=== PATIENT | male | born 1940 | race Caucasian/White ===

== ENCOUNTER 2016-12-10 06:33 | Inpatient (IN) | payer MEDICARE, BC ==
[2016-12-10] MEDS ORDERED: IBUPROFEN 600 MG TAB PO STA (07:17)
[2016-12-10] MEDS ORDERED: ACETAMINOPHEN TAB 500 MG TAB PO STA (07:17)
--- NOTE | 2016-12-10 07:20 | ED ---
General Adult HPI - General Chief complaint: Shortness of Breath Stated complaint: SOB Time Seen by Provider: 12/10/16 07:00 Source: patient, family, RN notes reviewed Mode of arrival: ambulatory Limitations: no limitations - History of Present Illness Initial comments: Patient is a pleasant 76-year-old male presenting to the emergency department with difficulty in breathing. Onset was through the night. Patient has cough with frequent clear sputum. Patient was unaware fever. No history of lung disease. No history of atrial fibrillation or CHF. No leg swelling. Symptoms have progressed. - Related Data Home Medications Medication Instructions Recorded Confirmed Lisinopril-Hctz 10-12.5 mg 1 tab PO DAILY 12/10/16 12/10/16 [Zestoretic 10-12.5] Simvastatin [Zocor] 20 mg PO HS 12/10/16 12/10/16 Allergies Allergy/AdvReac Type Severity Reaction Status Date / Time No Known Allergies Allergy Verified 12/10/16 07:50 Review of Systems ROS Statement: Those systems with pertinent positive or pertinent negative responses have been documented in the HPI. ROS Other: All systems not noted in ROS Statement are negative. Constitutional: Reports: weakness Eyes: Denies: eye pain ENT: Denies: ear pain Respiratory: Reports: cough, dyspnea Cardiovascular: Denies: chest pain Endocrine: Reports: fatigue Gastrointestinal: Denies: abdominal pain Genitourinary: Denies: dysuria Musculoskeletal: Denies: back pain Skin: Denies: lesions Neurological: Denies: headache Past Medical History Past Medical History: Hyperlipidemia, Hypertension History of Any Multi-Drug Resistant Organisms: None Reported Additional Past Surgical History / Comment(s): brain tumor removed Past Psychological History: No Psychological Hx Reported Smoking Status: Former smoker Past Alcohol Use History: Occasional Past Drug Use History: None Reported General Exam Limitations: no limitations General appearance: alert Head exam: Present: atraumatic Eye exam: Present: normal appearance, PERRL ENT exam: Present: normal oropharynx Neck exam: Present: normal inspection Respiratory exam: Present: rales Cardiovascular Exam: Present: tachycardia, irregular rhythm GI/Abdominal exam: Present: soft. Absent: tenderness Extremities exam: Present: normal inspection. Absent: pedal edema, calf tenderness Back exam: Present: normal inspection Neurological exam: Present: alert Psychiatric exam: Present: normal affect, normal mood Skin exam: Present: normal color Course Vital Signs 12/10/16 12/10/16 12/10/16 06:36 07:29 08:07 Temperature 104.1 F H 100.8 F H Pulse Rate 105 H 157 H 146 H Respiratory 20 18 Rate Blood Pressure 147/69 157/81 O2 Sat by Pulse 88 L 94 L Oximetry - Reevaluation(s) Reevaluation #1: 12/10/16 08:33 Patient does meet severe sepsis criteria diagnosed at 8:33 AM. EKG Findings - EKG Comments: EKG Findings:: A. fib with RVR, rate 142. QRS 92. QT 288. QTC 443. Normal axis. Septal Q waves. Nonspecific ST-T. Medical Decision Making - Medical Decision Making Patient was reevaluated and updated. Heart rate remains elevated as fever starts to improve. Cardizem will be started. Case was discussed in detail with Dr. De La O, who will admit for Dr. Nava. Cardiology will be consult. Patient has been started on IV antibiotics. Admission orders written. - Lab Data Result diagrams: 12/10/16 06:56 12/10/16 06:56 Lab Results 12/10/16 12/10/16 12/10/16 Range/Units 06:56 06:56 06:56 WBC 11.9 H (3.8-10.6) k/uL RBC 5.07 (4.30-5.90) m/uL Hgb 15.2 (13.0-17.5) gm/dL Hct 44.7 (39.0-53.0) % MCV 88.0 (80.0-100.0) fL MCH 30.0 (25.0-35.0) pg MCHC 34.1 (31.0-37.0) g/dL RDW 13.9 (11.5-15.5) % Plt Count 166 (150-450) k/uL Neutrophils % 89 % Lymphocytes % 7 % Monocytes % 3 % Eosinophils % 0 % Basophils % 0 % Neutrophils # 10.6 H (1.3-7.7) k/uL Lymphocytes # 0.8 L (1.0-4.8) k/uL Monocytes # 0.3 (0-1.0) k/uL Eosinophils # 0.0 (0-0.7) k/uL Basophils # 0.0 (0-0.2) k/uL PT (9.0-12.0) sec INR (<1.1) APTT (22.0-30.0) sec Sodium 138 (137-145) mmol/L Potassium 4.9 (3.5-5.1) mmol/L Chloride 100 (98-107) mmol/L Carbon Dioxide 24 (22-30) mmol/L Anion Gap 14 mmol/L BUN 34 H (9-20) mg/dL Creatinine 1.19 (0.66-1.25) mg/dL Est GFR (MDRD) Af Amer >60 (>60 ml/min/1.73 sqM) Est GFR (MDRD) Non-Af 59 (>60 ml/min/1.73 sqM) Glucose 169 H (74-99) mg/dL Plasma Lactic Acid Efrem (0.7-2.0) mmol/L Calcium 9.8 (8.4-10.2) mg/dL Magnesium 1.6 (1.6-2.3) mg/dL Total Bilirubin 1.5 H (0.2-1.3) mg/dL AST 25 (17-59) U/L ALT 37 (21-72) U/L Alkaline Phosphatase 106 (38-126) U/L Total Creatine Kinase 142 (55-170) U/L CK-MB (CK-2) 1.7 (0.0-2.4) ng/mL CK-MB (CK-2) Rel Index 1.2 Troponin I 0.015 (0.000-0.034) ng/mL NT-Pro-B Natriuret Pep pg/mL Total Protein 7.8 (6.3-8.2) g/dL Albumin 4.3 (3.5-5.0) g/dL TSH 0.802 (0.465-4.680) mIU/L Free T4 0.87 (0.78-2.19) ng/dL 12/10/16 12/10/16 12/10/16 Range/Units 06:56 06:56 06:56 WBC (3.8-10.6) k/uL RBC (4.30-5.90) m/uL Hgb (13.0-17.5) gm/dL Hct (39.0-53.0) % MCV (80.0-100.0) fL MCH (25.0-35.0) pg MCHC (31.0-37.0) g/dL RDW (11.5-15.5) % Plt Count (150-450) k/uL Neutrophils % % Lymphocytes % % Monocytes % % Eosinophils % % Basophils % % Neutrophils # (1.3-7.7) k/uL Lymphocytes # (1.0-4.8) k/uL Monocytes # (0-1.0) k/uL Eosinophils # (0-0.7) k/uL Basophils # (0-0.2) k/uL PT 11.7 (9.0-12.0) sec INR 1.2 (<1.1) APTT 22.4 (22.0-30.0) sec Sodium (137-145) mmol/L Potassium (3.5-5.1) mmol/L Chloride (98-107) mmol/L Carbon Dioxide (22-30) mmol/L Anion Gap mmol/L BUN (9-20) mg/dL Creatinine (0.66-1.25) mg/dL Est GFR (MDRD) Af Amer (>60 ml/min/1.73 sqM) Est GFR (MDRD) Non-Af (>60 ml/min/1.73 sqM) Glucose (74-99) mg/dL Plasma Lactic Acid Efrem 2.2 H* (0.7-2.0) mmol/L Calcium (8.4-10.2) mg/dL Magnesium (1.6-2.3) mg/dL Total Bilirubin (0.2-1.3) mg/dL AST (17-59) U/L ALT (21-72) U/L Alkaline Phosphatase (38-126) U/L Total Creatine Kinase (55-170) U/L CK-MB (CK-2) (0.0-2.4) ng/mL CK-MB (CK-2) Rel Index Troponin I (0.000-0.034) ng/mL NT-Pro-B Natriuret Pep 1070 pg/mL Total Protein (6.3-8.2) g/dL Albumin (3.5-5.0) g/dL TSH (0.465-4.680) mIU/L Free T4 (0.78-2.19) ng/dL - Radiology Data Radiology results: image reviewed (Patient does have right greater than left lower lobe infiltrate) Critical Care Time Critical Care Time: Yes Total Critical Care Time: 35 Disposition Clinical Impression: Severe sepsis, Pneumonia, Atrial fibrillation with rapid ventricular response Disposition: ADMITTED IP TO THIS [facility] Condition: Serious Referrals: Taylor Nava MD [Primary Care Provider] - 1-2 days
[2016-12-10 07:38] LABS: Basophils % (A) 0 %; CH 30.2; CHCM 34.5; Eosinophils % (A) 0 %; HCT 44.7 % (39.0-53.0); HDW 3.14; HGB 15.2 gm/dL (13.0-17.5); Luc # (Auto) 0.12; Luc % (Auto) 1; Lymphocytes # (A) 0.8 k/uL (1.0-4.8); Lymphocytes % (A) 7 %; MCHC 34.1 g/dL (31.0-37.0); Mean Platelet Volume 6.9; Monocytes # (A) 0.3 k/uL (0-1.0); Monocytes % (A) 3 %; Neutrophils # (A) 10.6 k/uL (1.3-7.7); Neutrophils % (A) 89 %; RBC 5.07 m/uL (4.30-5.90); RDW 13.9 % (11.5-15.5); WBC 11.9 k/uL (3.8-10.6)
[2016-12-10 07:45] LABS: INR 1.2 (<1.1); Partial Thromboplastin Time 22.4 sec (22.0-30.0); Prothrombin Time 11.7 sec (9.0-12.0)
[2016-12-10 07:48] LABS: ALT 37 U/L (21-72); AST 25 U/L (17-59); Alkaline Phosphatase 106 U/L (38-126); Anion Gap 14 mmol/L; Blood Urea Nitrogen 34 mg/dL (9-20); Calcium 9.8 mg/dL (8.4-10.2); Carbon Dioxide 24 mmol/L (22-30); Chloride 100 mmol/L (98-107); Glucose 169 mg/dL (74-99); Magnesium 1.6 mg/dL (1.6-2.3); Non-African American GFR(MDRD) 59 (>60 ml/min/1.73 sqM); Potassium 4.9 mmol/L (3.5-5.1); Sodium 138 mmol/L (137-145); Total Bilirubin 1.5 mg/dL (0.2-1.3); Total Protein 7.8 g/dL (6.3-8.2)
--- NOTE | 2016-12-10 07:53 | XR ---
EXAMINATION TYPE: XR chest 2V DATE OF EXAM: 12/10/2016 7:39 AM COMPARISON: 12/11/2010 HISTORY: 76-year-old male with shortness of breath and fever TECHNIQUE: AP and lateral views FINDINGS: Heart is upper limits of normal in size. Atherosclerotic arch calcifications. Ulnar vasculature withi n normal limits. There are prominent patchy right greater than left basilar opacities. No significant pleural effusion seen on the lateral view. IMPRESSION: Right greater than left bibasilar infiltrates. Correlate for infectious or aspiration pneumonitis.
[2016-12-10 08:26] LABS: Creatine Kinase MB 1.7 ng/mL (0.0-2.4); Troponin I 0.015 ng/mL (0.000-0.034)
[2016-12-10] MEDS ORDERED: DILTIAZEM 125 MG in SODIUM CHLORIDE 0.9% 100 ML IV ONE (08:30)
[2016-12-10] MEDS ORDERED: PNEUMONIA PROTOCOL UTILIZED 1 EACH MISC PO PRN (08:32)
[2016-12-10] MEDS ORDERED: IPRATROPIUM-ALBUTEROL 3 ML NEB INHALATION PRN (08:32)
[2016-12-10] MEDS ORDERED: AZITHROMYCIN 500 MG in SODIUM CHLORIDE 0.9% 250 ML IVPB STA (08:32)
[2016-12-10] MEDS ORDERED: SODIUM CHLORIDE 0.9% 1,000 ML IV STA (08:34)
[2016-12-10] MEDS ORDERED: SODIUM CHLORIDE 0.9% 250 ML IV STA ×2 (08:34→08:55)
[2016-12-10] MEDS ORDERED: IBUPROFEN 400 MG TAB PO PRN (08:52)
[2016-12-10] MEDS ORDERED: NALOXONE 0.4 MG/ML 1 ML VIAL IV PRN (08:52)
[2016-12-10] MEDS ORDERED: HEPARIN SODIUM,PORCINE 5,000 UNIT/ML 1 ML VIAL IV ONE (08:54)
[2016-12-10] MEDS ORDERED: DILTIAZEM 5 MG/ML 5 ML VIAL IVP STA (08:55)
--- NOTE | 2016-12-10 10:34 | P.HPIM ---
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 Also has a history of being a former smoker. Patient presents to the emergency room with worsening shortness of breath has been ongoing off and on for the last week. Patient reports last night he had to sit up in chair and felt that he could not get her breath in. He presented to the emergency room and was found to have a temperature of 104.1, white count of 11.9, lactic acid of 2.2 and chest x-ray revealing and evidence of right greater than left by basilar infiltrate. Patient was started on Rocephin and azithromycin for pneumonia. His oxygen saturation was 88% on room air. He's now on 2 L satting 94%. He was also found to have atrial fibrillation with rapid ventricular response heart rate of 142. Started on IV heparin IV Cardizem drip in the emergency room. Cardiology has been consulted. Thyroid studies are within normal range. Patient does admit to having some chills and sweats. He denies any nausea or vomiting. Denies any bowel movement changes or urinary symptoms. He is coughing whitish colored sputum. Patient does report having possibly one or 2 single episodes of atrial fibrillation in his past. And he reports being on Coumadin at one point several years ago. But was told to go off of it. This may have been for a right lower extremity DVT. 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 History of Any Multi-Drug Resistant Organisms: None Reported Additional Past Surgical History / Comment(s): 1998 benign brain tumor removed Past Anesthesia/Blood Transfusion Reactions: No Reported Reaction Past Psychological History: No Psychological Hx Reported Additional Psychological History / Comment(s): Pt resides with his spouse. He is independent. He has a glucose monitor. 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 Smoking Status: Former smoker Past Alcohol Use History: Occasional Additional Past Alcohol Use History / Comment(s): Pt started smoking in 1951 and quit in 1985. Past Drug Use History: None Reported - Past Family History Father Family Medical History: Myocardial Infarction (CO) Additional Family Medical History / Comment(s): Father of a CO at the age of 93yrs. Mother Family Medical History: Myocardial Infarction (CO) Additional Family Medical History / Comment(s): Mother of a CO at the age of 88yrs. Medications and Allergies Home Medications Medication Instructions Recorded Confirmed Type Lisinopril-Hctz 20-12.5 mg 1 tab PO DAILY 12/10/16 12/10/16 History [Zestoretic 20-12.5] Multivitamins, Thera [Multivitamin 1 tab PO DAILY 12/10/16 12/10/16 History (formulary)] Simvastatin [Zocor] 20 mg PO HS 12/10/16 12/10/16 History amLODIPine [Norvasc] 5 mg PO HS 12/10/16 12/10/16 History metFORMIN HCL [Glucophage] 500 mg PO DAILY 12/10/16 12/10/16 History Allergies Allergy/AdvReac Type Severity Reaction Status Date / Time No Known Allergies Allergy Verified 12/10/16 07:50 Physical Exam Vitals: Vital Signs Temp Pulse Resp BP Pulse Ox 12/10/16 09:14 99.9 F H 116 H 18 118/66 94 L Head normocephalic Neck supple Lungs scattered rhonchi bilaterally Heart irregular. A. fib on monitor. Heart rate 111 Abdomen is soft nontender nondistended positive bowel sounds no hepatosplenomegaly Extremities no edema Neuro alert and orientated to 3 Results CBC & Chem 7: 12/10/16 06:56 12/10/16 06:56 Thrombosis Risk Factor Assmnt - Choose All That Apply Any of the Below Risk Factors Present?: Yes Each Factor Represents 1 point: Obesity (BMI >25), Sepsis (< 1month), Serious lung disease incl. pneumonia (< 1month) Other Risk Factors: Yes Each Risk Factor Represents 3 Points: Age 75 years or older, History of DVT/PE Other congenital or acquired thrombophilia - If yes, enter type in comment: No Thrombosis Risk Factor Assessment Total Risk Factor Score: 9 Thrombosis Risk Factor Assessment Level: High Risk Assessment and Plan Plan: 1. Acute hypoxic respiratory failure with dyspnea Dyspnea likely multifactorial due to atrial fibrillation with rapid ventricular response as well as pneumonia. Patient had oxygen saturation of 88% on room air on admission 2. Atrophic fibrillation with rapid ventricular response: EKG showing A. fib with RVR heart rate of 142. Patient is currently on IV Cardizem drip and IV heparin. Cardiology has been consulted. Thyroid studies within normal range 3. Bibasilar pneumonia: Chest x-ray showing right greater than left bibasilar infiltrate. Continue with azithromycin and Rocephin. Check sputum culture. Change nebulizer treatments to scheduled [id number] 4. Sepsis present on admission: Secondary to pneumonia. Temp of 104.1, white count 11.9, and lactic acid level of 2.2. Patient is receiving IV fluids. And received IV fluid bolus in the emergency room. Blood cultures are pending. 5. Essential hypertension: Blood pressures are stable. Continue to monitor. Place parameters around zestoretic 6. Hyperlipidemia: Continue statin 7. Diabetes mellitus type 2: Hold metformin during hospitalization. Add sliding scale coverage. Check hemoglobin A1c. 8. 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 History of previous episodes of atrial fibrillation 10. Previous right lower extremity DVT and GI and DVT prophylaxis Pepcid and IV heparin Time with Patient: Greater than 30 (Greater than 50% of the total time spent in counseling and coordination of care.I performed an examination of the patient and discussed their management with the physician Stereotype Finisher. I have reviewed the Physician Stereotype Finisher's notes and agree with the documented findings and plan of care)
[2016-12-10 11:16] LABS: Hemoglobin A1C 5.7 % (4.2-6.1)
[2016-12-10] MEDS: HEPARIN SODIUM,PORCINE/D5W PMX 25,000 UNIT in DEXTROSE/WATER 1 500ML.BAG IV SCH (11:22)
--- NOTE | 2016-12-10 11:58 | ECHOF ---
Referral Reason:a fib MEASUREMENTS -------- HEIGHT: 175.3 cm WEIGHT: 104.8 kg BP: 118/66 RVIDd: 3.3 cm (< 3.3) IVSd: 1.2 cm (0.6 - 1.1) LVIDd: 4.8 cm (3.9 - 5.3) LVPWd: 1.1 cm (0.6 - 1.1) IVSs: 1.9 cm LVIDs: 3.7 cm LVPWs: 1.7 cm LA Diam: 4.2 cm (2.7 - 3.8) LAESV Index (A-L): 20.83 ml/m Ao Diam: 2.0 cm (2.0 - 3.7) AV Cusp: 1.1 cm (1.5 - 2.6) LA Diam: 3.6 cm (2.7 - 3.8) MV EXCURSION: 14.425 mm (> 18.000) MV EF SLOPE: 42 mm/s (70 - 150) EPSS: 0.8 cm AV maxP.61 mmHg AV meanP.95 mmHg RAP: 5.00 mmHg RVSP: 46.14 mmHg FINDINGS -------- Atrial fibrillation. This was a technically adequate study. There is borderline concentric left ventricular hypertrophy. Overall left ventricular systolic function is mild-moderately impaired with, an EF between 40 - 45 %. Basal inferoseptal LV wall motion is hypokinetic. Mid inferoseptal LV wall motion is hypokinetic. The right ventricle is mildly enlarged. Normal LA size by volume 22+/-6 ml/m2. The right atrium is normal in size. 1.5mg of Definity was utilized for enhancement of images There is moderate aortic stenosis present. Peak/mean gradient across the Aortic Valve is 51.61mmHg / 27.95mmHg. The mitral valve leaflets are mildly thickened. Mild mitral annular calcification present. Mild mitral regurgitation is present. Mild tricuspid regurgitation present. There is mild to moderate pulmonary hypertension. The right ventricular systolic pressure, as measured by Doppler, is 46.14mmHg. Trace/mild (physiologic) pulmonic regurgitation. The aortic root size is normal. Normal inferior vena cava with normal inspiratory collapse consistent with estimated right atrial pressure of 5 mmHg. There is no pericardial effusion. CONCLUSIONS -------- 1. Atrial fibrillation. 2. 1.5mg of Definity was utilized for enhancement of images 3. There is moderate aortic stenosis present. 4. Peak/mean gradient across the Aortic Valve is 51.61mmHg / 27.95mmHg. 5. The mitral valve leaflets are mildly thickened. 6. Mild mitral annular calcification present. 7. Mild mitral regurgitation is present. 8. Mild tricuspid regurgitation present. 9. There is mild to moderate pulmonary hypertension. 10. The right ventricular systolic pressure, as measured by Doppler, is 46.14mmHg. 11. Trace/mild (physiologic) pulmonic regurgitation. 12. This was a technically adequate study. 13. The aortic root size is normal. 14. Normal inferior vena cava with normal inspiratory collapse consistent with estimated right atrial pressure of 5 mmHg. 15. There is no pericardial effusion. 16. There is borderline concentric left ventricular hypertrophy. 17. Overall left ventricular systolic function is mild-moderately impaired with, an EF between 40 - 45 %. 18. Basal inferoseptal LV wall motion is hypokinetic. 19. Mid inferoseptal LV wall motion is hypokinetic. 20. The right ventricle is mildly enlarged. 21. Normal LA size by volume 22+/-6 ml/m2. 22. The right atrium is normal in size. WIRE BOUND BOX MACHINE OPERATOR: Anand Soria RDCS
[2016-12-10 12:43] LABS: Creatine Kinase MB 1.5 ng/mL (0.0-2.4)
[2016-12-10 12:50] LABS: Troponin I 0.146 ng/mL (0.000-0.034)
[2016-12-10] MEDS: IPRATROPIUM-ALBUTEROL 3 ML NEB INHALATION SCH ×4 (16:14→22:36)
[2016-12-10 16:48] LABS: Glucose,Whole Blood 117 mg/dL (75-99)
[2016-12-10] MEDS: INSULIN LISPRO (humaLOG) 300 UNIT/3 ML VIAL SQ SCH ×3 (16:51→21:55)
[2016-12-10 18:48] LABS: Creatine Kinase MB 2.1 ng/mL (0.0-2.4)
[2016-12-10 18:56] LABS: Troponin I 0.108 ng/mL (0.000-0.034)
[2016-12-10] MEDS: HEPARIN SODIUM,PORCINE 5,000 UNIT/ML 1 ML VIAL IV PRN (19:05)
[2016-12-10 19:28] LABS: Appearance,Urine Clear (Clear); Bilirubin,Urine Negative (Negative); Glucose,Urine (UA) Negative (Negative); Ketones,Urine Negative (Negative); Leukocyte Esterase,Urine Small (Negative); Mucus,Urine Rare /hpf; Nitrite,Urine Negative (Negative); PH, Urine 5.5 (5.0-8.0); Particle Count 6219; Protein,Urine Trace (Negative); RBC,Urine 1 /hpf (0-5); Specific Gravity,Urine 1.023 (1.001-1.035); Squamous Epithelial Cell,Urine 1 /hpf (0-4); UA Billing (MACRO vs. MICRO) MICRO; Urobilinogen,Urine <2.0 mg/dL (<2.0); WBC,Urine 9 /hpf (0-5)
[2016-12-10] MEDS: ATORVASTATIN 10 MG TAB PO SCH (20:31)
[2016-12-10 20:46] LABS: Glucose,Whole Blood 140 mg/dL (75-99)
[2016-12-10] MEDS ORDERED: amLODIPine 5 MG TAB PO SCH (21:00)
[2016-12-11] MEDS: IPRATROPIUM-ALBUTEROL 3 ML NEB INHALATION SCH ×5 (04:43→19:33)
[2016-12-11 06:15] LABS: Glucose,Whole Blood 125 mg/dL (75-99)
[2016-12-11] MEDS: INSULIN LISPRO (humaLOG) 300 UNIT/3 ML VIAL SQ SCH ×4 (06:18→20:56)
[2016-12-11 06:47] LABS: Basophils % (A) 0 %; CH 30.3; CHCM 34.1; Eosinophils % (A) 0 %; HCT 34.2 % (39.0-53.0); HDW 3.04; Luc # (Auto) 0.14; Luc % (Auto) 1; Lymphocytes # (A) 0.8 k/uL (1.0-4.8); Lymphocytes % (A) 8 %; MCH 29.7 pg (25.0-35.0); MCHC 33.2 g/dL (31.0-37.0); MCV 89.5 fL (80.0-100.0); Monocytes # (A) 0.3 k/uL (0-1.0); Monocytes % (A) 3 %; Neutrophils # (A) 8.8 k/uL (1.3-7.7); Neutrophils % (A) 87 %; RBC 3.82 m/uL (4.30-5.90); WBC 10.2 k/uL (3.8-10.6); WBC (Perox) 10.46
[2016-12-11 06:53] LABS: HGB 11.4 gm/dL (13.0-17.5)
--- NOTE | 2016-12-11 08:50 | XR ---
EXAMINATION TYPE: XR chest 2V DATE OF EXAM: 12/11/2016 8:44 AM COMPARISON: 12/10/2016 HISTORY: Shortness of breath TECHNIQUE: Frontal and lateral views of the chest are obtained. FINDINGS: Scattered senescent parenchymal changes noted. Hyperinflation compatible with COPD. Increasing right lower lobe infiltrate and small effusion. Heart size is stable. Mild pulmonary venous engorgement. Mediastinal structures are stable and grossly unremarkable. No evidence for hilar prominence. Degenerative changes dorsal spine. IMPRESSION: 1. Increasing right lower lobe infiltrate and small effusion.
--- NOTE | 2016-12-11 09:11 | P.PN ---
Subjective Principal diagnosis: Pneumonia and atrial fibrillation with rapid ventricular response Patient is a 76-year-old male who presented to [facility] was a chief complaint of worsening shortness of breath he was evaluated in emergency room and had evidence of atrial fibrillation with rapid ventricular response he also had evidence of by basilar pneumonia he was started on IV antibiotic Rocephin and Zithromax he was started on IV heparin and on IV Cardizem drip and was admitted to telemetry floor, cardiology consultation was requested. Objective - Vital Signs Vital signs: Vital Signs Temp 99.7 F H 12/11/16 07:51 Pulse 100 12/11/16 07:51 Resp 18 12/11/16 07:51 BP 117/56 12/11/16 07:51 Pulse Ox 94 L 12/11/16 07:51 Intake & Output 12/10/16 12/11/16 12/11/16 18:59 06:59 18:59 Intake Total 960 1721.117 Output Total 600 Balance 960 1121.117 Weight 105 kg Intake: IV 656 Diltiazem 125 mg In 25 Sodium Chloride 0.9% 100 ml @ 5 MG/HR 5 mls/hr IV .Q24H ONE Rx#:[id number] Heparin Sodium,Porcine/ 131 D5w Pmx 25,000 unit In Dextrose/Water 1 500ml. bag @ 9.5 UNITS/KG/HR 19. 9 mls/hr IV .Q24H FARHANA Rx# :[id number] Sodium Chloride 0.9% 1, 500 000 ml @ 100 mls/hr IV . Q10H STA Rx#:[id number] Intake, IV Titration 900 465.117 Amount Heparin Sodium,Porcine/ 465.117 D5w Pmx 25,000 unit In Dextrose/Water 1 500ml. bag @ 9.5 UNITS/KG/HR 19. 9 mls/hr IV .Q24H FARHANA Rx# :[id number] Sodium Chloride 0.9% 1, 900 000 ml @ 100 mls/hr IV . Q10H STA Rx#:[id number] Oral 60 600 Output: Urine 600 Other: Voiding Method Urinal Bedside Commode Urinal # Voids 1 1 - Exam HEENT head normocephalic and atraumatic Neck is supple no JVD no goiter no lymphadenopathy Chest exam reveals a scattered crackles bilaterally no wheezing Cardiac exam reveals irregular heart sounds no gallops no murmurs Abdomen is soft nontender no organomegaly Extremity exam reveals no edema no cyanosis or clubbing - Labs CBC & Chem 7: 12/11/16 06:33 12/10/16 06:56 Labs: Abnormal Lab Results - Last 24 Hours (Table) 12/10/16 12/10/16 12/10/16 Range/Units 11:47 16:46 18:05 RBC (4.30-5.90) m/uL Hgb (13.0-17.5) gm/dL Hct (39.0-53.0) % Plt Count (150-450) k/uL Neutrophils # (1.3-7.7) k/uL Lymphocytes # (1.0-4.8) k/uL APTT (22.0-30.0) sec POC Glucose (mg/dL) 117 H (75-99) mg/dL Troponin I 0.146 H* 0.108 H* (0.000-0.034) ng/mL Urine Protein (Negative) Ur Leukocyte Esterase (Negative) Urine WBC (0-5) /hpf Hyaline Casts (0-2) /lpf Urine Mucus (None) /hpf 12/10/16 12/10/16 12/10/16 Range/Units 18:05 19:15 20:45 RBC (4.30-5.90) m/uL Hgb (13.0-17.5) gm/dL Hct (39.0-53.0) % Plt Count (150-450) k/uL Neutrophils # (1.3-7.7) k/uL Lymphocytes # (1.0-4.8) k/uL APTT 31.9 H (22.0-30.0) sec POC Glucose (mg/dL) 140 H (75-99) mg/dL Troponin I (0.000-0.034) ng/mL Urine Protein Trace H (Negative) Ur Leukocyte Esterase Small H (Negative) Urine WBC 9 H (0-5) /hpf Hyaline Casts 8 H (0-2) /lpf Urine Mucus Rare H (None) /hpf 12/11/16 12/11/16 12/11/16 Range/Units 01:04 06:14 06:33 RBC 3.82 L (4.30-5.90) m/uL Hgb 11.4 L D (13.0-17.5) gm/dL Hct 34.2 L (39.0-53.0) % Plt Count 139 L (150-450) k/uL Neutrophils # 8.8 H (1.3-7.7) k/uL Lymphocytes # 0.8 L (1.0-4.8) k/uL APTT 51.8 H (22.0-30.0) sec POC Glucose (mg/dL) 125 H (75-99) mg/dL Troponin I (0.000-0.034) ng/mL Urine Protein (Negative) Ur Leukocyte Esterase (Negative) Urine WBC (0-5) /hpf Hyaline Casts (0-2) /lpf Urine Mucus (None) /hpf 12/11/16 Range/Units 06:33 RBC (4.30-5.90) m/uL Hgb (13.0-17.5) gm/dL Hct (39.0-53.0) % Plt Count (150-450) k/uL Neutrophils # (1.3-7.7) k/uL Lymphocytes # (1.0-4.8) k/uL APTT 46.4 H (22.0-30.0) sec POC Glucose (mg/dL) (75-99) mg/dL Troponin I (0.000-0.034) ng/mL Urine Protein (Negative) Ur Leukocyte Esterase (Negative) Urine WBC (0-5) /hpf Hyaline Casts (0-2) /lpf Urine Mucus (None) /hpf Microbiology - Last 24 Hours (Table) 12/10/16 19:15 Urine Culture - Preliminary Urine,Voided Assessment and Plan Plan: 1. Acute hypoxic respiratory failure with dyspnea Dyspnea, multifactorial due to atrial fibrillation with rapid ventricular response as well as pneumonia. Patient had oxygen saturation of 88% on room air on admission, currently maintained on oxygen 4 L via nasal cannula O2 sat duration 93% 2. Atrial fibrillation with rapid ventricular response, Patient is currently on IV Cardizem drip and IV heparin. Cardiology has been consulted. Thyroid studies within normal range 3. Bibasilar pneumonia: Chest x-ray showing right greater than left bibasilar infiltrate. Continue with azithromycin and Rocephin. Check sputum culture. Change nebulizer treatments to scheduled [id number] 4. Sepsis present on admission: Secondary to pneumonia. Temp of 104.1, white count 11.9, and lactic acid level of 2.2. Patient is receiving IV fluids. And received IV fluid bolus in the emergency room. Blood cultures are pending. 5. Essential hypertension: Blood pressures are stable. Continue to monitor. Place parameters around zestoretic 6. Hyperlipidemia, maintained on atorvastatin 10 mg daily continue 7. Diabetes mellitus type 2: Hold metformin during hospitalization. Add sliding scale coverage. Check hemoglobin A1c. 8. 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 History of previous episodes of atrial fibrillation 10. Previous right lower extremity DVT and GI and DVT prophylaxis Pepcid and IV heparin
[2016-12-11] MEDS: AZITHROMYCIN 500 MG TAB PO SCH (09:53)
--- NOTE | 2016-12-11 09:53 | P.CRDCN ---
History of Present Illness Consult date: 12/11/16 Requesting physician: Taylor Nava Consult reason: atrial fibrillation Chief complaint: Shortness of breath History of present illness: This is a 76-year-old gentleman with history of hypertension, hyperlipidemia, diabetes, prior history of smoking, prior history of benign brain tumor removed in the , history of prior DVT. Patient presents to the hospital with symptoms of severe shortness of breath. According to the patient he feels like he's been dealing with a cold recently, however yesterday prior to his admission to the hospital he states he could not breathe at all. He did feel a pressure and a tight sensation in his upper chest area and felt his heart racing fast. Temperature on arrival here 104.1, blood pressure 147/60 , 88% on room air. EKG on admission showed atrial fibrillation with a rapid ventricular response, heart rate in the 140s. Patient was initiated on IV Cardizem drip along with IV heparin. According to the patient, he had been told to have an irregular heartbeat at the time of this brain tumor in the . Chest x-ray on admission revealed right greater than left bibasilar infiltrates. Repeat chest x-ray performed this morning showed increased right lower lobe infiltrate and small effusion. White blood cell count on admission 11.9, hemoglobin 15.2, sodium 138, potassium 4.9, BUN 34, creatinine 1.1. A museum level I.6. TSH 0.802. BNP level 1070. Troponins 0.015, 0.146, 0.108. Echocardiogram with Doppler study was performed which revealed an ejection fraction of 40-45%, mid and basal inferior septal hypokinesia is noted. Moderate aortic stenosis. Blood pressure this morning 116/56 with a heart rate of 100. Temperature 99.7. 94% on 4 L of oxygen. Patient is currently on IV antibiotics, IV Cardizem, IV heparin, Norvasc 5 mg daily, lisinopril hydrochlorothiazide one tablet daily, Lipitor 10 mg daily. Patient was seen and examined this morning, states that his breathing is improving, continues to have productive cough with mild shortness of breath. Denies any chest discomfort this morning. Continues to be in atrial fibrillation this morning. 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 History of Any Multi-Drug Resistant Organisms: None Reported Additional Past Surgical History / Comment(s): 1998 benign brain tumor removed Past Anesthesia/Blood Transfusion Reactions: No Reported Reaction Past Psychological History: No Psychological Hx Reported Additional Psychological History / Comment(s): Pt resides with his spouse. He is independent. He has a glucose monitor. He retired from the [employer]. Smoking Status: Former smoker Past Alcohol Use History: Occasional Additional Past Alcohol Use History / Comment(s): Pt started smoking in 1950 and quit in 1985. Past Drug Use History: None Reported - Past Family History Father Family Medical History: Myocardial Infarction (CA) Additional Family Medical History / Comment(s): Father of a CA at the age of 93yrs. Mother Family Medical History: Myocardial Infarction (CA) Additional Family Medical History / Comment(s): Mother of a CA at the age of 88yrs. Medications and Allergies Home Medications Medication Instructions Recorded Confirmed Type Lisinopril-Hctz 20-12.5 mg 1 tab PO DAILY 12/10/16 12/10/16 History [Zestoretic 20-12.5] Multivitamins, Thera [Multivitamin 1 tab PO DAILY 12/10/16 12/10/16 History (formulary)] Simvastatin [Zocor] 20 mg PO HS 12/10/16 12/10/16 History amLODIPine [Norvasc] 5 mg PO HS 12/10/16 12/10/16 History metFORMIN HCL [Glucophage] 500 mg PO DAILY 12/10/16 12/10/16 History Allergies Allergy/AdvReac Type Severity Reaction Status Date / Time No Known Allergies Allergy Verified 12/10/16 07:50 Physical Exam Vitals: Vital Signs Temp Pulse Pulse Pulse Resp BP BP 12/11/16 07:51 99.7 F H 100 18 117/56 12/11/16 03:59 98.1 F 87 18 116/57 12/11/16 00:00 98.1 F 74 18 114/57 12/10/16 20:11 94 12/10/16 20:03 94 12/10/16 20:00 98.1 F 87 18 109/57 12/10/16 16:40 98.6 F 88 16 103/63 12/10/16 11:35 98.5 F 91 18 88/52 85/56 Pulse Ox 12/11/16 07:51 94 L 12/11/16 03:59 97 12/11/16 00:00 93 L 12/10/16 20:11 12/10/16 20:03 12/10/16 20:00 95 12/10/16 16:40 97 12/10/16 11:35 96 Intake and Output 12/10/16 12/11/16 12/11/16 22:59 06:59 14:59 Intake Total 1713.893 967.224 Output Total 600 Balance 1713.893 367.224 Intake: IV 656 Diltiazem 125 mg In 25 Sodium Chloride 0.9% 100 ml @ 5 MG/HR 5 mls/hr IV .Q24H [facility] Rx#:[id number] Heparin Sodium,Porcine/ 131 D5w Pmx 25,000 unit In Dextrose/Water 1 500ml. bag @ 9.5 UNITS/KG/HR 19. 9 mls/hr IV .Q24H [facility] Rx# :[id number] Sodium Chloride 0.9% 1, 500 000 ml @ 100 mls/hr IV . Q10H [facility] Rx#:[id number] Intake, IV Titration 1053.893 311.224 Amount Heparin Sodium,Porcine/ 153.893 311.224 D5w Pmx 25,000 unit In Dextrose/Water 1 500ml. bag @ 9.5 UNITS/KG/HR 19. 9 mls/hr IV .Q24H [facility] Rx# :[id number] Sodium Chloride 0.9% 1, 900 000 ml @ 100 mls/hr IV . Q10H [facility] Rx#:[id number] Oral 660 Output: Urine 600 Other: Voiding Method Bedside Commode Bedside Commode Urinal Urinal # Voids 1 1 Weight 105 kg PHYSICAL EXAMINATION: HEENT: Head is atraumatic, normocephalic. Pupils equal, round. Neck is supple. There is elevated jugular venous pressure. HEART EXAMINATION: Heart to S1 and S2 irregularly irregular systolic murmur is heard. CHEST EXAMINATION: Lungs reveal scattered coarse rhonchi and wheezing throughout ABDOMEN: Soft, obese, nontender. Bowel sounds are heard. No organomegaly noted. EXTREMITIES: 2+ peripheral pulses with trace evidence of peripheral edema and no calf tenderness noted. NEUROLOGIC patient is awake, alert and oriented -3. . Results 12/11/16 06:33 12/10/16 06:56 Cardiac Enzymes 12/10/16 12/10/16 Range/Units 11:47 18:05 CK-MB (CK-2) 1.5 2.1 (0.0-2.4) ng/mL Troponin I 0.146 H* 0.108 H* (0.000-0.034) ng/mL Coagulation 12/10/16 12/11/16 12/11/16 Range/Units 18:05 01:04 06:33 APTT 31.9 H 51.8 H 46.4 H (22.0-30.0) sec CBC 12/11/16 Range/Units 06:33 WBC 10.2 (3.8-10.6) k/uL RBC 3.82 L (4.30-5.90) m/uL Hgb 11.4 L D (13.0-17.5) gm/dL Hct 34.2 L (39.0-53.0) % Plt Count 139 L (150-450) k/uL Current Medications Generic Name Dose Route Start Last Admin Trade Name Freq PRN Reason Stop Dose Admin Acetaminophen 650 mg 12/10/16 08:52 Tylenol Tab PO Q6HR PRN Mild Pain or Fever > 100.5 Albuterol/Ipratropium 3 ml 12/10/16 12:00 12/11/16 04:43 Duoneb 0.5 Mg-3 Mg/3 Ml Soln INHALATION Not Given RT-Q4H [facility] Amlodipine Besylate 5 mg 12/10/16 21:00 12/10/16 20:59 Norvasc PO 5 mg HS [facility] Administration Atorvastatin Calcium 10 mg 12/10/16 21:00 12/10/16 20:31 Lipitor PO Not Given HS [facility] Azithromycin 500 mg 12/11/16 09:00 Zithromax PO DAILY [facility] Famotidine 20 mg 12/11/16 09:00 Pepcid PO DAILY [facility] Guaifenesin 600 mg 12/11/16 09:15 Mucinex PO Q12HR [facility] Lisinopril/HCTZ 1 each 12/11/16 09:00 Zestoretic 20-12.5 PO DAILY [facility] Heparin Sodium (Porcine) 0 unit 12/10/16 08:54 12/10/16 19:05 Heparin IV 4,000 unit PER PROTOCOL PRN Administration Low PTT Protocol Ceftriaxone Sodium 1,000 mg/ 50 mls @ 100 mls/hr 12/11/16 09:00 Sodium Chloride IVPB 12/14/16 09:01 Q24HR [facility] Heparin Sodium/Dextrose 25,000 500 mls @ 19.9 mls/hr 12/10/16 10:00 12/11/16 06:59 unit/ IV Solution IV 14.5 units/kg/hr .Q24H [facility] 30.38 mls/hr Protocol Titration 9.5 UNITS/KG/HR Ibuprofen 400 mg 12/10/16 08:52 Motrin PO Q6HR PRN Mild Pain or Fever > 100.5 Insulin Human Lispro 0 unit 12/10/16 12:30 12/11/16 06:18 Humalog SQ Not Given ACHS [facility] Protocol Miscellaneous Information 1 each 12/10/16 08:32 Pneumonia Protocol Utilized PO ONCE PRN Per Protocol Multivitamins 1 each 12/11/16 12:00 Theragran PO 1200 [facility] Naloxone HCl 0.2 mg 12/10/16 08:52 Narcan IV Q2M PRN Opioid Reversal Sodium Chloride 10 ml 12/10/16 09:00 12/10/16 20:59 Saline Flush IV 10 ml BID [facility] Administration Intake and Output 12/10/16 12/11/16 12/11/16 22:59 06:59 14:59 Intake Total 1713.893 967.224 Output Total 600 Balance 1713.893 367.224 Intake: IV 656 Diltiazem 125 mg In 25 Sodium Chloride 0.9% 100 ml @ 5 MG/HR 5 mls/hr IV .Q24H [facility] Rx#:[id number] Heparin Sodium,Porcine/ 131 D5w Pmx 25,000 unit In Dextrose/Water 1 500ml. bag @ 9.5 UNITS/KG/HR 19. 9 mls/hr IV .Q24H [facility] Rx# :[id number] Sodium Chloride 0.9% 1, 500 000 ml @ 100 mls/hr IV . Q10H [facility] Rx#:[id number] Intake, IV Titration 1053.893 311.224 Amount Heparin Sodium,Porcine/ 153.893 311.224 D5w Pmx 25,000 unit In Dextrose/Water 1 500ml. bag @ 9.5 UNITS/KG/HR 19. 9 mls/hr IV .Q24H [facility] Rx# :[id number] Sodium Chloride 0.9% 1, 900 000 ml @ 100 mls/hr IV . Q10H [facility] Rx#:[id number] Oral 660 Output: Urine 600 Other: Voiding Method Bedside Commode Bedside Commode Urinal Urinal # Voids 1 1 Weight 105 kg 12/11/16 06:33 EKG Interpretations (text) EKG shows atrial fibrillation with a rapid ventricular response, occasional PVC , nonspecific ST-T wave changes. Assessment and Plan Plan: Assessment and plan #1 symptoms of progressively worsening shortness of breath, combination of of bilateral pneumonia, and systolic congestive heart failure acute on chronic. Currently on IV antibiotics. #2 atrial fibrillation with rapid ventricular response, appears to be of new onset, patient currently on IV heparin and Cardizem drip, TSH normal #3 sepsis, temperature 104 on admission, likely secondary to pneumonia. Blood cultures pending #4 abnormal troponins, could be secondary to oxygen supply and demand mismatch, cannot completely rule out ACS. Echocardiogram with Doppler study reveals an ejection fraction of 40-45% with evidence of basal and mid inferior septal hypokinesia. Moderate aortic stenosis. # 5 diabetes #6 hypertension #7 hyperlipidemia #8 history of benign brain tumor, removed in the . #9 History of prior DVT Plan From cardiology's perspective, we'll continue IV heparin, discontinue IV Cardizem as the patient has cardiomyopathy. Repeat EKG this morning. Give the patient one time dose of IV Lasix. Initiate aspirin 81 mg. Discontinue Norvasc and initiate low-dose beta cait. Patients CHADSVASC score is 7, which places him at moderate high risk, therefore anticoagulation is indicated. We will check to see if patient has coverage for one of the newer anticoagulants. Once the patient is stable from an infection standpoint, he will require further testing to rule out underlying coronary artery disease. Further recommendations to follow. DNP note has been reviewed, I agree with a documented findings and plan of care. Patient was seen and examined.
[2016-12-11] MEDS: FAMOTIDINE 20 MG TAB PO SCH (09:54)
[2016-12-11] MEDS: LISINOPRIL-HCTZ 20-12.5 MG 1 EACH TAB PO SCH (09:54)
[2016-12-11] MEDS: guaiFENesin 600 MG TABLET.ER PO SCH ×2 (09:54→20:57)
[2016-12-11] MEDS: HEPARIN SODIUM,PORCINE/D5W PMX 25,000 UNIT in DEXTROSE/WATER 1 500ML.BAG IV SCH (11:05)
[2016-12-11] MEDS: FUROSEMIDE 10 MG/ML 4 ML VIAL IV SCH ×2 (11:05→20:57)
[2016-12-11] MEDS: METOPROLOL TARTRATE 25 MG TAB PO SCH ×2 (11:06→20:57)
[2016-12-11] MEDS: MULTIVITAMINS, THERA 1 EACH TAB PO SCH (11:06)
[2016-12-11 11:41] LABS: Glucose,Whole Blood 152 mg/dL (75-99)
[2016-12-11] MEDS: HEPARIN SODIUM,PORCINE 5,000 UNIT/ML 1 ML VIAL IV PRN (16:02)
[2016-12-11 17:20] LABS: Glucose,Whole Blood 129 mg/dL (75-99)
[2016-12-11] MEDS ORDERED: IPRATROPIUM-ALBUTEROL 3 ML NEB INHALATION PRN (20:23)
[2016-12-11 20:43] LABS: Glucose,Whole Blood 135 mg/dL (75-99)
[2016-12-11] MEDS: ATORVASTATIN 10 MG TAB PO SCH (20:57)
[2016-12-12] MEDS: ACETAMINOPHEN TAB 325 MG TAB PO PRN (00:08)
[2016-12-12 01:20] LABS: Glucose,Whole Blood 125 mg/dL (75-99)
[2016-12-12 05:36] LABS: Glucose,Whole Blood 110 mg/dL (75-99)
[2016-12-12] MEDS: INSULIN LISPRO (humaLOG) 300 UNIT/3 ML VIAL SQ SCH ×4 (06:45→21:23)
[2016-12-12 07:05] LABS: Basophils % (A) 0 %; CHCM 34.2; Eosinophils # (A) 0.1 k/uL (0-0.7); Eosinophils % (A) 1 %; HCT 34.7 % (39.0-53.0); HDW 3.24; HGB 11.7 gm/dL (13.0-17.5); Luc # (Auto) 0.19; Luc % (Auto) 2; Lymphocytes % (A) 12 %; MCH 29.8 pg (25.0-35.0); MCHC 33.7 g/dL (31.0-37.0); MCV 88.2 fL (80.0-100.0); Mean Platelet Volume 6.9; Monocytes # (A) 0.3 k/uL (0-1.0); Monocytes % (A) 4 %; Neutrophils # (A) 6.9 k/uL (1.3-7.7); Neutrophils % (A) 81 %; RBC 3.94 m/uL (4.30-5.90); WBC 8.5 k/uL (3.8-10.6); WBC (Perox) 8.87
[2016-12-12 07:16] LABS: ALT 42 U/L (21-72); AST 45 U/L (17-59); Alkaline Phosphatase 86 U/L (38-126); Anion Gap 11 mmol/L; Blood Urea Nitrogen 35 mg/dL (9-20); Calcium 8.8 mg/dL (8.4-10.2); Carbon Dioxide 26 mmol/L (22-30); Chloride 101 mmol/L (98-107); Glucose 106 mg/dL (74-99); Non-African American GFR(MDRD) 55 (>60 ml/min/1.73 sqM); Sodium 138 mmol/L (137-145); Total Bilirubin 1.2 mg/dL (0.2-1.3); Total Protein 6.4 g/dL (6.3-8.2)
[2016-12-12] MEDS: IPRATROPIUM-ALBUTEROL 3 ML NEB INHALATION SCH ×4 (07:25→19:57)
[2016-12-12] MEDS: AZITHROMYCIN 500 MG TAB PO SCH (08:42)
[2016-12-12] MEDS: METOPROLOL TARTRATE 25 MG TAB PO SCH ×2 (08:43→19:56)
[2016-12-12] MEDS: LISINOPRIL-HCTZ 20-12.5 MG 1 EACH TAB PO SCH (08:43)
[2016-12-12] MEDS: guaiFENesin 600 MG TABLET.ER PO SCH ×2 (08:43→19:56)
[2016-12-12] MEDS: FAMOTIDINE 20 MG TAB PO SCH (08:43)
[2016-12-12 12:12] LABS: Glucose,Whole Blood 119 mg/dL (75-99)
--- NOTE | 2016-12-12 12:33 | P.PN ---
Subjective Principal diagnosis: Pneumonia and atrial fibrillation with rapid ventricular response Patient is a 76-year-old male who presented to [facility] was a chief complaint of worsening shortness of breath he was evaluated in emergency room and had evidence of atrial fibrillation with rapid ventricular response he also had evidence of by basilar pneumonia he was started on IV antibiotic Rocephin and Zithromax he was started on IV heparin and on IV Cardizem drip and was admitted to telemetry floor, cardiology consultation was requested. Objective - Vital Signs Vital signs: Vital Signs Temp 97.2 F L 12/12/16 11:25 Pulse 80 12/12/16 11:26 Resp 24 12/12/16 11:25 BP 129/66 12/12/16 11:25 Pulse Ox 99 12/12/16 11:25 Intake & Output 12/11/16 12/12/16 12/12/16 18:59 06:59 18:59 Intake Total 1170.834 819.914 340 Output Total 1100 Balance 70.834 819.914 340 Weight 103.4 kg Intake: IV 980 360 160 Diltiazem 125 mg In 20 40 Sodium Chloride 0.9% 100 ml @ 5 MG/HR 5 mls/hr IV .Q24H [facility] Rx#:[id number] Heparin Sodium,Porcine/ 160 320 160 D5w Pmx 25,000 unit In Dextrose/Water 1 500ml. bag @ 9.5 UNITS/KG/HR 19. 9 mls/hr IV .Q24H [facility] Rx# :[id number] Sodium Chloride 0.9% 1, 800 000 ml @ 100 mls/hr IV . Q10H [facility] Rx#:[id number] Intake, IV Titration 190.834 279.914 Amount Heparin Sodium,Porcine/ 190.834 279.914 D5w Pmx 25,000 unit In Dextrose/Water 1 500ml. bag @ 9.5 UNITS/KG/HR 19. 9 mls/hr IV .Q24H [facility] Rx# :[id number] Oral 180 180 Output: Urine 1100 Other: Voiding Method Toilet Toilet Toilet Urinal Urinal Urinal # Voids 1 1 - Exam HEENT head normocephalic and atraumatic Neck is supple no JVD no goiter no lymphadenopathy Chest exam reveals a scattered crackles bilaterally no wheezing Cardiac exam reveals irregular heart sounds no gallops no murmurs Abdomen is soft nontender no organomegaly Extremity exam reveals no edema no cyanosis or clubbing - Labs CBC & Chem 7: 12/12/16 06:23 12/12/16 06:23 Labs: Abnormal Lab Results - Last 24 Hours (Table) 12/11/16 12/11/16 12/11/16 Range/Units 13:49 16:52 20:41 RBC (4.30-5.90) m/uL Hgb (13.0-17.5) gm/dL Hct (39.0-53.0) % Plt Count (150-450) k/uL APTT 39.5 H (22.0-30.0) sec BUN (9-20) mg/dL Creatinine (0.66-1.25) mg/dL Glucose (74-99) mg/dL POC Glucose (mg/dL) 129 H 135 H (75-99) mg/dL Albumin (3.5-5.0) g/dL 12/11/16 12/12/16 12/12/16 Range/Units 22:28 01:19 05:32 RBC (4.30-5.90) m/uL Hgb (13.0-17.5) gm/dL Hct (39.0-53.0) % Plt Count (150-450) k/uL APTT 78.6 H (22.0-30.0) sec BUN (9-20) mg/dL Creatinine (0.66-1.25) mg/dL Glucose (74-99) mg/dL POC Glucose (mg/dL) 125 H 110 H (75-99) mg/dL Albumin (3.5-5.0) g/dL 12/12/16 12/12/16 12/12/16 Range/Units 06:23 06:23 06:23 RBC 3.94 L (4.30-5.90) m/uL Hgb 11.7 L (13.0-17.5) gm/dL Hct 34.7 L (39.0-53.0) % Plt Count 147 L (150-450) k/uL APTT 53.8 H (22.0-30.0) sec BUN 35 H (9-20) mg/dL Creatinine 1.27 H (0.66-1.25) mg/dL Glucose 106 H (74-99) mg/dL POC Glucose (mg/dL) (75-99) mg/dL Albumin 3.4 L (3.5-5.0) g/dL 12/12/16 Range/Units 11:31 RBC (4.30-5.90) m/uL Hgb (13.0-17.5) gm/dL Hct (39.0-53.0) % Plt Count (150-450) k/uL APTT (22.0-30.0) sec BUN (9-20) mg/dL Creatinine (0.66-1.25) mg/dL Glucose (74-99) mg/dL POC Glucose (mg/dL) 119 H (75-99) mg/dL Albumin (3.5-5.0) g/dL Microbiology - Last 24 Hours (Table) 12/11/16 17:34 Gram Stain - Preliminary Sputum 12/10/16 19:15 Urine Culture - Final Urine,Voided 12/10/16 11:47 Blood Culture - Preliminary Blood No Growth after 24 hours Assessment and Plan Plan: 1. Acute hypoxic respiratory failure with dyspnea Dyspnea, multifactorial due to atrial fibrillation with rapid ventricular response as well as pneumonia. 2. Atrial fibrillation with rapid ventricular response, Patient is currently on IV Cardizem drip and IV heparin. Cardiology has been consulted. Thyroid studies within normal range 3. Bibasilar pneumonia: Chest x-ray showing right greater than left bibasilar infiltrate. Continue with azithromycin and Rocephin. sputum culture positive for gram-positive cocci awaiting further results continue current antibiotic at this time 4. Sepsis present on admission: Secondary to pneumonia. Temp of 104.1, white count 11.9, and lactic acid level of 2.2. Patient is receiving IV fluids. And received IV fluid bolus in the emergency room. Blood cultures are pending. 5. Essential hypertension: Blood pressures are stable. Continue to monitor. Place parameters around zestoretic 6. Hyperlipidemia, maintained on atorvastatin 10 mg daily continue 7. Diabetes mellitus type 2: Hold metformin during hospitalization. Add sliding scale coverage. Check hemoglobin A1c. 8. 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 History of previous episodes of atrial fibrillation 10. Previous right lower extremity DVT and GI and DVT prophylaxis Pepcid and IV heparin
[2016-12-12] MEDS: HEPARIN SODIUM,PORCINE/D5W PMX 25,000 UNIT in DEXTROSE/WATER 1 500ML.BAG IV SCH ×2 (13:00→19:58)
[2016-12-12] MEDS: MULTIVITAMINS, THERA 1 EACH TAB PO SCH (13:01)
--- NOTE | 2016-12-12 14:16 | CDI ---
In responding to this query, please exercise your independent professional judgment. The [facility] Coding Staff and Clinical Documentation Specialists appreciate your assistance in clarifying documentation, maintaining compliance with coding guidelines, accurately documenting patients condition and capturing severity of illness. The fact that a question is asked does not imply that any particular answer is desired or expected. Communication forms are a method of clarifying documentation and are not made part of the Legal Health Record. Thank you in advance for your clarification. Last Revision, June 2015 Ashanti Zurita [address] [place] [address] Documentation Clarification Form Date: 12/12/2016 2:06:00 PM From: Naomie Parra Admit Date: 12/10/2016 8:53:00 AM Patient Name: Kel David Visit Number: [id number] Dr. Nhi Dunn/ Nicole Smith DNP Atrial fibrillation is documented in the H&P and Cardiology Notes. History/Risk Factors: Cardiomyopathy, HTN, DM2 Clinical Indicators: 12/11 Cardiology Consult: "EKG on admission showed atrial fibrillation with a rapid ventricular response, heart rate in the 140s. Patient was initiated on IV Cardizem drip along with IV heparin. According to the patient, he had been told to have an irregular heartbeat at the time of this brain tumor in the ." EKG/telemetry: AFib RVR Treatment: Consults: Cardiology Cardizem and Heparin Drip Lopressor 25mg PO BID In your professional opinion, can you please clarify the type of atrial fibrillation, if known? Chronic/Permanent Paroxysmal Persistent Other, please specify Unable to determine Please document in your progress notes and discharge summary in order to capture severity of illness and risk of mortality. Include clinical findings that support your diagnosis. FYI: Press F11 to launch patient chart Place X here if this finding has no clinical significance, is not applicable or if you are not able to provide any additional documentation. MTDD
--- NOTE | 2016-12-12 15:07 | P.PN ---
Subjective Principal diagnosis: pneumonia This is a 76-year-old gentleman with history of hypertension, hyperlipidemia, diabetes, prior history of smoking, prior history of benign brain tumor removed in the , history of prior DVT. Patient presents to the hospital with symptoms of severe shortness of breath. According to the patient he feels like he's been dealing with a cold recently, however yesterday prior to his admission to the hospital he states he could not breathe at all. He did feel a pressure and a tight sensation in his upper chest area and felt his heart racing fast. Temperature on arrival here 104.1, blood pressure 147/60 , 88% on room air. EKG on admission showed atrial fibrillation with a rapid ventricular response, heart rate in the 140s. Patient was initiated on IV Cardizem drip along with IV heparin. patient continues to be on IV heparin, denies to be in atrial fibrillation, rate under much better control today. Cardizem drip has been discontinued.overall patient is feeling much better today.afebrile. Objective - Vital Signs Vital signs: Vital Signs Temp 97.2 F L 12/12/16 11:25 Pulse 80 12/12/16 11:45 Resp 24 12/12/16 11:25 BP 129/66 12/12/16 11:25 Pulse Ox 99 12/12/16 11:25 Intake & Output 12/11/16 12/12/16 12/12/16 18:59 06:59 18:59 Intake Total 1170.834 884.049 340 Output Total 1100 Balance 70.834 884.049 340 Weight 103.4 kg Intake: IV 980 360 160 Diltiazem 125 mg In 20 40 Sodium Chloride 0.9% 100 ml @ 5 MG/HR 5 mls/hr IV .Q24H [facility] Rx#:[id number] Heparin Sodium,Porcine/ 160 320 160 D5w Pmx 25,000 unit In Dextrose/Water 1 500ml. bag @ 9.5 UNITS/KG/HR 19. 9 mls/hr IV .Q24H [facility] Rx# :[id number] Sodium Chloride 0.9% 1, 800 000 ml @ 100 mls/hr IV . Q10H [facility] Rx#:[id number] Intake, IV Titration 190.834 344.049 Amount Heparin Sodium,Porcine/ 190.834 344.049 D5w Pmx 25,000 unit In Dextrose/Water 1 500ml. bag @ 9.5 UNITS/KG/HR 19. 9 mls/hr IV .Q24H [facility] Rx# :[id number] Oral 180 180 Output: Urine 1100 Other: Voiding Method Toilet Toilet Toilet Urinal Urinal Urinal # Voids 1 1 - Exam PHYSICAL EXAMINATION: HEENT: Head is atraumatic, normocephalic. Pupils equal, round. Neck is supple. There is elevated jugular venous pressure. HEART EXAMINATION: Heart to S1 and S2 irregularly irregular systolic murmur is heard. CHEST EXAMINATION: Lungs reveal improvement in air entry bilaterally, mild wheezing. ABDOMEN: Soft, obese, nontender. Bowel sounds are heard. No organomegaly noted. EXTREMITIES: 2+ peripheral pulses with trace evidence of peripheral edema and no calf tenderness noted. NEUROLOGIC patient is awake, alert and oriented -3. - Labs CBC & Chem 7: 12/12/16 06:23 12/12/16 06:23 Labs: Abnormal Lab Results - Last 24 Hours (Table) 12/11/16 12/11/16 12/11/16 Range/Units 16:52 20:41 22:28 RBC (4.30-5.90) m/uL Hgb (13.0-17.5) gm/dL Hct (39.0-53.0) % Plt Count (150-450) k/uL APTT 78.6 H (22.0-30.0) sec BUN (9-20) mg/dL Creatinine (0.66-1.25) mg/dL Glucose (74-99) mg/dL POC Glucose (mg/dL) 129 H 135 H (75-99) mg/dL Albumin (3.5-5.0) g/dL 12/12/16 12/12/16 12/12/16 Range/Units 01:19 05:32 06:23 RBC 3.94 L (4.30-5.90) m/uL Hgb 11.7 L (13.0-17.5) gm/dL Hct 34.7 L (39.0-53.0) % Plt Count 147 L (150-450) k/uL APTT (22.0-30.0) sec BUN (9-20) mg/dL Creatinine (0.66-1.25) mg/dL Glucose (74-99) mg/dL POC Glucose (mg/dL) 125 H 110 H (75-99) mg/dL Albumin (3.5-5.0) g/dL 12/12/16 12/12/16 12/12/16 Range/Units 06:23 06:23 11:31 RBC (4.30-5.90) m/uL Hgb (13.0-17.5) gm/dL Hct (39.0-53.0) % Plt Count (150-450) k/uL APTT 53.8 H (22.0-30.0) sec BUN 35 H (9-20) mg/dL Creatinine 1.27 H (0.66-1.25) mg/dL Glucose 106 H (74-99) mg/dL POC Glucose (mg/dL) 119 H (75-99) mg/dL Albumin 3.4 L (3.5-5.0) g/dL Microbiology - Last 24 Hours (Table) 12/10/16 11:47 Blood Culture - Preliminary Blood No Growth after 48 hours 12/11/16 17:34 Gram Stain - Preliminary Sputum 12/10/16 19:15 Urine Culture - Final Urine,Voided Assessment and Plan Plan: Assessment and plan #1 symptoms of progressively worsening shortness of breath, combination of of bilateral pneumonia, and systolic congestive heart failure acute on chronic. Currently on IV antibiotics. #2 atrial fibrillation with rapid ventricular response, appears to be of new onset, chronic persistent, on IV heparin #3 sepsis, temperature 104 on admission, likely secondary to pneumonia. Blood cultures pending #4 abnormal troponins, could be secondary to oxygen supply and demand mismatch, cannot completely rule out ACS. Echocardiogram with Doppler study reveals an ejection fraction of 40-45% with evidence of basal and mid inferior septal hypokinesia. Moderate aortic stenosis. # 5 diabetes #6 hypertension #7 hyperlipidemia #8 history of benign brain tumor, removed in the . #9 History of prior DVT Plan from cardiology's perspective, we'll continue the patient on his current medications. We will check to see if the patient has coverage for one of the newer anticoagulants, if so we will discontinue the IV heparin and initiate Eliquis. DNP note has been reviewed, I agree with a documented findings and plan of care. Patient was seen and examined.
[2016-12-12 17:14] LABS: Glucose,Whole Blood 131 mg/dL (75-99)
[2016-12-12] MEDS: ATORVASTATIN 10 MG TAB PO SCH (19:56)
[2016-12-12 21:16] LABS: Glucose,Whole Blood 159 mg/dL (75-99)
[2016-12-13 06:24] LABS: Glucose,Whole Blood 125 mg/dL (75-99)
[2016-12-13] MEDS: INSULIN LISPRO (humaLOG) 300 UNIT/3 ML VIAL SQ SCH ×4 (06:26→21:15)
[2016-12-13 06:38] LABS: ALT 79 U/L (21-72); AST 68 U/L (17-59); Alkaline Phosphatase 101 U/L (38-126); Anion Gap 9 mmol/L; Blood Urea Nitrogen 28 mg/dL (9-20); Calcium 8.8 mg/dL (8.4-10.2); Carbon Dioxide 23 mmol/L (22-30); Chloride 102 mmol/L (98-107); Glucose 109 mg/dL (74-99); Non-African American GFR(MDRD) >60 (>60 ml/min/1.73 sqM); Potassium 4.2 mmol/L (3.5-5.1); Sodium 134 mmol/L (137-145); Total Bilirubin 1.2 mg/dL (0.2-1.3); Total Protein 6.1 g/dL (6.3-8.2)
[2016-12-13 07:58] LABS: Basophils % (A) 0 %; CH 30.1; CHCM 34.3; Eosinophils % (A) 0 %; HCT 33.7 % (39.0-53.0); HDW 3.23; HGB 11.5 gm/dL (13.0-17.5); Luc # (Auto) 0.25; Luc % (Auto) 3; Lymphocytes % (A) 10 %; MCH 30.1 pg (25.0-35.0); MCHC 34.1 g/dL (31.0-37.0); MCV 88.4 fL (80.0-100.0); Mean Platelet Volume 6.8; Monocytes # (A) 0.3 k/uL (0-1.0); Monocytes % (A) 3 %; Neutrophils # (A) 8.5 k/uL (1.3-7.7); Neutrophils % (A) 84 %; RBC 3.81 m/uL (4.30-5.90); RDW 13.8 % (11.5-15.5); WBC 10.1 k/uL (3.8-10.6); WBC (Perox) 9.77
[2016-12-13] MEDS: FAMOTIDINE 20 MG TAB PO SCH (08:39)
[2016-12-13] MEDS: METOPROLOL TARTRATE 25 MG TAB PO SCH ×2 (08:40→20:19)
[2016-12-13] MEDS: guaiFENesin 600 MG TABLET.ER PO SCH ×2 (08:40→20:19)
[2016-12-13] MEDS: AZITHROMYCIN 500 MG TAB PO SCH (08:40)
[2016-12-13] MEDS: LISINOPRIL-HCTZ 20-12.5 MG 1 EACH TAB PO SCH (08:40)
[2016-12-13] MEDS: HEPARIN SODIUM,PORCINE 5,000 UNIT/ML 1 ML VIAL IV PRN (08:57)
[2016-12-13] MEDS: IPRATROPIUM-ALBUTEROL 3 ML NEB INHALATION SCH ×4 (09:12→19:24)
--- NOTE | 2016-12-13 10:01 | CDI ---
In responding to this query, please exercise your independent professional judgment. The [facility] Coding Staff and Clinical Documentation Specialists appreciate your assistance in clarifying documentation, maintaining compliance with coding guidelines, accurately documenting patients condition and capturing severity of illness. The fact that a question is asked does not imply that any particular answer is desired or expected. Communication forms are a method of clarifying documentation and are not made part of the Legal Health Record. Thank you in advance for your clarification. Last Revision, June 2015 Ashanti Zurita [address] [place] [address] Documentation Clarification Form Date: 12/13/2016 9:49:00 AM From: Naomie Parra RN, CCDS Admit Date: 12/10/2016 8:53:00 AM Patient Name: Kel David Visit Number: [id number] Dr. Taylor Nava/Marifer LOPEZ Pneumonia was documented in your notes. History/Risk Factors: NIDDM, AFIB, CVA, Ex-Smoker Clinical Indicators: 12/12 Attending Progress Note: "Bibasilar pneumonia: Chest x-ray showing right greater than left bibasilar infiltrate. Continue with azithromycin and Rocephin. Sputum culture positive for gram-positive cocci awaiting further results continue current antibiotic at this time. Sepsis present on admission: Secondary to pneumonia. Temp of 104.1, white count 11.9, and lactic acid level of 2.2. " WBC: 11.9 Left shift:10.6/8.8 12/11 CXR: "Increasing right lower lobe infiltrate and small effusion." 12/12 Attending Lung/Breathing assessment: "Chest exam reveals scattered crackles bilaterally no wheezing." Treatment: Antibiotics: Ceftriaxone 1gm IVPB Q 24 hrs, Zithromax 500mg PO Daily O2: 2-4L Nasal cannula Breathing TX: Duoneb QID In order to capture the severity of condition, please clarify if the condition signifies and you are treating for: Aspiration Pneumonia, identify if: Due to solids or liquids Bacterial Pneumonia, specify causal organism (if known) Gram Negative Pneumonia Due to Strep Due to Staph Due to E. coli Other bacteria (specify) Viral Pneumonia, specify casual organism (if known) Unable to determine Link any associated conditions to the pneumonia: Influenza with secondary gram negative pneumonia Sepsis due to pneumonia Acute respiratory failure due to pneumonia Other, please specify Please document in your progress notes and discharge summary in order to capture severity of illness and risk of mortality. Include clinical findings that support your diagnosis. FYI: Press F11 to launch patient chart. Place X here if this finding has no clinical significance, is not applicable or if you are not able to provide any additional documentation. MTDD
--- NOTE | 2016-12-13 10:50 | P.PN ---
Subjective Pneumonia and atrial fibrillation with rapid ventricular response Patient is a 76-year-old male who presented to [facility] was a chief complaint of worsening shortness of breath he was evaluated in emergency room and had evidence of atrial fibrillation with rapid ventricular response he also had evidence of by basilar pneumonia he was started on IV antibiotic Rocephin and Zithromax he was started on IV heparin and on IV Cardizem drip and was admitted to telemetry floor, cardiology consultation was requested. Patient's shortness of breath has improved. He still has some cough and difficulty bringing up the sputum. Denies any chest pain. Denies any nausea or vomiting. Denies any bowel movement changes or urinary symptoms. Awaiting to see if insurance covers the Eliquis Objective - Vital Signs Vital signs: Vital Signs Temp 98.4 F 12/13/16 09:01 Pulse 81 12/13/16 09:01 Resp 18 12/13/16 09:01 BP 128/67 12/13/16 09:01 Pulse Ox 96 12/13/16 09:01 Intake & Output 12/12/16 12/13/16 12/13/16 18:59 06:59 18:59 Intake Total 750 386.277 414.12 Output Total 1300 Balance -550 386.277 414.12 Weight 104 kg Intake: IV 160 160 Heparin Sodium,Porcine/ 160 160 D5w Pmx 25,000 unit In Dextrose/Water 1 500ml. bag @ 9.5 UNITS/KG/HR 19. 9 mls/hr IV .Q24H [facility] Rx# :[id number] Intake, IV Titration 226.277 414.12 Amount Heparin Sodium,Porcine/ 226.277 414.12 D5w Pmx 25,000 unit In Dextrose/Water 1 500ml. bag @ 9.5 UNITS/KG/HR 19. 9 mls/hr IV .Q24H [facility] Rx# :[id number] Oral 590 Output: Urine 1300 Other: Voiding Method Toilet Toilet Toilet Urinal Urinal Urinal # Voids 1 2 - Exam Head normocephalic Neck supple Lungs clear to auscultation bilaterally no wheezing or crackles Heart irregular. A. fib on monitor. Abdomen is soft nontender nondistended positive bowel sounds no hepatosplenomegaly Extremities no edema Neuro alert and orientated to 3 - Labs CBC & Chem 7: 12/13/16 05:36 12/13/16 05:36 Labs: Abnormal Lab Results - Last 24 Hours (Table) 12/12/16 12/12/16 12/12/16 Range/Units 11:31 16:49 21:06 RBC (4.30-5.90) m/uL Hgb (13.0-17.5) gm/dL Hct (39.0-53.0) % Neutrophils # (1.3-7.7) k/uL APTT (22.0-30.0) sec Sodium (137-145) mmol/L BUN (9-20) mg/dL Glucose (74-99) mg/dL POC Glucose (mg/dL) 119 H 131 H 159 H (75-99) mg/dL AST (17-59) U/L ALT (21-72) U/L Total Protein (6.3-8.2) g/dL Albumin (3.5-5.0) g/dL 12/13/16 12/13/16 12/13/16 Range/Units 05:36 05:36 05:36 RBC 3.81 L (4.30-5.90) m/uL Hgb 11.5 L (13.0-17.5) gm/dL Hct 33.7 L (39.0-53.0) % Neutrophils # 8.5 H (1.3-7.7) k/uL APTT 37.1 H (22.0-30.0) sec Sodium 134 L (137-145) mmol/L BUN 28 H (9-20) mg/dL Glucose 109 H (74-99) mg/dL POC Glucose (mg/dL) (75-99) mg/dL AST 68 H (17-59) U/L ALT 79 H (21-72) U/L Total Protein 6.1 L (6.3-8.2) g/dL Albumin 3.2 L (3.5-5.0) g/dL 12/13/16 Range/Units 06:23 RBC (4.30-5.90) m/uL Hgb (13.0-17.5) gm/dL Hct (39.0-53.0) % Neutrophils # (1.3-7.7) k/uL APTT (22.0-30.0) sec Sodium (137-145) mmol/L BUN (9-20) mg/dL Glucose (74-99) mg/dL POC Glucose (mg/dL) 125 H (75-99) mg/dL AST (17-59) U/L ALT (21-72) U/L Total Protein (6.3-8.2) g/dL Albumin (3.5-5.0) g/dL Microbiology - Last 24 Hours (Table) 12/11/16 17:34 Gram Stain - Final Sputum Sputum Culture - Final 12/10/16 11:47 Blood Culture - Preliminary Blood No Growth after 48 hours Assessment and Plan Plan: 1. Acute hypoxic respiratory failure with dyspnea Dyspnea likely multifactorial due to atrial fibrillation with rapid ventricular response as well as pneumonia. Patient had oxygen saturation of 88% on room air on admission 2. Atrial fibrillation with rapid ventricular : EKG showing A. fib with RVR heart rate of 142. Patient remains on IV heparin. 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 Thyroid studies within normal range. Continue metoprolol for rate control 3. Bibasilar pneumonia: Chest x-ray showing right greater than left bibasilar infiltrate. Continue with azithromycin and Rocephin. Sputum culture growing gram-positive cocci. Awaiting final results 4. Sepsis present on admission: Secondary to pneumonia. Temp of 104.1, white count 11.9, and lactic acid level of 2.2. Patient is receiving IV fluids. And received IV fluid bolus in the emergency room. 5. Essential hypertension: Blood pressures are stable. Continue to monitor. Place parameters around zestoretic 6. Hyperlipidemia: Continue statin 7. Diabetes mellitus type 2: Hold metformin during hospitalization. Add sliding scale coverage. Check hemoglobin A1c 5.7. 8. 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 History of previous episodes of atrial fibrillation 10. Previous right lower extremity DVT 11. Low-grade temp of the 100.6. We'll repeat blood culture. 12. Acute systolic CHF exacerbation: Followed by cardiology. Patient did receive IV Lasix. Symptoms have improved. Consult physical therapy Awaiting sputum culture results. Anticipate discharge possibly tomorrow
[2016-12-13 11:53] LABS: Glucose,Whole Blood 112 mg/dL (75-99)
[2016-12-13] MEDS: MULTIVITAMINS, THERA 1 EACH TAB PO SCH (12:27)
[2016-12-13] MEDS: APIXABAN 5 MG TAB PO SCH (15:57)
--- NOTE | 2016-12-13 15:59 | P.PN ---
Subjective Principal diagnosis: pneumonia This is a 76-year-old gentleman with history of hypertension, hyperlipidemia, diabetes, prior history of smoking, prior history of benign brain tumor removed in the , history of prior DVT. Patient presents to the hospital with symptoms of severe shortness of breath. According to the patient he feels like he's been dealing with a cold recently, however yesterday prior to his admission to the hospital he states he could not breathe at all. He did feel a pressure and a tight sensation in his upper chest area and felt his heart racing fast. Temperature on arrival here 104.1, blood pressure 147/60 , 88% on room air. EKG on admission showed atrial fibrillation with a rapid ventricular response, heart rate in the 140s. Patient continues to be in atrial fibrillation, heart rate in the 80s. Blood pressure 124/76. Started on Eliquis 5 mg one tablet by mouth twice a day, continues to be on metoprolol tartrate 25 mg one tablet by mouth twice a day Objective - Vital Signs Vital signs: Vital Signs Temp 99.0 F 12/13/16 15:53 Pulse 104 H 12/13/16 15:53 Resp 16 12/13/16 15:53 BP 126/65 12/13/16 15:53 Pulse Ox 94 L 12/13/16 15:53 Intake & Output 12/12/16 12/13/16 12/13/16 18:59 06:59 18:59 Intake Total 750 386.277 594.12 Output Total 1300 Balance -550 386.277 594.12 Weight 104 kg Intake: IV 160 160 Heparin Sodium,Porcine/ 160 160 D5w Pmx 25,000 unit In Dextrose/Water 1 500ml. bag @ 9.5 UNITS/KG/HR 19. 9 mls/hr IV .Q24H [facility] Rx# :[id number] Intake, IV Titration 226.277 414.12 Amount Heparin Sodium,Porcine/ 226.277 414.12 D5w Pmx 25,000 unit In Dextrose/Water 1 500ml. bag @ 9.5 UNITS/KG/HR 19. 9 mls/hr IV .Q24H [facility] Rx# :[id number] Oral 590 180 Output: Urine 1300 Other: Voiding Method Toilet Toilet Toilet Urinal Urinal Urinal # Voids 1 2 1 - Exam PHYSICAL EXAMINATION: HEENT: Head is atraumatic, normocephalic. Pupils equal, round. Neck is supple. There is elevated jugular venous pressure. HEART EXAMINATION: Heart to S1 and S2 irregularly irregular systolic murmur is heard. CHEST EXAMINATION: Lungs reveal improvement in air entry bilaterally, mild wheezing. ABDOMEN: Soft, obese, nontender. Bowel sounds are heard. No organomegaly noted. EXTREMITIES: 2+ peripheral pulses with trace evidence of peripheral edema and no calf tenderness noted. NEUROLOGIC patient is awake, alert and oriented -3. - Labs CBC & Chem 7: 12/13/16 05:36 12/13/16 05:36 Labs: Abnormal Lab Results - Last 24 Hours (Table) 12/12/16 12/12/16 12/13/16 Range/Units 16:49 21:06 05:36 RBC 3.81 L (4.30-5.90) m/uL Hgb 11.5 L (13.0-17.5) gm/dL Hct 33.7 L (39.0-53.0) % Neutrophils # 8.5 H (1.3-7.7) k/uL APTT (22.0-30.0) sec Sodium (137-145) mmol/L BUN (9-20) mg/dL Glucose (74-99) mg/dL POC Glucose (mg/dL) 131 H 159 H (75-99) mg/dL AST (17-59) U/L ALT (21-72) U/L Total Protein (6.3-8.2) g/dL Albumin (3.5-5.0) g/dL 12/13/16 12/13/16 12/13/16 Range/Units 05:36 05:36 06:23 RBC (4.30-5.90) m/uL Hgb (13.0-17.5) gm/dL Hct (39.0-53.0) % Neutrophils # (1.3-7.7) k/uL APTT 37.1 H (22.0-30.0) sec Sodium 134 L (137-145) mmol/L BUN 28 H (9-20) mg/dL Glucose 109 H (74-99) mg/dL POC Glucose (mg/dL) 125 H (75-99) mg/dL AST 68 H (17-59) U/L ALT 79 H (21-72) U/L Total Protein 6.1 L (6.3-8.2) g/dL Albumin 3.2 L (3.5-5.0) g/dL 12/13/16 12/13/16 Range/Units 11:42 15:25 RBC (4.30-5.90) m/uL Hgb (13.0-17.5) gm/dL Hct (39.0-53.0) % Neutrophils # (1.3-7.7) k/uL APTT 53.8 H (22.0-30.0) sec Sodium (137-145) mmol/L BUN (9-20) mg/dL Glucose (74-99) mg/dL POC Glucose (mg/dL) 112 H (75-99) mg/dL AST (17-59) U/L ALT (21-72) U/L Total Protein (6.3-8.2) g/dL Albumin (3.5-5.0) g/dL Microbiology - Last 24 Hours (Table) 12/10/16 11:47 Blood Culture - Preliminary Blood No Growth after 72 hours 12/11/16 17:34 Gram Stain - Final Sputum Sputum Culture - Final Assessment and Plan Plan: Assessment and plan #1 symptoms of progressively worsening shortness of breath, combination of of bilateral pneumonia, and systolic congestive heart failure acute on chronic. Currently on IV antibiotics. #2 atrial fibrillation with rapid ventricular response, appears to be of new onset, chronic persistent, on IV heparin #3 sepsis, temperature 104 on admission, likely secondary to pneumonia. Blood cultures pending #4 abnormal troponins, could be secondary to oxygen supply and demand mismatch, cannot completely rule out ACS. Echocardiogram with Doppler study reveals an ejection fraction of 40-45% with evidence of basal and mid inferior septal hypokinesia. Moderate aortic stenosis. # 5 diabetes #6 hypertension #7 hyperlipidemia #8 history of benign brain tumor, removed in the . #9 History of prior DVT Plan from cardiology's perspective, we'll continue the patient on his current medications. We will follow him along with you now on an as-needed basis only, please don't hesitate to call with any questions. A follow-up appointment will be made in the office post discharge. DNP note has been reviewed, I agree with a documented findings and plan of care. Patient was seen and examined.
[2016-12-13 16:55] LABS: Glucose,Whole Blood 125 mg/dL (75-99)
[2016-12-13] MEDS: ACETAMINOPHEN TAB 325 MG TAB PO PRN (20:19)
[2016-12-13] MEDS: ATORVASTATIN 10 MG TAB PO SCH (20:19)
[2016-12-13 21:00] LABS: Glucose,Whole Blood 137 mg/dL (75-99)
[2016-12-14 06:23] LABS: Glucose,Whole Blood 101 mg/dL (75-99)
[2016-12-14] MEDS: INSULIN LISPRO (humaLOG) 300 UNIT/3 ML VIAL SQ SCH ×4 (06:40→22:03)
[2016-12-14 06:47] LABS: Basophils % (A) 0 %; CH 29.9; Eosinophils # (A) 0.1 k/uL (0-0.7); Eosinophils % (A) 1 %; HCT 34.7 % (39.0-53.0); HDW 3.35; HGB 11.9 gm/dL (13.0-17.5); Luc # (Auto) 0.17; Luc % (Auto) 2; Lymphocytes # (A) 0.7 k/uL (1.0-4.8); Lymphocytes % (A) 7 %; MCH 29.4 pg (25.0-35.0); MCHC 34.2 g/dL (31.0-37.0); MCV 85.8 fL (80.0-100.0); Mean Platelet Volume 6.6; Monocytes # (A) 0.6 k/uL (0-1.0); Monocytes % (A) 5 %; Neutrophils % (A) 85 %; RBC 4.04 m/uL (4.30-5.90); RDW 13.6 % (11.5-15.5); WBC 10.6 k/uL (3.8-10.6); WBC (Perox) 11.46
[2016-12-14 07:04] LABS: ALT 175 U/L (21-72); AST 161 U/L (17-59); Alkaline Phosphatase 242 U/L (38-126); Anion Gap 11 mmol/L; Blood Urea Nitrogen 29 mg/dL (9-20); Calcium 9.1 mg/dL (8.4-10.2); Carbon Dioxide 22 mmol/L (22-30); Chloride 101 mmol/L (98-107); Glucose 109 mg/dL (74-99); Non-African American GFR(MDRD) >60 (>60 ml/min/1.73 sqM); Sodium 134 mmol/L (137-145); Total Bilirubin 2.7 mg/dL (0.2-1.3); Total Protein 6.3 g/dL (6.3-8.2)
[2016-12-14] MEDS: APIXABAN 5 MG TAB PO SCH ×2 (09:27→22:03)
[2016-12-14] MEDS: AZITHROMYCIN 500 MG TAB PO SCH (09:28)
[2016-12-14] MEDS: METOPROLOL TARTRATE 25 MG TAB PO SCH ×2 (09:28→22:03)
[2016-12-14] MEDS: LISINOPRIL-HCTZ 20-12.5 MG 1 EACH TAB PO SCH (09:28)
[2016-12-14] MEDS: FAMOTIDINE 20 MG TAB PO SCH (09:28)
[2016-12-14] MEDS: guaiFENesin 600 MG TABLET.ER PO SCH ×2 (09:29→22:02)
[2016-12-14] MEDS: IPRATROPIUM-ALBUTEROL 3 ML NEB INHALATION SCH ×4 (09:50→19:23)
[2016-12-14 11:54] LABS: Glucose,Whole Blood 120 mg/dL (75-99)
--- NOTE | 2016-12-14 15:16 | US ---
EXAMINATION TYPE: US liver DATE OF EXAM: 12/14/2016 2:20 PM COMPARISON: NONE CLINICAL HISTORY: elevated liver enzymes. EXAM MEASUREMENTS: Liver Length: 14.0 cm Gallbladder Wall: 0.6 cm CBD: 0.6 cm Right Kidney: 10.8 x 5.9 x 5.3 cm Pancreas: partially obscured by bowel gas, heterogeneous Liver: wnl Gallbladder: AARON sign difficult to ascertain where wall is due to AARON sign Evidence for sonographic Barajas's sign: no CBD: wnl Right Kidney: irregular shaped cyst lateral measuring 1.4 x 1.4 x 1.9cm there is may be a dilated edwards perior pole calyx IMPRESSION: 1. Clinical correlation recommended for cholelithiasis and acute cholecystitis.
--- NOTE | 2016-12-14 16:18 | P.PN ---
Subjective This is a 76-year-old gentleman with a history of hypertension, hyperlipidemia, diabetes, prior history of smoking, prior history of benign brain tumor removed in the , history of prior DVT. Patient presented to the hospital with symptoms of severe shortness of breath. According to the patient he felt as if he was dealing with a cold recently however prior just prior to admission he could not breathe at all. Patient did have a pressure and tight sensation in his upper chest area and felt as if his heart was racing. M Shaikh on arrival here was 104.1 with a blood pressure of 147/60 and oxygen saturation of 88% on room air. EKG on admission showed atrial fibrillation with rapid ventricular response. Patient continues to be in atrial fibrillation with mostly controlled heart rates, one episode of RVR with activity last night. He has been started onEliquis 5 mg by mouth twice a day and is on metoprolol tartrate 25 mg by mouth twice a day. This morning, his liver enzymes were noted to be elevated and the attending physician has ordered a liver ultrasound. Objective - Vital Signs Vital signs: Vital Signs Temp 98.8 F 12/14/16 15:52 Pulse 100 12/14/16 15:54 Resp 17 12/14/16 15:54 BP 137/64 12/14/16 15:52 Pulse Ox 95 12/14/16 15:52 Intake & Output 12/13/16 12/14/16 12/14/16 18:59 06:59 18:59 Intake Total 884.12 560 298 Output Total 600 600 Balance 284.12 -40 298 Weight 103.2 kg Intake: IV 240 20 Heparin Sodium,Porcine/ 240 D5w Pmx 25,000 unit In Dextrose/Water 1 500ml. bag @ 9.5 UNITS/KG/HR 19. 9 mls/hr IV .Q24H [facility] Rx# :[id number] IV flush 20 Intake, IV Titration 464.12 Amount Heparin Sodium,Porcine/ 414.12 D5w Pmx 25,000 unit In Dextrose/Water 1 500ml. bag @ 9.5 UNITS/KG/HR 19. 9 mls/hr IV .Q24H [facility] Rx# :[id number] cefTRIAXone 1,000 mg In 50 Sodium Chloride 0.9% 50 ml @ 100 mls/hr IVPB Q24HR [facility] Rx#:[id number] Oral 180 540 298 Output: Urine 600 600 Other: Voiding Method Toilet Toilet Toilet Urinal Urinal # Voids 1 1 - Exam PHYSICAL EXAMINATION: HEENT: Head is atraumatic, normocephalic. Pupils equal, round. Neck is supple. There is no elevated jugular venous pressure. HEART EXAMINATION: Heart sounds irregularly irregular, S1 and S2 with a systolic murmur. CHEST EXAMINATION: Lungs are clear to auscultation and precussion. No chest wall tenderness is noted on palpation or with deep breathing. ABDOMEN: Soft, nontender. Bowel sounds are heard. No organomegaly noted. EXTREMITIES: 2+ peripheral pulses with no evidence of peripheral edema and no calf tenderness noted. NEUROLOGIC patient is awake, alert and oriented x3. . - Labs CBC & Chem 7: 12/14/16 06:25 12/14/16 06:25 Labs: Abnormal Lab Results - Last 24 Hours (Table) 12/13/16 12/13/16 12/14/16 Range/Units 16:45 20:59 06:22 RBC (4.30-5.90) m/uL Hgb (13.0-17.5) gm/dL Hct (39.0-53.0) % Neutrophils # (1.3-7.7) k/uL Lymphocytes # (1.0-4.8) k/uL Sodium (137-145) mmol/L BUN (9-20) mg/dL Glucose (74-99) mg/dL POC Glucose (mg/dL) 125 H 137 H 101 H (75-99) mg/dL Total Bilirubin (0.2-1.3) mg/dL AST (17-59) U/L ALT (21-72) U/L Alkaline Phosphatase (38-126) U/L Albumin (3.5-5.0) g/dL 12/14/16 12/14/16 12/14/16 Range/Units 06:25 06:25 11:52 RBC 4.04 L (4.30-5.90) m/uL Hgb 11.9 L (13.0-17.5) gm/dL Hct 34.7 L (39.0-53.0) % Neutrophils # 9.0 H (1.3-7.7) k/uL Lymphocytes # 0.7 L (1.0-4.8) k/uL Sodium 134 L (137-145) mmol/L BUN 29 H (9-20) mg/dL Glucose 109 H (74-99) mg/dL POC Glucose (mg/dL) 120 H (75-99) mg/dL Total Bilirubin 2.7 H (0.2-1.3) mg/dL AST 161 H (17-59) U/L ALT 175 H (21-72) U/L Alkaline Phosphatase 242 H (38-126) U/L Albumin 3.2 L (3.5-5.0) g/dL Microbiology - Last 24 Hours (Table) 12/10/16 11:47 Blood Culture - Preliminary Blood No Growth after 96 hours 12/13/16 10:55 Blood Culture - Preliminary Blood No Growth after 24 hours Assessment and Plan Plan: #1 symptoms of progressively worsening shortness of breath, combination of bilateral pneumonia and systolic congestive heart failure. #2 atrial fibrillation with rapid ventricular response, new onset possibly persistent #3 sepsis #4 abnormal troponins could be secondary to oxygen supply and demand mismatch #5 diabetes #6 hypertension #7 hyperlipidemia From cardiology standpoint, we'll continue the patient on his current medications. Patient may be discharged home and follow-up in the office in one week. CONTINUING EDUCATION DEAN note has been reviewed, I agree with a documented findings and plan of care. Patient was seen and examined.
--- NOTE | 2016-12-14 16:51 | P.PN ---
Subjective Principal diagnosis: Pneumonia and atrial fibrillation with rapid ventricular response Patient is a 76-year-old male who presented to [facility] was a chief complaint of worsening shortness of breath he was evaluated in emergency room and had evidence of atrial fibrillation with rapid ventricular response he also had evidence of by basilar pneumonia he was started on IV antibiotic Rocephin and Zithromax he was started on IV heparin and on IV Cardizem drip and was admitted to telemetry floor, cardiology consultation was requested. Objective - Vital Signs Vital signs: Vital Signs Temp 98.8 F 12/14/16 15:52 Pulse 100 12/14/16 15:54 Resp 17 12/14/16 15:54 BP 137/64 12/14/16 15:52 Pulse Ox 95 12/14/16 15:52 Intake & Output 12/13/16 12/14/16 12/14/16 18:59 06:59 18:59 Intake Total 884.12 560 298 Output Total 600 600 Balance 284.12 -40 298 Weight 103.2 kg Intake: IV 240 20 Heparin Sodium,Porcine/ 240 D5w Pmx 25,000 unit In Dextrose/Water 1 500ml. bag @ 9.5 UNITS/KG/HR 19. 9 mls/hr IV .Q24H [facility] Rx# :[id number] IV flush 20 Intake, IV Titration 464.12 Amount Heparin Sodium,Porcine/ 414.12 D5w Pmx 25,000 unit In Dextrose/Water 1 500ml. bag @ 9.5 UNITS/KG/HR 19. 9 mls/hr IV .Q24H [facility] Rx# :[id number] cefTRIAXone 1,000 mg In 50 Sodium Chloride 0.9% 50 ml @ 100 mls/hr IVPB Q24HR [facility] Rx#:[id number] Oral 180 540 298 Output: Urine 600 600 Other: Voiding Method Toilet Toilet Toilet Urinal Urinal # Voids 1 1 2 - Exam HEENT head normocephalic and atraumatic Neck is supple no JVD no goiter no lymphadenopathy Chest exam reveals a scattered crackles bilaterally no wheezing Cardiac exam reveals irregular heart sounds no gallops no murmurs Abdomen is soft nontender no organomegaly Extremity exam reveals no edema no cyanosis or clubbing - Labs CBC & Chem 7: 12/14/16 06:25 12/14/16 06:25 Labs: Abnormal Lab Results - Last 24 Hours (Table) 12/13/16 12/13/16 12/14/16 Range/Units 16:45 20:59 06:22 RBC (4.30-5.90) m/uL Hgb (13.0-17.5) gm/dL Hct (39.0-53.0) % Neutrophils # (1.3-7.7) k/uL Lymphocytes # (1.0-4.8) k/uL Sodium (137-145) mmol/L BUN (9-20) mg/dL Glucose (74-99) mg/dL POC Glucose (mg/dL) 125 H 137 H 101 H (75-99) mg/dL Total Bilirubin (0.2-1.3) mg/dL AST (17-59) U/L ALT (21-72) U/L Alkaline Phosphatase (38-126) U/L Albumin (3.5-5.0) g/dL 12/14/16 12/14/16 12/14/16 Range/Units 06:25 06:25 11:52 RBC 4.04 L (4.30-5.90) m/uL Hgb 11.9 L (13.0-17.5) gm/dL Hct 34.7 L (39.0-53.0) % Neutrophils # 9.0 H (1.3-7.7) k/uL Lymphocytes # 0.7 L (1.0-4.8) k/uL Sodium 134 L (137-145) mmol/L BUN 29 H (9-20) mg/dL Glucose 109 H (74-99) mg/dL POC Glucose (mg/dL) 120 H (75-99) mg/dL Total Bilirubin 2.7 H (0.2-1.3) mg/dL AST 161 H (17-59) U/L ALT 175 H (21-72) U/L Alkaline Phosphatase 242 H (38-126) U/L Albumin 3.2 L (3.5-5.0) g/dL Microbiology - Last 24 Hours (Table) 12/10/16 11:47 Blood Culture - Preliminary Blood No Growth after 96 hours 12/13/16 10:55 Blood Culture - Preliminary Blood No Growth after 24 hours Assessment and Plan Plan: 1. Acute hypoxic respiratory failure with dyspnea Dyspnea, multifactorial due to atrial fibrillation with rapid ventricular response as well as pneumonia. 2. Atrial fibrillation with rapid ventricular response, Patient is currently on IV Cardizem drip and IV heparin. Cardiology has been consulted. Thyroid studies within normal range 3. Bibasilar pneumonia: Chest x-ray showing right greater than left bibasilar infiltrate. Continue with azithromycin and Rocephin. sputum culture positive for gram-positive cocci awaiting further results continue current antibiotic at this time 4. Sepsis present on admission: Secondary to pneumonia. Temp of 104.1, white count 11.9, and lactic acid level of 2.2. Patient is receiving IV fluids. And received IV fluid bolus in the emergency room. Blood cultures are pending. 5. Essential hypertension: Blood pressures are stable. Continue to monitor. Place parameters around zestoretic 6. Hyperlipidemia, maintained on atorvastatin 10 mg daily continue 7. Diabetes mellitus type 2: Hold metformin during hospitalization. Add sliding scale coverage. Check hemoglobin A1c. 8. 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 History of previous episodes of atrial fibrillation 10. Previous right lower extremity DVT and GI and DVT prophylaxis Pepcid and IV heparin 11. significant elevation in liver enzymes since yesterday D/C Tylenol, D/C lipitor check liver ultrasound, consult gastroenterology
[2016-12-14 17:28] LABS: Glucose,Whole Blood 146 mg/dL (75-99)
[2016-12-14] MEDS: MULTIVITAMINS, THERA 1 EACH TAB PO SCH (17:33)
[2016-12-14 21:39] LABS: Glucose,Whole Blood 122 mg/dL (75-99)
[2016-12-15 04:17] VITALS: RESP 18
[2016-12-15 06:41] LABS: Glucose,Whole Blood 121 mg/dL (75-99)
[2016-12-15 06:55] LABS: Basophils % (A) 0 %; CH 29.9; CHCM 33.5; Eosinophils # (A) 0.1 k/uL (0-0.7); Eosinophils % (A) 1 %; HCT 35.1 % (39.0-53.0); HDW 3.07; HGB 11.5 gm/dL (13.0-17.5); Luc # (Auto) 0.19; Luc % (Auto) 2; Lymphocytes # (A) 0.9 k/uL (1.0-4.8); Lymphocytes % (A) 10 %; MCH 29.4 pg (25.0-35.0); MCHC 32.8 g/dL (31.0-37.0); MCV 89.7 fL (80.0-100.0); Mean Platelet Volume 6.6; Monocytes # (A) 0.4 k/uL (0-1.0); Monocytes % (A) 4 %; Neutrophils % (A) 83 %; RBC 3.91 m/uL (4.30-5.90); RDW 13.8 % (11.5-15.5); WBC 9.7 k/uL (3.8-10.6); WBC (Perox) 10.14
[2016-12-15] MEDS: INSULIN LISPRO (humaLOG) 300 UNIT/3 ML VIAL SQ SCH ×2 (06:56→12:06)
[2016-12-15 07:16] LABS: ALT 123 U/L (21-72); AST 68 U/L (17-59); Alkaline Phosphatase 220 U/L (38-126); Anion Gap 9 mmol/L; Blood Urea Nitrogen 27 mg/dL (9-20); Calcium 9.1 mg/dL (8.4-10.2); Carbon Dioxide 24 mmol/L (22-30); Chloride 101 mmol/L (98-107); Glucose 108 mg/dL (74-99); Non-African American GFR(MDRD) >60 (>60 ml/min/1.73 sqM); Potassium 4.2 mmol/L (3.5-5.1); Sodium 134 mmol/L (137-145); Total Bilirubin 1.3 mg/dL (0.2-1.3); Total Protein 6.5 g/dL (6.3-8.2)
[2016-12-15 07:28] VITALS: TEMP 98.3
[2016-12-15 08:06] VITALS: PULSE 107
[2016-12-15] MEDS: METOPROLOL TARTRATE 25 MG TAB PO SCH (08:07)
[2016-12-15] MEDS: guaiFENesin 600 MG TABLET.ER PO SCH (08:07)
[2016-12-15] MEDS: AZITHROMYCIN 500 MG TAB PO SCH (08:08)
[2016-12-15] MEDS: MULTIVITAMINS, THERA 1 EACH TAB PO SCH (08:08)
[2016-12-15] MEDS: APIXABAN 5 MG TAB PO SCH (08:08)
[2016-12-15] MEDS: LISINOPRIL-HCTZ 20-12.5 MG 1 EACH TAB PO SCH (08:08)
[2016-12-15] MEDS: FAMOTIDINE 20 MG TAB PO SCH (08:08)
[2016-12-15] MEDS: IPRATROPIUM-ALBUTEROL 3 ML NEB INHALATION SCH ×2 (09:40→12:06)
--- NOTE | 2016-12-15 11:37 | P.DS ---
Providers Date of admission: 12/10/16 08:53 Expected date of discharge: 12/15/16 Attending physician: Curly Sosa Consults: 12/10/16 08:55 Consult Physician Urgent Consulting Provider: Nhi Dunn Consult Reason/Comments: a fib Do you want consulting provider notified?: Yes 12/14/16 16:49 Consult Physician Routine Consulting Provider: Bindu Lester Consult Reason/Comments: elevated liver enzymes Do you want consulting provider notified?: Yes Primary care physician: [facility] Course: Diagnosis on discharge #1 pneumonia #2 new onset atrial fibrillation with rapid ventricular response #3 elevated liver enzymes likely related to medications interaction #4 acute hypoxic respiratory failure related to pneumonia and atrial fibrillation with rapid ventricular response #5 sepsis on admission secondary to pneumonia #6 underlying history of hypertension #7 underlying history of diabetes mellitus #8 underlying history of hyperlipidemia #9 previous history of brain tumor benign removed in 1989 #10 previous history of DVT in the right lower extremity Hospital course Patient is a 76-year-old male who presented to [facility] was a chief complaint of worsening shortness of breath he was admitted to telemetry floor he had evidence of by basilar pneumonia with sepsis with elevated temperature elevated white blood count and elevated lactic acid he was started on IV fluid and IV antibiotics patient also had evidence of atrial fibrillation was rapid ventricular response he was started on IV heparin and on IV Cardizem drip. Patient improved gradually he was started on oral liquids he was started on oral metoprolol and Cardizem drip was discontinued He was switched to oral antibiotics Zithromax 500 mg daily Patient continued to improve he was discharged home on 12/15/2016 He was given a prescription for Zithromax 500 mg once daily for 5 days He was also given a prescription for metoprolol 25 mg twice daily He was given a prescription for Eliquis 5 mg twice daily He will receive 30 day for free of Eliquis and then will made arrangement as outpatient for further management. During this hospitalization patient had significant elevation in his liver enzymes Liver ultrasound was done and did not reveal any significant abnormality Zocor was discontinued Tylenol was discontinued, liver enzymes improved on the day of discharge Patient was discharged home he will be followed in that regard as outpatient very closely to assure normalization of his liver enzymes Most likely cause of elevation in liver enzymes are interaction with medications Patient Condition at Discharge: Serious Plan - Discharge Summary Discharge Medication List Lisinopril-Hctz 20-12.5 mg [Zestoretic 20-12.5] 1 tab PO DAILY 12/10/16 [History ] Multivitamins, Thera [Multivitamin (formulary)] 1 tab PO DAILY 12/10/16 [History ] amLODIPine [Norvasc] 5 mg PO HS 12/10/16 [History] metFORMIN HCL [Glucophage] 500 mg PO DAILY 12/10/16 [History] Apixaban [Eliquis] 5 mg PO BID tab 12/15/16 [Rx] Azithromycin [Zithromax] 500 mg PO DAILY tab 12/15/16 [Rx] Metoprolol Tartrate [Lopressor] 25 mg PO BID tab 12/15/16 [Rx] Follow up Appointment(s)/Referral(s): Taylor Nava MD [Primary Care Provider] - 1-2 days Nhi Dunn MD [STAFF PHYSICIAN] - 1 Week Activity/Diet/Wound Care/Special Instructions: *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
[2016-12-15 11:47] VITALS: BP 111/76
--- NOTE | 2016-12-15 19:14 | CONS ---
DATE OF CONSULTATION: 12/15/2016 REASON FOR CONSULTATION: Abnormal liver chemistries. HISTORY: The patient is a 76-year-old male who presented to the hospital with shortness of breath and was found to have bilateral basilar pneumonia and atrial fibrillation with rapid ventricular response. The patient was started on IV antibiotics, IV Cardizem, and IV heparin. The patient's liver enzymes when first checked were normal and this was on December 12, 2016. They were checked the following day and at this time his AST was up to 68, ALT up to 79. On the day after, on December 14, his AST was up to 161, ALT 175 and total bilirubin 2.7. Today the numbers started to come down with total bilirubin 1.3, AST 68, ALT 123, and alkaline phosphatase 220. The patient had an ultrasound of the liver yesterday, which showed her liver to be within normal limits. There was question regarding cholelithiasis and acute cholecystitis. The patient does not drink alcohol currently, may have been a regular drinker more than 20 years ago but has no history of liver disease. There is no history of abdominal pain, gallstone attacks, or family history of liver disease. The patient has multiple medical problems and had been on multiple medications on admission. His past medical history includes diabetes mellitus, hyperlipidemia, hypertension, DVT, and prior CVA/TIA. 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 He also had a benign tumor removed in 1998. Prior surgeries include brain tumor removal. FAMILY HISTORY: Positive for coronary atherosclerotic heart disease in his father and his mother. ALLERGIES: No known drug allergies. Medications prior to admission included: 1. Lisinopril. 2. Hydrochlorothiazide,. 3. Multivitamin. 4. Zocor. 5. Norvasc. 6. Glucophage. REVIEW OF SYSTEMS: He denied any symptoms associated with chronic liver disease. No history of hepatitis or exposure to persons with jaundice or any prior history or family history of liver disease. No headaches, double vision or any new neurologic complaints other than what is stated in the present illness above. Denies chest pain, nausea or vomiting. Shortness of breath, as mentioned, for which he is on treatment. No genitourinary complaints. No other endocrine problems or lymph gland abnormalities. No skin rashes. No psychiatric or immunologic problems. On physical examination he appeared stated age, very pleasant, in no acute distress. Temperature 98.3, pulse 107, irregular, respirations 18, blood pressure 120/72. HEAD AND NECK: Normocephalic, atraumatic. Conjunctivae pink. Sclerae not icteric. NECK: No masses in the neck or tracheal shifts. No adenopathy or thyromegaly. LUNGS: Scattered bilateral crackles with end-expiratory rhonchi. No wheezes. HEART: Irregular. No gallops, murmurs, or friction rubs. ABDOMEN: Soft. No masses or organomegaly or tenderness. Bowel sounds present. EXTREMITIES: No clubbing, cyanosis, or edema. NEUROLOGIC: Alert, oriented x3 cranial nerves grossly intact, with no gross sensory or motor abnormalities. Laboratory work-up as summarized above. Liver enzymes coming down but not normal yet. Ultrasound as reviewed above. ASSESSMENT: Abnormal liver enzymes which were normal on admission, likely related to medication reaction. With history of diabetes and obesity, we will keep in mind an underlying fatty liver disease despite the absence of ultrasonographic findings of fatty liver. Transient episode of hypoxemia or hypoperfusion could elevate transiently the transaminases; however, the moderate levels of elevation we observed on him are more likely secondary to drug-related liver disease. SUGGESTIONS: Agree with your current management. I understand the patient is going home today. If the patient continues to improve and his liver enzymes continue to normalize, no additional recommendations or work-up is suggested. If there is any change in his liver enzymes or he has any new symptoms to suggest cholelithiasis or extrabiliary tract issues, I will consider ERCP as an outpatient. Contingency also will be a liver biopsy depending on his course. We will be happy to see him after discharge if his liver abnormalities do not turn around or if he has any new symptoms or worsening in his liver tests.
== END 2016-12-15 12:39 | disposition home or self-care (01) | DRG 871 ==
LOC: EC 06:33 → 6SEL 08:53
PROVIDERS: ADMIT Internal Medicine; ATTEND Internal Medicine
DX: A41.9 Sepsis, unspecified organism (principal); J18.9 Pneumonia, unspecified organism; J96.01 Acute respiratory failure with hypoxia; I48.91 Unspecified atrial fibrillation; E11.9 Type 2 diabetes mellitus without complications; I35.0 Nonrheumatic aortic (valve) stenosis; K76.0 Fatty (change of) liver, not elsewhere classified; I10 Essential (primary) hypertension; E78.5 Hyperlipidemia, unspecified; R65.20 Severe sepsis without septic shock; T50.995A Adverse effect of other drugs, medicaments and biological substances, initial encounter; Z79.01 Long term (current) use of anticoagulants; Z79.899 Other long term (current) drug therapy; Z82.49 Family history of ischemic heart disease and other diseases of the circulatory system; Z86.011 Personal history of benign neoplasm of the brain; Z86.718 Personal history of other venous thrombosis and embolism; Z86.73 Personal history of transient ischemic attack (TIA), and cerebral infarction without residual deficits; Z87.891 Personal history of nicotine dependence; Z79.84 Long term (current) use of oral hypoglycemic drugs; R74.8 Abnormal levels of other serum enzymes
CPT/HCPCS: 36415; 71020; 76705; 80053; 81001; 82550; 82553; 83036; 83605; 83735; 83880; 84439; 84443; 84481; 84484; 85025; 85610; 85730; 87040; 87070; 87086; 87205; 87502; 93005; 93306; 94640; 94760; 96365; 96368; 99291

== ENCOUNTER 2017-01-22 06:18 | Day surgery (SDC) | payer MEDICARE, BC ==
[2017-01-16 11:10] VITALS: BMI 32.1
[~2017-01-22 06:18] MED LIST: ALPRAZolam 0.25 MG TAB PO PRN; ASPIRIN 325 MG TAB PO ONE; LACTATED RINGERS 1,000 ML IV SCH; SODIUM CHLORIDE 0.9% 1,000 ML in EMPTY BAG 1 BAG IV ONE
[2017-01-22 07:01] VITALS: TEMP 98.1
[2017-01-22 07:02] LABS: Glucose,Whole Blood 105 mg/dL (75-99)
[2017-01-22 07:08] LABS: Basophils # (A) 0.1 k/uL (0-0.2); Basophils % (A) 1 %; CH 29.3; CHCM 33.1; Eosinophils # (A) 0.1 k/uL (0-0.7); Eosinophils % (A) 2 %; HCT 42.1 % (39.0-53.0); Luc # (Auto) 0.25; Luc % (Auto) 4; Lymphocytes # (A) 1.9 k/uL (1.0-4.8); Lymphocytes % (A) 28 %; MCH 29.5 pg (25.0-35.0); MCHC 33.1 g/dL (31.0-37.0); MCV 89.1 fL (80.0-100.0); Mean Platelet Volume 7.4; Monocytes # (A) 0.3 k/uL (0-1.0); Monocytes % (A) 5 %; Neutrophils # (A) 4.1 k/uL (1.3-7.7); Neutrophils % (A) 62 %; RBC 4.73 m/uL (4.30-5.90); RDW 14.8 % (11.5-15.5); WBC 6.7 k/uL (3.8-10.6); WBC (Perox) 6.58
[2017-01-22 07:16] LABS: Anion Gap 7 mmol/L; Blood Urea Nitrogen 28 mg/dL (9-20); Calcium 9.5 mg/dL (8.4-10.2); Carbon Dioxide 26 mmol/L (22-30); Chloride 110 mmol/L (98-107); Glucose 105 mg/dL (74-99); Non-African American GFR(MDRD) >60 (>60 ml/min/1.73 sqM); Potassium 4.3 mmol/L (3.5-5.1); Sodium 143 mmol/L (137-145)
[2017-01-22] MEDS ORDERED: SODIUM CHLORIDE 0.9% 1,000 ML IV ONE ×2 (07:17)
[2017-01-22] MEDS: BENZOCAINE SPRAY 100 APPLIC/CAN TOPICAL ONE ×2 (07:18→07:29)
[2017-01-22] MEDS ORDERED: PROPOFOL 10 MG/ML 20 ML VIAL IV ONE (07:38)
[2017-01-22] MEDS ORDERED: LIDOCAINE 1% INJ 10MG/ML (20 ML MDV) ONE (07:38)
[2017-01-22] MEDS ORDERED: SODIUM CHLORIDE 0.9% 1,000 ML IV SCH (08:00)
--- NOTE | 2017-01-22 08:02 | P.PCN ---
Date of Procedure: 01/22/17 Preoperative Diagnosis: Atrial flutter /fibrillation and aortic stenosis Postoperative Diagnosis: Severe aortic stenosis. Impaired LV function, no clot in left atrial appendage Procedure(s) Performed: Implants: Indications for Procedure: Operative Findings: Description of Procedure: INDICATION: This patient is advised to have CRISTY examination to assess aortic stenosis and also to rule out any left atrial clot before cardioversion. CONSENT: Informed consent was obtained from patient. PROCEDURE: Patient was brought to the lab in a fasting state. He was prepped and draped in the usual fashion. The throat was sprayed with a Cetacaine. Department of anesthesia has provided her anesthesia during the procedure. A lubricated Omni probe was introduced in the oropharynx and was advanced into the esophagus. Multiple views were obtained. Patient tolerated the procedure well. Saline contrast bubble injection was also performed. Color and pulse wave Doppler was also obtained. FINDINGS: The aortic valve appeared to be tricuspid with the restricted opening excursion, consistent with severe aortic stenosis. The valve is heavily calcified. The opening excursion was measured as 0.8 cm. The peak gradient of about 70-80 was obtained across the aortic valve with mean of 40. Again, consistent with severe aortic stenosis. Mitral valve showed mild mitral regurgitation. Interatrial septum appeared to be intact without any spontaneous shunt. Left atrial appendage is free of any clot. There is biatrial enlargement. Left ventricle is dilated with generalized hypokinesia consistent with cardiomyopathy. IMPRESSION: #1. Severe aortic stenosis with mild aortic regurgitation. #2. Mild mitral regurgitation. #3. Biatrial enlargement. #4. Dilated left ventricle with generalized hypokinesia with ejection fraction of 35%. #5. Interatrial septum appeared to be intact without any shunt. #6. Left atrial appendage is free of any clot. PLAN: Proceed with cardioversion. Patient will require cardiac catheterization and aortic valve replacement.
--- NOTE | 2017-01-22 08:04 | P.PCN ---
Date of Procedure: 01/22/17 Preoperative Diagnosis: Atrial flutter/fibrillation Postoperative Diagnosis: Unsuccessful cardioversion Procedure(s) Performed: Synchronized cardioversion Implants: Indications for Procedure: Operative Findings: Description of Procedure: This 76-year-old gentleman was recently diagnosed to have atrial fibrillation and flutter and also severe aortic stenosis. Patient is advised to have CRISTY followed by cardioversion. CRSITY did not reveal any clot in the left atrial appendage. Patient however has severe aortic stenosis and cardiomyopathy. Patient was given IV sedation by department of anesthesia. She claims shocks of 100 followed by 200 and followed by 300 J was applied. Patient did not convert to sinus rhythm. Tolerated the procedure well. No immediate complications. Plan: Patient will be discharged home in stable. He'll be scheduled for a left heart cath in the near future
[2017-01-22 08:29] VITALS: PULSE 73
[2017-01-22 09:21] VITALS: RESP 18
[2017-01-22 10:09] VITALS: BP 141/71
== END 2017-01-22 09:45 | disposition home or self-care (01) ==
LOC: CATHCVL 06:18
PROVIDERS: ATTEND Internal Medicine Cardiovascular Disease
DX: I48.1 Persistent atrial fibrillation (principal); I08.0 Rheumatic disorders of both mitral and aortic valves; I48.92 Unspecified atrial flutter; I51.7 Cardiomegaly; I10 Essential (primary) hypertension; E78.00 Pure hypercholesterolemia, unspecified; E11.9 Type 2 diabetes mellitus without complications; Z79.84 Long term (current) use of oral hypoglycemic drugs; Z79.02 Long term (current) use of antithrombotics/antiplatelets; Z79.899 Other long term (current) drug therapy
CPT/HCPCS: 93312; 93320; 93005; 93325; 92960; 80048; 85025; J2001; J2704

== ENCOUNTER → 2017-02-05 | Day surgery (SDC) | payer MEDICARE, BC ==
[2017-02-01 15:38] VITALS: BMI 31.4
[~2017-02-05] MED LIST changes: +ALPRAZolam 0.5 MG TAB PO PRN; -ASPIRIN 325 MG TAB PO ONE; +ASPIRIN 325 MG TAB PO STA; +ATORVASTATIN 80 MG TAB PO STA; -LACTATED RINGERS 1,000 ML IV SCH; +NITROGLYCERIN SL TABS 0.4 MG TAB SUBLINGUAL PRN
[2017-02-05 07:12] VITALS: BP 143/85; PULSE 83; RESP 18; TEMP 98.4
[2017-02-05 07:33] LABS: Glucose,Whole Blood 109 mg/dL (75-99)
--- NOTE | 2017-02-05 07:51 | P.PCN ---
Date of Procedure: 02/05/17 Preoperative Diagnosis: Postoperative Diagnosis: Procedure(s) Performed: Implants: Indications for Procedure: Operative Findings: Description of Procedure: Pt is scheduled to have cardiac cath today.Pt however took eliquis this AM.Precudure is cancelled and to be rescheduled .
== END ==
LOC: CATHCVL 06:22
PROVIDERS: ATTEND Internal Medicine Cardiovascular Disease
DX: I35.0 Nonrheumatic aortic (valve) stenosis (principal); Z53.09 Procedure and treatment not carried out because of other contraindication

== ENCOUNTER 2017-02-06 09:47 | Day surgery (SDC) | payer MEDICARE, BC ==
[2017-02-06 10:08] LABS: Glucose,Whole Blood 101 mg/dL (75-99)
[2017-02-06] MEDS ORDERED: MIDAZOLAM 2 MG/2 ML VIAL ONE (10:47)
[2017-02-06] MEDS ORDERED: fentaNYL (PF) 50 MCG/ML 2 ML AMP ONE (10:47)
[2017-02-06] MEDS ORDERED: fentaNYL (PF) 50 MCG/ML 2 ML AMP IV ONE (10:54)
[2017-02-06] MEDS ORDERED: MIDAZOLAM 2 MG/2 ML VIAL IV ONE (10:55)
[2017-02-06] MEDS ORDERED: LIDOCAINE 2% INJ 20 MG/ML SQ ONE (11:03)
[2017-02-06 11:33] LABS: Site PA
[2017-02-06 11:34] LABS: Site RA
[2017-02-06 11:36] LABS: Site FA
[2017-02-06] MEDS ORDERED: IOHEXOL 350 MG/ML 125ML BOTTLE INJ ONE (11:43)
[2017-02-06] MEDS ORDERED: RX INFO: IV CONTRAST WAS GIVEN 1 EACH MISC MISCELLANE PRN (11:48)
[2017-02-06] MEDS ORDERED: SODIUM CHLORIDE 0.9% 1,000 ML IV SCH (12:00)
--- NOTE | 2017-02-06 12:03 | P.PCN ---
Date of Procedure: 02/06/17 Preoperative Diagnosis: Aortic stenosis Postoperative Diagnosis: Aortic stenosis, cardiomyopathy and mild coronary artery disease Procedure(s) Performed: Implants: Indications for Procedure: Operative Findings: Description of Procedure: HISTORY: This is a 76-year-old gentleman with history of cardiomyopathy and evidence of severe aortic stenosis was brought in for cardiac catheterization. He should also has chronic atrial fibrillation. Patient was explained the risks and benefits of the procedure. CONSENT:I have discussed the risks, benefits and alternative therapies for the above-mentioned procedure and for both sedation/analgesia as well as necessary blood product administration, if indicated, as they pertain to this patient. The patient has indicated understanding and acceptance of the risks and procedures discussed. PROCEDURE: RIGHT HEART CATHETERIZATION: Patient was brought to the lab in a fasting state. Patient was given some IV sedation. The right groin is infiltrated with lidocaine and the right femoral vein was entered using Seldinger technique. Right heart catheterization was performed using Tuttle-Lianne catheter. Patient tolerated the procedure well. LEFT HEART CATHETERIZATION: right femoral artery was entered using Seldinger technique. A 6-Azeri catheter was left in place and selective coronary arteriography performed. Patient tolerated the procedure well. Femoral angiogram was performed and Angio-Seal was applied for hemostasis. No immediate complications were noted and patient was transferred to [facility] in a stable condition. Aortic valve could not be crossed HEMODYNAMICS: Right heart catheterization: RA pressure was 9, right ventricle pressure is 41/9, pulmonary artery pressure 40/16 with mean of 23 and pulmonary wedge pressure was 16 with a V-wave of about 21 year cardiac output by thermodilution method is 3.13 and by Amna method 5.01. Oxygen saturation in the right atrium is 61, pulmonary artery 60 and femoral artery was 91.1. Left heart catheterization: The aortic pressure is 120 /80 to be mean of 97. The aortic valve could not be crossed. The gradient by echocardiogram was 70-88 with a mean of 40. The valve area by echocardiography was 0.8 cm SELECTIVE CORONARY ARTERIOGRAPHY: LEFT MAIN: Normal length and patent. THE LEFT ANTERIOR DESCENDING CORONARY ARTERY: The LAD is a good caliber vessel giving rise to good-sized diagonal branch. The LAD and branches are free of any significant occlusive disease. THE LEFT CIRCUMFLEX AND IS CORONARY ARTERY: The circumflex and is coronary artery is a good caliber vessel with mild plaque in the proximal portion but no significant critical stenosis THE RIGHT CORONARY ARTERY:. The right coronary artery is a dominant vessel with mild disease in the midportion with 30-40% stenosis. No critical lesions. LEFT VENTRICULOGRAPHY: Not performed FINAL IMPRESSION: #1. Severe aortic stenosis by echo criteria #2. Cardiomyopathy with an ejection fraction of 35-40%. #3. Mild coronary artery disease #4. Chronic atrial fibrillation PLAN: The aortic valve replacement with a with or without Maze procedure PROGNOSIS: Fair
[2017-02-06 12:40] VITALS: RESP 16
[2017-02-06 13:15] LABS: Glucose,Whole Blood 92 mg/dL (75-99)
--- NOTE | 2017-02-06 14:34 | P.GSCN ---
History of Present Illness Consult date: 02/06/17 Reason for Consult: Aortic stenosis. Need for surgical intervention. Requesting physician: Nhi Hooker History of present illness: This 76 year old gentleman was being followed by Dr. Hooker for atrial fibrillation. Apparently he was hospitalized in November 2016 with septic pneumonia. He developed atrial fibrillation with rapid ventricular response. He had an echocardiogram done at that time which demonstrated an ejection fraction of 40-45%, hypokinetic LV wall motion, moderate aortic stenosis with a peak gradient 51.61 mmHg and a mean gradient 27.95 mmHg, mild mitral regurgitation, and mild to moderate pulmonary hypertension with an RVSP of 46.14 mmHg. He was treated with antibiotics, heparin and Cardizem drips, and was eventually discharged home on Eliquis and metoprolol. He followed up with Dr. Hooker, subsequently under went transesophageal echocardiogram and cardioversion without conversion to normal sinus rhythm, he remains in controlled atrial fibrillation. The transesophageal echocardiogram demonstrated severe aortic stenosis, peak gradient of 70-80 mmHg, mean gradient 40 mmHg, mild mitral regurgitation, biatrial enlargement, and generalized hypokinesia consistent with cardiomyopathy. This morning the patient had a heart catheterization which demonstrated a 30% stenosis in the right coronary artery and no significant stenosis in the left main, circumflex, or proximal LAD. Dr. Jin was consulted for surgical intervention for the patient's aortic valve. Review of Systems 14 point review systems was completed and was negative except as noted. Past Medical History Past Medical History: Atrial Fibrillation, CVA/TIA, Diabetes Mellitus, Deep Vein Thrombosis (DVT), GERD/Reflux, Hyperlipidemia, Hypertension, Pneumonia Additional Past Medical History / Comment(s): SEE DR HOOKER'S H&P 2010 CVA (thrombosis R vertebral artery). DVT R lower extremity. PNEUMONIA 11/2016. BRAIN TUMOR 1998. History of Any Multi-Drug Resistant Organisms: None Reported Additional Past Surgical History / Comment(s): 1998 benign brain tumor removed. cardioversion Past Anesthesia/Blood Transfusion Reactions: No Reported Reaction Past Psychological History: No Psychological Hx Reported Additional Psychological History / Comment(s): . Smoking Status: Former smoker Past Alcohol Use History: Rare Additional Past Alcohol Use History / Comment(s): Pt started smoking in 1950 and quit in 1985. Past Drug Use History: None Reported - Past Family History Father Family Medical History: Myocardial Infarction (IA) Additional Family Medical History / Comment(s): Father of a IA at the age of 93yrs. Mother Family Medical History: Myocardial Infarction (IA) Additional Family Medical History / Comment(s): Mother of a IA at the age of 88yrs. Medications and Allergies Home Medications Medication Instructions Recorded Confirmed Type Multivitamins, Thera [Multivitamin 1 tab PO DAILY 12/10/16 02/06/17 History (formulary)] Aspirin EC [Ecotrin] 325 mg PO DAILY 01/16/17 02/06/17 History Simvastatin [Zocor] 20 mg PO HS 01/16/17 02/06/17 History Allergies Allergy/AdvReac Type Severity Reaction Status Date / Time No Known Allergies Allergy Verified 02/05/17 06:47 Surgical - Exam Vital Signs Temp Pulse Resp BP Pulse Ox 98.0 F 84 18 130/81 100 02/06/17 10:00 02/06/17 10:00 02/06/17 10:00 02/06/17 10:00 02/06/17 10:00 - General well developed, well nourished, no distress, no pain - Eyes PERRL, normal ocular movement - ENT no hearing loss - Neck trachea midline - Respiratory Lungs sounds diminished bilaterally. Respirations even, nonlabored. Currently on room air with oxygen saturation 96%. - Cardiovascular Atrial fibrillation on telemetry. Rhythm: irregularly irregular Heart Sounds: normal: S1, S2 - Abdomen Abdomen: soft, non tender, bowel sounds - Genitourinary Deferred - Rectum Deferred - Musculoskeletal Currently on bedrest post cardiac catheterization. - Psychiatric oriented to time, oriented to person, oriented to place, speech is normal, memory intact Results - Labs Abnormal Lab Results - Last 24 Hours (Table) 02/06/17 Range/Units 10:04 POC Glucose (mg/dL) 101 H (75-99) mg/dL - Imaging Additional studies: CRISTY, TTE, cardiac cath results reviewed Assessment and Plan (1) Chronic atrial fibrillation Status: Acute (2) Severe aortic stenosis Status: Acute (3) History of CVA (cerebrovascular accident) Status: Acute (4) History of brain tumor Status: Acute (5) Tobacco dependence in remission Status: Acute (6) History of pneumonia Status: Acute (7) History of deep venous thrombosis (DVT) of distal vein of right lower extremity Status: Acute (8) Diabetes mellitus type 2 in obese Status: Acute (9) Atrial fibrillation status post cardioversion Status: Acute (10) Hypertension Status: Acute (11) Hyperlipidemia Status: Acute (12) Family history of premature CAD Status: Acute Plan: The patient was seen and examined in the extended stay unit with Dr. Jin. Chart/diagnostics were reviewed. Extensive discussion was had with the patient regarding his disease process, all risks and benefits were expanded to the patient. Patient was given the option of following up in the office for future plans for surgery. Preoperative workup was ordered. Preoperative teaching initiated. Patient wishes to discuss possibilities with his family and Dr. Hooker. Would recommend continuing aspirin, statin, beta cait. Thank you Dr. Hooker for this consult. We look forward to working in the care of your patient.
[2017-02-06 15:10] LABS: Basophils % (A) 0 %; CH 29.5; Eosinophils # (A) 0.1 k/uL (0-0.7); Eosinophils % (A) 2 %; HCT 39.5 % (39.0-53.0); HDW 3.33; HGB 13.3 gm/dL (13.0-17.5); Luc # (Auto) 0.17; Luc % (Auto) 3; Lymphocytes # (A) 1.5 k/uL (1.0-4.8); Lymphocytes % (A) 25 %; MCH 29.3 pg (25.0-35.0); MCHC 33.6 g/dL (31.0-37.0); MCV 87.2 fL (80.0-100.0); Mean Platelet Volume 7.1; Monocytes # (A) 0.3 k/uL (0-1.0); Monocytes % (A) 4 %; Neutrophils # (A) 3.9 k/uL (1.3-7.7); Neutrophils % (A) 66 %; RBC 4.53 m/uL (4.30-5.90); RDW 14.4 % (11.5-15.5); WBC (Perox) 6.22
[2017-02-06 15:12] LABS: INR 1.2 (<1.1)
[2017-02-06 15:18] LABS: ALT 31 U/L (21-72); AST 22 U/L (17-59); Alkaline Phosphatase 83 U/L (38-126); Anion Gap 10 mmol/L; Blood Urea Nitrogen 27 mg/dL (9-20); Calcium 9.3 mg/dL (8.4-10.2); Carbon Dioxide 24 mmol/L (22-30); Chloride 108 mmol/L (98-107); Cholesterol 129 mg/dL (<200); Glucose 118 mg/dL (74-99); HDL Cholesterol 34 mg/dL (40-60); Magnesium 1.9 mg/dL (1.6-2.3); Non-African American GFR(MDRD) >60 (>60 ml/min/1.73 sqM); Sodium 142 mmol/L (137-145); Total Bilirubin 0.8 mg/dL (0.2-1.3); Total Protein 6.6 g/dL (6.3-8.2); Triglycerides 122 mg/dL (<150)
[2017-02-06 15:50] LABS: Hepatitis B Surface Ag Index 0.06
[2017-02-06 15:56] LABS: Hepatitis B Core IgM Index 0.05
[2017-02-06 16:07] LABS: Hepatitis C Virus IgG Ab Negative (Negative); Hepatitis C Virus IgG Index 0.06
[2017-02-06 16:46] VITALS: BP 110/57; PULSE 87
[2017-02-06 16:47] VITALS: TEMP 98.7
[2017-02-06 17:09] LABS: Glucose,Whole Blood 112 mg/dL (75-99)
[2017-02-06 18:53] VITALS: BMI 32.1
[2017-02-06 20:55] LABS: Hemoglobin A1C 5.2 % (4.2-6.1)
== END 2017-02-06 19:45 | disposition home or self-care (01) ==
LOC: CATHCVL 09:47 → 3OBS 11:47 → CATHCVL 19:45
PROVIDERS: ATTEND Internal Medicine Cardiovascular Disease
DX: I08.0 Rheumatic disorders of both mitral and aortic valves (principal); I48.2 Chronic atrial fibrillation; I42.9 Cardiomyopathy, unspecified; I25.10 Atherosclerotic heart disease of native coronary artery without angina pectoris; I10 Essential (primary) hypertension; E78.00 Pure hypercholesterolemia, unspecified; E78.5 Hyperlipidemia, unspecified; E66.9 Obesity, unspecified; Z68.32 Body mass index [BMI] 32.0-32.9, adult; I27.2 Other secondary pulmonary hypertension; E11.9 Type 2 diabetes mellitus without complications; Z86.73 Personal history of transient ischemic attack (TIA), and cerebral infarction without residual deficits; Z86.718 Personal history of other venous thrombosis and embolism; K21.9 Gastro-esophageal reflux disease without esophagitis; Z82.49 Family history of ischemic heart disease and other diseases of the circulatory system; Z79.01 Long term (current) use of anticoagulants; Z79.82 Long term (current) use of aspirin; Z79.84 Long term (current) use of oral hypoglycemic drugs; Z79.899 Other long term (current) drug therapy; F17.201 Nicotine dependence, unspecified, in remission
CPT/HCPCS: 93456; 83880; 80061; 80053; 80074; 85018; 84443; 83036; 82810; 83735; 85025; 85610; 85730; C1769 ×3; C1894 ×2; J2001; J2250; J3010; Q9967

== ENCOUNTER → 2017-02-25 | Outpatient (CLI) | payer MEDICARE, BC ==
[2017-02-25 11:02] LABS: Prothrombin Time 76.4 sec (9.0-12.0)
[2017-02-25 11:05] LABS: INR 7.4 (<1.1)
== END | disposition home or self-care (01) ==
LOC: LABWHC1 09:16
PROVIDERS: ATTEND Internal Medicine Cardiovascular Disease
DX: I48.0 Paroxysmal atrial fibrillation (principal)
CPT/HCPCS: 36415; 85610

== ENCOUNTER → 2017-03-28 | Outpatient (CLI) | payer MEDICARE, BC ==
[2017-03-28 09:08] LABS: EKG EKG PERFORMED
[2017-03-28 10:21] LABS: CH 28.7; CHCM 32.5; HCT 43.8 % (39.0-53.0); HDW 3.18; HGB 13.8 gm/dL (13.0-17.5); Hypochromasia Slight; MCHC 31.6 g/dL (31.0-37.0); MCV 88.8 fL (80.0-100.0); Mean Platelet Volume 7.6; RBC 4.93 m/uL (4.30-5.90); RDW 15.5 % (11.5-15.5); WBC 8.1 k/uL (3.8-10.6)
[2017-03-28 10:24] LABS: INR 1.9 (<1.2)
[2017-03-28 10:25] LABS: Partial Thromboplastin Time 26.3 sec (22.0-30.0); Prothrombin Time 18.1 sec (9.0-12.0)
[2017-03-28 10:30] LABS: Appearance,Urine Clear (Clear); Bilirubin,Urine Negative (Negative); Glucose,Urine (UA) Negative (Negative); Ketones,Urine Negative (Negative); Leukocyte Esterase,Urine Negative (Negative); Mucus,Urine Rare /hpf; Nitrite,Urine Negative (Negative); PH, Urine 5.5 (5.0-8.0); Particle Count 1996; Protein,Urine 1+ (Negative); UA Billing (MACRO vs. MICRO) MICRO; Urobilinogen,Urine <2.0 mg/dL (<2.0); WBC,Urine <1 /hpf (0-5)
[2017-03-28 11:42] LABS: ALT 45 U/L (21-72); AST 40 U/L (17-59); Alkaline Phosphatase 97 U/L (38-126); Anion Gap 12 mmol/L; Blood Urea Nitrogen 26 mg/dL (9-20); Calcium 9.5 mg/dL (8.4-10.2); Carbon Dioxide 23 mmol/L (22-30); Chloride 109 mmol/L (98-107); Cholesterol 136 mg/dL (<200); Glucose 151 mg/dL (74-99); HDL Cholesterol 43 mg/dL (40-60); Non-African American GFR(MDRD) 58 (>60 ml/min/1.73 sqM); Potassium 4.7 mmol/L (3.5-5.1); Sodium 144 mmol/L (137-145); Total Bilirubin 0.8 mg/dL (0.2-1.3); Total Protein 7.2 g/dL (6.3-8.2)
[2017-03-28 12:12] LABS: Hemoglobin A1C 5.8 % (4.2-6.1)
[2017-03-28 12:13] LABS: Hepatitis B Surface Ag Index 0.06
[2017-03-28 12:18] LABS: Hepatitis B Core IgM Index 0.05
[2017-03-28 12:30] LABS: Hepatitis C Virus IgG Ab Negative (Negative); Hepatitis C Virus IgG Index 0.07
--- NOTE | 2017-03-28 14:19 | XR ---
EXAMINATION TYPE: XR panorex DATE OF EXAM: 03/28/2017 COMPARISON: NONE HISTORY: Preheart surgery TECHNIQUE: Panorex view of the mandible was obtained. Exam is limited. FINDINGS: An acute fracture is not identified. There is loss of teeth. Underlying abscess is not iden tified. IMPRESSION: 1. Limited Panorex. No acute osseous abnormality identified.
--- NOTE | 2017-03-28 14:20 | XR ---
EXAMINATION TYPE: XR chest 2V DATE OF EXAM: 03/28/2017 COMPARISON: 12/11/2016 INDICATION: Presurgical clearance TECHNIQUE: Frontal and lateral views of the chest are obtained. FINDINGS: The heart size is normal. The pulmonary vasculature is normal. Bibasilar infiltrates are present. These are improved from the comparison of 12/11/2016. Scarring coul d be considered. Recurrent atelectasis or pneumonia could be considered. Chronic changes and atelecta sis are most likely within the differential. IMPRESSION: 1. Mild bibasilar infiltrates, most likely on the basis of atelectasis or scarring. Correlate with th e patient's clinical symptoms. 2. COPD.
--- NOTE | 2017-03-28 14:21 | US ---
EXAMINATION TYPE: US carotid duplex BILAT DATE OF EXAM: 03/28/2017 COMPARISON: 2010 CLINICAL HISTORY: OPEN HEART. EXAM MEASUREMENTS: RIGHT: Peak Systolic Velocity (PSV) cm/sec ----- Right CCA: 46.0 ----- Right ICA: 77.3 ----- Right ECA: 84.2 ICA/CCA ratio: 1.7 RIGHT: End Diastole cm/sec ----- Right CCA: 14.5 ----- Right ICA: 22.4 ----- Right ECA: 16.0 LEFT: Peak Systolic Velocity (PSV) cm/sec ----- Left CCA: 84.9 ----- Left ICA: 68.2 ----- Left ECA: 60.5 ICA/CCA ratio: 0.8 LEFT: End Diastole cm/sec ----- Left CCA: 11.6 ----- Left ICA: 9.9 ----- Left ECA: 6.7 VERTEBRALS (direction of flow): Right Vertebral: diminished not seen well Left Vertebral: Antegrade No significant stenosis seen [place]a bulb area hard plaque Calcified atheromatous plaque is present in the bilateral carotid bulbs. Doppler waveforms appear unr emarkable. IMPRESSION: 1. Atheromatous plaquing without significant flow-limiting stenosis. Criteria for Assigning % of Stenosis / Diameter reduction (Estimation based on the indirect measurements of the internal carotid artery velocities (ICA PSV). 1. Normal (no stenosis)=ICA PSV < 125 cm/s: ratio < 2.0: ICA EDV<40 cm/s. 2. Less than 50% stenosis=ICA PSV < 125 cm/s: ratio < 2.0: ICA EDV<40 cm/s. 3. 50 to 69% stenosis=ICA PSV of 125 to 230 cm/s: ration 2.0 ? 4.0: ICA EDV 40-100 cm/s. 4. Greater than 70% stenosis to near occlusion= ICA PSV > 230 cm/s: ratio > 4.0: ICA EDV > 100 cm/s. 5. Near occlusion= ICA PSV velocities may be low or undetectable: variable ratio and ICA EDV. 6. Total occlusion=unable to detect flow.
--- NOTE | 2017-04-03 13:13 | P.ARTDOP ---
Arterial Doppler LOWER EXTREMITY ARTERIAL DOPPLER: DATE OF SERVICE: 03/28/2017 Reason for study: [id number] surgery. Doppler waveforms: Multiphasic bilaterally throughout. Pulse volume recording: []. Pressure gradients: None. Ankle-brachial indices: Greater than 1 bilaterally. Toe pressures: [] on the right, [] on the left Impression: Normal study.
--- NOTE | 2017-04-03 13:15 | P.VSCSTY ---
Greater Saphenous Vein Mapping This is bilateral lower extremity greater saphenous vein mapping. Date of service 03/28/2017 Vein quality and ultrasound appearance normal except at the left ankle where there are several varicosities. Vein size groin right 11.8 x 11.2 groin left 7.6 x 10 High thigh right 5.6 x 7.0 high thigh left 5.0 x 7.0 Mid thigh right 5.3 x 7.3 mid thigh left 4.3 x 6.0 Above-knee right 5.0 x 7.1 above- knee left 3.6 x 4.9 Below knee right 5.3 x 6.7 below-knee left 3.8 x 6.0 Mid calf right 4.2 x 5.5 mid calf left 3.2 x 4.1 Ankle right 4.7 x 5.8 ankle left 3.7 x 5.9 Impression usable greater saphenous vein bilaterally.
== END | disposition home or self-care (01) ==
LOC: LABPAT 07:38
PROVIDERS: ATTEND Thoracic Surgery (Cardiothoracic Vascular Surgery)
DX: Z01.818 Encounter for other preprocedural examination (principal); J44.9 Chronic obstructive pulmonary disease, unspecified; R91.8 Other nonspecific abnormal finding of lung field; I65.23 Occlusion and stenosis of bilateral carotid arteries
CPT/HCPCS: 36415; 70355; 71020; 80053; 80061; 80074; 81001; 83036; 83735; 83880; 84443; 84484; 85027; 85610; 85730; 86850; 86900; 86901; 86920; 87070; 87086; 93005; 93880; 93923; 93970; 94150

== ENCOUNTER 2017-04-03 08:00 | Inpatient (IN) | payer MEDICARE, BC ==
[2017-03-29 16:13] VITALS: BMI 30.8
[2017-04-04] MEDS ORDERED: ceFAZolin 2,000 MG in SODIUM CHLORIDE 0.9% 30 ML IVPB ONE ×4 (05:00)
[2017-04-04] MEDS ORDERED: DEXTROSE 5% IN WATER 1,000 ML with POTASSIUM CHLORIDE 25 MEQ, SODIUM CHLORIDE 4MEQ/ML V... IV ONE ×6 (05:00)
[2017-04-04] MEDS ORDERED: HEPARIN SODIUM 1,000 UN/ML (10ML VL) IV ONE (05:00)
[2017-04-04] MEDS ORDERED: ASPIRIN 325 MG TAB PO ONE (05:00)
[2017-04-04] MEDS ORDERED: NITROGLYCERIN-D5W PMX 25 MG/250 ML BTL IV ONE (05:00)
[2017-04-04] MEDS ORDERED: CHLORHEXIDINE GLUCONATE 15 ML CUP MUCOUS MEM ONE (05:00)
[2017-04-04] MEDS ORDERED: MAGNESIUM SULFATE MG 500 MG/ML VIAL IV ONE (05:00)
[2017-04-04] MEDS ORDERED: ALBUMIN HUMAN 25% 50 ML IV ONE (05:00)
[2017-04-04] MEDS ORDERED: PHENYLEPHRINE 40 MG in SODIUM CHLORIDE 0.9% 250 ML IV ONE (05:00)
[2017-04-04] MEDS ORDERED: ATORVASTATIN 10 MG TAB PO ONE (05:00)
[2017-04-04] MEDS ORDERED: ALBUMIN HUMAN 5% 250 ML IVPB ONE (05:00)
[2017-04-04] MEDS ORDERED: NITROGLYCERIN-D5W PMX 50 MG in DEXTROSE/WATER 1 250ML.BAG IV ONE (05:00)
[2017-04-04] MEDS ORDERED: AMINOCAPROIC ACID 250 MG/ML 20 ML VIAL IV ONE (05:00)
[2017-04-04] MEDS ORDERED: HEPARIN SODIUM,PORCINE 5,000 UNIT in SODIUM CHLORIDE 0.9% 500 ML IV ONE (05:00)
[2017-04-04] MEDS ORDERED: PROPOFOL 1,000 MG/100 ML VIAL IV ONE (05:00)
[2017-04-04] MEDS ORDERED: DEXTROSE 5% IN WATER 1,000 ML with POTASSIUM CHLORIDE 110 MEQ, MAGNESIUM SULFATE 16 MEQ... IV ONE ×5 (05:00)
[2017-04-04] MEDS ORDERED: ceFAZolin 1,000 MG in SODIUM CHLORIDE 0.9% IRRIGATIO 1,000 ML IRRIGATION ONE (05:00)
[2017-04-04] MEDS ORDERED: PHENYLEPHRINE-0.9% NACL SYG 1 MG/10 ML SYRINGE IV ONE (05:00)
[2017-04-04] MEDS ORDERED: CALCIUM CHLORIDE 100 MG/ML 10 ML SYRINGE IV ONE (05:00)
[2017-04-04] MEDS ORDERED: SODIUM BICARB 8.4% 50 ML SYR (1 MEQ/ML) IV ONE (05:00)
[2017-04-04] MEDS ORDERED: NITROGLYCERIN SL TABS 0.4 MG TAB SUBLINGUAL ONE (05:00)
[2017-04-04] MEDS ORDERED: AMINOCAPROIC ACID 5,000 MG in DEXTROSE 5% IN WATER 50 ML IV ONE ×2 (05:00)
[2017-04-04] MEDS ORDERED: INSULIN REGULAR 100 UNIT in SODIUM CHLORIDE 0.9% 100 ML IV ONE (05:00)
[2017-04-04] MEDS ORDERED: SODIUM CHLORIDE 0.9% 1,000 ML IV ONE (05:00)
[2017-04-04] MEDS ORDERED: PROTAMINE SULFATE 10 MG/ML 25 ML VIAL IV ONE ×2 (05:00→08:18)
[2017-04-04] MEDS ORDERED: LACTATED RINGERS 1,000 ML IV ONE (05:00)
[2017-04-04] MEDS ORDERED: METOPROLOL TARTRATE 12.5 MG TAB PO ONE (05:00)
[2017-04-04] MEDS ORDERED: CLEVIDIPINE BUTYRATE 25 MG in EMPTY BAG 1 BAG IV ONE (05:00)
[2017-04-04] MEDS ORDERED: MANNITOL 25% 12.5 GM/50 ML VIAL IV ONE (05:00)
[2017-04-04] MEDS ORDERED: PROTAMINE SULFATE 250 MG in EMPTY BAG 1 BAG IV ONE (05:00)
[2017-04-04] MEDS ORDERED: LACTATED RINGERS 1,000 ML IV SCH (05:45)
[2017-04-04 06:28] LABS: Glucose,Whole Blood 127 mg/dL (75-99)
[2017-04-04] MEDS ORDERED: MIDAZOLAM 2 MG/2 ML VIAL ONE (08:18)
[2017-04-04] MEDS ORDERED: ELECTROLYTE-R (PH 7.4) 1,000 ML IV.SOLN IV ONE (08:18)
[2017-04-04] MEDS ORDERED: SODIUM CHLORIDE 0.9% IRRIG 1,000 ML BTL IRRIGATION ONE (08:18)
[2017-04-04] MEDS ORDERED: SUCCINYLCHOLINE CHLORIDE VIAL 200 MG/10 ML VIAL IV ONE (08:18)
[2017-04-04] MEDS ORDERED: ALBUMIN HUMAN 5% 250 ML BOTTLE IVPB ONE (08:18)
[2017-04-04] MEDS ORDERED: PHENYLEPHRINE-0.9% NACL SYG 1 MG/10 ML SYRINGE ONE (08:18)
[2017-04-04] MEDS ORDERED: MAGNESIUM SULFATE 4 MEQ/ML 2 ML VIAL ONE (08:18)
[2017-04-04] MEDS ORDERED: VECURONIUM 10 MG VIAL IV ONE (08:18)
[2017-04-04] MEDS ORDERED: LIDOCAINE 1% INJ 10MG/ML (20 ML MDV) ONE (08:18)
[2017-04-04] MEDS ORDERED: fentaNYL (PF) 50 MCG/ML 50 ML VIAL ONE (08:18)
[2017-04-04] MEDS ORDERED: HEPARIN SODIUM,PORCINE 10,000 UNIT/ML 1 ML VIAL ONE (08:18)
[2017-04-04] MEDS ORDERED: fentaNYL (PF) 50 MCG/ML 2 ML AMP ONE (08:18)
[2017-04-04 08:20] LABS: INR 1.4 (<1.2); Prothrombin Time 13.4 sec (9.0-12.0)
[2017-04-04 08:56] LABS: Glucose,Whole Blood 104 mg/dL (75-99)
[2017-04-04 10:04] LABS: Glucose,Whole Blood 106 mg/dL (75-99)
[2017-04-04 10:35] LABS: Glucose,Whole Blood 160 mg/dL (75-99)
[2017-04-04 10:55] LABS: Glucose,Whole Blood 168 mg/dL (75-99)
[2017-04-04 11:22] LABS: Glucose,Whole Blood 152 mg/dL (75-99)
[2017-04-04 12:06] LABS: Glucose,Whole Blood 140 mg/dL (75-99)
[2017-04-04] MEDS: NOREPINEPHRIN 4 MG-0.9% NS PMX 4 MG/250 ML ML IV ONE ×2 (12:47→18:34)
[2017-04-04] MEDS: EPINEPHrine 2 MG in DEXTROSE 5% IN WATER 250 ML IV SCH ×4 (12:49→12:54)
[2017-04-04] MEDS ORDERED: ONDANSETRON 4 MG/2 ML VIAL IVP PRN (12:58)
[2017-04-04] MEDS ORDERED: Magnesium Replacement Protocol 1 EACH MISC MISCELLANE PRN (12:58)
[2017-04-04] MEDS ORDERED: BENZOCAINE/MENTHOL LOZENG 1 EACH LOZENGE MUCOUS MEM PRN (12:58)
[2017-04-04] MEDS ORDERED: Potassium Replacement Protocol 1 EACH MISC MISCELLANE PRN (12:58)
[2017-04-04] MEDS ORDERED: METOCLOPRAMIDE 5 MG/ML 2 ML VIAL IVP PRN (12:58)
[2017-04-04] MEDS ORDERED: ALBUMIN HUMAN 5% 250 ML in EMPTY BAG 1 BAG IVPB PRN (12:58)
[2017-04-04] MEDS ORDERED: MORPHINE SULFATE 2 MG/ML SYRINGE IVP PRN (12:58)
[2017-04-04] MEDS ORDERED: Phosphorus Replacement Protoco 1 EACH MISC MISCELLANE PRN (12:58)
[2017-04-04] MEDS ORDERED: NITROGLYCERIN-D5W PMX 50 MG in DEXTROSE/WATER 1 250ML.BAG IV SCH (13:00)
[2017-04-04] MEDS ORDERED: CALCIUM GLUCONATE 2,000 MG in SODIUM CHLORIDE 0.9% 100 ML IVPB PRN (13:07)
[2017-04-04 13:15] LABS: Glucose,Whole Blood 128 mg/dL (75-99)
[2017-04-04 13:47] LABS: ABG Base Excess -2.5 mmol/L; ABG HCO3 23 mmol/L (21-25); ABG Oxygen Saturation 92.2 % (94-97); ABG PCO2 51 mmHg (35-45); ABG PH 7.28 (7.35-7.45); ABG PO2 73 mmHg (83-108); ABG TCO2 25 mmol/L (19-24)
[2017-04-04] MEDS: INSULIN REGULAR 100 UNIT in SODIUM CHLORIDE 0.9% 100 ML IV SCH (13:53)
--- NOTE | 2017-04-04 13:53 | XR ---
EXAMINATION TYPE: XR chest 1V portable DATE OF EXAM: 04/04/2017 CLINICAL HISTORY: Post open cardiac surgery. TECHNIQUE: Single AP portable foraminal view of the chest is obtained. COMPARISON: Chest x-ray from one week earlier FINDINGS: There is new endotracheal tube with tip at inferior knob level, approximately 1 to 2 cm ab ove the nadja, advise pulling back 2 to 3 cm. There is new orogastric tube with side-port just above gastroesophageal junction, recommend advancing 4 to 5 cm. There are bilateral chest tubes present. There is new right internal jugular [place]ianne catheter with tip likely level of main pulmonary artery. Overlying monitors are present. New sternal wires are seen . There is cardiomegaly with new mild to moderate central vascular congestion. There is background of c hronic parenchymal change with bibasilar atelectasis and/or fibrosis. New small bilateral pleural eff usions are felt present. There is associated bibasilar atelectasis and/or developing infiltrate. No s izable pneumothorax is seen. Osseous structures are demineralized. IMPRESSION: 1. New endotracheal tube is 1 to 2 cm above nadja, recommend pulling back 2 to 3 cm. 2. New orogastric tube has side port above the gastroesophageal junction recommend advancing 5 to 6 c m. 3. There is chronic parenchymal change and cardiomegaly with new mild to moderate central vascular co ngestion and small bilateral pleural effusions consistent with fluid overload state related to recent surgery.
[2017-04-04] MEDS: LACTATED RINGERS 1,000 ML IV SCH (13:54)
[2017-04-04] MEDS: MILRINONE-D5W PMX 20 MG in DEXTROSE/WATER 1 100ML.BAG IV SCH ×2 (13:54→21:58)
[2017-04-04] MEDS: CLEVIDIPINE BUTYRATE 25 MG in EMPTY BAG 1 BAG IV SCH (13:54)
[2017-04-04 13:55] LABS: Ionized Calcium 5.2 mg/dL (4.5-5.3)
[2017-04-04] MEDS: PROPOFOL 1,000 MG/100 ML VIAL IV SCH ×2 (13:55→20:23)
[2017-04-04 14:00] LABS: Anisocytosis Slight; Basophils % (A) 0 %; CH 28.8; CHCM 32.6; Eosinophils # (A) 0.1 k/uL (0-0.7); Eosinophils % (A) 1 %; HCT 31.4 % (39.0-53.0); HDW 3.23; Hypochromasia Slight; Luc # (Auto) 0.12; Luc % (Auto) 1; Lymphocytes # (A) 1.6 k/uL (1.0-4.8); Lymphocytes % (A) 15 %; MCH 28.8 pg (25.0-35.0); MCHC 32.3 g/dL (31.0-37.0); Monocytes # (A) 0.4 k/uL (0-1.0); Monocytes % (A) 3 %; Neutrophils # (A) 8.6 k/uL (1.3-7.7); Neutrophils % (A) 80 %; RBC 3.53 m/uL (4.30-5.90); RDW 16.1 % (11.5-15.5); WBC 10.8 k/uL (3.8-10.6); WBC (Perox) 11.12
[2017-04-04 14:02] LABS: HGB 10.2 gm/dL (13.0-17.5)
[2017-04-04 14:04] LABS: INR 1.5 (<1.2); Partial Thromboplastin Time 29.1 sec (22.0-30.0); Prothrombin Time 14.3 sec (9.0-12.0)
[2017-04-04 14:12] LABS: ALT 32 U/L (21-72); AST 35 U/L (17-59); Alkaline Phosphatase 61 U/L (38-126); Anion Gap 7 mmol/L; Blood Urea Nitrogen 23 mg/dL (9-20); Calcium 8.4 mg/dL (8.4-10.2); Carbon Dioxide 25 mmol/L (22-30); Chloride 109 mmol/L (98-107); Glucose 109 mg/dL (74-99); Non-African American GFR(MDRD) >60 (>60 ml/min/1.73 sqM); Potassium 4.3 mmol/L (3.5-5.1); Sodium 141 mmol/L (137-145); Total Bilirubin 0.9 mg/dL (0.2-1.3); Total Protein 4.8 g/dL (6.3-8.2)
[2017-04-04 14:34] LABS: Glucose,Whole Blood 114 mg/dL (75-99)
[2017-04-04 15:14] LABS: Glucose,Whole Blood 121 mg/dL (75-99)
[2017-04-04] MEDS: IPRATROPIUM-ALBUTEROL 3 ML NEB INHALATION SCH ×3 (15:34→23:08)
[2017-04-04 16:05] LABS: Glucose,Whole Blood 130 mg/dL (75-99)
[2017-04-04] MEDS: ceFAZolin 2 GM in SODIUM CHLORIDE 0.9% 100 ML IVPB SCH (16:17)
[2017-04-04 16:18] LABS: INR 1.4 (<1.2); Ionized Calcium 5.2 mg/dL (4.5-5.3); Partial Thromboplastin Time 26.3 sec (22.0-30.0); Prothrombin Time 13.5 sec (9.0-12.0)
[2017-04-04 16:27] LABS: Anion Gap 7 mmol/L; Blood Urea Nitrogen 25 mg/dL (9-20); Calcium 8.4 mg/dL (8.4-10.2); Carbon Dioxide 24 mmol/L (22-30); Chloride 110 mmol/L (98-107); Glucose 118 mg/dL (74-99); Magnesium 2.1 mg/dL (1.6-2.3); Non-African American GFR(MDRD) >60 (>60 ml/min/1.73 sqM); Potassium 4.2 mmol/L (3.5-5.1); Sodium 141 mmol/L (137-145)
[2017-04-04 16:45] LABS: Basophils % (A) 0 %; CH 27.9; CHCM 32.6; Eosinophils % (A) 0 %; HCT 30.2 % (39.0-53.0); HDW 3.36; Hypochromasia Slight; Luc # (Auto) 0.13; Luc % (Auto) 2; Lymphocytes # (A) 0.6 k/uL (1.0-4.8); Lymphocytes % (A) 7 %; MCH 28.5 pg (25.0-35.0); MCHC 33.1 g/dL (31.0-37.0); MCV 86.2 fL (80.0-100.0); Mean Platelet Volume 8.9; Monocytes # (A) 0.3 k/uL (0-1.0); Monocytes % (A) 4 %; Neutrophils # (A) 7.3 k/uL (1.3-7.7); Neutrophils % (A) 87 %; RBC 3.51 m/uL (4.30-5.90); RDW 15.2 % (11.5-15.5); WBC 8.4 k/uL (3.8-10.6); WBC (Perox) 8.86
[2017-04-04 17:14] LABS: Glucose,Whole Blood 134 mg/dL (75-99)
--- NOTE | 2017-04-04 17:28 | P.CNPUL ---
History of Present Illness Consult date: 04/04/17 Chief complaint: aortic valve relacement History of present illness: 76-year-old male patient, post aortic valve replacement, being seen in the intensive care unit. He was brought in this afternoon to the ICU on a mechanical ventilator, on assist control mode at the rate of 12, tidal volume of 500, FiO2 of 100% and a PEEP of 5. He is sedated and is calm and comfortable on Diprivan. He is on Primacor at 0.5 mcg/m and his cardiac output is 6.6 with an index of 2.9. The patient has a mediastinal chest tube and a left pleural chest tube and total amount of output since arrival from the operating room is approximately 300 in the mediastinal and 450 and a chest tubes. No air leaks. Chest x-ray shows cardiomegaly. Chest tubes are all in good location. NG tube needs to be advanced. ET tube is around 3 cm above the nadja. [place]-Lianne catheter good location. Patient is producing good amount of urine output. No hypothermia. Blood gases showed a pH of 7.28 with a pCO2 of 51 and pO2 of 73. Based on this I increased tidal volume of 650. The FiO2 was gradually weaned down and currently is down to 70%. The patient has a baseline FEV1 of 51% of predicted preoperatively. He is current history of COPD. He is on bronchodilators. Preoperatively, the patient was found to have a ejection fraction of 40-50% with moderate degree of aortic stenosis with a right ventricular systolic pressure of around 46. A CRISTY was subsequently done and showed severe with a peak gradient of 70-80 mm of a mercury with a mean gradient of 40, mild mitral regurgitation, biatrial enlargement, generalized hypokinesia with cardiomyopathy. Cardiac catheterization was also done and showed no significant coronary artery disease. 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 History of Any Multi-Drug Resistant Organisms: None Reported Past Surgical History: Heart Catheterization Additional Past Surgical History / Comment(s): 1998 benign brain tumor removed. cardioversion,CRISTY Past Anesthesia/Blood Transfusion Reactions: No Reported Reaction Additional Past Anesthesia/Blood Transfusion Reaction / Comment(s): No hx blood transfusion Past Psychological History: No Psychological Hx Reported Additional Psychological History / Comment(s): . Smoking Status: Former smoker Past Alcohol Use History: Rare Additional Past Alcohol Use History / Comment(s): Pt started smoking in 1950 and quit in 1985. Past Drug Use History: None Reported - Past Family History Father Family Medical History: Myocardial Infarction (TN) Additional Family Medical History / Comment(s): Father of a TN at the age of 93yrs. Mother Family Medical History: Myocardial Infarction (TN) Additional Family Medical History / Comment(s): Mother of a TN at the age of 88yrs. Medications and Allergies Home Medications Medication Instructions Recorded Confirmed Type Multivitamins, Thera [Multivitamin 1 tab PO DAILY 12/10/16 04/04/17 History (formulary)] Aspirin EC [Ecotrin] 325 mg PO DAILY 01/16/17 04/04/17 History Simvastatin [Zocor] 20 mg PO HS 01/16/17 04/04/17 History Warfarin [Coumadin] 2.5 mg PO SUTH 03/29/17 04/04/17 History Warfarin [Coumadin] 5 mg PO [id number] 03/29/17 04/04/17 History metFORMIN HCL [Glucophage] 500 mg PO DAILY 03/29/17 04/04/17 History Allergies Allergy/AdvReac Type Severity Reaction Status Date / Time No Known Allergies Allergy Verified 04/04/17 13:42 Physical Exam Vitals: Vital Signs Temp Pulse Pulse Resp BP BP Pulse Ox 04/04/17 16:08 73 04/04/17 16:00 69 16 98 04/04/17 15:00 69 16 96 04/04/17 14:50 69 16 96 04/04/17 14:40 69 97 04/04/17 14:30 79 97 04/04/17 14:20 94 98 04/04/17 14:10 82 14 98 04/04/17 14:00 82 99 04/04/17 13:50 81 99 04/04/17 13:40 80 100 04/04/17 13:30 82 100 04/04/17 13:20 77 100 04/04/17 13:10 77 14 100 04/04/17 13:00 105 H 14 04/04/17 12:58 98 04/04/17 06:07 97.2 F L 105 H 20 128/79 141/80 97 Intake and Output 04/04/17 04/04/17 04/04/17 06:59 14:59 22:59 Intake Total 100 100 Output Total 2180 145 Balance -2079 Intake: IV 100 100 Lactated Ringers 1,000 ml 100 100 @ 50 mls/hr IV .Q20H [facility] Rx#:[id number] Output: Chest Tube Drainage 420 120 Bilateral Pleural Chest 290 100 Tube Chest Tube Mediastinal 130 20 Urine 560 25 Estimated Blood Loss 1200 Other: Voiding Method Indwelling Catheter Indwelling Catheter # Bowel Movements 0 Weight 97.6 kg ABP, PAP, CO, CI - Last 8 Hours Arterial Blood Pressure 120/44 Arterial Blood Pressure 100/41 Arterial Blood Pressure 98/36 Arterial Blood Pressure 98/38 Arterial Blood Pressure 110/46 Arterial Blood Pressure 111/41 Arterial Blood Pressure 110/44 Arterial Blood Pressure 113/41 Arterial Blood Pressure 116/45 Arterial Blood Pressure 118/45 Arterial Blood Pressure 123/39 Arterial Blood Pressure 126/51 Arterial Blood Pressure 141/55 Arterial Blood Pressure 152/72 Pulmonary Artery Pressure 53/26 Pulmonary Artery Pressure 41/22 Pulmonary Artery Pressure 39/21 Pulmonary Artery Pressure 42/23 Pulmonary Artery Pressure 43/24 Pulmonary Artery Pressure 43/24 Pulmonary Artery Pressure 38/20 Pulmonary Artery Pressure 40/20 Pulmonary Artery Pressure 38/20 Pulmonary Artery Pressure 39/19 Pulmonary Artery Pressure 38/18 Pulmonary Artery Pressure 47/25 Pulmonary Artery Pressure 63/29 Pulmonary Artery Pressure 62/32 Cardiac Output 6.6 Cardiac Output 6.6 Cardiac Output 6.6 Cardiac Output 6.6 Cardiac Output 6.6 Cardiac Output 6.6 Cardiac Output 5.3 Cardiac Output 6.6 Cardiac Output 5.3 Cardiac Output 5.3 Cardiac Output 5.3 Cardiac Output 5.3 Cardiac Output 5.3 Cardiac Index 3.1 Cardiac Index 2.5 My normally had my normal hadHead exam was generally normal. There was no scleral icterus or corneal arcus. Mucous membranes were moist.Neck was supple and without jugular venous distension, thyromegaly, or carotid bruits. Carotids were easily palpable bilaterally. There was no adenopathy. Patient has a right IJ [place]-Lianne catheter in place with a Cordis. Orogastric and orotracheal tube are both in place. Neck is supple. Lung sounds are showing equal and symmetrical breath sounds. The patient has some abdominal breathing. Few scattered external wheeze. Chest tubes are all in place.Cardiac exam revealed the PMI to be normally situated and sized. The rhythm was regular and no extrasystoles were noted during several minutes of auscultation. The first and second heart sounds were normal and physiologic splitting of the second heart sound was noted. There were no murmurs, rubs, clicks, or gallops. Sternum stable clean and intact. The patient has atrial paced rhythm with underlying sinus bradycardia at the rate of 40.Abdominal exam revealed normal bowel sounds. The abdomen was soft, non-tender, and without masses, organomegaly, or appreciable enlargement of the abdominal aorta.Examination of the extremities revealed easily palpable radial, femoral and pedal pulses. There was no cyanosis , clubbing or edema. Results - Laboratory Findings CBC and BMP: 04/04/17 16:31 04/04/17 16:00 ABG ABG pH 7.28 (7.35-7.45) L 04/04/17 13:33 ABG pCO2 51 mmHg (35-45) H 04/04/17 13:33 ABG pO2 73 mmHg (83-108) L 04/04/17 13:33 ABG O2 Saturation 92.2 % (94-97) L 04/04/17 13:33 PT/INR, D-dimer PT 13.5 sec (9.0-12.0) H 04/04/17 16:00 INR 1.4 (<1.2) H 04/04/17 16:00 Abnormal lab findings: Abnormal Labs 03/28/17 04/04/17 04/04/17 08:59 06:24 08:00 WBC RBC Hgb Hct RDW Plt Count Neutrophils # PT 13.4 H INR 1.4 H ABG pH ABG pCO2 ABG pO2 ABG Total CO2 ABG O2 Saturation Chloride BUN Glucose POC Glucose (mg/dL) 127 H Total Protein Albumin Crossmatch See Detail 04/04/17 04/04/17 04/04/17 08:52 09:50 10:20 WBC RBC Hgb Hct RDW Plt Count Neutrophils # PT INR ABG pH ABG pCO2 ABG pO2 ABG Total CO2 ABG O2 Saturation Chloride BUN Glucose POC Glucose (mg/dL) 104 H 106 H 160 H Total Protein Albumin Crossmatch 04/04/17 04/04/17 04/04/17 10:52 11:20 12:04 WBC RBC Hgb Hct RDW Plt Count Neutrophils # PT INR ABG pH ABG pCO2 ABG pO2 ABG Total CO2 ABG O2 Saturation Chloride BUN Glucose POC Glucose (mg/dL) 168 H 152 H 140 H Total Protein Albumin Crossmatch 04/04/17 04/04/17 04/04/17 13:14 13:15 13:15 WBC RBC Hgb Hct RDW Plt Count Neutrophils # PT 14.3 H INR 1.5 H ABG pH ABG pCO2 ABG pO2 ABG Total CO2 ABG O2 Saturation Chloride 109 H BUN 23 H Glucose 109 H POC Glucose (mg/dL) 128 H Total Protein 4.8 L Albumin 2.9 L Crossmatch 04/04/17 04/04/17 04/04/17 13:15 13:33 14:33 WBC 10.8 H RBC 3.53 L Hgb 10.2 L D Hct 31.4 L RDW 16.1 H Plt Count 117 L Neutrophils # 8.6 H PT INR ABG pH 7.28 L ABG pCO2 51 H ABG pO2 73 L ABG Total CO2 25 H ABG O2 Saturation 92.2 L Chloride BUN Glucose POC Glucose (mg/dL) 114 H Total Protein Albumin Crossmatch 04/04/17 04/04/17 04/04/17 15:12 16:00 16:00 WBC RBC Hgb Hct RDW Plt Count Neutrophils # PT 13.5 H INR 1.4 H ABG pH ABG pCO2 ABG pO2 ABG Total CO2 ABG O2 Saturation Chloride 110 H BUN 25 H Glucose 118 H POC Glucose (mg/dL) 121 H Total Protein Albumin Crossmatch 04/04/17 04/04/17 16:01 16:31 WBC RBC 3.51 L Hgb 10.0 L Hct 30.2 L RDW Plt Count Neutrophils # PT INR ABG pH ABG pCO2 ABG pO2 ABG Total CO2 ABG O2 Saturation Chloride BUN Glucose POC Glucose (mg/dL) 130 H Total Protein Albumin Crossmatch - Diagnostic Findings Chest x-ray: image reviewed Assessment and Plan Plan: Assessment 1 severe aortic stenosis status post aortic valve replacement, postop day #0. 2 postoperative/post thoracotomy mechanical ventilation, and expected outcome of surgery. The patient is in the process of weaning at this point 3 history of chronic atrial fibrillation. The patient's underlying cardiac rhythm is sinus bradycardia at the rate of 40 and currently is atrially paced. 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 Plan Keep the patient sedated with Diprivan. The patient is being weaned off the FiO2 is currently down to 70%. Once oxygenation is on the reasonable range the patient will be taken gradually off the Diprivan and will check consider weaning parameters and assess his readiness to wean further. Meanwhile, [facility] [id number]. His baseline FEV1 is 51% of predicted he can be potentially a difficult wean. We'll continue to follow make further determinations based on his progress. Chest tubes are all in place. Output is not excessive at this point. Hemoglobin is stable. Hemodynamically the patient is only on Primacor with adequate cardiac output and index. His producing adequate amount of urine output. I'm anticipating extubation within the next few hours. Meanwhile keep the patient sedated for the patient's FiO2 is within the reasonable range, i.e. less than 50%. We'll proceed with further weaning accordingly. Chest x-ray was reviewed. Blood gases was reviewed. Keep the atrial pacing. We'll continue to follow.
[2017-04-04] MEDS: ACETAMINOPHEN IV (For NPO) 1,000 MG in EMPTY BAG 1 BAG IVPB SCH (17:34)
[2017-04-04 18:11] LABS: Glucose,Whole Blood 146 mg/dL (75-99)
[2017-04-04 18:32] LABS: Glucose,Whole Blood 143 mg/dL (75-99)
[2017-04-04 18:39] LABS: Basophils % (A) 0 %; CH 28.8; Eosinophils % (A) 0 %; HDW 3.29; HGB 9.7 gm/dL (13.0-17.5); Luc # (Auto) 0.12; Luc % (Auto) 1; Lymphocytes # (A) 0.4 k/uL (1.0-4.8); Lymphocytes % (A) 4 %; MCH 28.5 pg (25.0-35.0); MCHC 32.4 g/dL (31.0-37.0); MCV 87.8 fL (80.0-100.0); Mean Platelet Volume 9.8; Monocytes # (A) 0.3 k/uL (0-1.0); Monocytes % (A) 4 %; Neutrophils % (A) 91 %; RBC 3.42 m/uL (4.30-5.90); RDW 15.9 % (11.5-15.5); WBC 9.9 k/uL (3.8-10.6); WBC (Perox) 9.65
[2017-04-04 18:47] LABS: Ionized Calcium 5.1 mg/dL (4.5-5.3)
[2017-04-04 18:53] LABS: INR 1.4 (<1.2); Partial Thromboplastin Time 26.8 sec (22.0-30.0); Prothrombin Time 13.3 sec (9.0-12.0)
[2017-04-04 19:00] LABS: Anion Gap 9 mmol/L; Blood Urea Nitrogen 26 mg/dL (9-20); Calcium 8.4 mg/dL (8.4-10.2); Carbon Dioxide 22 mmol/L (22-30); Chloride 109 mmol/L (98-107); Glucose 127 mg/dL (74-99); Magnesium 2.1 mg/dL (1.6-2.3); Non-African American GFR(MDRD) >60 (>60 ml/min/1.73 sqM); Potassium 3.9 mmol/L (3.5-5.1); Sodium 140 mmol/L (137-145)
[2017-04-04] MEDS ORDERED: NOREPINEPHRIN 4 MG-0.9% NS PMX 4 MG/250 ML ML IV SCH (19:00)
[2017-04-04] MEDS ORDERED: POTASSIUM CHLORIDE 20 MEQ in WATER FOR INJECTION 1 100ML.BAG IVPB ONE (20:00)
[2017-04-04 20:26] LABS: Glucose,Whole Blood 146 mg/dL (75-99)
[2017-04-04] MEDS: MUPIROCIN 2% OINT 22 GM TUBE NASAL SCH (21:58)
[2017-04-04 22:12] LABS: Glucose,Whole Blood 151 mg/dL (75-99)
[2017-04-04 23:44] LABS: Glucose,Whole Blood 151 mg/dL (75-99)
[2017-04-05 01:03] LABS: Glucose,Whole Blood 149 mg/dL (75-99)
[2017-04-05] MEDS: ACETAMINOPHEN IV (For NPO) 1,000 MG in EMPTY BAG 1 BAG IVPB SCH ×4 (01:21→19:38)
[2017-04-05] MEDS: ceFAZolin 2 GM in SODIUM CHLORIDE 0.9% 100 ML IVPB SCH ×2 (01:21→07:59)
[2017-04-05] MEDS: HEPARIN SODIUM,PORCINE 5,000 UNIT/ML 1 ML VIAL SQ SCH ×4 (01:22→16:13)
[2017-04-05 03:05] LABS: Glucose,Whole Blood 137 mg/dL (75-99)
[2017-04-05] MEDS: IPRATROPIUM-ALBUTEROL 3 ML NEB INHALATION SCH ×2 (03:40→07:44)
[2017-04-05] MEDS: PROPOFOL 1,000 MG/100 ML VIAL IV SCH (04:02)
[2017-04-05] MEDS: MILRINONE-D5W PMX 20 MG in DEXTROSE/WATER 1 100ML.BAG IV SCH ×2 (04:02→12:57)
[2017-04-05 04:10] LABS: Glucose,Whole Blood 146 mg/dL (75-99)
[2017-04-05 04:25] LABS: Basophils % (A) 0 %; CHCM 33.2; Eosinophils % (A) 0 %; HCT 30.4 % (39.0-53.0); HDW 3.23; HGB 9.7 gm/dL (13.0-17.5); Luc # (Auto) 0.19; Luc % (Auto) 2; Lymphocytes # (A) 0.8 k/uL (1.0-4.8); Lymphocytes % (A) 8 %; MCH 28.1 pg (25.0-35.0); MCV 87.8 fL (80.0-100.0); Mean Platelet Volume 9.6; Monocytes # (A) 0.4 k/uL (0-1.0); Monocytes % (A) 4 %; Neutrophils # (A) 9.4 k/uL (1.3-7.7); Neutrophils % (A) 87 %; RBC 3.46 m/uL (4.30-5.90); RDW 15.9 % (11.5-15.5); WBC 10.9 k/uL (3.8-10.6); WBC (Perox) 11.08
[2017-04-05 04:28] LABS: ABG Base Excess -2.7 mmol/L; ABG HCO3 21 mmol/L (21-25); ABG PCO2 32 mmHg (35-45); ABG PH 7.44 (7.35-7.45); ABG PO2 87 mmHg (83-108); ABG TCO2 22 mmol/L (19-24)
[2017-04-05 04:28] LABS: Ionized Calcium 5.1 mg/dL (4.5-5.3)
[2017-04-05 04:43] LABS: INR 1.4 (<1.2); Partial Thromboplastin Time 26.1 sec (22.0-30.0); Prothrombin Time 13.7 sec (9.0-12.0)
[2017-04-05 04:48] LABS: ALT 35 U/L (21-72); AST 56 U/L (17-59); Alkaline Phosphatase 64 U/L (38-126); Anion Gap 10 mmol/L; Blood Urea Nitrogen 27 mg/dL (9-20); Calcium 8.6 mg/dL (8.4-10.2); Carbon Dioxide 21 mmol/L (22-30); Chloride 110 mmol/L (98-107); Glucose 138 mg/dL (74-99); Magnesium 2.1 mg/dL (1.6-2.3); Non-African American GFR(MDRD) 59 (>60 ml/min/1.73 sqM); Potassium 4.1 mmol/L (3.5-5.1); Sodium 141 mmol/L (137-145); Total Bilirubin 0.8 mg/dL (0.2-1.3); Total Protein 4.8 g/dL (6.3-8.2)
[2017-04-05 05:14] LABS: Glucose,Whole Blood 147 mg/dL (75-99)
[2017-04-05 06:16] LABS: Glucose,Whole Blood 151 mg/dL (75-99)
[2017-04-05 07:13] LABS: Glucose,Whole Blood 145 mg/dL (75-99)
[2017-04-05 07:42] LABS: ABG PCO2 32 mmHg (35-45); ABG PH 7.44 (7.35-7.45); ABG PO2 83 mmHg (83-108)
[2017-04-05 07:43] LABS: ABG Base Excess -2.3 mmol/L; ABG HCO3 21 mmol/L (21-25); ABG Oxygen Saturation 96.7 % (94-97); ABG TCO2 22 mmol/L (19-24)
[2017-04-05] MEDS: ATORVASTATIN 40 MG TAB PO SCH (07:59)
[2017-04-05] MEDS: ASPIRIN 325 MG TAB PO SCH (07:59)
[2017-04-05] MEDS: CLOPIDOGREL 75 MG TAB PO SCH (07:59)
[2017-04-05 08:00] LABS: Glucose,Whole Blood 157 mg/dL (75-99)
[2017-04-05] MEDS: MUPIROCIN 2% OINT 22 GM TUBE NASAL SCH ×2 (08:00→22:36)
[2017-04-05] MEDS: LACTATED RINGERS 1,000 ML IV SCH ×2 (08:01→16:12)
[2017-04-05] MEDS ORDERED: FUROSEMIDE 10 MG/ML 4 ML VIAL IV STA (08:04)
--- NOTE | 2017-04-05 08:23 | XR ---
EXAMINATION TYPE: XR chest 1V portable DATE OF EXAM: 04/05/2017 Comparison: 04/04/2017 Clinical History: 76 year-old male post Operative Cardiac Surgery Findings: Excessive tubing and catheters overlie the patient. Difficult to determine ET tube tip positioning. A radiopaque linear marker terminates at the thoracic inlet and a second marker terminates just above the aortic arch level. Mediastinal drain is present. NG tube tip courses below the diaphragm. The logan ehole is not well seen on the current exam. Bilateral chest tubes. Right IJ [place]ianne catheter with t ip in the distal main pulmonary outflow tract. Heart is upper limits of normal in size. Median sternotomy wires with prosthetic aortic valve. No vis ualized pneumothorax. Improvement in the pulmonary vasculature and overall aeration. Patchy bibasilar opacities remain. Impression: 1. Excessive tubing/catheters overlying the patient's upper chest. Accurate determination of ET tube position cannot be made. One tube ends at the thoracic inlet and a second tube ends just above the ar ch level. One of these is external to the patient. Clinical correlation recommended with appropriate follow-up. 2. Improving aeration with resolving pulmonary vascular congestion. Patchy bibasilar areas of atelect asis remain.
--- NOTE | 2017-04-05 08:46 | P.CRDCN ---
History of Present Illness Consult date: 04/05/17 History of present illness: This is a pleasant 76-year-old gentleman who sees Dr. Dunn as an outpatient who was diagnosed recently with severe symptomatic aortic stenosis. The patient was admitted to the hospital yesterday and underwent aortic valve replacement using bioprosthetic valve. This is post op day #1. Clinically, the patient seems to be doing good but he is still slightly lethargic. He continues to be in a sinus mechanism. Hemodynamically he is stable and the dose of Primacor was cutdown in to have earlier today and a plan to stop the Primacor completely in the next few hours. The patient continues to be on dual antiplatelet therapy as well as a statin and also he is on beta cait. He has been maintaining normal sinus mechanism overall. 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 History of Any Multi-Drug Resistant Organisms: None Reported Past Surgical History: Heart Catheterization Additional Past Surgical History / Comment(s): 1998 benign brain tumor removed. cardioversion,CRISTY Past Anesthesia/Blood Transfusion Reactions: No Reported Reaction Additional Past Anesthesia/Blood Transfusion Reaction / Comment(s): No hx blood transfusion Past Psychological History: No Psychological Hx Reported Additional Psychological History / Comment(s): . Smoking Status: Former smoker Past Alcohol Use History: Rare Additional Past Alcohol Use History / Comment(s): Pt started smoking in 1950 and quit in 1985. Past Drug Use History: None Reported - Past Family History Father Family Medical History: Myocardial Infarction (NC) Additional Family Medical History / Comment(s): Father of a NC at the age of 93yrs. Mother Family Medical History: Myocardial Infarction (NC) Additional Family Medical History / Comment(s): Mother of a NC at the age of 88yrs. Medications and Allergies Home Medications Medication Instructions Recorded Confirmed Type Multivitamins, Thera [Multivitamin 1 tab PO DAILY 12/10/16 04/04/17 History (formulary)] Aspirin EC [Ecotrin] 325 mg PO DAILY 01/16/17 04/04/17 History Simvastatin [Zocor] 20 mg PO HS 01/16/17 04/04/17 History Warfarin [Coumadin] 2.5 mg PO SUTH 03/29/17 04/04/17 History Warfarin [Coumadin] 5 mg PO [id number] 03/29/17 04/04/17 History metFORMIN HCL [Glucophage] 500 mg PO DAILY 03/29/17 04/04/17 History Allergies Allergy/AdvReac Type Severity Reaction Status Date / Time No Known Allergies Allergy Verified 04/04/17 13:42 Physical Exam Vitals: Vital Signs Pulse Pulse Resp BP Pulse Ox 04/05/17 08:02 85 04/05/17 07:45 85 04/05/17 07:00 79 22 97 04/05/17 06:00 79 18 99 04/05/17 05:00 79 16 100 04/05/17 04:00 77 18 99 04/05/17 03:16 78 04/05/17 03:04 76 04/05/17 03:00 76 17 98 04/05/17 02:00 77 17 93 L 04/05/17 01:00 77 18 97 04/05/17 00:00 75 17 99 04/04/17 23:53 16 04/04/17 23:22 74 04/04/17 23:17 74 17 100 04/04/17 23:08 74 04/04/17 23:00 74 16 99 04/04/17 22:00 75 19 98 04/04/17 21:00 73 17 96/41 100 04/04/17 20:18 73 04/04/17 20:10 73 04/04/17 20:00 69 16 96/41 99 04/04/17 19:00 69 18 94/41 99 04/04/17 18:00 69 16 90/43 96 04/04/17 17:00 69 95 04/04/17 16:08 73 04/04/17 16:00 69 16 98 04/04/17 15:00 69 16 96 04/04/17 14:50 69 16 96 04/04/17 14:40 69 97 04/04/17 14:30 79 97 04/04/17 14:20 94 98 04/04/17 14:10 82 14 98 04/04/17 14:00 82 99 04/04/17 13:50 81 99 04/04/17 13:40 80 100 04/04/17 13:30 82 100 04/04/17 13:20 77 100 04/04/17 13:10 77 14 100 04/04/17 13:00 105 H 14 04/04/17 12:58 98 Intake and Output 04/04/17 04/05/17 04/05/17 22:59 06:59 14:59 Intake Total 922.499 1766.249 227.683 Output Total 1052 480 130 Balance -252.853 579.249 97.683 Intake: IV 500 804 218 0.9 NS pressure bag 104 18 ACETAMINOPHEN IV (For NPO 200 ) 1,000 mg In Empty Bag 1 bag @ 400 mls/hr IVPB Q6HR [facility] Rx#:[id number] Lactated Ringers 1,000 ml 400 400 100 @ 20 mls/hr IV .Q24H [facility] Rx#:[id number] Potassium Chloride 20 meq 100 In Water For Injection 1 100ml.bag @ 50 mls/hr IVPB ONCE ONE Rx#: [id number] ceFAZolin 2 gm In Sodium 100 100 Chloride 0.9% 100 ml @ 100 mls/hr IVPB Q8HR [facility] Rx#:[id number] Intake, IV Titration 299.147 255.249 9.683 Amount Insulin Regular 100 unit 4.667 25.233 9.683 In Sodium Chloride 0.9% 100 ml @ Per Protocol IV .Q0M [facility] Rx#:[id number] Milrinone-D5w Pmx 20 mg 100.000 88.816 In Dextrose/Water 1 100ml .bag @ 0.25 MCG/KG/MIN 7. 32 mls/hr IV .[id number] [facility] Rx#:[id number] Norepinephrin 4 mg-0.9% 81.312 84.250 Ns Pmx 4 mg In 250 ml @ Titrate IV .Q0M [facility] Rx#: [id number] Propofol 1,000 mg In 100 113.168 56.950 ml @ Titrate IV .Q0M [facility] Rx#:[id number] Output: Chest Tube Drainage 712 160 60 Bilateral Pleural Chest 570 80 0 Tube Chest Tube Mediastinal 142 80 60 Urine 340 320 70 Other: Voiding Method Indwelling Catheter Indwelling Catheter # Bowel Movements 0 0 Weight 100.9 kg ABP, PAP, CO, CI - Last 8 Hours Arterial Blood Pressure 126/46 Arterial Blood Pressure 141/46 Arterial Blood Pressure 139/44 Arterial Blood Pressure 128/42 Arterial Blood Pressure 117/42 Arterial Blood Pressure 141/51 Pulmonary Artery Pressure 30/17 Pulmonary Artery Pressure 30/16 Pulmonary Artery Pressure 30/15 Pulmonary Artery Pressure 31/15 Pulmonary Artery Pressure 31/17 Pulmonary Artery Pressure 43/24 Pulmonary Artery Pressure 35/19 Cardiac Output 6 Cardiac Output 4.8 Cardiac Output 5.8 Cardiac Output 5.8 Cardiac Output 5 Cardiac Output 5 Cardiac Index 2.2 Cardiac Index 2.7 Cardiac Index 2.7 - Constitutional General appearance: no acute distress - Respiratory Respiratory: bilateral: diminished - Cardiovascular Rhythm: regular Heart sounds: normal: S1, S2 Results 04/05/17 04:00 04/05/17 04:00 Cardiac Enzymes 04/04/17 04/05/17 Range/Units 13:15 04:00 AST 35 56 (17-59) U/L Coagulation 04/04/17 04/04/17 04/04/17 Range/Units 13:15 16:00 18:31 PT 14.3 H 13.5 H 13.3 H (9.0-12.0) sec APTT 29.1 26.3 26.8 (22.0-30.0) sec 04/05/17 Range/Units 04:00 PT 13.7 H (9.0-12.0) sec APTT 26.1 (22.0-30.0) sec CBC 04/04/17 04/04/17 04/04/17 Range/Units 13:15 16:31 18:31 WBC 10.8 H 8.4 9.9 (3.8-10.6) k/uL RBC 3.53 L 3.51 L 3.42 L (4.30-5.90) m/uL Hgb 10.2 L D 10.0 L 9.7 L (13.0-17.5) gm/dL Hct 31.4 L 30.2 L 30.0 L (39.0-53.0) % Plt Count 117 L 94 L 98 L (150-450) k/uL 04/05/17 Range/Units 04:00 WBC 10.9 H (3.8-10.6) k/uL RBC 3.46 L (4.30-5.90) m/uL Hgb 9.7 L (13.0-17.5) gm/dL Hct 30.4 L (39.0-53.0) % Plt Count 107 L (150-450) k/uL Comprehensive Metabolic Panel 04/04/17 04/04/17 04/04/17 Range/Units 13:15 16:00 18:31 Sodium 141 141 140 (137-145) mmol/L Potassium 4.3 4.2 3.9 (3.5-5.1) mmol/L Chloride 109 H 110 H 109 H (98-107) mmol/L Carbon Dioxide 25 24 22 (22-30) mmol/L BUN 23 H 25 H 26 H (9-20) mg/dL Creatinine 0.94 1.01 1.12 (0.66-1.25) mg/dL Glucose 109 H 118 H 127 H (74-99) mg/dL Calcium 8.4 8.4 8.4 (8.4-10.2) mg/dL AST 35 (17-59) U/L ALT 32 (21-72) U/L Alkaline Phosphatase 61 (38-126) U/L Total Protein 4.8 L (6.3-8.2) g/dL Albumin 2.9 L (3.5-5.0) g/dL 04/05/17 Range/Units 04:00 Sodium 141 (137-145) mmol/L Potassium 4.1 (3.5-5.1) mmol/L Chloride 110 H (98-107) mmol/L Carbon Dioxide 21 L (22-30) mmol/L BUN 27 H (9-20) mg/dL Creatinine 1.20 (0.66-1.25) mg/dL Glucose 138 H (74-99) mg/dL Calcium 8.6 (8.4-10.2) mg/dL AST 56 (17-59) U/L ALT 35 (21-72) U/L Alkaline Phosphatase 64 (38-126) U/L Total Protein 4.8 L (6.3-8.2) g/dL Albumin 2.7 L (3.5-5.0) g/dL Current Medications Generic Name Dose Route Start Last Admin Trade Name Freq PRN Reason Stop Dose Admin Hydrocodone Bitart/Acetaminophen 2 each 04/05/17 12:52 [place] 5-325 PO Q4HR PRN Severe Pain Hydrocodone Bitart/Acetaminophen 1 each 04/05/17 12:53 [place] 5-325 PO Q4HR PRN Moderate Pain Albuterol/Ipratropium 3 ml 04/04/17 16:00 04/05/17 07:44 Duoneb 0.5 Mg-3 Mg/3 Ml Soln INHALATION 3 ml RT-Q4H FARHANA Administration Albuterol/Ipratropium 3 ml 04/05/17 12:54 Duoneb 0.5 Mg-3 Mg/3 Ml Soln INHALATION RT-Q2H PRN Shortness Of Breath Or Wheezing Aspirin 325 mg 04/05/17 09:00 04/05/17 07:59 Aspirin PO 325 mg DAILY FARHANA Administration Atorvastatin Calcium 40 mg 04/05/17 09:00 04/05/17 07:59 Lipitor PO 40 mg DAILY FARHANA Administration Benzocaine/Menthol 1 each 04/04/17 12:58 Cepacol Lozenge MUCOUS MEM Q2H PRN Sore Throat Bisacodyl 10 mg 04/05/17 12:53 Dulcolax RECTAL DAILY PRN Constipation Clopidogrel Bisulfate 75 mg 04/05/17 09:00 04/05/17 07:59 Plavix PO 75 mg DAILY FARHANA Administration Heparin Sodium (Porcine) 5,000 unit 04/05/17 00:00 04/05/17 07:59 Heparin SQ 5,000 unit Q8HR F[facility]HANA Administration Acetaminophen 1,000 mg/ IV 100 mls @ 400 mls/hr 04/04/17 18:00 04/05/17 06:32 Solution IVPB 04/05/17 18:01 400 mls/hr Q6HR FARHANA Administration Albumin Human 250 ml/ IV 250 mls @ 250 mls/hr 04/04/17 12:58 Solution IVPB 04/06/17 12:59 Q1HR PRN For Volume Calcium Gluconate 2,000 mg/ 120 mls @ 100 mls/hr 04/04/17 13:07 Sodium Chloride IVPB 04/05/17 13:08 ONCE PRN Ionized Calcium less than 4.4 Cefazolin Sodium 2 gm/ Sodium 100 mls @ 100 mls/hr 04/04/17 16:00 04/05/17 07 :59 Chloride IVPB 04/05/17 08:59 100 mls/hr Q8HR [facility] Administration Clevidipine 25 mg/ IV Solution 50 mls @ 2 mls/hr 04/04/17 13:00 04/04/17 13: 54 IV Not Given .Q24H [facility]NA Protocol 1 MG/HR Insulin Human Regular 100 unit 101 mls @ 0 mls/hr 04/04/17 13:00 04/05/17 08: 00 / Sodium Chloride IV 4.5 mls/hr .Q0M F[facility]NA 4.5 mls/hr Protocol Titration Per Protocol Lactated Ringer's 1,000 mls @ 20 mls/hr 04/04/17 13:00 04/05/17 08:01 Lactated Ringers IV 50 mls/hr .Q24H [facility]NA Administration Propofol 1,000 mg in 100 mls @ 0 mls/hr 04/04/17 13:00 04/05/17 06:20 Diprivan IV 0 mcg/kg/min .Q0M F[facility]NA 0 mls/hr Protocol Titration Titrate Milrinone Lactate/Dextrose 20 100 mls @ 7.32 mls/hr 04/04/17 13:35 04/05/17 04:02 mg/ IV Solution IV 0.5 mcg/kg/min .[id number] FARHANA 14.64 mls/hr 0.25 MCG/KG/MIN Administration Norepinephrine Bitartrate 4 mg in 250 mls @ 0 mls/hr 04/04/17 19:00 04/05/17 06:20 Levophed-0.9% Nacl 4 Mg/250ml Pmx IV 0 mcg/min .Q0M F[facility]NA 0 mls/hr Protocol Titration Titrate Magnesium Hydroxide 2,400 mg 04/05/17 12:53 Milk Of Magnesia PO BID PRN Constipation Metoclopramide HCl 10 mg 04/04/17 12:58 Reglan IVP Q4H PRN Nausea And Vomiting Metoprolol Tartrate 12.5 mg 04/05/17 09:00 04/05/17 08:00 Lopressor PO 12.5 mg BID [facility]NA Administration Miscellaneous Information 1 each 04/04/17 12:58 Magnesium Per Protocol MISCELLANE DAILY PRN Per Protocol Protocol Miscellaneous Information 1 each 04/04/17 12:58 Phosphorus Per Protocol MISCELLANE DAILY PRN Per Protocol Protocol Miscellaneous Information 1 each 04/04/17 12:58 Potassium Per Protocol MISCELLANE DAILY PRN Per Protocol Protocol Morphine Sulfate 2 mg 04/04/17 12:58 04/05/17 04:56 Morphine Sulfate (Inj) IVP 2 mg Q2H PRN Administration Severe Pain Mupirocin 1 applic 04/04/17 21:00 04/05/17 08:00 Bactroban Oint NASAL 04/07/17 21:01 1 applic BID [facility]NA Administration Ondansetron HCl 4 mg 04/04/17 12:58 Zofran IVP Q6HR PRN Nausea And Vomiting Oxycodone HCl 10 mg 04/04/17 12:58 Oxyir PO 04/05/17 12:59 Q4H PRN Severe Pain Oxycodone HCl 5 mg 04/04/17 12:58 Oxyir PO 04/05/17 12:59 Q4H PRN Moderate Pain Pantoprazole Sodium 40 mg 04/05/17 09:00 04/05/17 08:00 Protonix IVP 40 mg DAILY [facility] Administration Senna/Docusate Sodium 2 each 04/05/17 21:00 Senokot-S PO HS [facility] Sodium Chloride 10 ml 04/04/17 21:00 04/05/17 08:00 Saline Flush IV 10 ml BID [facility]NA Administration Intake and Output 04/04/17 04/05/17 04/05/17 22:59 06:59 14:59 Intake Total 190.055 5556.249 227.683 Output Total 1052 480 130 Balance -252.853 579.249 97.683 Intake: IV 500 804 218 0.9 NS pressure bag 104 18 ACETAMINOPHEN IV (For NPO 200 ) 1,000 mg In Empty Bag 1 bag @ 400 mls/hr IVPB Q6HR [facility] Rx#:[id number] Lactated Ringers 1,000 ml 400 400 100 @ 20 mls/hr IV .Q24H [facility] Rx#:[id number] Potassium Chloride 20 meq 100 In Water For Injection 1 100ml.bag @ 50 mls/hr IVPB ONCE ONE Rx#: [id number] ceFAZolin 2 gm In Sodium 100 100 Chloride 0.9% 100 ml @ 100 mls/hr IVPB Q8HR [facility] Rx#:[id number] Intake, IV Titration 299.147 255.249 9.683 Amount Insulin Regular 100 unit 4.667 25.233 9.683 In Sodium Chloride 0.9% 100 ml @ Per Protocol IV .Q0M [facility] Rx#:[id number] Milrinone-D5w Pmx 20 mg 100.000 88.816 In Dextrose/Water 1 100ml .bag @ 0.25 MCG/KG/MIN 7. 32 mls/hr IV .[id number] [facility] Rx#:[id number] Norepinephrin 4 mg-0.9% 81.312 84.250 Ns Pmx 4 mg In 250 ml @ Titrate IV .Q0M [facility] Rx#: [id number] Propofol 1,000 mg In 100 113.168 56.950 ml @ Titrate IV .Q0M [facility] Rx#:[id number] Output: Chest Tube Drainage 712 160 60 Bilateral Pleural Chest 570 80 0 Tube Chest Tube Mediastinal 142 80 60 Urine 340 320 70 Other: Voiding Method Indwelling Catheter Indwelling Catheter # Bowel Movements 0 0 Weight 100.9 kg 04/05/17 04:00 04/05/17 04:00 Assessment and Plan Plan: This is a pleasant 76-year-old gentleman who is status post aVR using bypass at the aortic valve for severe aortic stenosis. I'll continue the patient on the current medical treatment which included dual antiplatelet therapy and statin. Plan to stop the Primacor down the line. We' ll continue following up with him.
[2017-04-05] MEDS ORDERED: METOPROLOL TARTRATE 12.5 MG TAB PO SCH (09:00)
[2017-04-05] MEDS ORDERED: PANTOPRAZOLE 40 MG/10 ML VIAL IVP SCH (09:00)
[2017-04-05 09:19] LABS: Glucose,Whole Blood 122 mg/dL (75-99)
[2017-04-05 10:12] LABS: Glucose,Whole Blood 121 mg/dL (75-99)
[2017-04-05] MEDS: CLEVIDIPINE BUTYRATE 25 MG in EMPTY BAG 1 BAG IV SCH (11:21)
--- NOTE | 2017-04-05 12:00 | OP ---
DATE OF OPERATION: 04/04/2017 ATTENDING SURGEON: Dr. Craig PREOPERATIVE DIAGNOSES: 1. Critical aortic stenosis. 2. Atrial fibrillation. POSTOPERATIVE DIAGNOSES: 1. Critical aortic stenosis. 2. Atrial fibrillation. PROCEDURES: 1. Aortic valve replacement with #23 mm Magna Ease Bioprosthetic aortic valve. 2. Modified maze procedure with pulmonary vein isolation using the AtriCure radiofrequency ablation system and clip ligation of the left atrial appendage with a #40 mm AtriClip 3. Intraoperative CRISTY. ANESTHESIA: General. BLOOD LOSS: 500 ml. DESCRIPTION OF PROCEDURE: The patient was brought to the operative room and placed in supine position. Administration of general endotracheal anesthetic was placed as well as the [place]-Lianne catheter anteriorly, IV access and Wilson catheter. Patient was carefully prepped and draped in sterile fashion using Betadine paint and sterile towels. Midline incision on chest made and sternum divided. Pericardium was opened. Heart size was slightly enlarged. The aorta did have multiple calcific plaques present throughout the ascending aorta. The patient was heparinized today for ACT greater than 480. The aorta and vena cava were cannulated and given retrograde cardioplegia. Catheter was positioned in the ascending aorta and coronary sinus. The patient was placed on bypass. Cross- clamp placed. The heart arrested. With 1 liter of ( ) 500 mL retrograde cardioplegia. Retrograde cardioplegia was delivered through the 500 mL at each 20 minute interval. First, the both right and left superior and inferior pulmonary veins were isolated and using the clamp, AtriCure clamp technique, three sets of ablation lines were created on both the sets of pulmonary veins encompassing a small portion of cuff of atrial tissue. Once these are completed , the base of the left atrial appendage was measured and measured to a 40 mm AtriClip. The appendage was somewhat thickened and at this point, the clip was brought into the field, opened, secured at the base and officially obliterating the left atrial appendage. At this point transverse aortotomy incision was made 2 cm distal to takeoff of the right coronary artery and handheld retractor was placed. There was noted to be a couple of large calcific plaques inside on the ascending aorta. These were gently removed and irrigated out copiously with saline. The aortic valve was trileaflet, heavily calcified. The leaflets were excised. The annulus debrided and again was irrigated out with about 2 liters of cold saline, and sized to a 23 mm Magna Ease Bioprosthetic aortic valve. The valve was prepared in usual fashion. 2-0 Tycron pledgeted sutures were placed ventricularly based circumferentially. These were then passed through the sewing cuff of the valve which was then seated and seated well. All sutures were then secured using the Core Knot Ligature System. The aortotomy incision was then closed in a double layered pledgeted 4-0 Prolene vertical mattress followed by over and over stitch on both sides. The patient was placed head down. Complete deairing maneuvers were performed three times. One liter of warm blood and retrograde cardioplegia was run. Cross-clamp was then removed. Once beating normal sinus rhythm the patient was brought off bypass and came off bypass uneventfully with Primacor and Levophed. Protamine delivered. Patient decannulated. Atrial and pacing wires were placed and the patient was paced DDD at 70. Mediastinal left and right pleural chest tubes were placed as there was approximately a liter of pleural effusion on both either side and the sternum was closed with four #6 sternal wires and 3 zip tie sternal closure devices. Skin, subcutaneous tissue and fascia closed in three layers. No complications. Patient tolerated the procedure well. He was taken to the cardiovascular intensive care unit in stable condition. YOGESH
[2017-04-05 12:23] LABS: Glucose,Whole Blood 124 mg/dL (75-99)
[2017-04-05] MEDS ORDERED: METOPROLOL TARTRATE 12.5 MG TAB PO STA (12:35)
[2017-04-05] MEDS ORDERED: HYDROcodone/APAP 5-325MG 1 EACH TAB PO PRN (12:52)
[2017-04-05] MEDS ORDERED: MAGNESIUM HYDROXIDE 2,400 MG/10 ML CUP PO PRN (12:53)
[2017-04-05] MEDS ORDERED: BISACODYL 10 MG SUPP RECTAL PRN (12:53)
[2017-04-05] MEDS ORDERED: IPRATROPIUM-ALBUTEROL 3 ML NEB INHALATION PRN (12:54)
[2017-04-05 14:22] LABS: Glucose,Whole Blood 135 mg/dL (75-99)
--- NOTE | 2017-04-05 14:44 | P.PN ---
Subjective 76-year-old male patient, post aortic valve replacement, being seen in the intensive care unit. He was brought in this afternoon to the ICU on a mechanical ventilator, on assist control mode at the rate of 12, tidal volume of 500, FiO2 of 100% and a PEEP of 5. He is sedated and is calm and comfortable on Diprivan. He is on Primacor at 0.5 mcg/m and his cardiac output is 6.6 with an index of 2.9. The patient has a mediastinal chest tube and a left pleural chest tube and total amount of output since arrival from the operating room is approximately 300 in the mediastinal and 450 and a chest tubes. No air leaks. Chest x-ray shows cardiomegaly. Chest tubes are all in good location. NG tube needs to be advanced. ET tube is around 3 cm above the nadja. [place] catheter good location. Patient is producing good amount of urine output. No hypothermia. Blood gases showed a pH of 7.28 with a pCO2 of 51 and pO2 of 73. Based on this I increased tidal volume of 650. The FiO2 was gradually weaned down and currently is down to 70%. The patient has a baseline FEV1 of 51% of predicted preoperatively. He is current history of COPD. He is on bronchodilators. Preoperatively, the patient was found to have a ejection fraction of 40-50% with moderate degree of aortic stenosis with a right ventricular systolic pressure of around 46. A CRISTY was subsequently done and showed severe with a peak gradient of 70-80 mm of a mercury with a mean gradient of 40, mild mitral regurgitation, biatrial enlargement, generalized hypokinesia with cardiomyopathy. Cardiac catheterization was also done and showed no significant coronary artery disease. On 04/05/2017 the patient is postop aortic valve replacement and the patient is postop day #1. He is doing well. I saw him earlier this morning. I was unable to extubate him overnight as the patient was quite drowsy and sleepy. He was taken off sedation and he gradually became more alert and awake. Earlier this morning, the patient was given a spelled his breathing trial with a pressure support of 5 and a PEEP of 5 which she was able to tolerate for more than 45 minutes. Based on that, I was able to extubate the patient to a nasal cannula at 2 L/m. He is not having any major respiratory difficulties at this point in his resting comfortably in bed. The patient has a mediastinal chest tube. And the patient also has a right and the left pleural chest tube. The pleural chest tubes have averaged around 60 mL output and a mediastinal chest tube has put out 140 mL. The patient is in a normal sinus rhythm. The patient is receiving 0.2 g of Primacor. Urine output is adequate for now. Sternum stable clean and intact. No other significant events overnight. No significant cardiac arrhythmias postop however after putting this patient on a chair and afternoon the patient went into A. fib fibrillation with a rate of 120. Cardiology will be informed of this arrhythmia. Objective - Vital Signs Vital signs: Vital Signs Temp 98.8 F 04/05/17 12:00 Pulse 73 04/05/17 14:00 Resp 18 04/05/17 14:00 BP 146/72 04/05/17 14:00 Pulse Ox 96 04/05/17 14:00 Intake & Output 04/04/17 04/05/17 04/05/17 18:59 06:59 18:59 Intake Total 670.586 4707.883 696.983 Output Total 2895 817 925 Balance -2499.487 745.883 -228.017 Weight 100.9 kg Intake: IV 350 1054 572 0.9 NS pressure bag 104 72 ACETAMINOPHEN IV (For NPO 200 ) 1,000 mg In Empty Bag 1 bag @ 400 mls/hr IVPB Q6HR [facility] Rx#:[id number] Lactated Ringers 1,000 ml 350 550 400 @ 20 mls/hr IV .Q24H [facility] Rx#:[id number] Potassium Chloride 20 meq 100 In Water For Injection 1 100ml.bag @ 50 mls/hr IVPB ONCE ONE Rx#: [id number] ceFAZolin 2 gm In Sodium 100 100 Chloride 0.9% 100 ml @ 100 mls/hr IVPB Q8HR [facility] Rx#:[id number] Intake, IV Titration 45.513 508.883 124.983 Amount Insulin Regular 100 unit 4.667 25.233 24.983 In Sodium Chloride 0.9% 100 ml @ Per Protocol IV .Q0M [facility] Rx#:[id number] Milrinone-D5w Pmx 20 mg 188.816 100 In Dextrose/Water 1 100ml .bag @ 0.2 MCG/KG/MIN 5. 85 mls/hr IV .Q17H6M [facility] Rx#:[id number] Norepinephrin 4 mg-0.9% 165.562 Ns Pmx 4 mg In 250 ml @ Titrate IV .Q0M [facility] Rx#: [id number] Propofol 1,000 mg In 100 40.846 129.272 ml @ Titrate IV .Q0M [facility] Rx#:[id number] Output: Chest Tube Drainage 960 332 200 Bilateral Pleural Chest 730 210 60 Tube Chest Tube Mediastinal 230 122 140 Urine 735 485 725 Estimated Blood Loss 1200 Other: Voiding Method Indwelling Catheter Indwelling Catheter Indwelling Catheter # Bowel Movements 0 0 0 ABP, PAP, CO, CI - Last Documented Arterial Blood Pressure 176/62 Pulmonary Artery Pressure 32/10 Cardiac Output 5.1 Cardiac Index 3.0 - Exam Head exam was generally normal. There was no scleral icterus or corneal arcus. Mucous membranes were moist.Neck was supple and without jugular venous distension, thyromegaly, or carotid bruits. Carotids were easily palpable bilaterally. There was no adenopathy. Lung sounds are diminished bilaterally and the patient has a right pleural, left pleural and mediastinal chest tube. Sternum stable clean and intact. Breath sounds are equal and symmetrical. No wheezes. Few rales over the bases.Cardiac exam revealed the PMI to be normally situated and sized. The rhythm was rrregular and no extrasystoles were noted during several minutes of auscultation. The first and second heart sounds were normal and physiologic splitting of the second heart sound was noted. There were no murmurs, rubs, clicks, or gallops.Abdominal exam revealed normal bowel sounds. The abdomen was soft, non-tender, and without masses, organomegaly, or appreciable enlargement of the abdominal aorta.Examination of the extremities revealed easily palpable radial, femoral and pedal pulses. There was no cyanosis , clubbing or edema. - Labs CBC & Chem 7: 04/05/17 04:00 04/05/17 04:00 Labs: Abnormal Lab Results - Last 24 Hours (Table) 03/28/17 04/04/17 04/04/17 Range/Units 08:59 15:12 16:00 WBC (3.8-10.6) k/uL RBC (4.30-5.90) m/uL Hgb (13.0-17.5) gm/dL Hct (39.0-53.0) % RDW (11.5-15.5) % Plt Count (150-450) k/uL Neutrophils # (1.3-7.7) k/uL Lymphocytes # (1.0-4.8) k/uL PT 13.5 H (9.0-12.0) sec INR 1.4 H (<1.2) ABG pCO2 (35-45) mmHg Chloride (98-107) mmol/L Carbon Dioxide (22-30) mmol/L BUN (9-20) mg/dL Glucose (74-99) mg/dL POC Glucose (mg/dL) 121 H (75-99) mg/dL Total Protein (6.3-8.2) g/dL Albumin (3.5-5.0) g/dL Crossmatch See Detail 04/04/17 04/04/17 04/04/17 Range/Units 16:00 16:01 16:31 WBC (3.8-10.6) k/uL RBC 3.51 L (4.30-5.90) m/uL Hgb 10.0 L (13.0-17.5) gm/dL Hct 30.2 L (39.0-53.0) % RDW (11.5-15.5) % Plt Count 94 L (150-450) k/uL Neutrophils # (1.3-7.7) k/uL Lymphocytes # 0.6 L (1.0-4.8) k/uL PT (9.0-12.0) sec INR (<1.2) ABG pCO2 (35-45) mmHg Chloride 110 H (98-107) mmol/L Carbon Dioxide (22-30) mmol/L BUN 25 H (9-20) mg/dL Glucose 118 H (74-99) mg/dL POC Glucose (mg/dL) 130 H (75-99) mg/dL Total Protein (6.3-8.2) g/dL Albumin (3.5-5.0) g/dL Crossmatch 04/04/17 04/04/17 04/04/17 Range/Units 17:03 18:09 18:30 WBC (3.8-10.6) k/uL RBC (4.30-5.90) m/uL Hgb (13.0-17.5) gm/dL Hct (39.0-53.0) % RDW (11.5-15.5) % Plt Count (150-450) k/uL Neutrophils # (1.3-7.7) k/uL Lymphocytes # (1.0-4.8) k/uL PT (9.0-12.0) sec INR (<1.2) ABG pCO2 (35-45) mmHg Chloride (98-107) mmol/L Carbon Dioxide (22-30) mmol/L BUN (9-20) mg/dL Glucose (74-99) mg/dL POC Glucose (mg/dL) 134 H 146 H 143 H (75-99) mg/dL Total Protein (6.3-8.2) g/dL Albumin (3.5-5.0) g/dL Crossmatch 04/04/17 04/04/17 04/04/17 Range/Units 18:31 18:31 18:31 WBC (3.8-10.6) k/uL RBC 3.42 L (4.30-5.90) m/uL Hgb 9.7 L (13.0-17.5) gm/dL Hct 30.0 L (39.0-53.0) % RDW 15.9 H (11.5-15.5) % Plt Count 98 L (150-450) k/uL Neutrophils # 9.0 H (1.3-7.7) k/uL Lymphocytes # 0.4 L (1.0-4.8) k/uL PT 13.3 H (9.0-12.0) sec INR 1.4 H (<1.2) ABG pCO2 (35-45) mmHg Chloride 109 H (98-107) mmol/L Carbon Dioxide (22-30) mmol/L BUN 26 H (9-20) mg/dL Glucose 127 H (74-99) mg/dL POC Glucose (mg/dL) (75-99) mg/dL Total Protein (6.3-8.2) g/dL Albumin (3.5-5.0) g/dL Crossmatch 04/04/17 04/04/17 04/04/17 Range/Units 20:24 22:11 23:43 WBC (3.8-10.6) k/uL RBC (4.30-5.90) m/uL Hgb (13.0-17.5) gm/dL Hct (39.0-53.0) % RDW (11.5-15.5) % Plt Count (150-450) k/uL Neutrophils # (1.3-7.7) k/uL Lymphocytes # (1.0-4.8) k/uL PT (9.0-12.0) sec INR (<1.2) ABG pCO2 (35-45) mmHg Chloride (98-107) mmol/L Carbon Dioxide (22-30) mmol/L BUN (9-20) mg/dL Glucose (74-99) mg/dL POC Glucose (mg/dL) 146 H 151 H 151 H (75-99) mg/dL Total Protein (6.3-8.2) g/dL Albumin (3.5-5.0) g/dL Crossmatch 04/05/17 04/05/17 04/05/17 Range/Units 01:01 03:04 03:53 WBC (3.8-10.6) k/uL RBC (4.30-5.90) m/uL Hgb (13.0-17.5) gm/dL Hct (39.0-53.0) % RDW (11.5-15.5) % Plt Count (150-450) k/uL Neutrophils # (1.3-7.7) k/uL Lymphocytes # (1.0-4.8) k/uL PT (9.0-12.0) sec INR (<1.2) ABG pCO2 32 L (35-45) mmHg Chloride (98-107) mmol/L Carbon Dioxide (22-30) mmol/L BUN (9-20) mg/dL Glucose (74-99) mg/dL POC Glucose (mg/dL) 149 H 137 H (75-99) mg/dL Total Protein (6.3-8.2) g/dL Albumin (3.5-5.0) g/dL Crossmatch 04/05/17 04/05/17 04/05/17 Range/Units 04:00 04:00 04:00 WBC 10.9 H (3.8-10.6) k/uL RBC 3.46 L (4.30-5.90) m/uL Hgb 9.7 L (13.0-17.5) gm/dL Hct 30.4 L (39.0-53.0) % RDW 15.9 H (11.5-15.5) % Plt Count 107 L (150-450) k/uL Neutrophils # 9.4 H (1.3-7.7) k/uL Lymphocytes # 0.8 L (1.0-4.8) k/uL PT 13.7 H (9.0-12.0) sec INR 1.4 H (<1.2) ABG pCO2 (35-45) mmHg Chloride 110 H (98-107) mmol/L Carbon Dioxide 21 L (22-30) mmol/L BUN 27 H (9-20) mg/dL Glucose 138 H (74-99) mg/dL POC Glucose (mg/dL) (75-99) mg/dL Total Protein 4.8 L (6.3-8.2) g/dL Albumin 2.7 L (3.5-5.0) g/dL Crossmatch 04/05/17 04/05/17 04/05/17 Range/Units 04:08 05:13 06:15 WBC (3.8-10.6) k/uL RBC (4.30-5.90) m/uL Hgb (13.0-17.5) gm/dL Hct (39.0-53.0) % RDW (11.5-15.5) % Plt Count (150-450) k/uL Neutrophils # (1.3-7.7) k/uL Lymphocytes # (1.0-4.8) k/uL PT (9.0-12.0) sec INR (<1.2) ABG pCO2 (35-45) mmHg Chloride (98-107) mmol/L Carbon Dioxide (22-30) mmol/L BUN (9-20) mg/dL Glucose (74-99) mg/dL POC Glucose (mg/dL) 146 H 147 H 151 H (75-99) mg/dL Total Protein (6.3-8.2) g/dL Albumin (3.5-5.0) g/dL Crossmatch 04/05/17 04/05/17 04/05/17 Range/Units 07:12 07:30 07:59 WBC (3.8-10.6) k/uL RBC (4.30-5.90) m/uL Hgb (13.0-17.5) gm/dL Hct (39.0-53.0) % RDW (11.5-15.5) % Plt Count (150-450) k/uL Neutrophils # (1.3-7.7) k/uL Lymphocytes # (1.0-4.8) k/uL PT (9.0-12.0) sec INR (<1.2) ABG pCO2 32 L (35-45) mmHg Chloride (98-107) mmol/L Carbon Dioxide (22-30) mmol/L BUN (9-20) mg/dL Glucose (74-99) mg/dL POC Glucose (mg/dL) 145 H 157 H (75-99) mg/dL Total Protein (6.3-8.2) g/dL Albumin (3.5-5.0) g/dL Crossmatch 04/05/17 04/05/17 04/05/17 Range/Units 09:17 10:11 12:19 WBC (3.8-10.6) k/uL RBC (4.30-5.90) m/uL Hgb (13.0-17.5) gm/dL Hct (39.0-53.0) % RDW (11.5-15.5) % Plt Count (150-450) k/uL Neutrophils # (1.3-7.7) k/uL Lymphocytes # (1.0-4.8) k/uL PT (9.0-12.0) sec INR (<1.2) ABG pCO2 (35-45) mmHg Chloride (98-107) mmol/L Carbon Dioxide (22-30) mmol/L BUN (9-20) mg/dL Glucose (74-99) mg/dL POC Glucose (mg/dL) 122 H 121 H 124 H (75-99) mg/dL Total Protein (6.3-8.2) g/dL Albumin (3.5-5.0) g/dL Crossmatch 04/05/17 Range/Units 14:19 WBC (3.8-10.6) k/uL RBC (4.30-5.90) m/uL Hgb (13.0-17.5) gm/dL Hct (39.0-53.0) % RDW (11.5-15.5) % Plt Count (150-450) k/uL Neutrophils # (1.3-7.7) k/uL Lymphocytes # (1.0-4.8) k/uL PT (9.0-12.0) sec INR (<1.2) ABG pCO2 (35-45) mmHg Chloride (98-107) mmol/L Carbon Dioxide (22-30) mmol/L BUN (9-20) mg/dL Glucose (74-99) mg/dL POC Glucose (mg/dL) 135 H (75-99) mg/dL Total Protein (6.3-8.2) g/dL Albumin (3.5-5.0) g/dL Crossmatch Assessment and Plan Plan: Assessment 1 severe aortic stenosis status post aortic valve replacement, postop day #1. The patient is hemodynamically stable. The patient is on low-dose Primacor at 0.2 g. The patient is producing adequate amount of urine output. The patient is in atrial fibrillation for now. The patient was extubated without any major difficulties. Chest x-ray was reviewed and shows post surgical changes with some increased interstitial edema. There is also patchy bibasilar areas of atelectasis in the lung bases. 2 postoperative atrial fibrillation with rapid ventricular response 3 history of chronic atrial fibrillation. 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 Plan Discussed the cardiac arrhythmia with cardiology. May benefit from amiodarone. Discussed the issue of anticoagulation also with cardiology. Continue weaning off milrinone. Continue Plavix. Continue using incentive spirometer. Monitor chest tube output. We'll continue to follow.
--- NOTE | 2017-04-05 15:03 | P.CONS ---
History of Present Illness - Reason for Consult Consult date: 04/05/17 Medical management Requesting physician: Sergo Craig - Chief Complaint Status post aortic valve replacement - History of Present Illness This is a 76-year-old male with a known history of atrial fibrillation, diabetes mellitus, CVA, hyperlipidemia hypertension, COPD and benign brain tumor. Patient underwent aortic valve replacement for his severe aortic stenosis. Patient currently remains in the ICU he was extubated this morning. Pulmonary and cardiology are following. Patient reports that his pain is controlled. He is off of pressors. And they're weaning him off of the Primacor. Patient denies any chest pain or shortness breath. Denies any nausea or vomiting. Denies any bowel movement changes. Urine output adequate. We've been consulted for medical management. 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 History of Any Multi-Drug Resistant Organisms: None Reported Past Surgical History: Heart Catheterization Additional Past Surgical History / Comment(s): 1998 benign brain tumor removed. cardioversion,CRISTY Past Anesthesia/Blood Transfusion Reactions: No Reported Reaction Additional Past Anesthesia/Blood Transfusion Reaction / Comm: No hx blood transfusion Past Psychological History: No Psychological Hx Reported Additional Psychological History / Comment(s): . Smoking Status: Former smoker Past Alcohol Use History: Rare Additional Past Alcohol Use History / Comment(s): Pt started smoking in 1950 and quit in 1985. Past Drug Use History: None Reported - Past Family History Father Family Medical History: Myocardial Infarction (MT) Additional Family Medical History / Comment(s): Father of a MT at the age of 93yrs. Mother Family Medical History: Myocardial Infarction (MT) Additional Family Medical History / Comment(s): Mother of a MT at the age of 88yrs. Medications and Allergies Home Medications Medication Instructions Recorded Confirmed Type Multivitamins, Thera [Multivitamin 1 tab PO DAILY 12/10/16 04/04/17 History (formulary)] Aspirin EC [Ecotrin] 325 mg PO DAILY 01/16/17 04/04/17 History Simvastatin [Zocor] 20 mg PO HS 01/16/17 04/04/17 History Warfarin [Coumadin] 2.5 mg PO SUTH 03/29/17 04/04/17 History Warfarin [Coumadin] 5 mg PO [id number] 03/29/17 04/04/17 History metFORMIN HCL [Glucophage] 500 mg PO DAILY 03/29/17 04/04/17 History Allergies Allergy/AdvReac Type Severity Reaction Status Date / Time No Known Allergies Allergy Verified 04/04/17 13:42 Physical Exam Vitals: Vital Signs Temp Pulse Pulse Resp BP Pulse Ox 04/05/17 14:00 73 18 146/72 96 04/05/17 13:00 78 17 146/72 99 04/05/17 12:00 98.8 F 77 16 97 04/05/17 11:14 105 H 18 04/05/17 11:00 77 18 95 04/05/17 10:00 76 20 99 04/05/17 09:00 85 98 04/05/17 08:02 85 04/05/17 08:00 81 16 100 04/05/17 07:45 85 04/05/17 07:00 79 22 97 04/05/17 06:00 79 18 99 04/05/17 05:00 79 16 100 04/05/17 04:00 77 18 99 04/05/17 03:16 78 04/05/17 03:04 76 04/05/17 03:00 76 17 98 04/05/17 02:00 77 17 93 L 04/05/17 01:00 77 18 97 04/05/17 00:00 75 17 99 04/04/17 23:53 16 04/04/17 23:22 74 04/04/17 23:17 74 17 100 04/04/17 23:08 74 04/04/17 23:00 74 16 99 04/04/17 22:00 75 19 98 04/04/17 21:00 73 17 96/41 100 04/04/17 20:18 73 04/04/17 20:10 73 04/04/17 20:00 69 16 96/41 99 04/04/17 19:00 69 18 94/41 99 04/04/17 18:00 69 16 90/43 96 04/04/17 17:00 69 95 04/04/17 16:08 73 04/04/17 16:00 69 16 98 04/04/17 15:00 69 16 96 Intake and Output 04/04/17 04/05/17 04/05/17 22:59 06:59 14:59 Intake Total 807.423 4951.249 696.983 Output Total 1052 480 925 Balance -252.853 579.249 -228.017 Intake: IV 500 804 572 0.9 NS pressure bag 104 72 ACETAMINOPHEN IV (For NPO 200 ) 1,000 mg In Empty Bag 1 bag @ 400 mls/hr IVPB Q6HR [facility] Rx#:[id number] Lactated Ringers 1,000 ml 400 400 400 @ 20 mls/hr IV .Q24H [facility] Rx#:[id number] Potassium Chloride 20 meq 100 In Water For Injection 1 100ml.bag @ 50 mls/hr IVPB ONCE ONE Rx#: [id number] ceFAZolin 2 gm In Sodium 100 100 Chloride 0.9% 100 ml @ 100 mls/hr IVPB Q8HR [facility] Rx#:[id number] Intake, IV Titration 299.147 255.249 124.983 Amount Insulin Regular 100 unit 4.667 25.233 24.983 In Sodium Chloride 0.9% 100 ml @ Per Protocol IV .Q0M [facility] Rx#:[id number] Milrinone-D5w Pmx 20 mg 100.000 88.816 100 In Dextrose/Water 1 100ml .bag @ 0.2 MCG/KG/MIN 5. 85 mls/hr IV .Q17H6M [facility] Rx#:[id number] Norepinephrin 4 mg-0.9% 81.312 84.250 Ns Pmx 4 mg In 250 ml @ Titrate IV .Q0M [facility] Rx#: [id number] Propofol 1,000 mg In 100 113.168 56.950 ml @ Titrate IV .Q0M [facility] Rx#:[id number] Output: Chest Tube Drainage 712 160 200 Bilateral Pleural Chest 570 80 60 Tube Chest Tube Mediastinal 142 80 140 Urine 340 320 725 Other: Voiding Method Indwelling Catheter Indwelling Catheter Indwelling Catheter # Bowel Movements 0 0 0 Weight 100.9 kg ABP, PAP, CO, CI - Last 8 Hours Arterial Blood Pressure 176/62 Arterial Blood Pressure 137/50 Arterial Blood Pressure 128/52 Arterial Blood Pressure 123/47 Arterial Blood Pressure 135/48 Arterial Blood Pressure 153/49 Arterial Blood Pressure 126/46 Pulmonary Artery Pressure 32/10 Pulmonary Artery Pressure 44/20 Pulmonary Artery Pressure 35/14 Pulmonary Artery Pressure 36/16 Pulmonary Artery Pressure 34/16 Pulmonary Artery Pressure 32/17 Pulmonary Artery Pressure 35/16 Pulmonary Artery Pressure 30/17 Cardiac Output 5.1 Cardiac Output 5.1 Cardiac Output 6.5 Cardiac Output 6.5 Cardiac Output 6.2 Cardiac Output 6.2 Cardiac Output 6 Cardiac Output 6 Cardiac Index 3.0 Cardiac Index 3 Cardiac Index 2.9 Head normocephalic Neck supple Lungs clear to auscultation bilaterally no wheezing or crackles has [address] Heart regular rate and rhythm S1-S2, no rub or gallop is murmur Abdomen is soft nontender nondistended positive bowel sounds no hepatosplenomegaly Extremities no edema Neuro alert and orientated to 3 Results CBC & Chem 7: 04/05/17 04:00 04/05/17 14:22 Labs: Abnormal Lab Results - Last 24 Hours (Table) 03/28/17 04/04/17 04/04/17 Range/Units 08:59 15:12 16:00 WBC (3.8-10.6) k/uL RBC (4.30-5.90) m/uL Hgb (13.0-17.5) gm/dL Hct (39.0-53.0) % RDW (11.5-15.5) % Plt Count (150-450) k/uL Neutrophils # (1.3-7.7) k/uL Lymphocytes # (1.0-4.8) k/uL PT 13.5 H (9.0-12.0) sec INR 1.4 H (<1.2) ABG pCO2 (35-45) mmHg Chloride (98-107) mmol/L Carbon Dioxide (22-30) mmol/L BUN (9-20) mg/dL Glucose (74-99) mg/dL POC Glucose (mg/dL) 121 H (75-99) mg/dL Total Protein (6.3-8.2) g/dL Albumin (3.5-5.0) g/dL Crossmatch See Detail 04/04/17 04/04/17 04/04/17 Range/Units 16:00 16:01 16:31 WBC (3.8-10.6) k/uL RBC 3.51 L (4.30-5.90) m/uL Hgb 10.0 L (13.0-17.5) gm/dL Hct 30.2 L (39.0-53.0) % RDW (11.5-15.5) % Plt Count 94 L (150-450) k/uL Neutrophils # (1.3-7.7) k/uL Lymphocytes # 0.6 L (1.0-4.8) k/uL PT (9.0-12.0) sec INR (<1.2) ABG pCO2 (35-45) mmHg Chloride 110 H (98-107) mmol/L Carbon Dioxide (22-30) mmol/L BUN 25 H (9-20) mg/dL Glucose 118 H (74-99) mg/dL POC Glucose (mg/dL) 130 H (75-99) mg/dL Total Protein (6.3-8.2) g/dL Albumin (3.5-5.0) g/dL Crossmatch 04/04/17 04/04/17 04/04/17 Range/Units 17:03 18:09 18:30 WBC (3.8-10.6) k/uL RBC (4.30-5.90) m/uL Hgb (13.0-17.5) gm/dL Hct (39.0-53.0) % RDW (11.5-15.5) % Plt Count (150-450) k/uL Neutrophils # (1.3-7.7) k/uL Lymphocytes # (1.0-4.8) k/uL PT (9.0-12.0) sec INR (<1.2) ABG pCO2 (35-45) mmHg Chloride (98-107) mmol/L Carbon Dioxide (22-30) mmol/L BUN (9-20) mg/dL Glucose (74-99) mg/dL POC Glucose (mg/dL) 134 H 146 H 143 H (75-99) mg/dL Total Protein (6.3-8.2) g/dL Albumin (3.5-5.0) g/dL Crossmatch 04/04/17 04/04/17 04/04/17 Range/Units 18:31 18:31 18:31 WBC (3.8-10.6) k/uL RBC 3.42 L (4.30-5.90) m/uL Hgb 9.7 L (13.0-17.5) gm/dL Hct 30.0 L (39.0-53.0) % RDW 15.9 H (11.5-15.5) % Plt Count 98 L (150-450) k/uL Neutrophils # 9.0 H (1.3-7.7) k/uL Lymphocytes # 0.4 L (1.0-4.8) k/uL PT 13.3 H (9.0-12.0) sec INR 1.4 H (<1.2) ABG pCO2 (35-45) mmHg Chloride 109 H (98-107) mmol/L Carbon Dioxide (22-30) mmol/L BUN 26 H (9-20) mg/dL Glucose 127 H (74-99) mg/dL POC Glucose (mg/dL) (75-99) mg/dL Total Protein (6.3-8.2) g/dL Albumin (3.5-5.0) g/dL Crossmatch 04/04/17 04/04/17 04/04/17 Range/Units 20:24 22:11 23:43 WBC (3.8-10.6) k/uL RBC (4.30-5.90) m/uL Hgb (13.0-17.5) gm/dL Hct (39.0-53.0) % RDW (11.5-15.5) % Plt Count (150-450) k/uL Neutrophils # (1.3-7.7) k/uL Lymphocytes # (1.0-4.8) k/uL PT (9.0-12.0) sec INR (<1.2) ABG pCO2 (35-45) mmHg Chloride (98-107) mmol/L Carbon Dioxide (22-30) mmol/L BUN (9-20) mg/dL Glucose (74-99) mg/dL POC Glucose (mg/dL) 146 H 151 H 151 H (75-99) mg/dL Total Protein (6.3-8.2) g/dL Albumin (3.5-5.0) g/dL Crossmatch 04/05/17 04/05/17 04/05/17 Range/Units 01:01 03:04 03:53 WBC (3.8-10.6) k/uL RBC (4.30-5.90) m/uL Hgb (13.0-17.5) gm/dL Hct (39.0-53.0) % RDW (11.5-15.5) % Plt Count (150-450) k/uL Neutrophils # (1.3-7.7) k/uL Lymphocytes # (1.0-4.8) k/uL PT (9.0-12.0) sec INR (<1.2) ABG pCO2 32 L (35-45) mmHg Chloride (98-107) mmol/L Carbon Dioxide (22-30) mmol/L BUN (9-20) mg/dL Glucose (74-99) mg/dL POC Glucose (mg/dL) 149 H 137 H (75-99) mg/dL Total Protein (6.3-8.2) g/dL Albumin (3.5-5.0) g/dL Crossmatch 04/05/17 04/05/17 04/05/17 Range/Units 04:00 04:00 04:00 WBC 10.9 H (3.8-10.6) k/uL RBC 3.46 L (4.30-5.90) m/uL Hgb 9.7 L (13.0-17.5) gm/dL Hct 30.4 L (39.0-53.0) % RDW 15.9 H (11.5-15.5) % Plt Count 107 L (150-450) k/uL Neutrophils # 9.4 H (1.3-7.7) k/uL Lymphocytes # 0.8 L (1.0-4.8) k/uL PT 13.7 H (9.0-12.0) sec INR 1.4 H (<1.2) ABG pCO2 (35-45) mmHg Chloride 110 H (98-107) mmol/L Carbon Dioxide 21 L (22-30) mmol/L BUN 27 H (9-20) mg/dL Glucose 138 H (74-99) mg/dL POC Glucose (mg/dL) (75-99) mg/dL Total Protein 4.8 L (6.3-8.2) g/dL Albumin 2.7 L (3.5-5.0) g/dL Crossmatch 04/05/17 04/05/17 04/05/17 Range/Units 04:08 05:13 06:15 WBC (3.8-10.6) k/uL RBC (4.30-5.90) m/uL Hgb (13.0-17.5) gm/dL Hct (39.0-53.0) % RDW (11.5-15.5) % Plt Count (150-450) k/uL Neutrophils # (1.3-7.7) k/uL Lymphocytes # (1.0-4.8) k/uL PT (9.0-12.0) sec INR (<1.2) ABG pCO2 (35-45) mmHg Chloride (98-107) mmol/L Carbon Dioxide (22-30) mmol/L BUN (9-20) mg/dL Glucose (74-99) mg/dL POC Glucose (mg/dL) 146 H 147 H 151 H (75-99) mg/dL Total Protein (6.3-8.2) g/dL Albumin (3.5-5.0) g/dL Crossmatch 04/05/17 04/05/17 04/05/17 Range/Units 07:12 07:30 07:59 WBC (3.8-10.6) k/uL RBC (4.30-5.90) m/uL Hgb (13.0-17.5) gm/dL Hct (39.0-53.0) % RDW (11.5-15.5) % Plt Count (150-450) k/uL Neutrophils # (1.3-7.7) k/uL Lymphocytes # (1.0-4.8) k/uL PT (9.0-12.0) sec INR (<1.2) ABG pCO2 32 L (35-45) mmHg Chloride (98-107) mmol/L Carbon Dioxide (22-30) mmol/L BUN (9-20) mg/dL Glucose (74-99) mg/dL POC Glucose (mg/dL) 145 H 157 H (75-99) mg/dL Total Protein (6.3-8.2) g/dL Albumin (3.5-5.0) g/dL Crossmatch 04/05/17 04/05/17 04/05/17 Range/Units 09:17 10:11 12:19 WBC (3.8-10.6) k/uL RBC (4.30-5.90) m/uL Hgb (13.0-17.5) gm/dL Hct (39.0-53.0) % RDW (11.5-15.5) % Plt Count (150-450) k/uL Neutrophils # (1.3-7.7) k/uL Lymphocytes # (1.0-4.8) k/uL PT (9.0-12.0) sec INR (<1.2) ABG pCO2 (35-45) mmHg Chloride (98-107) mmol/L Carbon Dioxide (22-30) mmol/L BUN (9-20) mg/dL Glucose (74-99) mg/dL POC Glucose (mg/dL) 122 H 121 H 124 H (75-99) mg/dL Total Protein (6.3-8.2) g/dL Albumin (3.5-5.0) g/dL Crossmatch 04/05/17 Range/Units 14:19 WBC (3.8-10.6) k/uL RBC (4.30-5.90) m/uL Hgb (13.0-17.5) gm/dL Hct (39.0-53.0) % RDW (11.5-15.5) % Plt Count (150-450) k/uL Neutrophils # (1.3-7.7) k/uL Lymphocytes # (1.0-4.8) k/uL PT (9.0-12.0) sec INR (<1.2) ABG pCO2 (35-45) mmHg Chloride (98-107) mmol/L Carbon Dioxide (22-30) mmol/L BUN (9-20) mg/dL Glucose (74-99) mg/dL POC Glucose (mg/dL) 135 H (75-99) mg/dL Total Protein (6.3-8.2) g/dL Albumin (3.5-5.0) g/dL Crossmatch Assessment and Plan Plan: 1. Severe aortic stenosis status post aortic valve replacement postoperative day #1. They're working on weaning patient off of the Primacor 2. Postoperative mechanical ventilation which is expected outcome of surgery. Patient was successfully weaned this morning 3. History of chronic atrial fibrillation. With episode of atrial fibrillation with rapid ventricular response postoperatively. Cardiology following 4. Diabetes mellitus type 2 currently on insulin drip blood sugars are controlled 5. Essential hypertension 6. Hyperlipidemia 7. 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 History of brain tumor that was resected in 1998 Thank you for this consultation. We'll continue to follow along with you. Time with Patient: Greater than 30 (Greater than 50% of the total time spent in counseling and coordination of care.I performed an examination of the patient and discussed their management with the physician [employer]. I have reviewed the Physician [employer]'s notes and agree with the documented findings and plan of care)
--- NOTE | 2017-04-05 15:29 | P.PN ---
Subjective Principal diagnosis: Critical aortic stenosis. Chronic atrial fibrillation. History of CVA in 2010. Type 2 diabetes mellitus. History of DVT. GERD. Hyperlipidemia. Hypertension. Pneumonia in November 2016. History of brain tumor in 1998. History of cardioversion. Previous tobacco dependence. Family history of myocardial infarction. POD #1 elective aortic valve replacement with #23 millimeter magna ease bioprosthetic aortic valve. Modified Maze procedure with pulmonary vein isolation using the AtriCure radiofrequency ablation system and clip ligation of the left atrial appendage with a #40 mm AtriClip. Intraoperative transesophageal echocardiogram. Patient's currently sitting up in chair. He was extubated this morning around 10:30. Denies pain, shortness of breath. Doing very well. Objective - Vital Signs Vital signs: Vital Signs Temp 98.8 F 04/05/17 12:00 Pulse 73 04/05/17 14:00 Resp 18 04/05/17 14:00 BP 146/72 04/05/17 14:00 Pulse Ox 96 04/05/17 14:00 Intake & Output 04/04/17 04/05/17 04/05/17 18:59 06:59 18:59 Intake Total 120.159 2133.883 696.983 Output Total 2895 817 925 Balance -2499.487 745.883 -228.017 Weight 100.9 kg Intake: IV 350 1054 572 0.9 NS pressure bag 104 72 ACETAMINOPHEN IV (For NPO 200 ) 1,000 mg In Empty Bag 1 bag @ 400 mls/hr IVPB Q6HR [facility] Rx#:[id number] Lactated Ringers 1,000 ml 350 550 400 @ 20 mls/hr IV .Q24H [facility]NA Rx#:[id number] Potassium Chloride 20 meq 100 In Water For Injection 1 100ml.bag @ 50 mls/hr IVPB ONCE ONE Rx#: [id number] ceFAZolin 2 gm In Sodium 100 100 Chloride 0.9% 100 ml @ 100 mls/hr IVPB Q8HR F[facility]HANA Rx#:[id number] Intake, IV Titration 45.513 508.883 124.983 Amount Insulin Regular 100 unit 4.667 25.233 24.983 In Sodium Chloride 0.9% 100 ml @ Per Protocol IV .Q0M [facility] Rx#:[id number] Milrinone-D5w Pmx 20 mg 188.816 100 In Dextrose/Water 1 100ml .bag @ 0.2 MCG/KG/MIN 5. 85 mls/hr IV .Q17H6M [facility] Rx#:[id number] Norepinephrin 4 mg-0.9% 165.562 Ns Pmx 4 mg In 250 ml @ Titrate IV .Q0M [facility] Rx#: [id number] Propofol 1,000 mg In 100 40.846 129.272 ml @ Titrate IV .Q0M [facility]HANA Rx#:[id number] Output: Chest Tube Drainage 960 332 200 Bilateral Pleural Chest 730 210 60 Tube Chest Tube Mediastinal 230 122 140 Urine 735 485 725 Estimated Blood Loss 1200 Other: Voiding Method Indwelling Catheter Indwelling Catheter Indwelling Catheter # Bowel Movements 0 0 0 ABP, PAP, CO, CI - Last Documented Arterial Blood Pressure 176/62 Pulmonary Artery Pressure 32/10 Cardiac Output 5.1 Cardiac Index 3.0 - Constitutional General appearance: Present: cooperative, no acute distress - Respiratory Details: Lung sounds diminished bilaterally. Respirations even, nonlabored. Currently on 4 L nasal cannula oxygen saturation 96%. Bilateral pleural chest tube to - 20 cm wall suction, 70 mL serosanguineous drainage overnight, 800 mL since surgery. Mediastinal chest tube to -20 cm wall suction, 60 mL serosanguineous drainage overnight, 300 mL since surgery. No air leaks present. - Cardiovascular Details: S1, S2 present. Irregular rate and rhythm, atrial fibrillation, was sinus rhythm this morning. Sternum stable. Heart hugger in place with patient demonstrating appropriate use. A/V epicardial pacemaker wires present. Right radial arterial line, right internal jugular Cordis present. Palpable pulses bilaterally. Trace bilateral lower extremity edema present. Teds/SCDs present. - Gastrointestinal Gastrointestinal Comment(s): Abdomen soft, nontender, nondistended. Active bowel sounds 4 quadrants. Tolerating diet. - Genitourinary Genitourinary Comment(s): Wilson present draining clear, yellow urine. Lasix given this morning with excellent diuresis. - Integumentary Integumentary Comment(s): Anterior chest incision well approximated and covered with dry intact dressing. - Neurologic Neurologic: Present: CNII-XII intact - Musculoskeletal Musculoskeletal: Present: gait normal, strength equal bilaterally - Psychiatric Psychiatric: Present: A&O x's 3, appropriate affect, intact judgment & insight - Allied health notes Allied health notes reviewed: nursing - Labs CBC & Chem 7: 04/05/17 04:00 04/05/17 14:22 Labs: Abnormal Lab Results - Last 24 Hours (Table) 03/28/17 04/04/17 04/04/17 Range/Units 08:59 15:12 16:00 WBC (3.8-10.6) k/uL RBC (4.30-5.90) m/uL Hgb (13.0-17.5) gm/dL Hct (39.0-53.0) % RDW (11.5-15.5) % Plt Count (150-450) k/uL Neutrophils # (1.3-7.7) k/uL Lymphocytes # (1.0-4.8) k/uL PT 13.5 H (9.0-12.0) sec INR 1.4 H (<1.2) ABG pCO2 (35-45) mmHg Chloride (98-107) mmol/L Carbon Dioxide (22-30) mmol/L BUN (9-20) mg/dL Glucose (74-99) mg/dL POC Glucose (mg/dL) 121 H (75-99) mg/dL Total Protein (6.3-8.2) g/dL Albumin (3.5-5.0) g/dL Crossmatch See Detail 04/04/17 04/04/17 04/04/17 Range/Units 16:00 16:01 16:31 WBC (3.8-10.6) k/uL RBC 3.51 L (4.30-5.90) m/uL Hgb 10.0 L (13.0-17.5) gm/dL Hct 30.2 L (39.0-53.0) % RDW (11.5-15.5) % Plt Count 94 L (150-450) k/uL Neutrophils # (1.3-7.7) k/uL Lymphocytes # 0.6 L (1.0-4.8) k/uL PT (9.0-12.0) sec INR (<1.2) ABG pCO2 (35-45) mmHg Chloride 110 H (98-107) mmol/L Carbon Dioxide (22-30) mmol/L BUN 25 H (9-20) mg/dL Glucose 118 H (74-99) mg/dL POC Glucose (mg/dL) 130 H (75-99) mg/dL Total Protein (6.3-8.2) g/dL Albumin (3.5-5.0) g/dL Crossmatch 04/04/17 04/04/17 04/04/17 Range/Units 17:03 18:09 18:30 WBC (3.8-10.6) k/uL RBC (4.30-5.90) m/uL Hgb (13.0-17.5) gm/dL Hct (39.0-53.0) % RDW (11.5-15.5) % Plt Count (150-450) k/uL Neutrophils # (1.3-7.7) k/uL Lymphocytes # (1.0-4.8) k/uL PT (9.0-12.0) sec INR (<1.2) ABG pCO2 (35-45) mmHg Chloride (98-107) mmol/L Carbon Dioxide (22-30) mmol/L BUN (9-20) mg/dL Glucose (74-99) mg/dL POC Glucose (mg/dL) 134 H 146 H 143 H (75-99) mg/dL Total Protein (6.3-8.2) g/dL Albumin (3.5-5.0) g/dL Crossmatch 04/04/17 04/04/17 04/04/17 Range/Units 18:31 18:31 18:31 WBC (3.8-10.6) k/uL RBC 3.42 L (4.30-5.90) m/uL Hgb 9.7 L (13.0-17.5) gm/dL Hct 30.0 L (39.0-53.0) % RDW 15.9 H (11.5-15.5) % Plt Count 98 L (150-450) k/uL Neutrophils # 9.0 H (1.3-7.7) k/uL Lymphocytes # 0.4 L (1.0-4.8) k/uL PT 13.3 H (9.0-12.0) sec INR 1.4 H (<1.2) ABG pCO2 (35-45) mmHg Chloride 109 H (98-107) mmol/L Carbon Dioxide (22-30) mmol/L BUN 26 H (9-20) mg/dL Glucose 127 H (74-99) mg/dL POC Glucose (mg/dL) (75-99) mg/dL Total Protein (6.3-8.2) g/dL Albumin (3.5-5.0) g/dL Crossmatch 04/04/17 04/04/17 04/04/17 Range/Units 20:24 22:11 23:43 WBC (3.8-10.6) k/uL RBC (4.30-5.90) m/uL Hgb (13.0-17.5) gm/dL Hct (39.0-53.0) % RDW (11.5-15.5) % Plt Count (150-450) k/uL Neutrophils # (1.3-7.7) k/uL Lymphocytes # (1.0-4.8) k/uL PT (9.0-12.0) sec INR (<1.2) ABG pCO2 (35-45) mmHg Chloride (98-107) mmol/L Carbon Dioxide (22-30) mmol/L BUN (9-20) mg/dL Glucose (74-99) mg/dL POC Glucose (mg/dL) 146 H 151 H 151 H (75-99) mg/dL Total Protein (6.3-8.2) g/dL Albumin (3.5-5.0) g/dL Crossmatch 04/05/17 04/05/17 04/05/17 Range/Units 01:01 03:04 03:53 WBC (3.8-10.6) k/uL RBC (4.30-5.90) m/uL Hgb (13.0-17.5) gm/dL Hct (39.0-53.0) % RDW (11.5-15.5) % Plt Count (150-450) k/uL Neutrophils # (1.3-7.7) k/uL Lymphocytes # (1.0-4.8) k/uL PT (9.0-12.0) sec INR (<1.2) ABG pCO2 32 L (35-45) mmHg Chloride (98-107) mmol/L Carbon Dioxide (22-30) mmol/L BUN (9-20) mg/dL Glucose (74-99) mg/dL POC Glucose (mg/dL) 149 H 137 H (75-99) mg/dL Total Protein (6.3-8.2) g/dL Albumin (3.5-5.0) g/dL Crossmatch 04/05/17 04/05/17 04/05/17 Range/Units 04:00 04:00 04:00 WBC 10.9 H (3.8-10.6) k/uL RBC 3.46 L (4.30-5.90) m/uL Hgb 9.7 L (13.0-17.5) gm/dL Hct 30.4 L (39.0-53.0) % RDW 15.9 H (11.5-15.5) % Plt Count 107 L (150-450) k/uL Neutrophils # 9.4 H (1.3-7.7) k/uL Lymphocytes # 0.8 L (1.0-4.8) k/uL PT 13.7 H (9.0-12.0) sec INR 1.4 H (<1.2) ABG pCO2 (35-45) mmHg Chloride 110 H (98-107) mmol/L Carbon Dioxide 21 L (22-30) mmol/L BUN 27 H (9-20) mg/dL Glucose 138 H (74-99) mg/dL POC Glucose (mg/dL) (75-99) mg/dL Total Protein 4.8 L (6.3-8.2) g/dL Albumin 2.7 L (3.5-5.0) g/dL Crossmatch 04/05/17 04/05/17 04/05/17 Range/Units 04:08 05:13 06:15 WBC (3.8-10.6) k/uL RBC (4.30-5.90) m/uL Hgb (13.0-17.5) gm/dL Hct (39.0-53.0) % RDW (11.5-15.5) % Plt Count (150-450) k/uL Neutrophils # (1.3-7.7) k/uL Lymphocytes # (1.0-4.8) k/uL PT (9.0-12.0) sec INR (<1.2) ABG pCO2 (35-45) mmHg Chloride (98-107) mmol/L Carbon Dioxide (22-30) mmol/L BUN (9-20) mg/dL Glucose (74-99) mg/dL POC Glucose (mg/dL) 146 H 147 H 151 H (75-99) mg/dL Total Protein (6.3-8.2) g/dL Albumin (3.5-5.0) g/dL Crossmatch 04/05/17 04/05/17 04/05/17 Range/Units 07:12 07:30 07:59 WBC (3.8-10.6) k/uL RBC (4.30-5.90) m/uL Hgb (13.0-17.5) gm/dL Hct (39.0-53.0) % RDW (11.5-15.5) % Plt Count (150-450) k/uL Neutrophils # (1.3-7.7) k/uL Lymphocytes # (1.0-4.8) k/uL PT (9.0-12.0) sec INR (<1.2) ABG pCO2 32 L (35-45) mmHg Chloride (98-107) mmol/L Carbon Dioxide (22-30) mmol/L BUN (9-20) mg/dL Glucose (74-99) mg/dL POC Glucose (mg/dL) 145 H 157 H (75-99) mg/dL Total Protein (6.3-8.2) g/dL Albumin (3.5-5.0) g/dL Crossmatch 04/05/17 04/05/17 04/05/17 Range/Units :17 10:11 12:19 WBC (3.8-10.6) k/uL RBC (4.30-5.90) m/uL Hgb (13.0-17.5) gm/dL Hct (39.0-53.0) % RDW (11.5-15.5) % Plt Count (150-450) k/uL Neutrophils # (1.3-7.7) k/uL Lymphocytes # (1.0-4.8) k/uL PT (9.0-12.0) sec INR (<1.2) ABG pCO2 (35-45) mmHg Chloride (98-107) mmol/L Carbon Dioxide (22-30) mmol/L BUN (9-20) mg/dL Glucose (74-99) mg/dL POC Glucose (mg/dL) 122 H 121 H 124 H (75-99) mg/dL Total Protein (6.3-8.2) g/dL Albumin (3.5-5.0) g/dL Crossmatch 04/05/17 Range/Units 14:19 WBC (3.8-10.6) k/uL RBC (4.30-5.90) m/uL Hgb (13.0-17.5) gm/dL Hct (39.0-53.0) % RDW (11.5-15.5) % Plt Count (150-450) k/uL Neutrophils # (1.3-7.7) k/uL Lymphocytes # (1.0-4.8) k/uL PT (9.0-12.0) sec INR (<1.2) ABG pCO2 (35-45) mmHg Chloride (98-107) mmol/L Carbon Dioxide (22-30) mmol/L BUN (9-20) mg/dL Glucose (74-99) mg/dL POC Glucose (mg/dL) 135 H (75-99) mg/dL Total Protein (6.3-8.2) g/dL Albumin (3.5-5.0) g/dL Crossmatch - Imaging and Cardiology Chest x-ray: report reviewed, image reviewed Assessment and Plan (1) Atrial fibrillation status post cardioversion Status: Acute (2) Chronic atrial fibrillation Status: Acute (3) Diabetes mellitus type 2 in obese Status: Acute (4) Family history of premature CAD Status: Acute (5) History of CVA (cerebrovascular accident) Status: Acute (6) History of brain tumor Status: Acute (7) History of deep venous thrombosis (DVT) of distal vein of right lower extremity Status: Acute (8) History of pneumonia Status: Acute (9) Hyperlipidemia Status: Acute (10) Hypertension Status: Acute (11) Severe aortic stenosis Status: Acute (12) Tobacco dependence in remission Status: Acute Plan: 1. Continue aspirin, statin, Plavix, heparin. Will increase Lopressor. Will maximize beta cait therapy as tolerated. 2. Will wean Primacor. 3. Wean O2. Encourage incentive spirometer use. 4. Increase activity, out of bed to chair. Physical therapy to follow. 5. GI/DVT prophylaxis. 6. Insulin management per primary care service. 7. More recommendations as patient progresses. Time with Patient: Greater than 30
[2017-04-05 15:54] LABS: ABG Base Excess -3.6 mmol/L; ABG HCO3 20 mmol/L (21-25); ABG Oxygen Saturation 99.9 % (94-97); ABG PCO2 33 mmHg (35-45); ABG PO2 326 mmHg (83-108); ABG TCO2 21 mmol/L (19-24)
[2017-04-05 15:55] LABS: ABG Base Excess -3.9 mmol/L; ABG HCO3 21 mmol/L (21-25); ABG Oxygen Saturation 97.5 % (94-97); ABG PCO2 38 mmHg (35-45); ABG PH 7.35 (7.35-7.45); ABG PO2 101 mmHg (83-108); ABG TCO2 22 mmol/L (19-24)
[2017-04-05 15:56] LABS: ABG Base Excess -2.5 mmol/L; ABG HCO3 22 mmol/L (21-25); ABG Oxygen Saturation 99.9 % (94-97); ABG PCO2 40 mmHg (35-45); ABG PH 7.36 (7.35-7.45); ABG PO2 332 mmHg (83-108); ABG TCO2 23 mmol/L (19-24)
[2017-04-05 15:57] LABS: ABG Base Excess -2.5 mmol/L; ABG HCO3 23 mmol/L (21-25); ABG Oxygen Saturation 99.9 % (94-97); ABG PCO2 44 mmHg (35-45); ABG PH 7.33 (7.35-7.45); ABG PO2 268 mmHg (83-108); ABG TCO2 24 mmol/L (19-24)
[2017-04-05 15:57] LABS: ABG HCO3 23 mmol/L (21-25); ABG PCO2 44 mmHg (35-45); ABG PH 7.34 (7.35-7.45); ABG PO2 314 mmHg (83-108); ABG TCO2 24 mmol/L (19-24)
[2017-04-05 15:58] LABS: ABG PCO2 42 mmHg (35-45); ABG PH 7.32 (7.35-7.45); ABG PO2 268 mmHg (83-108)
[2017-04-05 15:58] LABS: ABG Base Excess -2.2 mmol/L; ABG Oxygen Saturation 99.9 % (94-97)
[2017-04-05 15:59] LABS: ABG Base Excess -3.9 mmol/L; ABG HCO3 21 mmol/L (21-25); ABG Oxygen Saturation 99.8 % (94-97); ABG TCO2 23 mmol/L (19-24)
[2017-04-05 16:11] LABS: Glucose,Whole Blood 121 mg/dL (75-99)
[2017-04-05] MEDS: POTASSIUM CHLORIDE 10 MEQ, LIDOCAINE 2% INJ 10 MG in SODIUM CHLORIDE 0.9% 100 ML IV SCH ×2 (16:11→17:11)
[2017-04-05] MEDS: METOPROLOL TARTRATE 25 MG TAB PO SCH ×2 (16:14→22:37)
[2017-04-05] MEDS: HYDROcodone/APAP 5-325MG 1 EACH TAB PO PRN (16:47)
[2017-04-05 18:14] LABS: Glucose,Whole Blood 162 mg/dL (75-99)
[2017-04-05 20:14] LABS: Glucose,Whole Blood 119 mg/dL (75-99)
[2017-04-05] MEDS ORDERED: METOPROLOL TARTRATE 25 MG TAB PO SCH (21:00)
[2017-04-05 22:15] LABS: Glucose,Whole Blood 106 mg/dL (75-99)
[2017-04-05] MEDS: SENNOSIDES-DOCUSATE SODIUM 1 EACH TAB PO SCH (22:36)
[2017-04-06] MEDS: HEPARIN SODIUM,PORCINE 5,000 UNIT/ML 1 ML VIAL SQ SCH ×3 (01:33→15:55)
[2017-04-06 01:41] LABS: Glucose,Whole Blood 121 mg/dL (75-99)
[2017-04-06] MEDS: HYDROcodone/APAP 5-325MG 1 EACH TAB PO PRN ×4 (02:05→20:45)
[2017-04-06 04:28] LABS: Glucose,Whole Blood 142 mg/dL (75-99)
[2017-04-06 04:36] LABS: Basophils % (A) 0 %; CH 28.3; CHCM 32.8; Eosinophils % (A) 0 %; HCT 31.2 % (39.0-53.0); HGB 10.2 gm/dL (13.0-17.5); Luc # (Auto) 0.25; Luc % (Auto) 2; Lymphocytes # (A) 0.8 k/uL (1.0-4.8); Lymphocytes % (A) 7 %; MCH 28.4 pg (25.0-35.0); MCHC 32.8 g/dL (31.0-37.0); MCV 86.6 fL (80.0-100.0); Mean Platelet Volume 8.2; Monocytes # (A) 0.4 k/uL (0-1.0); Monocytes % (A) 4 %; Neutrophils # (A) 9.9 k/uL (1.3-7.7); Neutrophils % (A) 87 %; RDW 15.4 % (11.5-15.5); WBC 11.4 k/uL (3.8-10.6); WBC (Perox) 11.65
[2017-04-06 04:42] LABS: Ionized Calcium 4.9 mg/dL (4.5-5.3)
[2017-04-06 04:49] LABS: ALT 27 U/L (21-72); AST 54 U/L (17-59); Alkaline Phosphatase 73 U/L (38-126); Anion Gap 9 mmol/L; Blood Urea Nitrogen 24 mg/dL (9-20); Calcium 8.4 mg/dL (8.4-10.2); Carbon Dioxide 21 mmol/L (22-30); Chloride 106 mmol/L (98-107); Glucose 118 mg/dL (74-99); Magnesium 1.9 mg/dL (1.6-2.3); Non-African American GFR(MDRD) >60 (>60 ml/min/1.73 sqM); Potassium 4.3 mmol/L (3.5-5.1); Sodium 136 mmol/L (137-145); Total Protein 4.9 g/dL (6.3-8.2)
[2017-04-06] MEDS ORDERED: Magnesium Replacement Protocol 1 EACH MISC MISCELLANE PRN (06:11)
[2017-04-06 06:31] LABS: Glucose,Whole Blood 137 mg/dL (75-99)
--- NOTE | 2017-04-06 07:24 | XR ---
EXAMINATION TYPE: XR chest 1V portable DATE OF EXAM: 04/06/2017 Comparison: 04/05/2017 Clinical History: 76-year-old male Post Operative Cardiac Surgery Findings: Right IJ [place]ne catheter with tip in the right main pulmonary artery. Median sternotomy wires with prosthetic aortic valve. Heart remains enlarged. Diffuse interstitial prominence persists. Small kaelyn ateral pleural effusions with bibasilar opacities. Bilateral chest tubes and mediastinal drain are pr esent. No appreciable pneumothorax. Patient extubated in the interval with removal of NG tube as well . Impression: 1. Interval extubation and removal of NG tube. 2. Cardiomegaly with findings suggesting continued pulmonary vascular congestion. 3. Small pleural effusions with adjacent atelectasis and/or consolidation persist.
[2017-04-06 08:11] LABS: Glucose,Whole Blood 123 mg/dL (75-99)
[2017-04-06] MEDS: PANTOPRAZOLE 40 MG TABLET PO SCH (08:19)
[2017-04-06] MEDS: METOPROLOL TARTRATE 25 MG TAB PO SCH ×2 (08:19→20:00)
[2017-04-06] MEDS: MILRINONE-D5W PMX 20 MG in DEXTROSE/WATER 1 100ML.BAG IV SCH (08:20)
[2017-04-06] MEDS: ATORVASTATIN 40 MG TAB PO SCH (08:20)
[2017-04-06] MEDS: ASPIRIN 325 MG TAB PO SCH (08:20)
[2017-04-06] MEDS: CLOPIDOGREL 75 MG TAB PO SCH (08:20)
[2017-04-06] MEDS: MUPIROCIN 2% OINT 22 GM TUBE NASAL SCH ×2 (08:21→20:00)
[2017-04-06] MEDS: MAGNESIUM SULFATE-D5W PMX 1 GM in DEXTROSE/WATER 1 100ML.BAG IVPB SCH ×2 (08:21→10:01)
[2017-04-06 10:06] LABS: Glucose,Whole Blood 155 mg/dL (75-99)
[2017-04-06] MEDS: FUROSEMIDE 10 MG/ML 4 ML VIAL IV STA ×2 (10:52→10:54)
[2017-04-06 11:53] LABS: Glucose,Whole Blood 171 mg/dL (75-99)
[2017-04-06 12:15] LABS: INR 1.4 (<1.2); Partial Thromboplastin Time 28.3 sec (22.0-30.0); Prothrombin Time 13.3 sec (9.0-12.0)
[2017-04-06] MEDS: MULTIVITAMINS, THERA 1 EACH TAB PO SCH (12:44)
[2017-04-06] MEDS: LACTATED RINGERS 1,000 ML IV SCH (12:50)
--- NOTE | 2017-04-06 13:35 | P.PN ---
Subjective 76-year-old male patient, post aortic valve replacement, being seen in the intensive care unit. He was brought in this afternoon to the ICU on a mechanical ventilator, on assist control mode at the rate of 12, tidal volume of 500, FiO2 of 100% and a PEEP of 5. He is sedated and is calm and comfortable on Diprivan. He is on Primacor at 0.5 mcg/m and his cardiac output is 6.6 with an index of 2.9. The patient has a mediastinal chest tube and a left pleural chest tube and total amount of output since arrival from the operating room is approximately 300 in the mediastinal and 450 and a chest tubes. No air leaks. Chest x-ray shows cardiomegaly. Chest tubes are all in good location. NG tube needs to be advanced. ET tube is around 3 cm above the nadja. [place]-Lianne catheter good location. Patient is producing good amount of urine output. No hypothermia. Blood gases showed a pH of 7.28 with a pCO2 of 51 and pO2 of 73. Based on this I increased tidal volume of 650. The FiO2 was gradually weaned down and currently is down to 70%. The patient has a baseline FEV1 of 51% of predicted preoperatively. He is current history of COPD. He is on bronchodilators. Preoperatively, the patient was found to have a ejection fraction of 40-50% with moderate degree of aortic stenosis with a right ventricular systolic pressure of around 46. A CRISTY was subsequently done and showed severe with a peak gradient of 70-80 mm of a mercury with a mean gradient of 40, mild mitral regurgitation, biatrial enlargement, generalized hypokinesia with cardiomyopathy. Cardiac catheterization was also done and showed no significant coronary artery disease. On 04/05/2017 the patient is postop aortic valve replacement and the patient is postop day #1. He is doing well. I saw him earlier this morning. I was unable to extubate him overnight as the patient was quite drowsy and sleepy. He was taken off sedation and he gradually became more alert and awake. Earlier this morning, the patient was given a spelled his breathing trial with a pressure support of 5 and a PEEP of 5 which she was able to tolerate for more than 45 minutes. Based on that, I was able to extubate the patient to a nasal cannula at 2 L/m. He is not having any major respiratory difficulties at this point in his resting comfortably in bed. The patient has a mediastinal chest tube. And the patient also has a right and the left pleural chest tube. The pleural chest tubes have averaged around 60 mL output and a mediastinal chest tube has put out 140 mL. The patient is in a normal sinus rhythm. The patient is receiving 0.2 g of Primacor. Urine output is adequate for now. Sternum stable clean and intact. No other significant events overnight. No significant cardiac arrhythmias postop however after putting this patient on a chair and afternoon the patient went into A. fib fibrillation with a rate of 120. Cardiology will be informed of this arrhythmia. On 04/06/2017 the patient is postop day #2 following his aortic valve replacement. He is doing well. He is sitting up on a chair. He is a bit agitated however his awake and alert and conscious and there is no confusion. He was extubated. He is postop day #2. He was taken off the milrinone today and his cardiac index dropped down to 1.8. Nevertheless he maintaining good urine output. The chest x-ray showed cardiomegaly with some pulmonary vascular congestion. The patient also had small atelectatic changes and effusion the lung bases bilaterally. The neck fluid balance is -671 mL since this morning. The chest tubes are still in place. Output from the mediastinal chest tube is around 110 mL and the bilateral chest tubes are still 60 mL since morning shift. He is on and off in atrial fibrillation. His current INR is at 1.4. There is on no anticoagulants for now. Objective - Vital Signs Vital signs: Vital Signs Temp 100.2 F H 04/06/17 08:00 Pulse 91 04/06/17 13:00 Resp 17 04/06/17 13:00 BP 147/100 04/06/17 13:00 Pulse Ox 100 04/06/17 13:00 Intake & Output 04/05/17 04/06/17 04/06/17 18:59 06:59 18:59 Intake Total 1094.635 716.408 628.002 Output Total 1285 1065 1300 Balance -190.365 -348.592 -671.998 Weight 100.9 kg 104.2 kg 104.2 kg Intake: IV 808 708 377 0.9 NS pressure bag 108 108 57 Cardiac Output 60 Lactated Ringers 1,000 ml 600 600 260 @ 20 mls/hr IV .Q24H [facility] Rx#:[id number] ceFAZolin 2 gm In Sodium 100 Chloride 0.9% 100 ml @ 100 mls/hr IVPB Q8HR [facility] Rx#:[id number] Intake, IV Titration 286.635 8.408 251.002 Amount Insulin Regular 100 unit 41.983 8.408 1.8 In Sodium Chloride 0.9% 100 ml @ Per Protocol IV .Q0M [facility] Rx#:[id number] Magnesium Sulfate-D5w Pmx 200 1 gm In Dextrose/Water 1 100ml.bag @ 100 mls/hr IVPB Q1H [facility] Rx#: [id number] Milrinone-D5w Pmx 20 mg 144.652 49.202 In Dextrose/Water 1 100ml .bag @ 0.1 MCG/KG/MIN 2. 92 mls/hr IV .Q24H [facility] Rx #:[id number] Potassium Chloride 10 meq 100 Lidocaine 2% Inj 10 mg In Sodium Chloride 0.9% 100 ml @ 100 mls/hr IV Q1HR [facility] Rx#:[id number] Output: Chest Tube Drainage 370 455 370 Bilateral Pleural Chest 130 235 260 Tube Chest Tube Mediastinal 240 220 110 Urine 915 610 930 Other: Voiding Method Indwelling Catheter Indwelling Catheter Indwelling Catheter # Bowel Movements 0 0 0 ABP, PAP, CO, CI - Last Documented Arterial Blood Pressure 158/72 Pulmonary Artery Pressure 38/20 Cardiac Output 3.9 Cardiac Index 2.4 - Exam Head exam was generally normal. There was no scleral icterus or corneal arcus. Mucous membranes were moist.Neck was supple and without jugular venous distension, thyromegaly, or carotid bruits. Carotids were easily palpable bilaterally. There was no adenopathy. Right IJ sheath is in place. Lung sounds are diminished bilaterally otherwise clear. Chest tubes are all in place. Sternum stable clean and intact. Heart sounds are regular, normal S1- S2 and there is no significant murmurs appreciated.Abdominal exam revealed normal bowel sounds. The abdomen was soft, non-tender, and without masses, organomegaly, or appreciable enlargement of the abdominal aorta. Extremities show trace edema and there is no cyanosis or clubbing at this point. Neurologically is awake and alert. - Labs CBC & Chem 7: 04/06/17 04:29 04/06/17 04:29 Labs: Abnormal Lab Results - Last 24 Hours (Table) 04/04/17 04/04/17 04/04/17 Range/Units 08:53 09:49 10:20 WBC (3.8-10.6) k/uL RBC (4.30-5.90) m/uL Hgb (13.0-17.5) gm/dL Hct (39.0-53.0) % Plt Count (150-450) k/uL Neutrophils # (1.3-7.7) k/uL Lymphocytes # (1.0-4.8) k/uL PT (9.0-12.0) sec INR (<1.2) ABG pH (7.35-7.45) ABG pCO2 33 L (35-45) mmHg ABG pO2 326 H 332 H (83-108) mmHg ABG HCO3 20 L (21-25) mmol/L ABG O2 Saturation 99.9 H 97.5 H 99.9 H (94-97) % ABG Hematocrit 28 L (34.0-46.0) % ABG Potassium 4.6 H 4.6 H 5.0 H (3.4-4.5) mmol/L Sodium (137-145) mmol/L Carbon Dioxide (22-30) mmol/L BUN (9-20) mg/dL Glucose (74-99) mg/dL POC Glucose (mg/dL) (75-99) mg/dL Total Protein (6.3-8.2) g/dL Albumin (3.5-5.0) g/dL Arterial Blood Potassium 4.6 H 4.6 H 5.0 H (3.4-4.5) mmol/L 04/04/17 04/04/17 04/04/17 Range/Units 10:52 11:20 12:06 WBC (3.8-10.6) k/uL RBC (4.30-5.90) m/uL Hgb (13.0-17.5) gm/dL Hct (39.0-53.0) % Plt Count (150-450) k/uL Neutrophils # (1.3-7.7) k/uL Lymphocytes # (1.0-4.8) k/uL PT (9.0-12.0) sec INR (<1.2) ABG pH 7.33 L 7.34 L 7.32 L (7.35-7.45) ABG pCO2 (35-45) mmHg ABG pO2 268 H 314 H 268 H (83-108) mmHg ABG HCO3 (21-25) mmol/L ABG O2 Saturation 99.9 H 99.9 H 99.8 H (94-97) % ABG Hematocrit 30 L 28 L 28 L (34.0-46.0) % ABG Potassium 5.4 H 5.5 H 4.6 H (3.4-4.5) mmol/L Sodium (137-145) mmol/L Carbon Dioxide (22-30) mmol/L BUN (9-20) mg/dL Glucose (74-99) mg/dL POC Glucose (mg/dL) (75-99) mg/dL Total Protein (6.3-8.2) g/dL Albumin (3.5-5.0) g/dL Arterial Blood Potassium 5.4 H 5.5 H 4.6 H (3.4-4.5) mmol/L 04/05/17 04/05/17 04/05/17 Range/Units 14:19 16:10 18:10 WBC (3.8-10.6) k/uL RBC (4.30-5.90) m/uL Hgb (13.0-17.5) gm/dL Hct (39.0-53.0) % Plt Count (150-450) k/uL Neutrophils # (1.3-7.7) k/uL Lymphocytes # (1.0-4.8) k/uL PT (9.0-12.0) sec INR (<1.2) ABG pH (7.35-7.45) ABG pCO2 (35-45) mmHg ABG pO2 (83-108) mmHg ABG HCO3 (21-25) mmol/L ABG O2 Saturation (94-97) % ABG Hematocrit (34.0-46.0) % ABG Potassium (3.4-4.5) mmol/L Sodium (137-145) mmol/L Carbon Dioxide (22-30) mmol/L BUN (9-20) mg/dL Glucose (74-99) mg/dL POC Glucose (mg/dL) 135 H 121 H 162 H (75-99) mg/dL Total Protein (6.3-8.2) g/dL Albumin (3.5-5.0) g/dL Arterial Blood Potassium (3.4-4.5) mmol/L 04/05/17 04/05/17 04/06/17 Range/Units 20:13 22:12 01:38 WBC (3.8-10.6) k/uL RBC (4.30-5.90) m/uL Hgb (13.0-17.5) gm/dL Hct (39.0-53.0) % Plt Count (150-450) k/uL Neutrophils # (1.3-7.7) k/uL Lymphocytes # (1.0-4.8) k/uL PT (9.0-12.0) sec INR (<1.2) ABG pH (7.35-7.45) ABG pCO2 (35-45) mmHg ABG pO2 (83-108) mmHg ABG HCO3 (21-25) mmol/L ABG O2 Saturation (94-97) % ABG Hematocrit (34.0-46.0) % ABG Potassium (3.4-4.5) mmol/L Sodium (137-145) mmol/L Carbon Dioxide (22-30) mmol/L BUN (9-20) mg/dL Glucose (74-99) mg/dL POC Glucose (mg/dL) 119 H 106 H 121 H (75-99) mg/dL Total Protein (6.3-8.2) g/dL Albumin (3.5-5.0) g/dL Arterial Blood Potassium (3.4-4.5) mmol/L 04/06/17 04/06/17 04/06/17 Range/Units 04:25 04:29 04:29 WBC 11.4 H (3.8-10.6) k/uL RBC 3.60 L (4.30-5.90) m/uL Hgb 10.2 L (13.0-17.5) gm/dL Hct 31.2 L (39.0-53.0) % Plt Count 105 L (150-450) k/uL Neutrophils # 9.9 H (1.3-7.7) k/uL Lymphocytes # 0.8 L (1.0-4.8) k/uL PT (9.0-12.0) sec INR (<1.2) ABG pH (7.35-7.45) ABG pCO2 (35-45) mmHg ABG pO2 (83-108) mmHg ABG HCO3 (21-25) mmol/L ABG O2 Saturation (94-97) % ABG Hematocrit (34.0-46.0) % ABG Potassium (3.4-4.5) mmol/L Sodium 136 L (137-145) mmol/L Carbon Dioxide 21 L (22-30) mmol/L BUN 24 H (9-20) mg/dL Glucose 118 H (74-99) mg/dL POC Glucose (mg/dL) 142 H (75-99) mg/dL Total Protein 4.9 L (6.3-8.2) g/dL Albumin 2.7 L (3.5-5.0) g/dL Arterial Blood Potassium (3.4-4.5) mmol/L 04/06/17 04/06/17 04/06/17 Range/Units 06:29 08:10 10:04 WBC (3.8-10.6) k/uL RBC (4.30-5.90) m/uL Hgb (13.0-17.5) gm/dL Hct (39.0-53.0) % Plt Count (150-450) k/uL Neutrophils # (1.3-7.7) k/uL Lymphocytes # (1.0-4.8) k/uL PT (9.0-12.0) sec INR (<1.2) ABG pH (7.35-7.45) ABG pCO2 (35-45) mmHg ABG pO2 (83-108) mmHg ABG HCO3 (21-25) mmol/L ABG O2 Saturation (94-97) % ABG Hematocrit (34.0-46.0) % ABG Potassium (3.4-4.5) mmol/L Sodium (137-145) mmol/L Carbon Dioxide (22-30) mmol/L BUN (9-20) mg/dL Glucose (74-99) mg/dL POC Glucose (mg/dL) 137 H 123 H 155 H (75-99) mg/dL Total Protein (6.3-8.2) g/dL Albumin (3.5-5.0) g/dL Arterial Blood Potassium (3.4-4.5) mmol/L 04/06/17 04/06/17 Range/Units 11:50 11:54 WBC (3.8-10.6) k/uL RBC (4.30-5.90) m/uL Hgb (13.0-17.5) gm/dL Hct (39.0-53.0) % Plt Count (150-450) k/uL Neutrophils # (1.3-7.7) k/uL Lymphocytes # (1.0-4.8) k/uL PT 13.3 H (9.0-12.0) sec INR 1.4 H (<1.2) ABG pH (7.35-7.45) ABG pCO2 (35-45) mmHg ABG pO2 (83-108) mmHg ABG HCO3 (21-25) mmol/L ABG O2 Saturation (94-97) % ABG Hematocrit (34.0-46.0) % ABG Potassium (3.4-4.5) mmol/L Sodium (137-145) mmol/L Carbon Dioxide (22-30) mmol/L BUN (9-20) mg/dL Glucose (74-99) mg/dL POC Glucose (mg/dL) 171 H (75-99) mg/dL Total Protein (6.3-8.2) g/dL Albumin (3.5-5.0) g/dL Arterial Blood Potassium (3.4-4.5) mmol/L Assessment and Plan Plan: Assessment 1 severe aortic stenosis status post aortic valve replacement, and modified maze procedure, postop day #2. The patient is hemodynamically stable. Chest x- rays showing some cardiomegaly and pulmonary vessel congestion. The patient was extubated successfully. The patient was taken off Primacor. 2 postoperative atrial fibrillation with rapid ventricular response, currently controlled rate 3 history of chronic atrial fibrillation. 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 Plan Continue using incentive spirometer. Monitor chest tube output. We'll continue to follow. The patient will be given a dose of Lasix today 40 mg IV push. Continue the neb blood treatment [id number]. The patient is using incentive spirometer. Monitor the cardiac index. The patient is currently off Primacor. We'll continue to follow. Pulmonary status is stable for now.
[2017-04-06 14:23] LABS: Glucose,Whole Blood 143 mg/dL (75-99)
[2017-04-06 15:42] LABS: Glucose,Whole Blood 126 mg/dL (75-99)
--- NOTE | 2017-04-06 16:45 | P.PN ---
Subjective Principal diagnosis: Critical aortic stenosis, chronic atrial fibrillation, history of CVA in 2010, type 2 diabetes mellitus, history of DVT, GERD, hyperlipidemia, hypertension , pneumonia in November 2016, history of brain tumor in 1998, history of cardioversion, previous tobacco dependence,family history of myocardial infarction. POD #2 elective aortic valve replacement with #23 mm magna ease bioprosthetic aortic valve. Modified Maze procedure with pulmonary vein isolation using the AtriCure radiofrequency ablation system and clip ligation of the left atrial appendage with a #40 mm AtriClip. Intraoperative transesophageal echocardiogram. His currently sitting up to the bedside chair tolerating his breakfast. No acute distress. Rates his pain 5 out of 10 on the pain scale and reports the pain is at his chest tube insertion sites. Objective - Vital Signs Vital signs: Vital Signs Temp 99.4 F 04/06/17 16:00 Pulse 92 04/06/17 16:00 Resp 14 04/06/17 16:00 BP 147/100 04/06/17 13:00 Pulse Ox 99 04/06/17 16:00 Intake & Output 04/05/17 04/06/17 04/06/17 18:59 06:59 18:59 Intake Total 1094.635 716.408 736.002 Output Total 1285 1065 1855 Balance -190.365 -348.592 -1118.998 Weight 100.9 kg 104.2 kg 104.2 kg Intake: IV 808 708 485 0.9 NS pressure bag 108 108 75 Cardiac Output 60 Lactated Ringers 1,000 ml 600 600 350 @ 20 mls/hr IV .Q24H [facility] Rx#:[id number] ceFAZolin 2 gm In Sodium 100 Chloride 0.9% 100 ml @ 100 mls/hr IVPB Q8HR [facility] Rx#:[id number] Intake, IV Titration 286.635 8.408 251.002 Amount Insulin Regular 100 unit 41.983 8.408 1.8 In Sodium Chloride 0.9% 100 ml @ Per Protocol IV .Q0M [facility] Rx#:[id number] Magnesium Sulfate-D5w Pmx 200 1 gm In Dextrose/Water 1 100ml.bag @ 100 mls/hr IVPB Q1H [facility] Rx#: [id number] Milrinone-D5w Pmx 20 mg 144.652 49.202 In Dextrose/Water 1 100ml .bag @ 0.1 MCG/KG/MIN 2. 92 mls/hr IV .Q24H [facility] Rx #:[id number] Potassium Chloride 10 meq 100 Lidocaine 2% Inj 10 mg In Sodium Chloride 0.9% 100 ml @ 100 mls/hr IV Q1HR [facility] Rx#:[id number] Output: Chest Tube Drainage 370 455 450 Bilateral Pleural Chest 130 235 280 Tube Chest Tube Mediastinal 240 220 170 Urine 523 389 3286 Other: Voiding Method Indwelling Catheter Indwelling Catheter Indwelling Catheter # Bowel Movements 0 0 0 ABP, PAP, CO, CI - Last Documented Arterial Blood Pressure 144/60 Pulmonary Artery Pressure 38/20 Cardiac Output 3.9 Cardiac Index 2.4 - Constitutional General appearance: Present: cooperative, no acute distress, obese - EENT Eyes: Present: PERRLA, normal appearance ENT: Present: hearing grossly normal - Neck Details: Right IJ Cordis and [place]-Lianne in place, current cardiac output is 5.1, cardiac index is 2.4, PA pressures are 51/28, CVP is 16. No JVD present. - Respiratory Details: Essentially clear throughout, diminished to his bilateral bases. Respirations are symmetrical and nonlabored. His current oxygen saturations are 98% on 2 L nasal cannula. His bilateral pleural chest tubes remained intact to low continuous wall suction, no air leak present. Draining thin serosanguineous drainage. 190 mL output in the last 8 hours, 850 mL output in the last 24 hours. His mediastinal chest tube is without air leak, remains to low continuous wall suction. Draining thin serosanguineous drainage. 140 mL output in the last 8 hours, 460 mL output in the last 24 hours. - Cardiovascular Details: Irregular rhythm and tachycardic rate. S1 and S2 present, negative for S3, gallop or murmur. Bedside telemetry showing atrial fibrillation heart rate 103. Sternum is stable. Heart hugger is placed with patient demonstrating appropriate use. Atrial and ventricular pacemaker wires present and remained to a VVI backup of 50. +1 edema to his bilateral lower extremities. Knee-high DARRYL hose and sequential compression devices in place to his bilateral lower extremities. - Gastrointestinal Gastrointestinal Comment(s): Abdomen is soft, nontender, and nondistended. He is positive bowel sounds to all 4 abdominal quadrants. He is tolerating his oral diet. - Genitourinary Genitourinary Comment(s): Adequate, clear yellow urine. Wilson catheter for accurate I&O. - Integumentary Integumentary Comment(s): Midline sternal incision clean dry and well approximated. 4 x [address], and is clean and dry. Dermabond dressing in place. - Musculoskeletal Musculoskeletal: Present: gait normal, generalized weakness, strength equal bilaterally - Psychiatric Psychiatric: Present: A&O x's 3, appropriate affect, intact judgment & insight - Allied health notes Allied health notes reviewed: nursing - Labs CBC & Chem 7: 04/06/17 04:29 04/06/17 15:40 Labs: Abnormal Lab Results - Last 24 Hours (Table) 04/05/17 04/05/17 04/05/17 Range/Units 18:10 20:13 22:12 WBC (3.8-10.6) k/uL RBC (4.30-5.90) m/uL Hgb (13.0-17.5) gm/dL Hct (39.0-53.0) % Plt Count (150-450) k/uL Neutrophils # (1.3-7.7) k/uL Lymphocytes # (1.0-4.8) k/uL PT (9.0-12.0) sec INR (<1.2) Sodium (137-145) mmol/L Carbon Dioxide (22-30) mmol/L BUN (9-20) mg/dL Glucose (74-99) mg/dL POC Glucose (mg/dL) 162 H 119 H 106 H (75-99) mg/dL Total Protein (6.3-8.2) g/dL Albumin (3.5-5.0) g/dL 04/06/17 04/06/17 04/06/17 Range/Units 01:38 04:25 04:29 WBC (3.8-10.6) k/uL RBC (4.30-5.90) m/uL Hgb (13.0-17.5) gm/dL Hct (39.0-53.0) % Plt Count (150-450) k/uL Neutrophils # (1.3-7.7) k/uL Lymphocytes # (1.0-4.8) k/uL PT (9.0-12.0) sec INR (<1.2) Sodium 136 L (137-145) mmol/L Carbon Dioxide 21 L (22-30) mmol/L BUN 24 H (9-20) mg/dL Glucose 118 H (74-99) mg/dL POC Glucose (mg/dL) 121 H 142 H (75-99) mg/dL Total Protein 4.9 L (6.3-8.2) g/dL Albumin 2.7 L (3.5-5.0) g/dL 04/06/17 04/06/17 04/06/17 Range/Units 04:29 06:29 08:10 WBC 11.4 H (3.8-10.6) k/uL RBC 3.60 L (4.30-5.90) m/uL Hgb 10.2 L (13.0-17.5) gm/dL Hct 31.2 L (39.0-53.0) % Plt Count 105 L (150-450) k/uL Neutrophils # 9.9 H (1.3-7.7) k/uL Lymphocytes # 0.8 L (1.0-4.8) k/uL PT (9.0-12.0) sec INR (<1.2) Sodium (137-145) mmol/L Carbon Dioxide (22-30) mmol/L BUN (9-20) mg/dL Glucose (74-99) mg/dL POC Glucose (mg/dL) 137 H 123 H (75-99) mg/dL Total Protein (6.3-8.2) g/dL Albumin (3.5-5.0) g/dL 04/06/17 04/06/17 04/06/17 Range/Units 10:04 11:50 11:54 WBC (3.8-10.6) k/uL RBC (4.30-5.90) m/uL Hgb (13.0-17.5) gm/dL Hct (39.0-53.0) % Plt Count (150-450) k/uL Neutrophils # (1.3-7.7) k/uL Lymphocytes # (1.0-4.8) k/uL PT 13.3 H (9.0-12.0) sec INR 1.4 H (<1.2) Sodium (137-145) mmol/L Carbon Dioxide (22-30) mmol/L BUN (9-20) mg/dL Glucose (74-99) mg/dL POC Glucose (mg/dL) 155 H 171 H (75-99) mg/dL Total Protein (6.3-8.2) g/dL Albumin (3.5-5.0) g/dL 04/06/17 04/06/17 Range/Units 14:03 15:39 WBC (3.8-10.6) k/uL RBC (4.30-5.90) m/uL Hgb (13.0-17.5) gm/dL Hct (39.0-53.0) % Plt Count (150-450) k/uL Neutrophils # (1.3-7.7) k/uL Lymphocytes # (1.0-4.8) k/uL PT (9.0-12.0) sec INR (<1.2) Sodium (137-145) mmol/L Carbon Dioxide (22-30) mmol/L BUN (9-20) mg/dL Glucose (74-99) mg/dL POC Glucose (mg/dL) 143 H 126 H (75-99) mg/dL Total Protein (6.3-8.2) g/dL Albumin (3.5-5.0) g/dL - Imaging and Cardiology Chest x-ray: report reviewed, image reviewed Assessment and Plan (1) Atrial fibrillation status post cardioversion Status: Acute (2) Chronic atrial fibrillation Status: Acute (3) Diabetes mellitus type 2 in obese Status: Acute (4) Family history of premature CAD Status: Acute (5) History of CVA (cerebrovascular accident) Status: Acute (6) History of brain tumor Status: Acute (7) History of deep venous thrombosis (DVT) of distal vein of right lower extremity Status: Acute (8) History of pneumonia Status: Resolved (9) Hyperlipidemia Status: Acute (10) Hypertension Status: Acute (11) Severe aortic stenosis Status: Acute (12) Tobacco dependence in remission Status: Acute Plan: 1. Continue aspirin, statin, Plavix, heparin. We will increase his metoprolol tartrate 50 mg by mouth twice a day. 2. We will discontinue his Primacor. 3. Wean O2. Encourage incentive spirometer use. 4. Increase activity, out of bed to chair. Physical therapy to follow. 5. GI/DVT prophylaxis. 6. Insulin management per primary care service. 7. We will remove his atrial epicardial pacemaker wire and we will ground his ventricular epicardial pacemaker wire. 8. We will remove his mediastinal chest tube and split his pleural chest tubes. 9. We will give him Lasix 40 mg IV 1 today. 10. Monitor his daily labs and chest x-ray. 11. Discontinue his [place]ianne catheter and place his Cordis to continuous CVP monitoring. 12. His Coumadin will be restarted tomorrow 04/07/2017. 13. More recommendations as patient progresses. Time with Patient: Greater than 30
[2017-04-06 18:56] LABS: Glucose,Whole Blood 159 mg/dL (75-99)
[2017-04-06 19:59] LABS: Glucose,Whole Blood 158 mg/dL (75-99)
[2017-04-06] MEDS: SENNOSIDES-DOCUSATE SODIUM 1 EACH TAB PO SCH (20:03)
--- NOTE | 2017-04-06 20:05 | P.PN ---
Subjective Principal diagnosis: s/p AVR This is a pleasant 76-year-old gentleman who sees Dr. Dunn as an outpatient who was diagnosed recently with severe symptomatic aortic stenosis. The patient was admitted to the hospital yesterday and underwent aortic valve replacement using bioprosthetic valve. This is post op day #2. Clinically, the patient seems to be doing good but he is still slightly lethargic. He continues to be in a sinus mechanism. Hemodynamically he is hypertensive, and the Metoprolol was increased earlier. Objective - Vital Signs Vital signs: Vital Signs Temp 99.4 F 04/06/17 16:00 Pulse 90 04/06/17 19:00 Resp 16 04/06/17 19:00 BP 147/100 04/06/17 13:00 Pulse Ox 100 04/06/17 19:00 Intake & Output 04/06/17 04/06/17 04/07/17 06:59 18:59 06:59 Intake Total 716.408 808.002 52.2 Output Total 1065 2035 115 Balance -348.592 -1226.998 -62.8 Weight 104.2 kg 104.2 kg Intake: IV 708 557 36 0.9 NS pressure bag 108 87 6 Cardiac Output 60 Lactated Ringers 1,000 ml 600 410 30 @ 20 mls/hr IV .Q24H [facility] Rx#:[id number] Intake, IV Titration 8.408 251.002 16.2 Amount Insulin Regular 100 unit 8.408 1.8 16.2 In Sodium Chloride 0.9% 100 ml @ Per Protocol IV .Q0M [facility] Rx#:[id number] Magnesium Sulfate-D5w Pmx 200 1 gm In Dextrose/Water 1 100ml.bag @ 100 mls/hr IVPB Q1H [facility] Rx#: [id number] Milrinone-D5w Pmx 20 mg 49.202 In Dextrose/Water 1 100ml .bag @ 0.1 MCG/KG/MIN 2. 92 mls/hr IV .Q24H [facility] Rx #:[id number] Output: Chest Tube Drainage 455 540 75 Bilateral Pleural Chest 235 280 Tube Chest Tube Mediastinal 220 170 Left Pleural 50 50 Right Pleural 40 25 Urine 610 1495 40 Other: Voiding Method Indwelling Catheter Indwelling Catheter # Bowel Movements 0 0 ABP, PAP, CO, CI - Last Documented Arterial Blood Pressure 144/55 Pulmonary Artery Pressure 38/20 Cardiac Output 3.9 Cardiac Index 2.4 - Constitutional General appearance: Present: no acute distress - Respiratory Respiratory: bilateral: CTA - Cardiovascular Rhythm: regular - Labs CBC & Chem 7: 04/06/17 04:29 04/06/17 15:40 Labs: Abnormal Lab Results - Last 24 Hours (Table) 04/05/17 04/05/17 04/06/17 Range/Units 20:13 22:12 01:38 WBC (3.8-10.6) k/uL RBC (4.30-5.90) m/uL Hgb (13.0-17.5) gm/dL Hct (39.0-53.0) % Plt Count (150-450) k/uL Neutrophils # (1.3-7.7) k/uL Lymphocytes # (1.0-4.8) k/uL PT (9.0-12.0) sec INR (<1.2) Sodium (137-145) mmol/L Carbon Dioxide (22-30) mmol/L BUN (9-20) mg/dL Glucose (74-99) mg/dL POC Glucose (mg/dL) 119 H 106 H 121 H (75-99) mg/dL Total Protein (6.3-8.2) g/dL Albumin (3.5-5.0) g/dL 04/06/17 04/06/17 04/06/17 Range/Units 04:25 04:29 04:29 WBC 11.4 H (3.8-10.6) k/uL RBC 3.60 L (4.30-5.90) m/uL Hgb 10.2 L (13.0-17.5) gm/dL Hct 31.2 L (39.0-53.0) % Plt Count 105 L (150-450) k/uL Neutrophils # 9.9 H (1.3-7.7) k/uL Lymphocytes # 0.8 L (1.0-4.8) k/uL PT (9.0-12.0) sec INR (<1.2) Sodium 136 L (137-145) mmol/L Carbon Dioxide 21 L (22-30) mmol/L BUN 24 H (9-20) mg/dL Glucose 118 H (74-99) mg/dL POC Glucose (mg/dL) 142 H (75-99) mg/dL Total Protein 4.9 L (6.3-8.2) g/dL Albumin 2.7 L (3.5-5.0) g/dL 04/06/17 04/06/17 04/06/17 Range/Units 06:29 08:10 10:04 WBC (3.8-10.6) k/uL RBC (4.30-5.90) m/uL Hgb (13.0-17.5) gm/dL Hct (39.0-53.0) % Plt Count (150-450) k/uL Neutrophils # (1.3-7.7) k/uL Lymphocytes # (1.0-4.8) k/uL PT (9.0-12.0) sec INR (<1.2) Sodium (137-145) mmol/L Carbon Dioxide (22-30) mmol/L BUN (9-20) mg/dL Glucose (74-99) mg/dL POC Glucose (mg/dL) 137 H 123 H 155 H (75-99) mg/dL Total Protein (6.3-8.2) g/dL Albumin (3.5-5.0) g/dL 04/06/17 04/06/17 04/06/17 Range/Units 11:50 11:54 14:03 WBC (3.8-10.6) k/uL RBC (4.30-5.90) m/uL Hgb (13.0-17.5) gm/dL Hct (39.0-53.0) % Plt Count (150-450) k/uL Neutrophils # (1.3-7.7) k/uL Lymphocytes # (1.0-4.8) k/uL PT 13.3 H (9.0-12.0) sec INR 1.4 H (<1.2) Sodium (137-145) mmol/L Carbon Dioxide (22-30) mmol/L BUN (9-20) mg/dL Glucose (74-99) mg/dL POC Glucose (mg/dL) 171 H 143 H (75-99) mg/dL Total Protein (6.3-8.2) g/dL Albumin (3.5-5.0) g/dL 0804/06/17 04/06/17 Range/Units 15:39 18:54 19:56 WBC (3.8-10.6) k/uL RBC (4.30-5.90) m/uL Hgb (13.0-17.5) gm/dL Hct (39.0-53.0) % Plt Count (150-450) k/uL Neutrophils # (1.3-7.7) k/uL Lymphocytes # (1.0-4.8) k/uL PT (9.0-12.0) sec INR (<1.2) Sodium (137-145) mmol/L Carbon Dioxide (22-30) mmol/L BUN (9-20) mg/dL Glucose (74-99) mg/dL POC Glucose (mg/dL) 126 H 159 H 158 H (75-99) mg/dL Total Protein (6.3-8.2) g/dL Albumin (3.5-5.0) g/dL Assessment and Plan Plan: This is a pleasant 76-year-old gentleman who is status post aVR using bypass at the aortic valve for severe aortic stenosis. I'll continue the patient on the current medical treatment which included dual antiplatelet therapy and statin. Plan to stop the Primacor down the line. We' ll continue following up with him.
[2017-04-06 22:07] LABS: Glucose,Whole Blood 134 mg/dL (75-99)
[2017-04-06] MEDS: INSULIN REGULAR 100 UNIT in SODIUM CHLORIDE 0.9% 100 ML IV SCH (22:08)
[2017-04-07 00:17] LABS: Glucose,Whole Blood 109 mg/dL (75-99)
[2017-04-07] MEDS: HEPARIN SODIUM,PORCINE 5,000 UNIT/ML 1 ML VIAL SQ SCH ×4 (02:04→23:47)
[2017-04-07 02:06] LABS: Glucose,Whole Blood 108 mg/dL (75-99)
[2017-04-07 04:29] LABS: Glucose,Whole Blood 120 mg/dL (75-99)
[2017-04-07 04:52] LABS: CHCM 33.3; HCT 30.9 % (39.0-53.0); HDW 3.11; HGB 10.2 gm/dL (13.0-17.5); MCH 28.8 pg (25.0-35.0); MCHC 32.9 g/dL (31.0-37.0); MCV 87.7 fL (80.0-100.0); Mean Platelet Volume 8.4; RBC 3.53 m/uL (4.30-5.90); RDW 15.6 % (11.5-15.5); WBC 11.3 k/uL (3.8-10.6)
[2017-04-07 05:20] LABS: ALT 27 U/L (21-72); AST 37 U/L (17-59); Alkaline Phosphatase 79 U/L (38-126); Anion Gap 9 mmol/L; Blood Urea Nitrogen 30 mg/dL (9-20); Calcium 8.7 mg/dL (8.4-10.2); Carbon Dioxide 22 mmol/L (22-30); Chloride 102 mmol/L (98-107); Glucose 115 mg/dL (74-99); Magnesium 2.1 mg/dL (1.6-2.3); Non-African American GFR(MDRD) >60 (>60 ml/min/1.73 sqM); Phosphorous 2.8 mg/dL (2.5-4.5); Sodium 133 mmol/L (137-145)
[2017-04-07 06:06] LABS: Glucose,Whole Blood 118 mg/dL (75-99)
[2017-04-07 07:42] LABS: Glucose,Whole Blood 114 mg/dL (75-99)
[2017-04-07] MEDS: PANTOPRAZOLE 40 MG TABLET PO SCH (07:59)
[2017-04-07] MEDS: ASPIRIN 325 MG TAB PO SCH (07:59)
[2017-04-07] MEDS: ATORVASTATIN 40 MG TAB PO SCH (07:59)
[2017-04-07] MEDS: METOPROLOL TARTRATE 25 MG TAB PO SCH ×2 (08:00→20:42)
[2017-04-07] MEDS: CLOPIDOGREL 75 MG TAB PO SCH (08:00)
[2017-04-07] MEDS: MUPIROCIN 2% OINT 22 GM TUBE NASAL SCH ×2 (08:01→20:42)
--- NOTE | 2017-04-07 08:33 | XR ---
EXAMINATION TYPE: XR chest 1V portable DATE OF EXAM: 04/07/2017 Comparison: 04/06/2017 Clinical History: 76-year-old male Postop AVR Findings: Interval removal right IJ [place]-Lianne catheter. The jugular sheath remains in place. Median sternotomy wires with prosthetic aortic valve. Bilateral chest tubes remain in place without appreciable pneumot horax. Heart remains mildly enlarged. Prominence of the pulmonary vasculature remains but is slightly improved from prior. Small pleural effusions with patchy bibasilar opacities persist. Impression: 1. Residual pulmonary vascular congestion, slightly improved from prior. 2. Small effusions with patchy bibasilar atelectasis and/or consolidation.
--- NOTE | 2017-04-07 09:47 | P.PN ---
Subjective 76-year-old male patient, post aortic valve replacement, being seen in the intensive care unit. He was brought in this afternoon to the ICU on a mechanical ventilator, on assist control mode at the rate of 12, tidal volume of 500, FiO2 of 100% and a PEEP of 5. He is sedated and is calm and comfortable on Diprivan. He is on Primacor at 0.5 mcg/m and his cardiac output is 6.6 with an index of 2.9. The patient has a mediastinal chest tube and a left pleural chest tube and total amount of output since arrival from the operating room is approximately 300 in the mediastinal and 450 and a chest tubes. No air leaks. Chest x-ray shows cardiomegaly. Chest tubes are all in good location. NG tube needs to be advanced. ET tube is around 3 cm above the nadja. [place]-Lianne catheter good location. Patient is producing good amount of urine output. No hypothermia. Blood gases showed a pH of 7.28 with a pCO2 of 51 and pO2 of 73. Based on this I increased tidal volume of 650. The FiO2 was gradually weaned down and currently is down to 70%. The patient has a baseline FEV1 of 51% of predicted preoperatively. He is current history of COPD. He is on bronchodilators. Preoperatively, the patient was found to have a ejection fraction of 40-50% with moderate degree of aortic stenosis with a right ventricular systolic pressure of around 46. A CRISTY was subsequently done and showed severe with a peak gradient of 70-80 mm of a mercury with a mean gradient of 40, mild mitral regurgitation, biatrial enlargement, generalized hypokinesia with cardiomyopathy. Cardiac catheterization was also done and showed no significant coronary artery disease. On 04/05/2017 the patient is postop aortic valve replacement and the patient is postop day #1. He is doing well. I saw him earlier this morning. I was unable to extubate him overnight as the patient was quite drowsy and sleepy. He was taken off sedation and he gradually became more alert and awake. Earlier this morning, the patient was given a spelled his breathing trial with a pressure support of 5 and a PEEP of 5 which she was able to tolerate for more than 45 minutes. Based on that, I was able to extubate the patient to a nasal cannula at 2 L/m. He is not having any major respiratory difficulties at this point in his resting comfortably in bed. The patient has a mediastinal chest tube. And the patient also has a right and the left pleural chest tube. The pleural chest tubes have averaged around 60 mL output and a mediastinal chest tube has put out 140 mL. The patient is in a normal sinus rhythm. The patient is receiving 0.2 g of Primacor. Urine output is adequate for now. Sternum stable clean and intact. No other significant events overnight. No significant cardiac arrhythmias postop however after putting this patient on a chair and afternoon the patient went into A. fib fibrillation with a rate of 120. Cardiology will be informed of this arrhythmia. On 04/06/2017 the patient is postop day #2 following his aortic valve replacement. He is doing well. He is sitting up on a chair. He is a bit agitated however his awake and alert and conscious and there is no confusion. He was extubated. He is postop day #2. He was taken off the milrinone today and his cardiac index dropped down to 1.8. Nevertheless he maintaining good urine output. The chest x-ray showed cardiomegaly with some pulmonary vascular congestion. The patient also had small atelectatic changes and effusion the lung bases bilaterally. The neck fluid balance is -671 mL since this morning. The chest tubes are still in place. Output from the mediastinal chest tube is around 110 mL and the bilateral chest tubes are still 60 mL since morning shift. He is on and off in atrial fibrillation. His current INR is at 1.4. There is on no anticoagulants for now. On 04/07/2017 the patient is postop day #3 following his aortic valve replacement. Doing well. He has a right and the left pleural chest tube. 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 The patient's chest x-rays showing small bilateral pleural effusions. His, comfortable. He is hemodynamically stable. He is in atrial fibrillation. His rate is controlled. He is on no anticoagulants yet. He should be started on Coumadin today. No fever. No chills. He is pulling approximately 750 on the incentive spirometer. Pain is under good control. No electrodes imbalance. Objective - Vital Signs Vital signs: Vital Signs Temp 99 F 04/07/17 08:00 Pulse 82 04/07/17 09:00 Resp 16 04/07/17 09:00 BP 110/62 04/07/17 09:00 Pulse Ox 94 L 04/07/17 09:00 Intake & Output 04/06/17 04/07/17 04/07/17 18:59 06:59 18:59 Intake Total 808.002 417.350 105 Output Total 2035 810 310 Balance -1226.998 -392.650 -205 Weight 104.2 kg Intake: IV 557 399 105 0.9 NS pressure bag 87 39 15 Cardiac Output 60 Lactated Ringers 1,000 ml 410 360 90 @ 20 mls/hr IV .Q24H [facility] Rx#:[id number] Intake, IV Titration 251.002 18.350 Amount Insulin Regular 100 unit 1.8 18.350 In Sodium Chloride 0.9% 100 ml @ Per Protocol IV .Q0M [facility] Rx#:[id number] Magnesium Sulfate-D5w Pmx 200 1 gm In Dextrose/Water 1 100ml.bag @ 100 mls/hr IVPB Q1H [facility] Rx#: [id number] Milrinone-D5w Pmx 20 mg 49.202 In Dextrose/Water 1 100ml .bag @ 0.1 MCG/KG/MIN 2. 92 mls/hr IV .Q24H [facility] Rx #:[id number] Output: Chest Tube Drainage 540 310 120 Bilateral Pleural Chest 280 Tube Chest Tube Mediastinal 170 Left Pleural 50 180 30 Right Pleural 40 130 90 Urine 1495 500 190 Other: Voiding Method Indwelling Catheter Indwelling Catheter Indwelling Catheter # Bowel Movements 0 1 ABP, PAP, CO, CI - Last Documented Arterial Blood Pressure 136/52 Pulmonary Artery Pressure 38/20 Cardiac Output 3.9 Cardiac Index 2.4 - Exam Head exam was generally normal. There was no scleral icterus or corneal arcus. Mucous membranes were moist.Neck was supple and without jugular venous distension, thyromegaly, or carotid bruits. Carotids were easily palpable bilaterally. There was no adenopathy. Right IJ sheath is in place. Lung sounds are diminished bilaterally otherwise clear. Chest tubes are all in place. Sternum stable clean and intact. Heart sounds are regular, normal S1- S2 and there is no significant murmurs appreciated.Abdominal exam revealed normal bowel sounds. The abdomen was soft, non-tender, and without masses, organomegaly, or appreciable enlargement of the abdominal aorta. Extremities show trace edema and there is no cyanosis or clubbing at this point. Neurologically is awake and alert. - Labs CBC & Chem 7: 04/07/17 04:30 04/07/17 04:30 Labs: Abnormal Lab Results - Last 24 Hours (Table) 04/06/17 04/06/17 04/06/17 Range/Units 10:04 11:50 11:54 WBC (3.8-10.6) k/uL RBC (4.30-5.90) m/uL Hgb (13.0-17.5) gm/dL Hct (39.0-53.0) % RDW (11.5-15.5) % Plt Count (150-450) k/uL PT 13.3 H (9.0-12.0) sec INR 1.4 H (<1.2) Sodium (137-145) mmol/L BUN (9-20) mg/dL Glucose (74-99) mg/dL POC Glucose (mg/dL) 155 H 171 H (75-99) mg/dL Total Protein (6.3-8.2) g/dL Albumin (3.5-5.0) g/dL 04/06/17 04/06/17 04/06/17 Range/Units 14:03 15:39 18:54 WBC (3.8-10.6) k/uL RBC (4.30-5.90) m/uL Hgb (13.0-17.5) gm/dL Hct (39.0-53.0) % RDW (11.5-15.5) % Plt Count (150-450) k/uL PT (9.0-12.0) sec INR (<1.2) Sodium (137-145) mmol/L BUN (9-20) mg/dL Glucose (74-99) mg/dL POC Glucose (mg/dL) 143 H 126 H 159 H (75-99) mg/dL Total Protein (6.3-8.2) g/dL Albumin (3.5-5.0) g/dL 04/06/17 04/06/17 04/07/17 Range/Units 19:56 22:06 00:14 WBC (3.8-10.6) k/uL RBC (4.30-5.90) m/uL Hgb (13.0-17.5) gm/dL Hct (39.0-53.0) % RDW (11.5-15.5) % Plt Count (150-450) k/uL PT (9.0-12.0) sec INR (<1.2) Sodium (137-145) mmol/L BUN (9-20) mg/dL Glucose (74-99) mg/dL POC Glucose (mg/dL) 158 H 134 H 109 H (75-99) mg/dL Total Protein (6.3-8.2) g/dL Albumin (3.5-5.0) g/dL 04/07/17 04/07/17 04/07/17 Range/Units 02:04 04:27 04:30 WBC (3.8-10.6) k/uL RBC (4.30-5.90) m/uL Hgb (13.0-17.5) gm/dL Hct (39.0-53.0) % RDW (11.5-15.5) % Plt Count (150-450) k/uL PT (9.0-12.0) sec INR (<1.2) Sodium 133 L (137-145) mmol/L BUN 30 H (9-20) mg/dL Glucose 115 H (74-99) mg/dL POC Glucose (mg/dL) 108 H 120 H (75-99) mg/dL Total Protein 5.0 L (6.3-8.2) g/dL Albumin 2.6 L (3.5-5.0) g/dL 04/07/17 04/07/17 04/07/17 Range/Units 04:30 06:05 07:37 WBC 11.3 H (3.8-10.6) k/uL RBC 3.53 L (4.30-5.90) m/uL Hgb 10.2 L (13.0-17.5) gm/dL Hct 30.9 L (39.0-53.0) % RDW 15.6 H (11.5-15.5) % Plt Count 110 L (150-450) k/uL PT (9.0-12.0) sec INR (<1.2) Sodium (137-145) mmol/L BUN (9-20) mg/dL Glucose (74-99) mg/dL POC Glucose (mg/dL) 118 H 114 H (75-99) mg/dL Total Protein (6.3-8.2) g/dL Albumin (3.5-5.0) g/dL Assessment and Plan Plan: Assessment 1 severe aortic stenosis status post aortic valve replacement, and modified maze procedure, postop day #3. The patient is hemodynamically stable. Chest x- rays showing some cardiomegaly and pulmonary vessel congestion. The patient was extubated successfully. The patient was taken off Primacor. Today's chest x-ray showing small bilateral pleural effusions. Chest tube is in place. We' ll keep him and as long as they output is still active. 2 postoperative atrial fibrillation with rapid ventricular response, currently controlled rate 3 history of chronic atrial fibrillation. 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 Plan Continue using incentive spirometer. Monitor chest tube output. We'll continue to follow. Condition is stable for now. May consider starting him monitor coagulation with warfarin. This will be discussed with the CT surgeon. Suggest removing the Artline. Suggest removing the cordis.
[2017-04-07] MEDS: MULTIVITAMINS, THERA 1 EACH TAB PO SCH (12:17)
[2017-04-07 12:40] LABS: Glucose,Whole Blood 117 mg/dL (75-99)
--- NOTE | 2017-04-07 12:41 | P.PN ---
Subjective Principal diagnosis: Critical aortic stenosis, chronic atrial fibrillation, history of CVA in 2010, type 2 diabetes mellitus, history of DVT, GERD, hyperlipidemia, hypertension , history of pneumonia in November 2016, history of brain tumor in 1998, history of cardioversion, previous tobacco dependence,family history of myocardial infarction. POD #3 elective aortic valve replacement with #23 mm magna ease bioprosthetic aortic valve. Modified Maze procedure with pulmonary vein isolation using the AtriCure radiofrequency ablation system and clip ligation of the left atrial appendage with a #40 mm AtriClip. Intraoperative transesophageal echocardiogram. His currently sitting up to the bedside chair tolerating his breakfast. No acute distress. Reports that he feels tired today as he did not sleep well last p.m. Objective - Vital Signs Vital signs: Vital Signs Temp 99 F 04/07/17 08:00 Pulse 90 04/07/17 10:00 Resp 20 04/07/17 10:00 BP 91/53 04/07/17 10:00 Pulse Ox 94 L 04/07/17 10:00 Intake & Output 04/06/17 04/07/17 04/07/17 18:59 06:59 18:59 Intake Total 808.002 417.350 141 Output Total 2035 810 355 Balance -1226.998 -392.650 -214 Weight 104.2 kg Intake: IV 557 399 141 0.9 NS pressure bag 87 39 21 Cardiac Output 60 Lactated Ringers 1,000 ml 410 360 120 @ 20 mls/hr IV .Q24H [facility] Rx#:[id number] Intake, IV Titration 251.002 18.350 Amount Insulin Regular 100 unit 1.8 18.350 In Sodium Chloride 0.9% 100 ml @ Per Protocol IV .Q0M [facility] Rx#:[id number] Magnesium Sulfate-D5w Pmx 200 1 gm In Dextrose/Water 1 100ml.bag @ 100 mls/hr IVPB Q1H [facility] Rx#: [id number] Milrinone-D5w Pmx 20 mg 49.202 In Dextrose/Water 1 100ml .bag @ 0.1 MCG/KG/MIN 2. 92 mls/hr IV .Q24H [facility] Rx #:[id number] Output: Chest Tube Drainage 540 310 130 Bilateral Pleural Chest 280 Tube Chest Tube Mediastinal 170 Left Pleural 50 180 30 Right Pleural 40 130 100 Urine 1495 500 225 Other: Voiding Method Indwelling Catheter Indwelling Catheter Indwelling Catheter # Bowel Movements 0 1 ABP, PAP, CO, CI - Last Documented Arterial Blood Pressure 127/49 Pulmonary Artery Pressure 38/20 Cardiac Output 3.9 Cardiac Index 2.4 - Constitutional General appearance: Present: cooperative, no acute distress, obese - EENT Eyes: Present: PERRLA, normal appearance ENT: Present: hearing grossly normal - Neck Details: Right IJ Cordis in place to continuous CVP monitoring. Current CVP is 12. No JVD present. - Respiratory Details: Essentially clear throughout, diminished bilateral bases. Respirations are symmetrical and unlabored. His current oxygen saturations are 95 percent on room air. He is achieving 750 mL on his incentive spirometry. Right pleural chest tube without air leak, remains to low continuous wall suction -20 cm H2O. Evacuating thin serosanguineous drainage. 90 mL output in the last 8 hours, 250 mL output in the last 24 hours. Left pleural chest tube without air leak, remains to low continuous wall suction -20 cm H2O. Evacuating thin serosanguineous drainage. 20 mL output in the last 8 hours, 250 mL output in the last 24 hours. - Cardiovascular Details: Irregular rhythm and controlled rate, S1 and S2 present. Negative for S3, gallop or murmur. Sternum is stable. Heart hugger is in place and is demonstrating appropriate use. Bedside telemetry showing atrial fibrillation heart rate 81. Atrial and ventricular epicardial pacemaker wires present and are grounded. +1 edema to his bilateral lower extremity [place]. Knee-high DARRYL hose and sequential compression devices in place to his bilateral lower extremities. - Gastrointestinal Gastrointestinal Comment(s): Abdomen is soft, nontender, and nondistended. Positive flatus. Positive bowel sounds to all 4 abdominal quadrants. He is tolerating oral intake. - Genitourinary Genitourinary Comment(s): Adequate, Wilson catheter for accurate I&O. Clear yellow urine. Urine output 40 to 60 mL per hour. - Integumentary Integumentary Comment(s): Midline sternal incision clean dry and well approximated. Dermabond dressing clean and dry. 4 x 4 folded gauze dressing clean dry and intact over his sternal incision. - Musculoskeletal Musculoskeletal: Present: gait normal, generalized weakness, strength equal bilaterally - Psychiatric Psychiatric: Present: A&O x's 3, appropriate affect, intact judgment & insight - Allied health notes Allied health notes reviewed: nursing - Labs CBC & Chem 7: 04/07/17 04:30 04/07/17 04:30 Labs: Abnormal Lab Results - Last 24 Hours (Table) 04/06/17 04/06/17 04/06/17 Range/Units 11:50 11:54 14:03 WBC (3.8-10.6) k/uL RBC (4.30-5.90) m/uL Hgb (13.0-17.5) gm/dL Hct (39.0-53.0) % RDW (11.5-15.5) % Plt Count (150-450) k/uL PT 13.3 H (9.0-12.0) sec INR 1.4 H (<1.2) Sodium (137-145) mmol/L BUN (9-20) mg/dL Glucose (74-99) mg/dL POC Glucose (mg/dL) 171 H 143 H (75-99) mg/dL Total Protein (6.3-8.2) g/dL Albumin (3.5-5.0) g/dL 04/06/17 04/06/17 04/06/17 Range/Units 15:39 18:54 19:56 WBC (3.8-10.6) k/uL RBC (4.30-5.90) m/uL Hgb (13.0-17.5) gm/dL Hct (39.0-53.0) % RDW (11.5-15.5) % Plt Count (150-450) k/uL PT (9.0-12.0) sec INR (<1.2) Sodium (137-145) mmol/L BUN (9-20) mg/dL Glucose (74-99) mg/dL POC Glucose (mg/dL) 126 H 159 H 158 H (75-99) mg/dL Total Protein (6.3-8.2) g/dL Albumin (3.5-5.0) g/dL 04/06/17 04/07/17 04/07/17 Range/Units 22:06 00:14 02:04 WBC (3.8-10.6) k/uL RBC (4.30-5.90) m/uL Hgb (13.0-17.5) gm/dL Hct (39.0-53.0) % RDW (11.5-15.5) % Plt Count (150-450) k/uL PT (9.0-12.0) sec INR (<1.2) Sodium (137-145) mmol/L BUN (9-20) mg/dL Glucose (74-99) mg/dL POC Glucose (mg/dL) 134 H 109 H 108 H (75-99) mg/dL Total Protein (6.3-8.2) g/dL Albumin (3.5-5.0) g/dL 04/07/17 04/07/17 04/07/17 Range/Units 04:27 04:30 04:30 WBC 11.3 H (3.8-10.6) k/uL RBC 3.53 L (4.30-5.90) m/uL Hgb 10.2 L (13.0-17.5) gm/dL Hct 30.9 L (39.0-53.0) % RDW 15.6 H (11.5-15.5) % Plt Count 110 L (150-450) k/uL PT (9.0-12.0) sec INR (<1.2) Sodium 133 L (137-145) mmol/L BUN 30 H (9-20) mg/dL Glucose 115 H (74-99) mg/dL POC Glucose (mg/dL) 120 H (75-99) mg/dL Total Protein 5.0 L (6.3-8.2) g/dL Albumin 2.6 L (3.5-5.0) g/dL 04/07/17 04/07/17 Range/Units 06:05 07:37 WBC (3.8-10.6) k/uL RBC (4.30-5.90) m/uL Hgb (13.0-17.5) gm/dL Hct (39.0-53.0) % RDW (11.5-15.5) % Plt Count (150-450) k/uL PT (9.0-12.0) sec INR (<1.2) Sodium (137-145) mmol/L BUN (9-20) mg/dL Glucose (74-99) mg/dL POC Glucose (mg/dL) 118 H 114 H (75-99) mg/dL Total Protein (6.3-8.2) g/dL Albumin (3.5-5.0) g/dL - Imaging and Cardiology Chest x-ray: report reviewed, image reviewed Assessment and Plan (1) Atrial fibrillation status post cardioversion Status: Acute (2) Chronic atrial fibrillation Status: Acute (3) Diabetes mellitus type 2 in obese Status: Acute (4) Family history of premature CAD Status: Acute (5) History of CVA (cerebrovascular accident) Status: Acute (6) History of brain tumor Status: Acute (7) History of deep venous thrombosis (DVT) of distal vein of right lower extremity Status: Acute (8) Hyperlipidemia Status: Acute (9) Hypertension Status: Acute (10) Severe aortic stenosis Status: Acute (11) Tobacco dependence in remission Status: Acute (12) History of pneumonia Status: Acute Plan: 1. Continue aspirin, statin, Plavix, heparin. We will increase his metoprolol tartrate 75 mg by mouth twice a day. 2. We will discontinue right/left pleural chest tubes. 3. Wean O2. Encourage incentive spirometer use. 4. Increase activity, out of bed to chair. Physical therapy to follow. 5. GI/DVT prophylaxis. 6. Insulin management per primary care service. 7. We will remove his ventricular epicardial pacemaker wires. 8. We will give him Lasix 20 mg IV 1 today. 9. Monitor his daily labs and chest x-ray. 10. Discontinue his Cordis and Wilson catheter. 11. Coumadin 5 mg by mouth will be started today 04/07/2017 for his chronic atrial fibrillation. We will add daily PT and INRs. 12. He will be transferred to [address] [place] [address] for further monitoring and rehabilitation. 13. More recommendations as patient progresses. Time with Patient: Greater than 30
[2017-04-07] MEDS ORDERED: FUROSEMIDE 10 MG/ML 2 ML VIAL IV ONE ×2 (12:57→13:16)
--- NOTE | 2017-04-07 13:49 | P.PN ---
Subjective Principal diagnosis: s/p AVR This is a pleasant 76-year-old gentleman who sees Dr. Dunn as an outpatient who was diagnosed recently with severe symptomatic aortic stenosis. The patient was admitted to the hospital yesterday and underwent aortic valve replacement using bioprosthetic valve. This is post op day #3. Clinically, the patient seems to be doing good but he is still slightly lethargic. The chest x-ray continues to show vascular congestion and he was given Lasix today. The dose of metoprolol was increased for better heart rate and blood pressure control and also he was restarted on Coumadin. Objective - Vital Signs Vital signs: Vital Signs Temp 98.9 F 04/07/17 12:00 Pulse 87 04/07/17 13:00 Resp 17 04/07/17 13:00 BP 121/73 04/07/17 13:00 Pulse Ox 95 04/07/17 13:00 Intake & Output 04/06/17 04/07/17 04/07/17 18:59 06:59 18:59 Intake Total 808.002 417.350 236 Output Total 2035 810 515 Balance -1226.998 -392.650 -279 Weight 104.2 kg Intake: IV 557 399 216 0.9 NS pressure bag 87 39 36 Cardiac Output 60 Lactated Ringers 1,000 ml 410 360 180 @ 20 mls/hr IV .Q24H [facility] Rx#:[id number] Intake, IV Titration 251.002 18.350 20 Amount Insulin Regular 100 unit 1.8 18.350 In Sodium Chloride 0.9% 100 ml @ Per Protocol IV .Q0M [facility] Rx#:[id number] Lactated Ringers 1,000 ml 20 @ 20 mls/hr IV .Q24H [facility] Rx#:[id number] Magnesium Sulfate-D5w Pmx 200 1 gm In Dextrose/Water 1 100ml.bag @ 100 mls/hr IVPB Q1H [facility] Rx#: [id number] Milrinone-D5w Pmx 20 mg 49.202 In Dextrose/Water 1 100ml .bag @ 0.1 MCG/KG/MIN 2. 92 mls/hr IV .Q24H [facility] Rx #:[id number] Output: Chest Tube Drainage 540 310 210 Bilateral Pleural Chest 280 Tube Chest Tube Mediastinal 170 Left Pleural 50 180 60 Right Pleural 40 130 150 Urine 1495 500 305 Other: Voiding Method Indwelling Catheter Indwelling Catheter Indwelling Catheter # Bowel Movements 0 1 ABP, PAP, CO, CI - Last Documented Arterial Blood Pressure 133/54 Pulmonary Artery Pressure 38/20 Cardiac Output 3.9 Cardiac Index 2.4 - Constitutional General appearance: Present: no acute distress - Respiratory Respiratory: bilateral: diminished - Cardiovascular Heart sounds: normal: S1, S2 - Labs CBC & Chem 7: 04/07/17 04:30 04/07/17 04:30 Labs: Abnormal Lab Results - Last 24 Hours (Table) 04/06/17 04/06/17 04/06/17 Range/Units 14:03 15:39 18:54 WBC (3.8-10.6) k/uL RBC (4.30-5.90) m/uL Hgb (13.0-17.5) gm/dL Hct (39.0-53.0) % RDW (11.5-15.5) % Plt Count (150-450) k/uL Sodium (137-145) mmol/L BUN (9-20) mg/dL Glucose (74-99) mg/dL POC Glucose (mg/dL) 143 H 126 H 159 H (75-99) mg/dL Total Protein (6.3-8.2) g/dL Albumin (3.5-5.0) g/dL 04/06/17 04/06/17 04/07/17 Range/Units 19:56 22:06 00:14 WBC (3.8-10.6) k/uL RBC (4.30-5.90) m/uL Hgb (13.0-17.5) gm/dL Hct (39.0-53.0) % RDW (11.5-15.5) % Plt Count (150-450) k/uL Sodium (137-145) mmol/L BUN (9-20) mg/dL Glucose (74-99) mg/dL POC Glucose (mg/dL) 158 H 134 H 109 H (75-99) mg/dL Total Protein (6.3-8.2) g/dL Albumin (3.5-5.0) g/dL 04/07/17 04/07/17 04/07/17 Range/Units 02:04 04:27 04:30 WBC (3.8-10.6) k/uL RBC (4.30-5.90) m/uL Hgb (13.0-17.5) gm/dL Hct (39.0-53.0) % RDW (11.5-15.5) % Plt Count (150-450) k/uL Sodium 133 L (137-145) mmol/L BUN 30 H (9-20) mg/dL Glucose 115 H (74-99) mg/dL POC Glucose (mg/dL) 108 H 120 H (75-99) mg/dL Total Protein 5.0 L (6.3-8.2) g/dL Albumin 2.6 L (3.5-5.0) g/dL 04/07/17 04/07/17 04/07/17 Range/Units 04:30 06:05 07:37 WBC 11.3 H (3.8-10.6) k/uL RBC 3.53 L (4.30-5.90) m/uL Hgb 10.2 L (13.0-17.5) gm/dL Hct 30.9 L (39.0-53.0) % RDW 15.6 H (11.5-15.5) % Plt Count 110 L (150-450) k/uL Sodium (137-145) mmol/L BUN (9-20) mg/dL Glucose (74-99) mg/dL POC Glucose (mg/dL) 118 H 114 H (75-99) mg/dL Total Protein (6.3-8.2) g/dL Albumin (3.5-5.0) g/dL 04/07/17 Range/Units 12:37 WBC (3.8-10.6) k/uL RBC (4.30-5.90) m/uL Hgb (13.0-17.5) gm/dL Hct (39.0-53.0) % RDW (11.5-15.5) % Plt Count (150-450) k/uL Sodium (137-145) mmol/L BUN (9-20) mg/dL Glucose (74-99) mg/dL POC Glucose (mg/dL) 117 H (75-99) mg/dL Total Protein (6.3-8.2) g/dL Albumin (3.5-5.0) g/dL Assessment and Plan Plan: This is a pleasant 76-year-old gentleman who is status post aVR using bypass at the aortic valve for severe aortic stenosis. I'll continue the patient on the current medical treatment which included dual antiplatelet therapy and statin. The Coumadin was restarted.
[2017-04-07] MEDS ORDERED: WARFARIN 5 MG TAB PO ONE (18:00)
[2017-04-07 18:36] LABS: Glucose,Whole Blood 141 mg/dL (75-99)
[2017-04-07] MEDS: INSULIN LISPRO (humaLOG) 300 UNIT/3 ML VIAL SQ SCH ×2 (19:07→20:40)
[2017-04-07 20:41] LABS: Glucose,Whole Blood 125 mg/dL (75-99)
[2017-04-07] MEDS: SENNOSIDES-DOCUSATE SODIUM 1 EACH TAB PO SCH (20:41)
[2017-04-08 05:58] LABS: Glucose,Whole Blood 98 mg/dL (75-99)
[2017-04-08 06:19] LABS: CH 28.9; CHCM 32.2; HCT 31.8 % (39.0-53.0); HDW 3.14; Hypochromasia Slight; MCH 28.3 pg (25.0-35.0); MCHC 31.3 g/dL (31.0-37.0); MCV 90.4 fL (80.0-100.0); RBC 3.52 m/uL (4.30-5.90); RDW 15.7 % (11.5-15.5); WBC 8.2 k/uL (3.8-10.6)
[2017-04-08 06:24] LABS: INR 1.4 (<1.2); Prothrombin Time 13.3 sec (9.0-12.0)
[2017-04-08] MEDS: INSULIN LISPRO (humaLOG) 300 UNIT/3 ML VIAL SQ SCH ×4 (06:26→21:32)
[2017-04-08 06:30] LABS: ALT 36 U/L (21-72); AST 48 U/L (17-59); Alkaline Phosphatase 78 U/L (38-126); Anion Gap 9 mmol/L; Blood Urea Nitrogen 35 mg/dL (9-20); Calcium 8.2 mg/dL (8.4-10.2); Carbon Dioxide 22 mmol/L (22-30); Chloride 102 mmol/L (98-107); Glucose 94 mg/dL (74-99); Magnesium 2.1 mg/dL (1.6-2.3); Non-African American GFR(MDRD) >60 (>60 ml/min/1.73 sqM); Potassium 3.8 mmol/L (3.5-5.1); Sodium 133 mmol/L (137-145); Total Bilirubin 0.9 mg/dL (0.2-1.3); Total Protein 4.7 g/dL (6.3-8.2)
[2017-04-08] MEDS: PANTOPRAZOLE 40 MG TABLET PO SCH (06:46)
--- NOTE | 2017-04-08 09:17 | XR ---
EXAMINATION TYPE: XR chest 2V DATE OF EXAM: 04/08/2017 COMPARISON: April 07, 2017 HISTORY: post op AVR TECHNIQUE: Frontal and lateral views of the chest are obtained. FINDINGS: Bilateral chest tubes have been removed. No sizable pneumothorax is identified. Cardiac valvular prostheses are in place. Continued cardiomegaly with small bilateral pleural effusions and probable compressive atelectasis. Mediastinal structures are stable and grossly unremarkable. No evidence for hilar prominence. Degenerative changes dorsal spine. IMPRESSION: 1. Removal of bilateral chest tubes as noted. Persistent cardiomegaly with mild pulmonary venous nakul estion and small effusions.
[2017-04-08] MEDS: HEPARIN SODIUM,PORCINE 5,000 UNIT/ML 1 ML VIAL SQ SCH ×3 (09:57→23:56)
[2017-04-08] MEDS: ASPIRIN 325 MG TAB PO SCH (09:58)
[2017-04-08] MEDS: ATORVASTATIN 40 MG TAB PO SCH (09:58)
[2017-04-08] MEDS: CLOPIDOGREL 75 MG TAB PO SCH (09:58)
[2017-04-08] MEDS: METOPROLOL TARTRATE 25 MG TAB PO SCH ×2 (09:59→21:43)
[2017-04-08] MEDS: MULTIVITAMINS, THERA 1 EACH TAB PO SCH (10:00)
--- NOTE | 2017-04-08 10:47 | P.PN ---
Subjective This is a 76-year-old male with a known history of atrial fibrillation, diabetes mellitus, CVA, hyperlipidemia hypertension, COPD and benign brain tumor. Patient underwent aortic valve replacement for his severe aortic stenosis. Patient currently remains in the ICU he was extubated this morning. Pulmonary and cardiology are following. Patient reports that his pain is controlled. He is off of pressors. And they're weaning him off of the Primacor. Patient denies any chest pain or shortness breath. Denies any nausea or vomiting. Denies any bowel movement changes. Urine output adequate. We've been consulted for medical management. 04/08/2017 patient is working with the cardiac rehab team. He denies any chest pain or shortness of breath. Denies any nausea or vomiting. Chest tube removed yesterday. Wilson catheter removed this morning. He was able to have a bowel movements. He denies any burning with urination. Objective - Vital Signs Vital signs: Vital Signs Temp 98.1 F 04/08/17 04:00 Pulse 80 04/08/17 04:00 Resp 18 04/08/17 04:00 BP 129/78 04/08/17 04:00 Pulse Ox 97 04/08/17 04:00 Intake & Output 04/07/17 04/08/17 04/08/17 18:59 06:59 18:59 Intake Total 686 240 Output Total 1600 295 Balance -914 -295 240 Weight 99.7 kg Intake: IV 216 0.9 NS pressure bag 36 Lactated Ringers 1,000 ml 180 @ 20 mls/hr IV .Q24H [facility] Rx#:[id number] Intake, IV Titration 20 Amount Lactated Ringers 1,000 ml 20 @ 20 mls/hr IV .Q24H [facility] Rx#:[id number] Oral 450 240 Output: Chest Tube Drainage 270 Left Pleural 90 Right Pleural 180 Urine 1330 295 Other: Voiding Method Indwelling Catheter Indwelling Catheter # Voids 950 # Bowel Movements 1 ABP, PAP, CO, CI - Last Documented Arterial Blood Pressure 133/54 Pulmonary Artery Pressure 38/20 Cardiac Output 3.9 Cardiac Index 2.4 - Exam Head normocephalic Neck supple Lungs clear to auscultation bilaterally no wheezing or crackles has [address] Heart regular rate and rhythm S1-S2, no rub or gallop is murmur Abdomen is soft nontender nondistended positive bowel sounds no hepatosplenomegaly Extremities no edema Neuro alert and orientated to 3 - Labs CBC & Chem 7: 04/08/17 05:44 04/08/17 05:44 Labs: Abnormal Lab Results - Last 24 Hours (Table) 04/07/17 04/07/17 04/07/17 Range/Units 12:37 18:35 20:39 RBC (4.30-5.90) m/uL Hgb (13.0-17.5) gm/dL Hct (39.0-53.0) % RDW (11.5-15.5) % Plt Count (150-450) k/uL PT (9.0-12.0) sec INR (<1.2) Sodium (137-145) mmol/L BUN (9-20) mg/dL POC Glucose (mg/dL) 117 H 141 H 125 H (75-99) mg/dL Calcium (8.4-10.2) mg/dL Total Protein (6.3-8.2) g/dL Albumin (3.5-5.0) g/dL 04/08/17 04/08/17 04/08/17 Range/Units 05:44 05:44 05:44 RBC 3.52 L (4.30-5.90) m/uL Hgb 10.0 L (13.0-17.5) gm/dL Hct 31.8 L (39.0-53.0) % RDW 15.7 H (11.5-15.5) % Plt Count 121 L (150-450) k/uL PT 13.3 H (9.0-12.0) sec INR 1.4 H (<1.2) Sodium 133 L (137-145) mmol/L BUN 35 H (9-20) mg/dL POC Glucose (mg/dL) (75-99) mg/dL Calcium 8.2 L (8.4-10.2) mg/dL Total Protein 4.7 L (6.3-8.2) g/dL Albumin 2.3 L (3.5-5.0) g/dL Assessment and Plan Plan: 1. Severe aortic stenosis status post aortic valve replacement. 2. Postoperative mechanical ventilation which is expected outcome of surgery. He shouldn't had successful extubation 3. History of chronic atrial fibrillation. With episode of atrial fibrillation with rapid ventricular response postoperatively. Cardiology following. Cardiology has increased the patient's metoprolol and started him on Coumadin 4. Diabetes mellitus type 2: blood sugars are stable. Continue sliding scale coverage. Resume patient's metformin 5. Essential hypertension 6. Hyperlipidemia 7. 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 History of brain tumor that was resected in 1998 I performed an examination of the patient and discussed their management with the physician Book Repairer. I have reviewed the Physician Book Repairer's notes and agree with the documented findings and plan of care
[2017-04-08 12:24] LABS: Glucose,Whole Blood 110 mg/dL (75-99)
--- NOTE | 2017-04-08 13:03 | P.PN ---
Subjective Principal diagnosis: Aortic valve replacement This is a 76-year-old gentleman who is status post aortic valve replacement. He was seen and examined this morning sitting up in the chair at bedside. Denies any shortness of breath, breathing is been stable. No dizziness or lightheadedness. Blood pressure 128/60 with a heart rate in the 60s. Chest x-ray reveals mild pulmonary venous congestion and small effusions. Hemoglobin 10.0, potassium 3.8, BUN 35, creatinine 0.9. Magnesium level II.1. Objective - Vital Signs Vital signs: Vital Signs Temp 98.5 F 04/08/17 08:45 Pulse 89 04/08/17 11:36 Resp 18 04/08/17 08:45 BP 128/67 04/08/17 11:36 Pulse Ox 95 04/08/17 11:36 Intake & Output 04/07/17 04/08/17 04/08/17 18:59 06:59 18:59 Intake Total 686 240 Output Total 1600 295 Balance -914 -295 240 Weight 99.7 kg Intake: IV 216 0.9 NS pressure bag 36 Lactated Ringers 1,000 ml 180 @ 20 mls/hr IV .Q24H [facility] Rx#:[id number] Intake, IV Titration 20 Amount Lactated Ringers 1,000 ml 20 @ 20 mls/hr IV .Q24H [facility] Rx#:[id number] Oral 450 240 Output: Chest Tube Drainage 270 Left Pleural 90 Right Pleural 180 Urine 1330 295 Other: Voiding Method Indwelling Catheter Indwelling Catheter Toilet Urinal # Voids 950 # Bowel Movements 1 ABP, PAP, CO, CI - Last Documented Arterial Blood Pressure 133/54 Pulmonary Artery Pressure 38/20 Cardiac Output 3.9 Cardiac Index 2.4 - Exam PHYSICAL EXAMINATION: HEENT: Head is atraumatic, normocephalic. Pupils equal, round. Neck is supple. There is no elevated jugular venous pressure. HEART EXAMINATION: Heart S1, S2 irregularly irregular . No murmur or gallop heard. CHEST EXAMINATION: Clear with diminished air entry to bilateral bases. ABDOMEN: Soft, nontender. Bowel sounds are heard. No organomegaly noted. EXTREMITIES: 2+ peripheral pulses with no evidence of peripheral edema and no calf tenderness noted. NEUROLOGIC patient is awake, alert and oriented -3. . - Labs CBC & Chem 7: 04/08/17 05:44 04/08/17 05:44 Labs: Abnormal Lab Results - Last 24 Hours (Table) 04/07/17 04/07/17 04/08/17 Range/Units 18:35 20:39 05:44 RBC 3.52 L (4.30-5.90) m/uL Hgb 10.0 L (13.0-17.5) gm/dL Hct 31.8 L (39.0-53.0) % RDW 15.7 H (11.5-15.5) % Plt Count 121 L (150-450) k/uL PT (9.0-12.0) sec INR (<1.2) Sodium (137-145) mmol/L BUN (9-20) mg/dL POC Glucose (mg/dL) 141 H 125 H (75-99) mg/dL Calcium (8.4-10.2) mg/dL Total Protein (6.3-8.2) g/dL Albumin (3.5-5.0) g/dL 04/08/17 04/08/17 04/08/17 Range/Units 05:44 05:44 11:56 RBC (4.30-5.90) m/uL Hgb (13.0-17.5) gm/dL Hct (39.0-53.0) % RDW (11.5-15.5) % Plt Count (150-450) k/uL PT 13.3 H (9.0-12.0) sec INR 1.4 H (<1.2) Sodium 133 L (137-145) mmol/L BUN 35 H (9-20) mg/dL POC Glucose (mg/dL) 110 H (75-99) mg/dL Calcium 8.2 L (8.4-10.2) mg/dL Total Protein 4.7 L (6.3-8.2) g/dL Albumin 2.3 L (3.5-5.0) g/dL Assessment and Plan (1) S/P AVR Status: Acute (2) Aortic stenosis Status: Acute (3) Chronic atrial fibrillation Status: Acute (4) Diabetes mellitus type 2 in obese Status: Acute (5) Family history of premature CAD Status: Acute (6) Hyperlipidemia Status: Acute (7) Hypertension Status: Acute Plan: From cardiology's perspective, we will recommend to continue the patient on his current medications. He has been encouraged regarding the use of his incentive spirometry. DNP note has been reviewed, I agree with a documented findings and plan of care. Patient was seen and examined.
--- NOTE | 2017-04-08 14:21 | P.PN ---
Subjective Principal diagnosis: Critical aortic stenosis, chronic atrial fibrillation, history of CVA in 2010, type 2 diabetes mellitus, history of DVT, GERD, hyperlipidemia, hypertension , history of pneumonia in November 2016, history of brain tumor in 1998, history of cardioversion, previous tobacco dependence,family history of myocardial infarction. POD #4 elective aortic valve replacement with #23 mm magna ease bioprosthetic aortic valve. Modified Maze procedure with pulmonary vein isolation using the AtriCure radiofrequency ablation system and clip ligation of the left atrial appendage with a #40 mm AtriClip. Intraoperative transesophageal echocardiogram. His currently sitting up to the bedside chair. No acute distress. He denies complaints of pain or shortness of breath at this time. Objective - Vital Signs Vital signs: Vital Signs Temp 98.5 F 04/08/17 08:45 Pulse 89 04/08/17 11:36 Resp 16 04/08/17 11:10 BP 128/67 04/08/17 11:36 Pulse Ox 95 04/08/17 11:36 Intake & Output 04/07/17 04/08/17 04/08/17 18:59 06:59 18:59 Intake Total 686 360 Output Total 1600 295 Balance -914 -295 360 Weight 99.7 kg Intake: IV 216 0.9 NS pressure bag 36 Lactated Ringers 1,000 ml 180 @ 20 mls/hr IV .Q24H [facility] Rx#:[id number] Intake, IV Titration 20 Amount Lactated Ringers 1,000 ml 20 @ 20 mls/hr IV .Q24H [facility] Rx#:[id number] Oral 450 360 Output: Chest Tube Drainage 270 Left Pleural 90 Right Pleural 180 Urine 1330 295 Other: Voiding Method Indwelling Catheter Indwelling Catheter Toilet Urinal # Voids 950 1 # Bowel Movements 1 ABP, PAP, CO, CI - Last Documented Arterial Blood Pressure 133/54 Pulmonary Artery Pressure 38/20 Cardiac Output 3.9 Cardiac Index 2.4 - Constitutional General appearance: Present: cooperative, no acute distress, obese - EENT Eyes: Present: PERRLA, normal appearance ENT: Present: hearing grossly normal - Neck Details: No JVD present. - Respiratory Details: Essentially clear throughout, diminished bilateral bases. Respirations are symmetrical and unlabored. His current oxygen saturations are 97 percent on 1.5 L of oxygen. He is achieving 1250 mL on his incentive spirometry. - Cardiovascular Details: Irregular rhythm and controlled rate, S1 and S2 present. Negative for S3, gallop or murmur. Sternum is stable. Heart hugger is in place and is demonstrating appropriate use. Bedside telemetry showing atrial fibrillation heart rate 95. +1 edema. Knee-high DARRYL hose and sequential compression devices in place to his bilateral lower extremities. - Gastrointestinal Gastrointestinal Comment(s): abdomen is soft, nontender and nondistended. Positive bowel sounds all 4 abdominal quadrants. He is tolerating oral intake. - Genitourinary Genitourinary Comment(s): Adequate urine output, clear yellow urine. - Integumentary Integumentary Comment(s): Midline sternal incision clean dry and well approximated. Dermabond dressing clean and dry. 4 x 4 folded gauze dressing clean dry and intact over his sternal incision. - Musculoskeletal Musculoskeletal: Present: gait normal, strength equal bilaterally - Psychiatric Psychiatric: Present: A&O x's 3, appropriate affect, intact judgment & insight - Allied health notes Allied health notes reviewed: nursing - Labs CBC & Chem 7: 04/08/17 05:44 04/08/17 05:44 Labs: Abnormal Lab Results - Last 24 Hours (Table) 04/07/17 04/07/17 04/08/17 Range/Units 18:35 20:39 05:44 RBC 3.52 L (4.30-5.90) m/uL Hgb 10.0 L (13.0-17.5) gm/dL Hct 31.8 L (39.0-53.0) % RDW 15.7 H (11.5-15.5) % Plt Count 121 L (150-450) k/uL PT (9.0-12.0) sec INR (<1.2) Sodium (137-145) mmol/L BUN (9-20) mg/dL POC Glucose (mg/dL) 141 H 125 H (75-99) mg/dL Calcium (8.4-10.2) mg/dL Total Protein (6.3-8.2) g/dL Albumin (3.5-5.0) g/dL 04/08/17 04/08/17 04/08/17 Range/Units 05:44 05:44 11:56 RBC (4.30-5.90) m/uL Hgb (13.0-17.5) gm/dL Hct (39.0-53.0) % RDW (11.5-15.5) % Plt Count (150-450) k/uL PT 13.3 H (9.0-12.0) sec INR 1.4 H (<1.2) Sodium 133 L (137-145) mmol/L BUN 35 H (9-20) mg/dL POC Glucose (mg/dL) 110 H (75-99) mg/dL Calcium 8.2 L (8.4-10.2) mg/dL Total Protein 4.7 L (6.3-8.2) g/dL Albumin 2.3 L (3.5-5.0) g/dL - Imaging and Cardiology Chest x-ray: report reviewed, image reviewed Assessment and Plan (1) Atrial fibrillation status post cardioversion Status: Acute (2) Chronic atrial fibrillation Status: Acute (3) Diabetes mellitus type 2 in obese Status: Acute (4) Family history of premature CAD Status: Acute (5) History of CVA (cerebrovascular accident) Status: Acute (6) History of brain tumor Status: Acute (7) History of deep venous thrombosis (DVT) of distal vein of right lower extremity Status: Acute (8) Hyperlipidemia Status: Acute (9) Hypertension Status: Acute (10) Severe aortic stenosis Status: Acute (11) Tobacco dependence in remission Status: Acute (12) History of pneumonia Status: Acute Plan: 1. Continue aspirin, statin, Plavix, heparin and metoprolol. 2. Coumadin 5 mg by mouth daily, his INR today was 1.4. Daily PT and INR. 3. Wean O2. Encourage incentive spirometer use. 4. Increase activity, out of bed to chair. Physical therapy to follow. 5. GI/DVT prophylaxis. 6. Insulin management per primary care service. 7. Monitor his daily labs and chest x-ray. 8. More recommendations as patient progresses. Discharge planning in place, anticipate discharge within the next 24 hours. Time with Patient: Greater than 30
--- NOTE | 2017-04-08 14:25 | P.PN ---
Subjective Principal diagnosis: Status post aortic valve replacement, modified maze procedure postoperative day #4 76-year-old male patient, post aortic valve replacement, being seen in the intensive care unit. He was brought in this afternoon to the ICU on a mechanical ventilator, on assist control mode at the rate of 12, tidal volume of 500, FiO2 of 100% and a PEEP of 5. He is sedated and is calm and comfortable on Diprivan. He is on Primacor at 0.5 mcg/m and his cardiac output is 6.6 with an index of 2.9. The patient has a mediastinal chest tube and a left pleural chest tube and total amount of output since arrival from the operating room is approximately 300 in the mediastinal and 450 and a chest tubes. No air leaks. Chest x-ray shows cardiomegaly. Chest tubes are all in good location. NG tube needs to be advanced. ET tube is around 3 cm above the nadja. [place]-Lianne catheter good location. Patient is producing good amount of urine output. No hypothermia. Blood gases showed a pH of 7.28 with a pCO2 of 51 and pO2 of 73. Based on this I increased tidal volume of 650. The FiO2 was gradually weaned down and currently is down to 70%. The patient has a baseline FEV1 of 51% of predicted preoperatively. He is current history of COPD. He is on bronchodilators. Preoperatively, the patient was found to have a ejection fraction of 40-50% with moderate degree of aortic stenosis with a right ventricular systolic pressure of around 46. A CRISTY was subsequently done and showed severe with a peak gradient of 70-80 mm of a mercury with a mean gradient of 40, mild mitral regurgitation, biatrial enlargement, generalized hypokinesia with cardiomyopathy. Cardiac catheterization was also done and showed no significant coronary artery disease. On 04/05/2017 the patient is postop aortic valve replacement and the patient is postop day #1. He is doing well. I saw him earlier this morning. I was unable to extubate him overnight as the patient was quite drowsy and sleepy. He was taken off sedation and he gradually became more alert and awake. Earlier this morning, the patient was given a spelled his breathing trial with a pressure support of 5 and a PEEP of 5 which she was able to tolerate for more than 45 minutes. Based on that, I was able to extubate the patient to a nasal cannula at 2 L/m. He is not having any major respiratory difficulties at this point in his resting comfortably in bed. The patient has a mediastinal chest tube. And the patient also has a right and the left pleural chest tube. The pleural chest tubes have averaged around 60 mL output and a mediastinal chest tube has put out 140 mL. The patient is in a normal sinus rhythm. The patient is receiving 0.2 g of Primacor. Urine output is adequate for now. Sternum stable clean and intact. No other significant events overnight. No significant cardiac arrhythmias postop however after putting this patient on a chair and afternoon the patient went into A. fib fibrillation with a rate of 120. Cardiology will be informed of this arrhythmia. On 04/06/2017 the patient is postop day #2 following his aortic valve replacement. He is doing well. He is sitting up on a chair. He is a bit agitated however his awake and alert and conscious and there is no confusion. He was extubated. He is postop day #2. He was taken off the milrinone today and his cardiac index dropped down to 1.8. Nevertheless he maintaining good urine output. The chest x-ray showed cardiomegaly with some pulmonary vascular congestion. The patient also had small atelectatic changes and effusion the lung bases bilaterally. The neck fluid balance is -671 mL since this morning. The chest tubes are still in place. Output from the mediastinal chest tube is around 110 mL and the bilateral chest tubes are still 60 mL since morning shift. He is on and off in atrial fibrillation. His current INR is at 1.4. There is on no anticoagulants for now. On 04/07/2017 the patient is postop day #3 following his aortic valve replacement. Doing well. He has a right and the left pleural chest tube. 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 The patient's chest x-rays showing small bilateral pleural effusions. His, comfortable. He is hemodynamically stable. He is in atrial fibrillation. His rate is controlled. He is on no anticoagulants yet. He should be started on Coumadin today. No fever. No chills. He is pulling approximately 750 on the incentive spirometer. Pain is under good control. No electrodes imbalance. On 04/08/2017, patient is postoperative day #4 following aortic valve replacement. Patient is doing well, relatively asymptomatic, still doing a bit poorly with incentive spirometry, pulling approximately 750 ML. Again the patient is relatively asymptomatic otherwise. Chest x-ray showed removal of bilateral chest tubes and mild pulmonary venous congestion with small effusions. Objective - Vital Signs Vital signs: Vital Signs Temp 98.5 F 04/08/17 08:45 Pulse 89 04/08/17 11:36 Resp 16 04/08/17 11:10 BP 128/67 04/08/17 11:36 Pulse Ox 95 04/08/17 11:36 Intake & Output 04/07/17 04/08/17 04/08/17 18:59 06:59 18:59 Intake Total 686 360 Output Total 1600 295 Balance -914 -295 360 Weight 99.7 kg Intake: IV 216 0.9 NS pressure bag 36 Lactated Ringers 1,000 ml 180 @ 20 mls/hr IV .Q24H FARHANA Rx#:[id number] Intake, IV Titration 20 Amount Lactated Ringers 1,000 ml 20 @ 20 mls/hr IV .Q24H FARHANA Rx#:[id number] Oral 450 360 Output: Chest Tube Drainage 270 Left Pleural 90 Right Pleural 180 Urine 1330 295 Other: Voiding Method Indwelling Catheter Indwelling Catheter Toilet Urinal # Voids 950 1 # Bowel Movements 1 ABP, PAP, CO, CI - Last Documented Arterial Blood Pressure 133/54 Pulmonary Artery Pressure 38/20 Cardiac Output 3.9 Cardiac Index 2.4 - Exam Head exam was generally normal. There was no scleral icterus or corneal arcus. Mucous membranes were moist.Neck was supple and without jugular venous distension, thyromegaly, or carotid bruits. Carotids were easily palpable bilaterally. There was no adenopathy. Right IJ sheath is in place. Lung sounds are diminished bilaterally otherwise clear. Chest tubes are all in place. Sternum stable clean and intact. Heart sounds are regular, normal S1- S2 and there is no significant murmurs appreciated.Abdominal exam revealed normal bowel sounds. The abdomen was soft, non-tender, and without masses, organomegaly, or appreciable enlargement of the abdominal aorta. Extremities show trace edema and there is no cyanosis or clubbing at this point. Neurologically is awake and alert - Labs CBC & Chem 7: 04/08/17 05:44 04/08/17 05:44 Labs: Abnormal Lab Results - Last 24 Hours (Table) 04/07/17 04/07/17 04/08/17 Range/Units 18:35 20:39 05:44 RBC 3.52 L (4.30-5.90) m/uL Hgb 10.0 L (13.0-17.5) gm/dL Hct 31.8 L (39.0-53.0) % RDW 15.7 H (11.5-15.5) % Plt Count 121 L (150-450) k/uL PT (9.0-12.0) sec INR (<1.2) Sodium (137-145) mmol/L BUN (9-20) mg/dL POC Glucose (mg/dL) 141 H 125 H (75-99) mg/dL Calcium (8.4-10.2) mg/dL Total Protein (6.3-8.2) g/dL Albumin (3.5-5.0) g/dL 04/08/17 04/08/17 04/08/17 Range/Units 05:44 05:44 11:56 RBC (4.30-5.90) m/uL Hgb (13.0-17.5) gm/dL Hct (39.0-53.0) % RDW (11.5-15.5) % Plt Count (150-450) k/uL PT 13.3 H (9.0-12.0) sec INR 1.4 H (<1.2) Sodium 133 L (137-145) mmol/L BUN 35 H (9-20) mg/dL POC Glucose (mg/dL) 110 H (75-99) mg/dL Calcium 8.2 L (8.4-10.2) mg/dL Total Protein 4.7 L (6.3-8.2) g/dL Albumin 2.3 L (3.5-5.0) g/dL Assessment and Plan Plan: 1 severe aortic stenosis status post aortic valve replacement, and modified maze procedure, postop day before The patient is hemodynamically stable. Chest x-rays showing some cardiomegaly and pulmonary vessel congestion. The patient was extubated successfully. Today's chest x-ray showing small bilateral pleural effusions. 2 postoperative atrial fibrillation with rapid ventricular response, currently controlled rate 3 history of chronic atrial fibrillation. 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 Recommendation: Continue incentive spirometry, ambulation, bronchodilators, we' ll continue to follow. Time with Patient: Less than 30
[2017-04-08 15:20] LABS: Hemoglobin A1C 5.8 % (4.2-6.1)
[2017-04-08 17:09] LABS: Glucose,Whole Blood 116 mg/dL (75-99)
[2017-04-08] MEDS ORDERED: WARFARIN 5 MG TAB PO ONE (18:00)
[2017-04-08 21:11] LABS: Glucose,Whole Blood 129 mg/dL (75-99)
[2017-04-08] MEDS: SENNOSIDES-DOCUSATE SODIUM 1 EACH TAB PO SCH (21:42)
[2017-04-09 05:45] LABS: Glucose,Whole Blood 109 mg/dL (75-99)
[2017-04-09 06:01] VITALS: RESP 16
[2017-04-09] MEDS: INSULIN LISPRO (humaLOG) 300 UNIT/3 ML VIAL SQ SCH ×2 (06:04→12:54)
[2017-04-09 06:55] LABS: Basophils % (A) 0 %; CH 28.7; CHCM 32.7; Eosinophils # (A) 0.1 k/uL (0-0.7); Eosinophils % (A) 1 %; HCT 31.3 % (39.0-53.0); HDW 3.37; Hypochromasia Slight; Luc # (Auto) 0.25; Luc % (Auto) 3; Lymphocytes # (A) 0.9 k/uL (1.0-4.8); Lymphocytes % (A) 12 %; MCH 28.2 pg (25.0-35.0); MCHC 31.9 g/dL (31.0-37.0); MCV 88.2 fL (80.0-100.0); Mean Platelet Volume 7.7; Monocytes # (A) 0.4 k/uL (0-1.0); Monocytes % (A) 5 %; Neutrophils # (A) 5.9 k/uL (1.3-7.7); Neutrophils % (A) 79 %; RBC 3.55 m/uL (4.30-5.90); RDW 15.7 % (11.5-15.5); WBC 7.5 k/uL (3.8-10.6); WBC (Perox) 7.73
[2017-04-09 07:15] LABS: Anion Gap 8 mmol/L; Blood Urea Nitrogen 32 mg/dL (9-20); Calcium 8.4 mg/dL (8.4-10.2); Carbon Dioxide 25 mmol/L (22-30); Chloride 101 mmol/L (98-107); Glucose 101 mg/dL (74-99); INR 1.3 (<1.2); Magnesium 2.1 mg/dL (1.6-2.3); Non-African American GFR(MDRD) >60 (>60 ml/min/1.73 sqM); Potassium 3.9 mmol/L (3.5-5.1); Sodium 134 mmol/L (137-145)
[2017-04-09] MEDS ORDERED: metFORMIN 500 MG TAB PO SCH (07:30)
--- NOTE | 2017-04-09 09:04 | P.PN ---
Subjective Kel David is a 76-year-old male with a known history of atrial fibrillation, diabetes mellitus, CVA, hyperlipidemia hypertension, COPD and benign brain tumor. Patient underwent aortic valve replacement for his severe aortic stenosis. Patient currently remains in the ICU he was extubated this morning. Pulmonary and cardiology are following. Patient reports that his pain is controlled. He is off of pressors. And they're weaning him off of the Primacor. Patient denies any chest pain or shortness breath. Denies any nausea or vomiting. Denies any bowel movement changes. Urine output adequate. We've been consulted for medical management. 04/08/2017 patient is working with the cardiac rehab team. He denies any chest pain or shortness of breath. Denies any nausea or vomiting. Chest tube removed yesterday. Wilson catheter removed this morning. He was able to have a bowel movements. He denies any burning with urination. On 04/09/2017 patient is doing well he is alert and oriented in no apparent distress he denies any chest pain or shortness of breath he is tolerating diet well and having bowel movements he is ambulating without difficulty. Objective - Vital Signs Vital signs: Vital Signs Temp 97.8 F 04/09/17 04:00 Pulse 78 04/09/17 04:00 Resp 16 04/09/17 04:00 BP 146/61 04/09/17 04:00 Pulse Ox 94 L 04/09/17 08:54 Intake & Output 04/08/17 04/09/17 04/09/17 18:59 06:59 18:59 Intake Total 600 200 480 Output Total 0 Balance 600 200 480 Weight 100 kg Intake: Oral 600 200 480 Output: Urine 0 Other: Voiding Method Toilet Toilet Urinal Urinal # Voids 1 1 ABP, PAP, CO, CI - Last Documented Arterial Blood Pressure 133/54 Pulmonary Artery Pressure 38/20 Cardiac Output 3.9 Cardiac Index 2.4 - Exam HEENT head normocephalic and atraumatic Neck is supple no JVD no goiter no lymphadenopathy Chest exam reveals a few scattered crackles bilaterally no wheezing Cardiac exam reveals regular heart sounds S1 and S2 no gallops no murmurs Abdomen is soft nontender no organomegaly with normal bowel sounds Extremity exam reveals no edema no cyanosis or clubbing - Labs CBC & Chem 7: 04/09/17 05:54 04/09/17 05:54 Labs: Abnormal Lab Results - Last 24 Hours (Table) 04/08/17 04/08/17 04/08/17 Range/Units 11:56 16:41 21:09 RBC (4.30-5.90) m/uL Hgb (13.0-17.5) gm/dL Hct (39.0-53.0) % RDW (11.5-15.5) % Lymphocytes # (1.0-4.8) k/uL PT (9.0-12.0) sec INR (<1.2) Sodium (137-145) mmol/L BUN (9-20) mg/dL Glucose (74-99) mg/dL POC Glucose (mg/dL) 110 H 116 H 129 H (75-99) mg/dL 04/09/17 04/09/17 04/09/17 Range/Units 05:43 05:54 05:54 RBC 3.55 L (4.30-5.90) m/uL Hgb 10.0 L (13.0-17.5) gm/dL Hct 31.3 L (39.0-53.0) % RDW 15.7 H (11.5-15.5) % Lymphocytes # 0.9 L (1.0-4.8) k/uL PT 13.0 H (9.0-12.0) sec INR 1.3 H (<1.2) Sodium (137-145) mmol/L BUN (9-20) mg/dL Glucose (74-99) mg/dL POC Glucose (mg/dL) 109 H (75-99) mg/dL 04/09/17 Range/Units 05:54 RBC (4.30-5.90) m/uL Hgb (13.0-17.5) gm/dL Hct (39.0-53.0) % RDW (11.5-15.5) % Lymphocytes # (1.0-4.8) k/uL PT (9.0-12.0) sec INR (<1.2) Sodium 134 L (137-145) mmol/L BUN 32 H (9-20) mg/dL Glucose 101 H (74-99) mg/dL POC Glucose (mg/dL) (75-99) mg/dL Assessment and Plan Plan: 1. Severe aortic stenosis status post aortic valve replacement. 2. Postoperative mechanical ventilation which is expected outcome of surgery. He shouldn't had successful extubation 3. History of chronic atrial fibrillation. With episode of atrial fibrillation with rapid ventricular response postoperatively. Cardiology following. Cardiology has increased the patient's metoprolol and started him on Coumadin 4. Diabetes mellitus type 2: blood sugars are stable. Continue sliding scale coverage. Resume patient's metformin 5. Essential hypertension 6. Hyperlipidemia 7. 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 History of brain tumor that was resected in 1998 Today patient is alert and oriented continue was current management continue to ambulate, discharge planning as per cardiovascular surgery.
[2017-04-09] MEDS: PANTOPRAZOLE 40 MG TABLET PO SCH (09:12)
[2017-04-09 09:18] VITALS: TEMP 98.3
--- NOTE | 2017-04-09 09:46 | XR ---
EXAMINATION TYPE: XR chest 1V portable DATE OF EXAM: 04/09/2017 Comparison: 04/08/2017 Clinical History: 76-year-old male post op AVR Findings: Heart is mildly enlarged. Median sternotomy wires are present with prosthetic aortic valve. Pulmonary vasculature appears improved as compared to prior exam. There are small bilateral pleural effusions increased from prior weight patchy bibasilar densities. Impression: Small effusions with adjacent atelectasis and/or consolidation are slightly increased from prior.
[2017-04-09] MEDS: HEPARIN SODIUM,PORCINE 5,000 UNIT/ML 1 ML VIAL SQ SCH (10:31)
[2017-04-09] MEDS: METOPROLOL TARTRATE 25 MG TAB PO SCH (10:31)
[2017-04-09] MEDS: ASPIRIN 325 MG TAB PO SCH (10:32)
[2017-04-09] MEDS: CLOPIDOGREL 75 MG TAB PO SCH (10:32)
[2017-04-09] MEDS: ATORVASTATIN 40 MG TAB PO SCH (10:32)
--- NOTE | 2017-04-09 11:07 | CDI ---
In responding to this query, please exercise your independent professional judgment. The [facility] Coding Staff and Clinical Documentation Specialists appreciate your assistance in clarifying documentation, maintaining compliance with coding guidelines, accurately documenting patients condition and capturing severity of illness. The fact that a question is asked does not imply that any particular answer is desired or expected. Communication forms are a method of clarifying documentation and are not made part of the Legal Health Record. Thank you in advance for your clarification. Last Revision, Sep 2016 Ashanti Zurita [address] [facility] [place] [address] Documentation Clarification Form Date: 04/09/2017 10:53:00 AM From: Bridget Stevens CCS, CCDS Admit Date: 04/04/2017 5:48:00 AM Patient Name: Kel David Visit Number: [id number] Discharge Date: Dr. Sebastian Mistry: 76 yo male, POD #4, status post AVR w/Bioprosthetic aortic valve, Modifed maze procedure with pulmonary vein isolation using AtriCure Radiofrequency ablation system & clip ligation of the left atrial appendage (AtriClip) and Intraoperative CRISTY. History/Risk Factors: Chronic Atrial Fibrillation, Severe Aortic Valve Stenosis. Pre-op & Post-op Diagnoses: Critical aortic stenosis. Atrial fibrillation. Clinical Indicators: Postoperatively, patient's cardiac rhythm is sinus bradycardia at rate of 40, atrially paced. Documented atrial fibrillation on per Pulmonary/Critical Care consult with cardiology follow up. 04/05 CVAS Progress Note: History of cardioversion. HR 73. Irregular rate & rhythm, atrial fibrillation. Assessement: Atrial fibrillation status post cardioversion. Chronic atrial fibrillation. Treatment: ASA, Statin, Plavix, heparin, Increased Lopressor, maximized beta cait tx. Consults: Cardiology In order to accurately reflect this patients severity of illness, please clarify if the post-operative diagnosis is: An expected post-procedural or post-surgical condition Integral to the procedure Inherent to the procedure An unexpected post-procedural or post-surgical condition, related to surgical care Other, please specify Unable to determine Please document in your progress notes and discharge summary in order to capture severity of illness and risk of mortality. Include clinical findings that support your diagnosis. FYI: Press F11 to launch patient chart MTDD
[2017-04-09] MEDS ORDERED: POTASSIUM CHLORIDE ER 10 MEQ TAB.ER.PRT PO SCH (11:45)
[2017-04-09] MEDS ORDERED: FUROSEMIDE 40 MG TAB PO SCH (11:45)
[2017-04-09 12:00] LABS: Glucose,Whole Blood 104 mg/dL (75-99)
--- NOTE | 2017-04-09 12:11 | P.PN ---
Subjective Principal diagnosis: Aortic valve replacement This is a 76-year-old gentleman who is status post aortic valve replacement. He was seen and examined this morning sitting up in the chair at bedside. Denies any shortness of breath, breathing is been stable. No dizziness or lightheadedness. Blood pressure 128/60 with a heart rate in the 60s. Chest x-ray reveals mild pulmonary venous congestion and small effusions. Hemoglobin 10.0, potassium 3.8, BUN 35, creatinine 0.9. Magnesium level 2.1. 04/09/2017 Patient seen and examined this morning, feeling much better today overall. Slept well last night. Anticipating a possible discharge home today. Objective - Vital Signs Vital signs: Vital Signs Temp 98.3 F 04/09/17 08:00 Pulse 76 04/09/17 08:00 Resp 16 04/09/17 04:00 BP 137/71 04/09/17 08:00 Pulse Ox 94 L 04/09/17 08:54 Intake & Output 04/08/17 04/09/17 04/09/17 18:59 06:59 18:59 Intake Total 600 200 480 Output Total 0 Balance 600 200 480 Weight 100 kg Intake: Oral 600 200 480 Output: Urine 0 Other: Voiding Method Toilet Toilet Toilet Urinal Urinal Urinal # Voids 1 1 2 ABP, PAP, CO, CI - Last Documented Arterial Blood Pressure 133/54 Pulmonary Artery Pressure 38/20 Cardiac Output 3.9 Cardiac Index 2.4 - Exam PHYSICAL EXAMINATION: HEENT: Head is atraumatic, normocephalic. Pupils equal, round. Neck is supple. There is no elevated jugular venous pressure. HEART EXAMINATION: Heart S1, S2 irregularly irregular . No murmur or gallop heard. CHEST EXAMINATION: Clear with diminished air entry to bilateral bases. ABDOMEN: Soft, nontender. Bowel sounds are heard. No organomegaly noted. EXTREMITIES: 2+ peripheral pulses with no evidence of peripheral edema and no calf tenderness noted. NEUROLOGIC patient is awake, alert and oriented -3. . - Labs CBC & Chem 7: 04/09/17 05:54 04/09/17 05:54 Labs: Abnormal Lab Results - Last 24 Hours (Table) 04/08/17 04/08/17 04/08/17 Range/Units 11:56 16:41 21:09 RBC (4.30-5.90) m/uL Hgb (13.0-17.5) gm/dL Hct (39.0-53.0) % RDW (11.5-15.5) % Lymphocytes # (1.0-4.8) k/uL PT (9.0-12.0) sec INR (<1.2) Sodium (137-145) mmol/L BUN (9-20) mg/dL Glucose (74-99) mg/dL POC Glucose (mg/dL) 110 H 116 H 129 H (75-99) mg/dL 04/09/17 04/09/17 04/09/17 Range/Units 05:43 05:54 05:54 RBC 3.55 L (4.30-5.90) m/uL Hgb 10.0 L (13.0-17.5) gm/dL Hct 31.3 L (39.0-53.0) % RDW 15.7 H (11.5-15.5) % Lymphocytes # 0.9 L (1.0-4.8) k/uL PT 13.0 H (9.0-12.0) sec INR 1.3 H (<1.2) Sodium (137-145) mmol/L BUN (9-20) mg/dL Glucose (74-99) mg/dL POC Glucose (mg/dL) 109 H (75-99) mg/dL 04/09/17 04/09/17 Range/Units 05:54 11:41 RBC (4.30-5.90) m/uL Hgb (13.0-17.5) gm/dL Hct (39.0-53.0) % RDW (11.5-15.5) % Lymphocytes # (1.0-4.8) k/uL PT (9.0-12.0) sec INR (<1.2) Sodium 134 L (137-145) mmol/L BUN 32 H (9-20) mg/dL Glucose 101 H (74-99) mg/dL POC Glucose (mg/dL) 104 H (75-99) mg/dL Assessment and Plan (1) S/P AVR Status: Acute (2) Aortic stenosis Status: Acute (3) Chronic atrial fibrillation Status: Acute (4) Diabetes mellitus type 2 in obese Status: Acute (5) Family history of premature CAD Status: Acute (6) Hyperlipidemia Status: Acute (7) Hypertension Status: Acute Plan: From cardiology's perspective, we will recommend to continue the patient on his current medications. Patient may be discharged home today from cardiology's perspective. We will make him a follow-up appointment in the office 2 weeks post discharge. DNP note has been reviewed, I agree with a documented findings and plan of care. Patient was seen and examined.
--- NOTE | 2017-04-09 12:53 | P.PN ---
Subjective Principal diagnosis: Status post aortic valve replacement, modified maze procedure postoperative day #5 76-year-old male patient, post aortic valve replacement, being seen in the intensive care unit. He was brought in this afternoon to the ICU on a mechanical ventilator, on assist control mode at the rate of 12, tidal volume of 500, FiO2 of 100% and a PEEP of 5. He is sedated and is calm and comfortable on Diprivan. He is on Primacor at 0.5 mcg/m and his cardiac output is 6.6 with an index of 2.9. The patient has a mediastinal chest tube and a left pleural chest tube and total amount of output since arrival from the operating room is approximately 300 in the mediastinal and 450 and a chest tubes. No air leaks. Chest x-ray shows cardiomegaly. Chest tubes are all in good location. NG tube needs to be advanced. ET tube is around 3 cm above the nadja. [place]Lianne catheter good location. Patient is producing good amount of urine output. No hypothermia. Blood gases showed a pH of 7.28 with a pCO2 of 51 and pO2 of 73. Based on this I increased tidal volume of 650. The FiO2 was gradually weaned down and currently is down to 70%. The patient has a baseline FEV1 of 51% of predicted preoperatively. He is current history of COPD. He is on bronchodilators. Preoperatively, the patient was found to have a ejection fraction of 40-50% with moderate degree of aortic stenosis with a right ventricular systolic pressure of around 46. A CRISTY was subsequently done and showed severe with a peak gradient of 70-80 mm of a mercury with a mean gradient of 40, mild mitral regurgitation, biatrial enlargement, generalized hypokinesia with cardiomyopathy. Cardiac catheterization was also done and showed no significant coronary artery disease. On 04/05/2017 the patient is postop aortic valve replacement and the patient is postop day #1. He is doing well. I saw him earlier this morning. I was unable to extubate him overnight as the patient was quite drowsy and sleepy. He was taken off sedation and he gradually became more alert and awake. Earlier this morning, the patient was given a spelled his breathing trial with a pressure support of 5 and a PEEP of 5 which she was able to tolerate for more than 45 minutes. Based on that, I was able to extubate the patient to a nasal cannula at 2 L/m. He is not having any major respiratory difficulties at this point in his resting comfortably in bed. The patient has a mediastinal chest tube. And the patient also has a right and the left pleural chest tube. The pleural chest tubes have averaged around 60 mL output and a mediastinal chest tube has put out 140 mL. The patient is in a normal sinus rhythm. The patient is receiving 0.2 g of Primacor. Urine output is adequate for now. Sternum stable clean and intact. No other significant events overnight. No significant cardiac arrhythmias postop however after putting this patient on a chair and afternoon the patient went into A. fib fibrillation with a rate of 120. Cardiology will be informed of this arrhythmia. On 04/06/2017 the patient is postop day #2 following his aortic valve replacement. He is doing well. He is sitting up on a chair. He is a bit agitated however his awake and alert and conscious and there is no confusion. He was extubated. He is postop day #2. He was taken off the milrinone today and his cardiac index dropped down to 1.8. Nevertheless he maintaining good urine output. The chest x-ray showed cardiomegaly with some pulmonary vascular congestion. The patient also had small atelectatic changes and effusion the lung bases bilaterally. The neck fluid balance is -671 mL since this morning. The chest tubes are still in place. Output from the mediastinal chest tube is around 110 mL and the bilateral chest tubes are still 60 mL since morning shift. He is on and off in atrial fibrillation. His current INR is at 1.4. There is on no anticoagulants for now. On 04/07/2017 the patient is postop day #3 following his aortic valve replacement. Doing well. He has a right and the left pleural chest tube. 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 The patient's chest x-rays showing small bilateral pleural effusions. His, comfortable. He is hemodynamically stable. He is in atrial fibrillation. His rate is controlled. He is on no anticoagulants yet. He should be started on Coumadin today. No fever. No chills. He is pulling approximately 750 on the incentive spirometer. Pain is under good control. No electrodes imbalance. On 04/08/2017, patient is postoperative day #4 following aortic valve replacement. Patient is doing well, relatively asymptomatic, still doing a bit poorly with incentive spirometry, pulling approximately 750 ML. Again the patient is relatively asymptomatic otherwise. Chest x-ray showed removal of bilateral chest tubes and mild pulmonary venous congestion with small effusions. On 04/09/2017, patient is postoperative day #5, following aortic valve replacement. Patient seems to be doing quite well, feeling better compared to yesterday, no shortness of breath no cough no wheezing and no chest pain. Chest x-ray continues to show small bilateral pleural effusions right more so than left. Clinically however the patient is doing well and asymptomatic. Labs were reviewed in the chest x-ray was reviewed. Objective - Vital Signs Vital signs: Vital Signs Temp 98.3 F 04/09/17 08:00 Pulse 76 04/09/17 08:00 Resp 16 04/09/17 04:00 BP 137/71 04/09/17 08:00 Pulse Ox 94 L 04/09/17 08:54 Intake & Output 04/08/17 04/09/17 04/09/17 18:59 06:59 18:59 Intake Total 600 200 480 Output Total 0 Balance 600 200 480 Weight 100 kg Intake: Oral 600 200 480 Output: Urine 0 Other: Voiding Method Toilet Toilet Toilet Urinal Urinal Urinal # Voids 1 1 2 ABP, PAP, CO, CI - Last Documented Arterial Blood Pressure 133/54 Pulmonary Artery Pressure 38/20 Cardiac Output 3.9 Cardiac Index 2.4 - Exam Physical Exam: Revealed a 76-year-old white male in no distress. HEENT:[Neck is supple.] [No neck masses.] [No thyromegaly.] [No JVD.] Chest: [Diminished breath sounds at the bases no crackles, no rhonchi, no wheezes..] Cardiac Exam: [Normal S1 and S2, no S3 gallop, no murmur.] Abdomen: [Soft, nontender, no megaly, no rebound, no guarding, normal bowel sounds.] Extremities: [No clubbing, no edema, no cyanosis.] Neurological Exam: [No focal neurologic deficit.] - Labs CBC & Chem 7: 04/09/17 05:54 04/09/17 05:54 Labs: Abnormal Lab Results - Last 24 Hours (Table) 04/08/17 04/08/17 04/09/17 Range/Units 16:41 21:09 05:43 RBC (4.30-5.90) m/uL Hgb (13.0-17.5) gm/dL Hct (39.0-53.0) % RDW (11.5-15.5) % Lymphocytes # (1.0-4.8) k/uL PT (9.0-12.0) sec INR (<1.2) Sodium (137-145) mmol/L BUN (9-20) mg/dL Glucose (74-99) mg/dL POC Glucose (mg/dL) 116 H 129 H 109 H (75-99) mg/dL 04/09/17 04/09/17 04/09/17 Range/Units 05:54 05:54 05:54 RBC 3.55 L (4.30-5.90) m/uL Hgb 10.0 L (13.0-17.5) gm/dL Hct 31.3 L (39.0-53.0) % RDW 15.7 H (11.5-15.5) % Lymphocytes # 0.9 L (1.0-4.8) k/uL PT 13.0 H (9.0-12.0) sec INR 1.3 H (<1.2) Sodium 134 L (137-145) mmol/L BUN 32 H (9-20) mg/dL Glucose 101 H (74-99) mg/dL POC Glucose (mg/dL) (75-99) mg/dL 04/09/17 Range/Units 11:41 RBC (4.30-5.90) m/uL Hgb (13.0-17.5) gm/dL Hct (39.0-53.0) % RDW (11.5-15.5) % Lymphocytes # (1.0-4.8) k/uL PT (9.0-12.0) sec INR (<1.2) Sodium (137-145) mmol/L BUN (9-20) mg/dL Glucose (74-99) mg/dL POC Glucose (mg/dL) 104 H (75-99) mg/dL Assessment and Plan Plan: 1 severe aortic stenosis status post aortic valve replacement, and modified maze procedure, postop day #5 2 postoperative atrial fibrillation with rapid ventricular response, currently controlled rate 3 history of chronic atrial fibrillation. 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 Recommendation: Continue incentive spirometry, ambulation, bronchodilators, we' ll continue to follow. Patient will likely be discharged home today, and he could have follow-up on outpatient basis. Time with Patient: Less than 30
[2017-04-09] MEDS: MULTIVITAMINS, THERA 1 EACH TAB PO SCH (12:54)
--- NOTE | 2017-04-09 12:57 | P.PN ---
Subjective Principal diagnosis: Critical aortic stenosis. Chronic atrial fibrillation. History of CVA in 2010. Type 2 diabetes mellitus. History of DVT. GERD. Hyperlipidemia. Hypertension. Pneumonia in November 2016. History of brain tumor in 1998. History of cardioversion. Previous tobacco dependence. Family history of myocardial infarction. POD #5 elective aortic valve replacement with #23 millimeter magna ease bioprosthetic aortic valve. Modified Maze procedure with pulmonary vein isolation using the AtriCure radiofrequency ablation system and clip ligation of the left atrial appendage with a #40 mm AtriClip. Intraoperative transesophageal echocardiogram. Patient's currently sitting up in chair. Denies pain, shortness of breath. Has ambulated in the hallway. Objective - Vital Signs Vital signs: Vital Signs Temp 98.3 F 04/09/17 08:00 Pulse 76 04/09/17 08:00 Resp 16 04/09/17 04:00 BP 137/71 04/09/17 08:00 Pulse Ox 94 L 04/09/17 08:54 Intake & Output 04/08/17 04/09/17 04/09/17 18:59 06:59 18:59 Intake Total 600 200 480 Output Total 0 Balance 600 200 480 Weight 100 kg Intake: Oral 600 200 480 Output: Urine 0 Other: Voiding Method Toilet Toilet Urinal Urinal # Voids 1 1 ABP, PAP, CO, CI - Last Documented Arterial Blood Pressure 133/54 Pulmonary Artery Pressure 38/20 Cardiac Output 3.9 Cardiac Index 2.4 - Constitutional General appearance: Present: cooperative, no acute distress - Respiratory Details: Lungs sounds diminished bilaterally. Respirations even, nonlabored. Currently on room air with oxygen saturation 95%. Able to achieve 1000 mL on his incentive spirometer. - Cardiovascular Details: S1, S2 present. Irregular rate and rhythm, atrial fibrillation on telemetry. Sternum stable. Heart hugger in place with patient able to demonstrate appropriate use. No edema present. Palpable pulses bilaterally. Teds/SCDs present. - Gastrointestinal Gastrointestinal Comment(s): Abdomen soft, nontender, nondistended. Active bowel sounds 4 quadrants. Tolerating diet. Positive bowel movement this morning. - Genitourinary Genitourinary Comment(s): Continues to void clear, yellow urine. - Integumentary Integumentary Comment(s): Anterior chest incision well approximated with Dermabond dressing. - Neurologic Neurologic: Present: CNII-XII intact - Musculoskeletal Musculoskeletal: Present: gait normal, strength equal bilaterally - Psychiatric Psychiatric: Present: A&O x's 3, appropriate affect, intact judgment & insight - Allied health notes Allied health notes reviewed: nursing - Labs CBC & Chem 7: 04/09/17 05:54 04/09/17 05:54 Labs: Abnormal Lab Results - Last 24 Hours (Table) 04/08/17 04/08/17 04/08/17 Range/Units 11:56 16:41 21:09 RBC (4.30-5.90) m/uL Hgb (13.0-17.5) gm/dL Hct (39.0-53.0) % RDW (11.5-15.5) % Lymphocytes # (1.0-4.8) k/uL PT (9.0-12.0) sec INR (<1.2) Sodium (137-145) mmol/L BUN (9-20) mg/dL Glucose (74-99) mg/dL POC Glucose (mg/dL) 110 H 116 H 129 H (75-99) mg/dL 04/09/17 04/09/17 04/09/17 Range/Units 05:43 05:54 05:54 RBC 3.55 L (4.30-5.90) m/uL Hgb 10.0 L (13.0-17.5) gm/dL Hct 31.3 L (39.0-53.0) % RDW 15.7 H (11.5-15.5) % Lymphocytes # 0.9 L (1.0-4.8) k/uL PT 13.0 H (9.0-12.0) sec INR 1.3 H (<1.2) Sodium (137-145) mmol/L BUN (9-20) mg/dL Glucose (74-99) mg/dL POC Glucose (mg/dL) 109 H (75-99) mg/dL 04/09/17 Range/Units 05:54 RBC (4.30-5.90) m/uL Hgb (13.0-17.5) gm/dL Hct (39.0-53.0) % RDW (11.5-15.5) % Lymphocytes # (1.0-4.8) k/uL PT (9.0-12.0) sec INR (<1.2) Sodium 134 L (137-145) mmol/L BUN 32 H (9-20) mg/dL Glucose 101 H (74-99) mg/dL POC Glucose (mg/dL) (75-99) mg/dL - Imaging and Cardiology Chest x-ray: report reviewed, image reviewed Assessment and Plan (1) Atrial fibrillation status post cardioversion Status: Acute (2) Chronic atrial fibrillation Status: Acute (3) Diabetes mellitus type 2 in obese Status: Acute (4) Family history of premature CAD Status: Acute (5) History of CVA (cerebrovascular accident) Status: Acute (6) History of brain tumor Status: Acute (7) History of deep venous thrombosis (DVT) of distal vein of right lower extremity Status: Acute (8) History of pneumonia Status: Resolved (9) Hyperlipidemia Status: Acute (10) Hypertension Status: Acute (11) Severe aortic stenosis Status: Acute (12) Tobacco dependence in remission Status: Acute Plan: 1. Continue aspirin, statin, Plavix, heparin. Will maximize beta cait therapy as tolerated. 2. Will give 5 mg Coumadin today. 3. Encourage incentive spirometer use. 4. Increase activity, ambulate in hallway. Physical therapy following. 5. GI/DVT prophylaxis. 6. Insulin management per primary care service. 7. Will discharge today. Time with Patient: Greater than 30
[2017-04-09] MEDS ORDERED: ENOXAPARIN 80 MG/0.8 ML SYRINGE SQ STA (14:09)
--- NOTE | 2017-04-09 14:13 | P.HPADDEND ---
H&P Addendum H&P Addendum Date: 04/09/17 Patient is scheduled for discharge today his INR is subtherapeutic at 1.3 He will be given Coumadin 7.5 mg 1 dose today he will also be given Lovenox 80 mg subcu 1 dose prior to discharge He was started on Coumadin 5 mg by mouth daily starting tomorrow He will have INR done on Saturday Will follow in the office next week for further evaluation and treatment
--- NOTE | 2017-04-09 14:24 | P.DS ---
Providers Date of admission: 04/04/17 05:48 Expected date of discharge: 04/09/17 Attending physician: Sergo Craig Consults: 04/04/17 12:58 Consult Physician Routine Consulting Provider: Katerine Levine Consult Reason/Comments: Nurse Ortho Consult: post cardiac surgery Do you want consulting provider notified?: Yes Consult Physician Routine Consulting Provider: Nhi Dunn Consult Reason/Comments: [employer] Consult: post cardiac surgery Do you want consulting provider notified?: Yes Consult Physician Routine Consulting Provider: Taylor Nava Consult Reason/Comments: medical management Do you want consulting provider notified?: Yes Primary care physician: Taylor Nava - Discharge Diagnosis(es) (1) Atrial fibrillation status post cardioversion Current Visit: No Status: Acute (2) Chronic atrial fibrillation Current Visit: No Status: Acute (3) Diabetes mellitus type 2 in obese Current Visit: No Status: Acute (4) Family history of premature CAD Current Visit: No Status: Acute (5) History of CVA (cerebrovascular accident) Current Visit: No Status: Acute (6) History of brain tumor Current Visit: No Status: Acute (7) History of deep venous thrombosis (DVT) of distal vein of right lower extremity Current Visit: No Status: Acute (8) Hyperlipidemia Current Visit: No Status: Acute (9) Hypertension Current Visit: No Status: Acute (10) Severe aortic stenosis Current Visit: No Status: Acute (11) Tobacco dependence in remission Current Visit: No Status: Acute (12) History of pneumonia Current Visit: No Status: Acute Hospital Course: FINAL DIAGNOSIS: 1. Critical aortic stenosis 2. Persistent chronic atrial fibrillation, chronic anticoagulation therapy and Coumadin 3. Hypertension 4. Dyslipidemia 5. Diabetes mellitus type 2 6. Family history of coronary artery disease less than 60 years of age 7. History of cerebrovascular accident in 2010 8. History of deep vein thrombosis 9. Gastroesophageal reflux disease 10. 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 History of pneumonia in November 2016. PRINCIPAL PROCEDURE: 1. Elective aortic valve replacement using a #23 mm magna ease bioprosthetic aortic valve 2. Modified Maze procedure with pulmonary vein isolation using the Atricure radiofrequency ablation system and clip ligation of the left atrial appendage with a #40 mm Atriclip. 3. Intraoperative transesophageal echocardiogram. HISTORY OF PRESENT ILLNESS: This is a 76-year-old gentleman who is followed by Dr. Taylor Nava on an outpatient basis. She in November 2016 the patient was admitted to the hospital for treatment of pneumonia. He was incidentally found to be in atrial fibrillation with RVR. During his hospitalization in November 2016 he underwent a 2-D echocardiogram which showed moderate aortic stenosis, a peak gradient across the aortic valve of 51.61 mmHg, and a mean gradient of 27.95 mmHg, mild mitral annular calcification, mild mitral valve regurgitation, mild tricuspid valve regurgitation, and an overall left ventricular systolic function to be mildly to moderately impaired with an ejection fraction between 40 and 45%. The patient was discharged home and followed up with Dr. Dunn from [facility] on an outpatient basis. Subsequently the patient underwent an elective transesophageal echocardiogram and cardioversion for his atrial fibrillation. His transesophageal echocardiogram results demonstrated severe aortic stenosis with mild aortic regurgitation, mild mitral valve regurgitation, biatrial enlargement, dilated left ventricle with generalized hypokinesia with an ejection fraction of 35%, and a left atrial appendage free of any clot. Following the transesophageal echocardiogram the patient underwent an elective cardioversion which did not convert the patient to sinus rhythm. On 02/06/2017 the patient underwent an elective right and left heart catheterization which showed him to have a 30% stenosis to his right coronary artery, severe aortic stenosis, cardiomyopathy with an ejection fraction of 35-40% and chronic atrial fibrillation. The results of the of the above-mentioned studies were reviewed with the patient by Dr. Dunn and a consult was placed for Dr. Craig from cardiothoracic surgery. Dr. Craig evaluated the patient on an outpatient basis and recommended an elective aortic valve replacement, modified Maze procedure and exclusion of his left atrial appendage. HOSPITAL COURSE: The patient was admitted to the hospital and after obtaining consent was taken to the operating room where Dr. Sergo Craig performed an elective aortic valve replacement using a #23 mm magna ease bioprosthetic aortic valve, a modified Maze procedure with pulmonary vein isolation using the Atricure radiofrequency ablation system and clip ligation of the left atrial appendage with a #40 mm Atriclip, and an intraoperative transesophageal echocardiogram. The patient was subsequently transferred to the cardiothoracic intensive care unit where he was recovered, monitored hemodynamically, and where he progressed to cardiac rehabilitation phase 1. The patient was extubated, his drips and invasive lines were discontinued and he was transferred to [address] [place] [address] for further monitoring and rehabilitation. Discharge instructions have been reviewed with the patient and his and their questions have been answered. The patient continues to be in chronic atrial fibrillation and has been restarted on his anticoagulation therapy. COMPLICATIONS: There were no postoperative complications CONSULTATIONS: 1.. Dr. Dunn for cardiology management. 2.. Dr. Nava for medical management 3. Dr. Levine for pulmonary and ventilator management. DISCHARGE INSTRUCTIONS: 1. No driving for 4 weeks, or until physician gives their ok. 2. The patient should sleep in their own bed, no medical bed needed. 3. Stairs are not an issue. If the bedroom is upstairs, it is advised that the patient go up at night and down in the morning for the first week. Go slowly, using handrail and take 1 step at a time. 4. DARRYL hose are to be worn for 30 days or until physician discontinues. 5. Heart hugger is to be worn 100% of the time until physician discontinues.( except when showering) 6. No lifting, pushing, or pulling more than 10 pounds for 12 weeks. The physician will advise of any restriction changes. 7. The patient is expected to continue the prescribed walking program. 8. Continue pain control per as needed orders. 9. Continue with incentive spirometry and splinting/heart hugger until otherwise directed by the physician. 10. Must shower daily using liquid antibacterial soap and a separate white washcloth for each individual incision. 11. Routine sternal incision care, no ointments, lotions or powders on the incisions. 12. Please notify surgeon/nurse practitioner for temperature greater than 101F or purulent drainage from incisions 13. Prescriptions for first 30 days given per cardiac surgery service. After 30 days, all prescription refills obtained through cardiology/primary care physician. 14. A project red arm band was placed on the patient prior to discharge and is a been discussed with the patient and his the importance of the red band. HOME HEALTH SERVICES TO PROVIDE: RN SKILLED HOME CARE SERVICES FOR POST-OP SURGICAL PATIENTS WITH THE FOLLOWING: Coronary Artery Bypass Surgery (CABG), Mitral Valve Replacement/ Repair ( MVR), Aortic Valve Replacement/Repair (AVR) RN TO CONTINUE EDUCATION FROM ``ROAD TO A HEALTH HEART PATIENT EDUCATION MANUAL" (GIVEN TO PATIENT IN THE HOSPITAL) MEDICATION RECONCILIATION WITH EDUCATION NEEDED ON FIRST HOME VISIT EMPHASIZE IMPORTANCE OF WEARING BREAST SUPPORT/HEART HUGGER ENCOURAGE USE OF INCENTIVE SPIROMETER 10 X EVERY HOUR WHILE AWAKE ENCOURAGE UTILIZATION OF LOWER EXTREMITY COMPRESSION STOCKINGS/DARRYL HOSE and ELEVATE LEGS ABOVE LEVEL OF HEART WHILE AT REST. ENCOURAGE AMBULATION 3-5x/day INCREASING TOLERATES, WHILE AVOID EXTREMES IN TEMPERATURE FREQUENCY: RN TO OPEN THE PATIENT WITHIN 24 HOURS OF DISCHARGE FROM THE HOSPITAL WITH TELEHEALTH INSTALLED AT [facility] [place], RN TO VISIT 2-3 X A WEEK FOR 4 WEEKS ESTABLISHED BY PATIENT NEEDS. LABORATORY: CBC, CMP, PT/INR TO BE DRAWN ON THE THIRD DAY HOME, 04/12/2017 FAX RESULTS TO [phone]. TELEHEALTH PARAMETERS: WEIGHT: NOTIFY MD OF WEIGHT GAIN OF 2 LBS IN 24 HOURS OR 5 LBS IN ONE WEEK HR: NOTIFY MD OF HR <55 BPM OR HR>100 BPM BP: NOTIFY MD IF BP <90/55 OR BP>140/100 O2 SAT: NOTIFY MD IF PO2<93% ON ROOM AIR SEND TELEHEALTH REPORT TO TOOL MAINTENANCE WORKER AND CARDIOVASCULAR SURGEON THE FIRST WEEK OF CARE AND THEN BI-WEEKLY. PLEASE ADDITIONALLY COMMUNICATE ANY ABNORMALS AND NEW FINDINGS TO THE SURGEONS OFFICE. Per Dr. Nava the patient will receive Coumadin 7.5 mg by mouth today prior to discharge along with Lovenox 80 mg subcu 1. He will receive Coumadin 5 mg by mouth daily thereafter as scheduled. Plan - Discharge Summary New Discharge Prescriptions: New Aspirin 81 mg PO DAILY #30 Atorvastatin [Lipitor] 40 mg PO DAILY #30 tab Furosemide [Lasix] 40 mg PO DAILY #3 tab HYDROcodone/APAP 5-325MG [[place] 5-325] 1 - 2 each PO Q6HR PRN #120 tab PRN Reason: Severe Pain Metoprolol Tartrate [Lopressor] 75 mg PO BID #120 tab Pantoprazole [Protonix] 40 mg PO AC-BRKFST #30 tab Potassium Chloride ER [K-Dur 10] 10 meq PO DAILY #3 tab Sennosides-Docusate Sodium [Senokot-S] 2 each PO HS tab Warfarin [Coumadin] 5 mg PO DAILY@1800 tab Continue metFORMIN HCL [Glucophage] 500 mg PO DAILY Discontinued Metoprolol Tartrate [Lopressor] 25 mg PO BID tab Aspirin EC [Ecotrin] 325 mg PO DAILY Simvastatin [Zocor] 20 mg PO HS Warfarin [Coumadin] 2.5 mg PO SUTH Warfarin [Coumadin] 5 mg PO MOWEFRSA No Action Multivitamins, Thera [Multivitamin (formulary)] 1 tab PO DAILY Discharge Medication List Multivitamins, Thera [Multivitamin (formulary)] 1 tab PO DAILY 12/10/16 [History ] metFORMIN HCL [Glucophage] 500 mg PO DAILY 03/29/17 [History] Aspirin 81 mg PO DAILY #30 04/09/17 [Rx] Atorvastatin [Lipitor] 40 mg PO DAILY #30 tab 04/09/17 [Rx] Furosemide [Lasix] 40 mg PO DAILY #3 tab 04/09/17 [Rx] HYDROcodone/APAP 5-325MG [[place] 5-325] 1 - 2 each PO Q6HR PRN #120 tab 04/09/17 [Rx] Metoprolol Tartrate [Lopressor] 75 mg PO BID #120 tab 04/09/17 [Rx] Pantoprazole [Protonix] 40 mg PO AC-BRKFST #30 tab 04/09/17 [Rx] Potassium Chloride ER [K-Dur 10] 10 meq PO DAILY #3 tab 04/09/17 [Rx] Sennosides-Docusate Sodium [Senokot-S] 2 each PO HS tab 04/09/17 [Rx] Warfarin [Coumadin] 5 mg PO DAILY@1800 tab 04/09/17 [Rx] Follow up Appointment(s)/Referral(s): Re Gonzalez NPC [Nurse Practitioner] - 04/12/17 12:00 pm [facility], [NON-STAFF] - Taylor Nava MD [Primary Care Provider] - 04/19/17 10:15 am Sergo Craig MD [STAFF PHYSICIAN] - 04/30/17 2:15 pm Nhi Dunn MD [STAFF PHYSICIAN] - 04/22/17 3:45 pm Katerine Levine MD [STAFF PHYSICIAN] - 05/06/17 9:30 am Ambulatory/Diagnostic Orders: Complete Blood Count w/diff [LAB.AMB] Time Frame: 3 Days, Location: Determined By Patient Comprehensive Metabolic Panel [LAB.AMB] Time Frame: 3 Days, Location: Determined By Patient Prothrombin Time INR [LAB.AMB] Time Frame: 3 Days, Location: Determined By Patient Patient Instructions/Handouts: Colostomy Care (GEN) Discharge Disposition: HOME WITH HOME HEALTH SERVICES
[2017-04-09 14:40] VITALS: BP 106/62; PULSE 79
[2017-04-09] MEDS ORDERED: WARFARIN 5 MG TAB PO SCH (18:00)
[2017-04-09] MEDS ORDERED: WARFARIN 7.5 MG TAB PO ONE (18:00)
[2017-04-10] MEDS ORDERED: ASPIRIN 81 MG CHEW PO SCH (09:00)
--- NOTE | 2017-04-10 13:27 | P.PN ---
Progress Note - Text Pre-operative 5 meter walk test: #1 5.16 sec, #2 5.11 sec, #3 4.87 sec
[2017-04-10] MEDS ORDERED: WARFARIN 5 MG TAB PO SCH (18:00)
== END 2017-04-09 16:29 | disposition home health service (06) | DRG 220 ==
LOC: 2ORMAIN 04-04 05:48 → 6ICU 04-04 12:52 → 6SEL 04-07 20:31
PROVIDERS: ADMIT Thoracic Surgery (Cardiothoracic Vascular Surgery); ATTEND Thoracic Surgery (Cardiothoracic Vascular Surgery)
PROC: 025T0ZZ Destruction of Left Pulmonary Vein, Open Approach (ICD-10-PCS; 2017-04-04)
PROC: 025S0ZZ Destruction of Right Pulmonary Vein, Open Approach (ICD-10-PCS; 2017-04-04)
PROC: B246ZZ4 Ultrasonography of Right and Left Heart, Transesophageal (ICD-10-PCS; 2017-04-04)
PROC: 02L70CK Occlusion of Left Atrial Appendage with Extraluminal Device, Open Approach (ICD-10-PCS; 2017-04-04)
PROC: 5A1221Z Performance of Cardiac Output, Continuous (ICD-10-PCS; 2017-04-04)
PROC: 30233N0 Transfusion of Autologous Red Blood Cells into Peripheral Vein, Percutaneous Approach (ICD-10-PCS; 2017-04-04)
PROC: 02RF08Z Replacement of Aortic Valve with Zooplastic Tissue, Open Approach (ICD-10-PCS; principal; 2017-04-04 08:00)
PROC: 02580ZZ Destruction of Conduction Mechanism, Open Approach (ICD-10-PCS; 2017-04-04 08:00)
DX: I35.2 Nonrheumatic aortic (valve) stenosis with insufficiency (principal); I42.9 Cardiomyopathy, unspecified; I11.9 Hypertensive heart disease without heart failure; I48.1 Persistent atrial fibrillation; J98.11 Atelectasis; I48.2 Chronic atrial fibrillation; J44.9 Chronic obstructive pulmonary disease, unspecified; I34.0 Nonrheumatic mitral (valve) insufficiency; I36.1 Nonrheumatic tricuspid (valve) insufficiency; R00.1 Bradycardia, unspecified; I27.2 Other secondary pulmonary hypertension; I25.10 Atherosclerotic heart disease of native coronary artery without angina pectoris; E11.9 Type 2 diabetes mellitus without complications; E78.5 Hyperlipidemia, unspecified; R53.1 Weakness; K21.9 Gastro-esophageal reflux disease without esophagitis; R60.0 Localized edema; K04.7 Periapical abscess without sinus; K02.9 Dental caries, unspecified; E66.9 Obesity, unspecified; F17.201 Nicotine dependence, unspecified, in remission; Z82.49 Family history of ischemic heart disease and other diseases of the circulatory system; Z87.01 Personal history of pneumonia (recurrent); Z86.73 Personal history of transient ischemic attack (TIA), and cerebral infarction without residual deficits; Z86.718 Personal history of other venous thrombosis and embolism; Z79.01 Long term (current) use of anticoagulants; Z79.899 Other long term (current) drug therapy; Z86.011 Personal history of benign neoplasm of the brain; Z79.84 Long term (current) use of oral hypoglycemic drugs; Z79.82 Long term (current) use of aspirin; Z86.79 Personal history of other diseases of the circulatory system
CPT/HCPCS: 71010; 71020; 80048; 80053; 82330; 82805; 83036; 83735; 84100; 84132; 85025; 85027; 85520; 85610; 85730; 86850; 86891; 86900; 86901; 86920; 88305; 88311; 94002; 94003; 94640

== ENCOUNTER → 2017-05-30 | Outpatient (CLI) | payer MEDICARE, BC ==
[2017-05-30 13:06] LABS: Calcium 10.5 mg/dL (8.4-10.2); Potassium 5.2 mmol/L (3.5-5.1)
== END | disposition home or self-care (01) ==
LOC: LABWHC1 11:49
PROVIDERS: ATTEND Internal Medicine Cardiovascular Disease
DX: I50.9 Heart failure, unspecified (principal)
CPT/HCPCS: 36415; 80048; 83880

== ENCOUNTER 2023-07-18 10:02 | Emergency (ER) | payer MEDICARE, BC ==
[2023-07-18 10:19] VITALS: TEMP 98.1
[2023-07-18] MEDS ORDERED: KETOROLAC 15 MG/ML 1 ML VIAL IVP STA (10:38)
[2023-07-18] MEDS ORDERED: MELOXICAM 7.5 MG TAB PO SCH (10:45)
[2023-07-18 11:05] LABS: Basophils % (A) 0 %; Eosinophils # (A) 0.1 k/uL (0-0.7); Eosinophils % (A) 0 %; HCT 42.4 % (39.0-53.0); HGB 14.1 gm/dL (13.0-17.5); Lymphocytes # (A) 1.6 k/uL (1.0-4.8); Lymphocytes % (A) 14 %; MCHC 33.2 g/dL (31.0-37.0); MCV 87.3 fL (80.0-100.0); Mean Platelet Volume 8.2; Monocytes # (A) 0.6 k/uL (0-1.0); Monocytes % (A) 5 %; Neutrophils # (A) 8.7 k/uL (1.3-7.7); Neutrophils % (A) 77 %; Platelet Count 173 k/uL (150-450); RBC 4.86 m/uL (4.30-5.90); RDW 15.5 % (11.5-15.5); WBC 11.3 k/uL (3.8-10.6)
[2023-07-18 11:26] LABS: ALT 20 U/L (4-49); AST 25 U/L (17-59); African American GFR (CKD) 60 (>60 ml/min/1.73 sqM); Albumin 4.2 g/dL (3.5-5.0); Alkaline Phosphatase 99 U/L (38-126); Anion Gap 12 mmol/L; Blood Urea Nitrogen 37 mg/dL (9-20); Calcium 10.1 mg/dL (8.4-10.2); Carbon Dioxide 24 mmol/L (22-30); Chloride 104 mmol/L (98-107); Glucose 116 mg/dL (74-99); Non-African American GFR(CKD) 52 (>60 ml/min/1.73 sqM); Potassium 4.9 mmol/L (3.5-5.1); Sodium 140 mmol/L (137-145); Total Bilirubin 0.8 mg/dL (0.2-1.3); Total Protein 7.3 g/dL (6.3-8.2)
--- NOTE | 2023-07-18 11:29 | XR ---
EXAMINATION TYPE: XR elbow complete LT DATE OF EXAM: 07/18/2023 CLINICAL HISTORY: pain TECHNIQUE: Frontal, lateral and oblique images of the left elbow are obtained. COMPARISON: None. FINDINGS: There are pathologic anterior and posterior fat pads seen suspicious for occult fracture. T here may be cortical irregularity involving the radial head. Olecranon spur seen. IMPRESSION: Pathologic fat pads noted suggesting occult fracture. Slight irregularity of the radial head may refl ect underlying fracture.
[2023-07-18] MEDS ORDERED: HYDROcodone/APAP 5-325MG 1 EACH TAB PO STA ×3 (11:34→12:42)
--- NOTE | 2023-07-18 11:46 | ED ---
General Adult HPI - General Chief complaint: Extremity Problem,Nontraumatic Stated complaint: L arm pain Time Seen by Provider: 07/18/23 10:20 Source: patient, RN notes reviewed Mode of arrival: ambulatory Limitations: no limitations - History of Present Illness Initial comments: 82-year-old male with past medical history significant for atrial fibrillation presents the emergency department with a chief complaint of left elbow pain. Patient reports left elbow pain over the last week. He denies any new trauma or injury. He reports it is worse with movement. He has not been taking anything for his symptoms. Denies any numbness, tingling, weakness. Patient does take warfarin. - Related Data Home Medications Medication Instructions Recorded Confirmed Multivitamins, Thera [Multivitamin 1 tab PO DAILY 12/10/16 05/17/17 (formulary)] metFORMIN HCL [Glucophage] 500 mg PO DAILY 03/29/17 05/17/17 Atorvastatin [Lipitor] 40 mg PO HS 05/17/17 05/17/17 HYDROcodone/APAP 5-325MG [[place] 1 - 2 tab PO Q6HR PRN 05/17/17 05/17/17 5-325] Ibuprofen [Advil] 200 mg PO Q6H PRN 05/17/17 05/17/17 Sennosides-Docusate Sodium 2 tab PO HS 05/17/17 05/17/17 [Senokot-S] Warfarin [Coumadin] 2.5 mg PO SUTH@1800 05/17/17 05/17/17 Warfarin [Coumadin] 5 mg PO MOTUWEFRSA@1800 05/17/17 05/17/17 Previous Rx's Medication Instructions Recorded Aspirin 81 mg PO DAILY #30 04/09/17 Pantoprazole [Protonix] 40 mg PO AC-BRKFST #30 tab 04/09/17 Potassium Chloride ER [K-Dur 10] 10 meq PO DAILY #3 tab 04/09/17 Furosemide [Lasix] 40 mg PO BID@0900,1600 #60 tab 05/21/17 Metoprolol Tartrate [Lopressor] 100 mg PO BID #60 tab 05/21/17 Spironolactone [Aldactone] 12.5 mg PO DAILY #30 tab 05/21/17 lisinopriL [Zestril] 2.5 mg PO DAILY #30 tab 05/21/17 HYDROcodone/APAP 5-325MG [[place] 5] 1 each PO Q6HR PRN #24 tab 07/18/23 Allergies Allergy/AdvReac Type Severity Reaction Status Date / Time No Known Allergies Allergy Verified 07/18/23 10:14 Review of Systems ROS Statement: Those systems with pertinent positive or pertinent negative responses have been documented in the HPI. ROS Other: All systems not noted in ROS Statement are negative. 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 History of Any Multi-Drug Resistant Organisms: None Reported Past Surgical History: Heart Catheterization Additional Past Surgical History / Comment(s): 1998 benign brain tumor removed. cardioversion Past Anesthesia/Blood Transfusion Reactions: No Reported Reaction Additional Past Anesthesia/Blood Transfusion Reaction / Comment(s): No hx blood transfusion Past Psychological History: No Psychological Hx Reported Smoking Status: Former smoker Past Alcohol Use History: Rare Past Drug Use History: None Reported - Past Family History Father Family Medical History: Myocardial Infarction (LA) Additional Family Medical History / Comment(s): Father of a LA at the age of 93yrs. Mother Family Medical History: Myocardial Infarction (LA) Additional Family Medical History / Comment(s): Mother of a LA at the age of 88yrs. General Exam - General Exam Comments Initial Comments: General: Alert, in no acute distress Head: atraumatic normocephalic. Eyes PERRL, EOMI intact, mucous membranes moist Respiratory: Lungs clear to auscultation bilaterally Cardiovascular: Heart rate regular rate and rhythm Abdominal: Soft without guarding or rebound Extremities: Normal inspection with full range of motion and normal capillary refill, left lateral epicondyle with mild erythema, edema. Limited range of mo tion secondary to pain. 2+ radial pulses. Distal neurovascular intact. No crepitus noted. Neuroogic: alert and oriented 3, CN II-XII intact, able to ambulate with steady gait Skin: warm dry and intact with normal color Limitations: no limitations Course Vital Signs 07/18/23 07/18/23 10:12 13:13 Temperature 98.1 F 98.1 F Pulse Rate 79 76 Respiratory 20 16 Rate Blood Pressure 144/75 124/71 O2 Sat by Pulse 99 99 Oximetry - Reevaluation(s) Reevaluation #1: 07/18/23 11:47 He shouldn't reevaluated. Patient placed in a posterior mold splint and tolerated well. Medical Decision Making - Medical Decision Making Was pt. sent in by a medical professional or institution (, JOHN, FORENSICS TEAM DIRECTOR, urgent care, hospital, or fci...) When possible be specific @ -[No] Did you speak to anyone other than the patient for history (EMS, parent, family, police, friend...)? What history was obtained from this source @ -[No] Did you review nursing and triage notes (agree or disagree)? Why? @ -[I reviewed and agree with nursing and triage notes] Were old charts reviewed (outside hosp., previous admission, EMS record, old EKG, old radiological studies, urgent care reports/EKG's, fci records)? Report findings @ -[No old charts were reviewed] Differential Diagnosis (chest pain, altered mental status, abdominal pain women, abdominal pain men, vaginal bleeding, weakness, fever, dyspnea, syncope, headache, dizziness, GI bleed, back pain, seizure, CVA, palpatations, mental health, musculoskeletal)? @ -[not applicable] EKG interpreted by me (3pts min.). @ -[As above] X-rays interpreted by me (1pt min.). @ -Yes CT interpreted by me (1pt min.). @ -[None done] U/S interpreted by me (1pt. min.). @ -[None done] What testing was considered but not performed or refused? (CT, X-rays, U/S, labs)? Why? @ -[None] What meds were considered but not given or refused? Why? @ -[None] Did you discuss the management of the patient with other professionals (professionals i.e. , JOHN, FORENSICS TEAM DIRECTOR, lab, RT, psych nurse, social services technician, delivery table operator, teacher, project control officer, case planner)? Give summary @ -[No] Was smoking cessation discussed for >3mins.? @ -[No] Was critical care preformed (if so, how long)? @ -[No] Were there social determinants of health that impacted care today? How? (Homelessness, low income, unemployed, alcoholism, drug addiction, transportation, low edu. Level, literacy, decrease access to med. care, residential, rehab)? @ -[No] Was there de-escalation of care discussed even if they declined (Discuss DNR or withdrawal of care, Hospice)? DNR status @ -[No] What co-morbidities impacted this encounter? (DM, HTN, Smoking, COPD, CAD, Cancer, CVA, ARF, Chemo, Hep., AIDS, mental health diagnosis, sleep apnea, morbid obesity)? @ -[None] Was patient admitted / discharged? Hospital course, mention meds given and route, prescriptions, significant lab abnormalities, going to OR and other pertinent info. @ -Discharged. This is an 82-year-old male with a chief left elbow pain. Mild edema and ecchymosis to the lateral epicondyle region. Limited range of motion secondary to pain. Distal neurovascularly intact. 2+ pulses. Patient had x-rays which revealed pathological fat pads that note suggesting occult fracture. There is slight irregularity of the radial head that may reflect underlying fracture. I discussed the results in detail the patient verbalized understanding all questions were addressed. Patient was tested for listeria molded placed in a splint. Recommended close follow-up with orthopedics in 3-5 days. Patient provided a prescription for [place]. Case is discussed with SANJAY Acosta who agrees with plan of care Undiagnosed new problem with uncertain prognosis? @ -[No] Drug Therapy requiring intensive monitoring for toxicity (Heparin, Nitro, Insulin, Cardizem)? @ -[No] Were any procedures done? @ -[No] Diagnosis/symptom? @ -Left Elbow Pain - Left Radial Head facture Acute, or Chronic, or Acute on Chronic? @ -Acute Uncomplicated (without systemic symptoms) or Complicated (systemic symptoms)? @ -Uncomplicated Side effects of treatment? @ -[No] Exacerbation, Progression, or Severe Exacerbation? @ -[No] Poses a threat to life or bodily function? How? (Chest pain, [place], LA, pneumonia, PE, COPD, DKA, ARF, appy, cholecystitis, CVA, Diverticulitis, Homicidal, Suicidal, threat to staff... and all critical care pts) @ -Low likelihood - Lab Data Result diagrams: 07/18/23 10:42 07/18/23 10:42 Lab Results 07/18/23 07/18/23 Range/Units 10:42 10:42 WBC 11.3 H (3.8-10.6) k/uL RBC 4.86 (4.30-5.90) m/uL Hgb 14.1 (13.0-17.5) gm/dL Hct 42.4 (39.0-53.0) % MCV 87.3 (80.0-100.0) fL MCH 29.0 (25.0-35.0) pg MCHC 33.2 (31.0-37.0) g/dL RDW 15.5 (11.5-15.5) % Plt Count 173 (150-450) k/uL MPV 8.2 Neutrophils % 77 % Lymphocytes % 14 % Monocytes % 5 % Eosinophils % 0 % Basophils % 0 % Neutrophils # 8.7 H (1.3-7.7) k/uL Lymphocytes # 1.6 (1.0-4.8) k/uL Monocytes # 0.6 (0-1.0) k/uL Eosinophils # 0.1 (0-0.7) k/uL Basophils # 0.0 (0-0.2) k/uL Sodium 140 (137-145) mmol/L Potassium 4.9 (3.5-5.1) mmol/L Chloride 104 (98-107) mmol/L Carbon Dioxide 24 (22-30) mmol/L Anion Gap 12 mmol/L BUN 37 H (9-20) mg/dL Creatinine 1.27 H (0.66-1.25) mg/dL Est GFR (CKD-EPI)AfAm 60 (>60 ml/min/1.73 sqM) Est GFR (CKD-EPI)NonAf 52 (>60 ml/min/1.73 sqM) Glucose 116 H (74-99) mg/dL Calcium 10.1 (8.4-10.2) mg/dL Total Bilirubin 0.8 (0.2-1.3) mg/dL AST 25 (17-59) U/L ALT 20 (4-49) U/L Alkaline Phosphatase 99 (38-126) U/L Total Protein 7.3 (6.3-8.2) g/dL Albumin 4.2 (3.5-5.0) g/dL Disposition Clinical Impression: Elbow pain, Radial head fracture Disposition: HOME SELF-CARE Condition: Stable Instructions (If sedation given, give patient instructions): Elbow Fracture (ED) Additional Instructions: Please take [place] for pain Please remain in splint until able to follow-up with orthopedics Please return to the nearest emergency department if worsening pain or numbness, tingling, weakness develop Prescriptions: HYDROcodone/APAP 5-325MG [[place] 5] 1 each PO Q6HR PRN #24 tab PRN Reason: Pain Is patient prescribed a controlled substance at d/c from ED?: No Referrals: Lawrence Suero MD [REFERRING] - 1-2 days Remy Wilkins DO [Doctor of Osteopathic Medicine] - 1-2 days Taylor Nava MD [Primary Care Provider] - 1-2 days Time of Disposition: 11:44
[2023-07-18 13:32] VITALS: BP 124/71; PULSE 76; RESP 16
== END 2023-07-18 13:15 | disposition home or self-care (01) ==
LOC: EC 10:02
DX: S52.125A Nondisplaced fracture of head of left radius, initial encounter for closed fracture (principal); M25.522 Pain in left elbow; I48.91 Unspecified atrial fibrillation; E78.5 Hyperlipidemia, unspecified; I10 Essential (primary) hypertension; Z86.73 Personal history of transient ischemic attack (TIA), and cerebral infarction without residual deficits; Z86.718 Personal history of other venous thrombosis and embolism; Z87.891 Personal history of nicotine dependence; Z79.84 Long term (current) use of oral hypoglycemic drugs; Z79.01 Long term (current) use of anticoagulants; Z79.899 Other long term (current) drug therapy; X50.9XXA Other and unspecified overexertion or strenuous movements or postures, initial encounter
CPT/HCPCS: 36415; 80053; 85025; 99284

== ENCOUNTER 2023-07-25 11:47 | Emergency (ER) | payer MEDICARE, BC ==
--- NOTE | 2023-07-25 12:01 | ED ---
Male Urogenital HPI - General Source: patient, RN notes reviewed Mode of arrival: ambulatory Limitations: no limitations <Nakul Kwon - Last Filed: 07/25/23 12:00> <Zachary Pappas - Last Filed: 07/29/23 08:18> - General Chief complaint: Urogenital Stated complaint: blood in urine Time Seen by Provider: 07/25/23 12:01 - History of Present Illness Initial comments: 82-year-old male presents emergency Department with chief complaint of blood in his urine. Patient states that he has no pain with urination no abdominal pain. Patient does admit that he is on warfarin. (Nakul Kwon) 82-year-old male with hematuria noted today. No pain. No back pain. No abdominal pain. No dysuria. No fever. Patient is on Coumadin with history of bioprosthetic aortic valve replacement. (Zachary Pappas) - Related Data Home Medications Medication Instructions Recorded Confirmed Multivitamins, Thera [Multivitamin 1 tab PO DAILY 12/10/16 05/17/17 (formulary)] metFORMIN HCL [Glucophage] 500 mg PO DAILY 03/29/17 05/17/17 Atorvastatin [Lipitor] 40 mg PO HS 05/17/17 05/17/17 HYDROcodone/APAP 5-325MG [[place] 1 - 2 tab PO Q6HR PRN 05/17/17 05/17/17 5-325] Ibuprofen [Advil] 200 mg PO Q6H PRN 05/17/17 05/17/17 Sennosides-Docusate Sodium 2 tab PO HS 05/17/17 05/17/17 [Senokot-S] Warfarin [Coumadin] 2.5 mg PO SUTH@1800 05/17/17 05/17/17 Warfarin [Coumadin] 5 mg PO MOTUWEFRSA@1800 05/17/17 05/17/17 Previous Rx's Medication Instructions Recorded Aspirin 81 mg PO DAILY #30 04/09/17 Pantoprazole [Protonix] 40 mg PO AC-BRKFST #30 tab 04/09/17 Potassium Chloride ER [K-Dur 10] 10 meq PO DAILY #3 tab 04/09/17 Furosemide [Lasix] 40 mg PO BID@0900,1600 #60 tab 05/21/17 Metoprolol Tartrate [Lopressor] 100 mg PO BID #60 tab 05/21/17 Spironolactone [Aldactone] 12.5 mg PO DAILY #30 tab 05/21/17 lisinopriL [Zestril] 2.5 mg PO DAILY #30 tab 05/21/17 HYDROcodone/APAP 5-325MG [[place] 5] 1 each PO Q6HR PRN #24 tab 07/18/23 Cephalexin [Keflex] 500 mg PO TID 7 Days #21 cap 07/25/23 Allergies Allergy/AdvReac Type Severity Reaction Status Date / Time No Known Allergies Allergy Verified 07/25/23 11:57 Review of Systems ROS Other: All systems not noted in ROS Statement are negative. <Nakul Kwon - Last Filed: 07/25/23 12:00> ROS Other: All systems not noted in ROS Statement are negative. <Zachary Pappas - Last Filed: 07/29/23 08:18> ROS Statement: Those systems with pertinent positive or pertinent negative responses have been documented in the HPI. 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 History of Any Multi-Drug Resistant Organisms: None Reported Past Surgical History: Heart Catheterization Additional Past Surgical History / Comment(s): 1998 benign brain tumor removed. cardioversion Past Anesthesia/Blood Transfusion Reactions: No Reported Reaction Additional Past Anesthesia/Blood Transfusion Reaction / Comment(s): No hx blood transfusion Past Psychological History: No Psychological Hx Reported Smoking Status: Former smoker Past Alcohol Use History: Rare Past Drug Use History: None Reported - Past Family History Father Family Medical History: Myocardial Infarction ([place]) Additional Family Medical History / Comment(s): Father of a [place] at the age of 93yrs. Mother Family Medical History: Myocardial Infarction ([place]) Additional Family Medical History / Comment(s): Mother of a [place] at the age o f 88yrs. <Nakul Kwon - Last Filed: 07/25/23 12:00> General Exam Limitations: no limitations <Nakul Kwon - Last Filed: 07/25/23 12:00> General appearance: alert, in no apparent distress Head exam: Present: atraumatic, normocephalic Eye exam: Present: normal appearance, PERRL ENT exam: Present: normal exam Neck exam: Present: normal inspection. Absent: tenderness, meningismus Respiratory exam: Absent: respiratory distress, wheezes, rhonchi Cardiovascular Exam: Present: regular rate, normal rhythm, systolic murmur GI/Abdominal exam: Present: soft. Absent: distended, tenderness, guarding, rebound Neurological exam: Present: alert, oriented X3, CN II-XII intact, normal gait. Absent: motor sensory deficit Psychiatric exam: Present: normal affect, normal mood Skin exam: Present: warm, dry, intact, normal color <Zachary Pappas - Last Filed: 07/29/23 08:18> - General Exam Comments Initial Comments: Visual Physical Exam Vital signs reviewed General: Well-appearing, nontoxic, no acute distress. Head: Normocephalic, atraumatic Eyes: PERRLA, EOMI ENT: Airway patent Chest: Nonlabored breathing Skin: No visual rash, normal skin tone Neuro: Alert and oriented 3 Musculoskeletal: No gross abnormalities (Nakul Kwon) Course Vital Signs 07/25/23 07/25/23 07/25/23 11:57 14:36 16:19 Temperature 97.8 F 98.3 F Pulse Rate 82 86 86 Respiratory 16 18 18 Rate Blood Pressure 164/85 135/77 125/87 O2 Sat by Pulse 98 97 97 Oximetry Medical Decision Making <Nakul wKon - Last Filed: 07/25/23 12:00> - Lab Data Result diagrams: 07/25/23 12:48 07/25/23 12:48 <Zachary Pappas - Last Filed: 07/29/23 08:18> - Medical Decision Making I completed the quick note portion of this chart signed Nakul Kwon PA-C (Nakul Kwon) Was pt. sent in by a medical professional or institution (Dr. PA, [employer], urgent care, hospital, or alf...) When possible be specific @ -No Did you speak to anyone other than the patient for history (EMS, parent, family, police, friend...)? What history was obtained from this source @ -No Did you review nursing and triage notes (agree or disagree)? Why? @ -I reviewed and agree with nursing and triage notes Were old charts reviewed (outside hosp., previous admission, EMS record, old EKG, old radiological studies, urgent care reports/EKG's, alf records)? Report findings @ -No old charts were reviewed Differential Diagnosis (chest pain, altered mental status, abdominal pain women, abdominal pain men, vaginal bleeding, weakness, fever, dyspnea, syncope, headache, dizziness, GI bleed, back pain, seizure, CVA, palpatations, mental health, musculoskeletal)? @ Renal mass, lateral mass, hemorrhagic cystitis, UTI, kidney stone EKG interpreted by me (3pts min.). @ -As above X-rays interpreted by me (1pt min.). @ -None done CT interpreted by me (1pt min.). @ -None done U/S interpreted by me (1pt. min.). @ -None done What testing was considered but not performed or refused? (CT, X-rays, U/S, labs)? Why? @ -None What meds were considered but not given or refused? Why? @ -None Did you discuss the management of the patient with other professionals (professionals i.e. , PA, [employer], lab, RT, psych nurse, social science manager, lead custodian, teacher, chief mechanical officer, catalytic case operator)? Give summary @ -No Was smoking cessation discussed for >3mins.? @ -No Was critical care preformed (if so, how long)? @ -No Were there social determinants of health that impacted care today? How? (Homelessness, low income, unemployed, alcoholism, drug addiction, transportation, low edu. Level, literacy, decrease access to med. care, group home, rehab)? @ -No Was there de-escalation of care discussed even if they declined (Discuss DNR or withdrawal of care, Hospice)? DNR status @ -No What co-morbidities impacted this encounter? (DM, HTN, Smoking, COPD, CAD, Cancer, CVA, ARF, Chemo, Hep., AIDS, mental health diagnosis, sleep apnea, morbid obesity)? @ History of bioprosthetic aortic valve replacement on Coumadin Was patient admitted / discharged? Hospital course, mention meds given and route, prescriptions, significant lab abnormalities, going to OR and other pertinent info. @ 8-year-old male with painless hematuria which began today. No trauma. No pain. No preceding dysuria or urinary frequency. No fever or vomiting. Patient has hemoglobin 13.9, normal white blood cell count, INR is elevated at 3.5. Urinalysis is hemorrhagic with many bacteria. Urine culture pending. Patient will be covered with antibiotics, will hold Coumadin and have INR rechecked. Undiagnosed new problem with uncertain prognosis? @ -No Drug Therapy requiring intensive monitoring for toxicity (Heparin, Nitro, Insulin, Cardizem)? @ -No Were any procedures done? @ -No Diagnosis/symptom? @Hematuria, elevated INR Acute, or Chronic, or Acute on Chronic? @ -[Acute Uncomplicated (without systemic symptoms) or Complicated (systemic symptoms)? @Complicated Side effects of treatment? @ -No Exacerbation, Progression, or Severe Exacerbation? @ -No Poses a threat to life or bodily function? How? (Chest pain, [place], [place], pneumonia, PE, COPD, DKA, ARF, appy, cholecystitis, CVA, Diverticulitis, Homicidal, Rosemary cidal, threat to staff... and all critical care pts) @ -[Low risk at this time (Zachary Pappas) - Lab Data Lab Results 07/25/23 07/25/23 07/25/23 Range/Units 12:48 12:48 12:48 WBC 8.9 (3.8-10.6) k/uL RBC 4.84 (4.30-5.90) m/uL Hgb 13.9 (13.0-17.5) gm/dL Hct 42.4 (39.0-53.0) % MCV 87.6 (80.0-100.0) fL MCH 28.8 (25.0-35.0) pg MCHC 32.9 (31.0-37.0) g/dL RDW 15.0 (11.5-15.5) % Plt Count 182 (150-450) k/uL MPV 7.9 Neutrophils % 67 % Lymphocytes % 23 % Monocytes % 5 % Eosinophils % 2 % Basophils % 1 % Neutrophils # 6.0 (1.3-7.7) k/uL Lymphocytes # 2.0 (1.0-4.8) k/uL Monocytes # 0.5 (0-1.0) k/uL Eosinophils # 0.2 (0-0.7) k/uL Basophils # 0.1 (0-0.2) k/uL PT 34.6 H (10.0-12.5) sec INR 3.5 H (<1.2) Sodium (137-145) mmol/L Potassium (3.5-5.1) mmol/L Chloride (98-107) mmol/L Carbon Dioxide (22-30) mmol/L Anion Gap mmol/L BUN (9-20) mg/dL Creatinine (0.66-1.25) mg/dL Est GFR (CKD-EPI)AfAm (>60 ml/min/1.73 sqM) Est GFR (CKD-EPI)NonAf (>60 ml/min/1.73 sqM) Glucose (74-99) mg/dL Calcium (8.4-10.2) mg/dL Total Bilirubin (0.2-1.3) mg/dL AST (17-59) U/L ALT (4-49) U/L Alkaline Phosphatase (38-126) U/L Total Protein (6.3-8.2) g/dL Albumin (3.5-5.0) g/dL Urine Color Dark Red Urine Appearance Bloody (Clear) Urine RBC >182 H (0-5) /hpf Urine WBC >182 H (0-5) /hpf Urine Bacteria Many H (None) /hpf Urine Mucus Moderate H (None) /hpf 07/25/23 Range/Units 12:48 WBC (3.8-10.6) k/uL RBC (4.30-5.90) m/uL Hgb (13.0-17.5) gm/dL Hct (39.0-53.0) % MCV (80.0-100.0) fL MCH (25.0-35.0) pg MCHC (31.0-37.0) g/dL RDW (11.5-15.5) % Plt Count (150-450) k/uL MPV Neutrophils % % Lymphocytes % % Monocytes % % Eosinophils % % Basophils % % Neutrophils # (1.3-7.7) k/uL Lymphocytes # (1.0-4.8) k/uL Monocytes # (0-1.0) k/uL Eosinophils # (0-0.7) k/uL Basophils # (0-0.2) k/uL PT (10.0-12.5) sec INR (<1.2) Sodium 141 (137-145) mmol/L Potassium 5.2 H (3.5-5.1) mmol/L Chloride 106 (98-107) mmol/L Carbon Dioxide 26 (22-30) mmol/L Anion Gap 9 mmol/L BUN 36 H (9-20) mg/dL Creatinine 1.19 (0.66-1.25) mg/dL Est GFR (CKD-EPI)AfAm 66 (>60 ml/min/1.73 sqM) Est GFR (CKD-EPI)NonAf 57 (>60 ml/min/1.73 sqM) Glucose 115 H (74-99) mg/dL Calcium 9.9 (8.4-10.2) mg/dL Total Bilirubin 0.7 (0.2-1.3) mg/dL AST 39 (17-59) U/L ALT 24 (4-49) U/L Alkaline Phosphatase 99 (38-126) U/L Total Protein 7.6 (6.3-8.2) g/dL Albumin 4.3 (3.5-5.0) g/dL Urine Color Urine Appearance (Clear) Urine RBC (0-5) /hpf Urine WBC (0-5) /hpf Urine Bacteria (None) /hpf Urine Mucus (None) /hpf Disposition <Nakul Kwon - Last Filed: 07/25/23 12:00> Is patient prescribed a controlled substance at d/c from ED?: No Time of Disposition: 15:25 <Zachary Pappas - Last Filed: 07/29/23 08:18> Clinical Impression: Gross hematuria Disposition: HOME SELF-CARE Condition: Fair Instructions (If sedation given, give patient instructions): Urinary Tract Infection in Men (ED), Hematuria (ED) Additional Instructions: Please hold your warfarin and have your INR rechecked with her primary care provider. Please drink plenty fluids, please return with worsening or changing symptoms. Prescriptions: Cephalexin [Keflex] 500 mg PO TID 7 Days #21 cap Referrals: Taylor Nava MD [Primary Care Provider] - 1-2 days Alexys Garcia MD [STAFF PHYSICIAN] - 1-2 days
[2023-07-25 13:23] LABS: Basophils # (A) 0.1 k/uL (0-0.2); Basophils % (A) 1 %; Eosinophils # (A) 0.2 k/uL (0-0.7); Eosinophils % (A) 2 %; HCT 42.4 % (39.0-53.0); HGB 13.9 gm/dL (13.0-17.5); Lymphocytes % (A) 23 %; MCH 28.8 pg (25.0-35.0); MCHC 32.9 g/dL (31.0-37.0); MCV 87.6 fL (80.0-100.0); Mean Platelet Volume 7.9; Monocytes # (A) 0.5 k/uL (0-1.0); Monocytes % (A) 5 %; Neutrophils % (A) 67 %; Platelet Count 182 k/uL (150-450); RBC 4.84 m/uL (4.30-5.90); WBC 8.9 k/uL (3.8-10.6)
[2023-07-25 13:38] LABS: ALT 24 U/L (4-49); African American GFR (CKD) 66 (>60 ml/min/1.73 sqM); Anion Gap 9 mmol/L; Blood Urea Nitrogen 36 mg/dL (9-20); Calcium 9.9 mg/dL (8.4-10.2); Carbon Dioxide 26 mmol/L (22-30); Chloride 106 mmol/L (98-107); Glucose 115 mg/dL (74-99); Non-African American GFR(CKD) 57 (>60 ml/min/1.73 sqM); Sodium 141 mmol/L (137-145); Total Bilirubin 0.7 mg/dL (0.2-1.3)
[2023-07-25 13:39] LABS: AST 39 U/L (17-59); Albumin 4.3 g/dL (3.5-5.0); Alkaline Phosphatase 99 U/L (38-126); Potassium 5.2 mmol/L (3.5-5.1); Total Protein 7.6 g/dL (6.3-8.2)
[2023-07-25 14:23] LABS: INR 3.5 (<1.2); Prothrombin Time 34.6 sec (10.0-12.5)
[2023-07-25 14:57] VITALS: PULSE 86; RESP 18
[2023-07-25 14:57] LABS: Bacteria,Urine Many /hpf; Mucus,Urine Moderate /hpf; RBC,Urine >182 /hpf (0-5); WBC,Urine >182 /hpf (0-5)
[2023-07-25 15:03] LABS: Appearance,Urine Bloody (Clear); Color,Urine Dark Red
[2023-07-25 16:28] VITALS: BP 125/87; TEMP 98.3
== END 2023-07-25 16:28 | disposition home or self-care (01) ==
LOC: EC 11:47
DX: R31.0 Gross hematuria (principal); I48.91 Unspecified atrial fibrillation; E11.9 Type 2 diabetes mellitus without complications; E78.5 Hyperlipidemia, unspecified; I10 Essential (primary) hypertension; Z87.891 Personal history of nicotine dependence; Z86.73 Personal history of transient ischemic attack (TIA), and cerebral infarction without residual deficits; Z79.01 Long term (current) use of anticoagulants; Z79.84 Long term (current) use of oral hypoglycemic drugs; Z79.899 Other long term (current) drug therapy
CPT/HCPCS: 36415; 80053; 81001; 85025; 85610; 87086; 99283

== ENCOUNTER → 2024-02-04 | Outpatient (CLI) | payer MEDICARE, BC ==
[2024-02-04 14:36] LABS: African American GFR (CKD) 47 (>60 ml/min/1.73 sqM); Blood Urea Nitrogen 33 mg/dL (9-20); Non-African American GFR(CKD) 40 (>60 ml/min/1.73 sqM)
--- NOTE | 2024-02-10 15:57 | CT ---
EXAMINATION TYPE: CT urogram wo/w con CT DLP: 3753.9 mGycm, Automated exposure control for dose reduction was used. DATE OF EXAM: 02/04/2024 4:04 PM COMPARISON: None CLINICAL INDICATION:Male, 83 years old with history of C67.9 MALIGNANT NEOPLASM OF BLADDER, UNSPECIFI ED; [facility], MALIGNANT NEOPLASM OF BLADDER TECHNIQUE: Urogram with imaging of the abdomen and pelvis. Coronal and sagittal reformats were performed. 2D and 3D reconstructions are performed to assist visualization of the urinary tract on a separate workstat ion. Contrast used:80ml mL of Isovue 300 with IV Contrast, Oral contrast used: None. FINDINGS: LOWER CHEST: The heart is mildly enlarged for size. There is streaky atelectasis in the left lung bas e. See dedicated CT chest. GENITOURINARY: RIGHT KIDNEY AND URETER: Excreted IV contrast in the collecting system limits evaluation for calculi no calculi visualized. Simple appearing right renal cysts. No hydronephrosis or hydroureter. No renal mass or other lesions. No urothelial lesions: no filling defect, dilation, stricture or wall thicken ing. LEFT KIDNEY AND URETER: Atrophic appearance of the left kidney. Excreted IV contrast in the collectin g system limits evaluation for calculi no calculi visualized. No hydronephrosis or hydroureter. No re nal mass or other lesions. Mild dilation of the left ureter URINARY BLADDER: Mild wall thickening up to 7 mm near the posterior and left posterior lateral aspect of the bladder. Mild Fat stranding changes are seen on the bladder wall. No nearby adjacent suspicio us lymph nodes visualized. REPRODUCTIVE: Unremarkable. ABDOMEN LIVER: Unremarkable. GALLBLADDER AND BILE DUCTS: Unremarkable PANCREAS: Unremarkable. SPLEEN: Unremarkable. ADRENAL GLANDS: Unremarkable. STOMACH AND BOWEL: . No evidence of bowel obstruction. PERITONEUM: No evidence of pneumoperitoneum, free fluid, or adenopathy. VASCULATURE: Mild atherosclerotic calcifications are present throughout the abdominal aorta and its b ranches. No evidence of aortic aneurysm. MUSCULOSKELETAL: No acute osseous abnormalities, moderate multilevel degeneration changes of spine. LYMPH NODES: No gross evidence for lymphadenopathy. SOFT TISSUE/ABDOMINAL WALL: Unremarkable IMPRESSION: 1. Mild Bladder wall thickening with mild Fat stranding changes findings could represent cystitis ve rsus microinvasion versus posttreatment changes in the appropriate clinical setting. Findings are pre dominantly in the posterior and posterior left aspect compatible with which may represent patient's h istory of bladder. This results in mild obstruction of the left ureter orifice into the bladder. No l ymphadenopathy identified. 2. IV contrast within the renal collecting system limits evaluation for calculi.
--- NOTE | 2024-02-11 03:38 | CT ---
EXAMINATION TYPE: CT chest w con CT DLP: 534.2 mGycm, Automated exposure control for dose reduction was used. DATE OF EXAM: 02/04/2024 4:04 PM COMPARISON: None. . CLINICAL INDICATION:Male, 83 years old with history of C67.9 MALIGNANT NEOPLASM OF BLADDER, UNSPECIFI ED; [facility], MALIGNANT NEOPLASM OF BLADDER, obs for mets TECHNIQUE: Multiple axial images were obtained through the chest. Sagittal and coronal reformats were created for review. Contrast used:80ml mL of Isovue 300 with IV Contrast (None if empty) Oral contrast used: (None if empty) FINDINGS: The lungs show fibrocalcific scarring at the lung apices. There are mild to moderate upper lobe predo minant pulmonary emphysematous changes. Linear and bandlike areas of fibrosis are seen towards the angela ng bases, greatest on the left. No acute superimposed consolidation, nodule, or mass identified. No p leural effusion or pneumothorax. There is pleural thickening on the left. No evidence of enlarged mediastinal or hilar nodes. No axillary adenopathy. The heart is mildly to mo derately enlarged. There is moderate atherosclerotic calcification of the aorta and branches, includi ng the aortic valve, versus valvular prosthesis. Aorta is normal in course and caliber. There is mode rate coronary artery calcification. Pulmonary arteries show grossly normal enhancement on this non-CTA study. No acute chest wall abnormalities. There is mild bilateral gynecomastia like change bilaterally. Mild/moderate degenerative changes throughout the visualized spine. No destructive lesion is seen. Th ere is a small focus of sclerosis along the left body pedicle junction of T5, nonspecific; probably b one island less likely metastasis. Bone scan if of concern. For abdomen findings, please refer to same-day CT urogram. IMPRESSION: No evidence of thoracic metastatic disease.
== END | disposition home or self-care (01) ==
LOC: RADCTMAIN 13:28
PROVIDERS: ATTEND Urology
DX: C67.9 Malignant neoplasm of bladder, unspecified (principal); N32.89 Other specified disorders of bladder
CPT/HCPCS: 82565; 84520; 71260; 74178; 36415; 74400; Q9967

== ENCOUNTER 2024-03-19 13:10 | Emergency (ER) | payer MEDICARE, BC ==
[2024-03-19 13:14] VITALS: RESP 18; TEMP 98.5
--- NOTE | 2024-03-19 13:35 | ED ---
General Adult HPI - General Chief complaint: Recheck/Abnormal Lab/Rx Stated complaint: Irreg labs-Sent by PCP Time Seen by Provider: 03/19/24 13:19 Source: patient Mode of arrival: ambulatory Limitations: no limitations - History of Present Illness Initial comments: Macro dictation was produced using [employer] dictation software. please excuse any grammatical, word or spelling errors. Chief Complaint: 83-year-old male presents to the emergency department for hypokalemia History of Present Illness: Patient is an 83-year-old male with multiple comorbidities presents to the emergency department with hyperkalemia. He was told that his potassium level was 6.1. He went and had blood drawn yesterday for routine blood work by his primary care doctor. Patient has no complaints. The ROS documented in this emergency department record has been reviewed and confirmed by me. Those systems with pertinent positive or negative responses have been documented in the HPI. All other systems are other negative and/or noncontributory. - Related Data Home Medications Medication Instructions Recorded Confirmed Multivitamins, Thera [Multivitamin 1 tab PO DAILY 12/10/16 05/17/17 (formulary)] metFORMIN HCL [Glucophage] 500 mg PO DAILY 03/29/17 05/17/17 Atorvastatin [Lipitor] 40 mg PO HS 05/17/17 05/17/17 HYDROcodone/APAP 5-325MG [[place] 1 - 2 tab PO Q6HR PRN 05/17/17 05/17/17 5-325] Ibuprofen [Advil] 200 mg PO Q6H PRN 05/17/17 05/17/17 Sennosides-Docusate Sodium 2 tab PO HS 05/17/17 05/17/17 [Senokot-S] Warfarin [Coumadin] 2.5 mg PO SUTH@1800 05/17/17 05/17/17 Warfarin [Coumadin] 5 mg PO MOTUWEFRSA@1800 05/17/17 05/17/17 Previous Rx's Medication Instructions Recorded Aspirin 81 mg PO DAILY #30 04/09/17 Pantoprazole [Protonix] 40 mg PO AC-BRKFST #30 tab 04/09/17 Potassium Chloride ER [K-Dur 10] 10 meq PO DAILY #3 tab 04/09/17 Furosemide [Lasix] 40 mg PO BID@0900,1600 #60 tab 05/21/17 Metoprolol Tartrate [Lopressor] 100 mg PO BID #60 tab 05/21/17 Spironolactone [Aldactone] 12.5 mg PO DAILY #30 tab 05/21/17 lisinopriL [Zestril] 2.5 mg PO DAILY #30 tab 05/21/17 HYDROcodone/APAP 5-325MG [[place] 5] 1 each PO Q6HR PRN #24 tab 07/18/23 Cephalexin [Keflex] 500 mg PO TID 7 Days #21 cap 07/25/23 Allergies Allergy/AdvReac Type Severity Reaction Status Date / Time No Known Allergies Allergy Verified 03/19/24 13:14 Review of Systems ROS Statement: Those systems with pertinent positive or pertinent negative responses have been documented in the HPI. ROS Other: All systems not noted in ROS Statement are negative. 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 bladder cancer History of Any Multi-Drug Resistant Organisms: None Reported Past Surgical History: Heart Catheterization Additional Past Surgical History / Comment(s): 1998 benign brain tumor removed. cardioversion Past Anesthesia/Blood Transfusion Reactions: No Reported Reaction Additional Past Anesthesia/Blood Transfusion Reaction / Comment(s): No hx blood transfusion Past Psychological History: No Psychological Hx Reported Smoking Status: Former smoker Past Alcohol Use History: Rare Past Drug Use History: None Reported - Past Family History Father Family Medical History: Myocardial Infarction (PR) Additional Family Medical History / Comment(s): Father of a PR at the age of 93yrs. Mother Family Medical History: Myocardial Infarction (PR) Additional Family Medical History / Comment(s): Mother of a PR at the age of 88yrs. General Exam - General Exam Comments Initial Comments: PHYSICAL EXAM: General Impression: Alert and oriented x3, not in acute distress HEENT: Normocephalic atraumatic, extra-ocular movements intact, pupils equal and reactive to light bilaterally, mucous membranes moist. Cardiovascular: Heart regular rate and rhythm Chest: Able to complete full sentences, no retractions, no tachypnea Abdomen: abdomen soft, non-tender, non-distended, no organomegaly Musculoskeletal: Pulses present and equal in all extremities, no peripheral edema Motor: no focal deficits noted Neurological: CN II-XII grossly intact, no focal motor or sensory deficits noted Skin: Intact with no visualized rashes Psych: Normal affect and mood Limitations: no limitations Course Vital Signs 03/19/24 13:12 Temperature 98.5 F Pulse Rate 98 Respiratory 18 Rate Blood Pressure 174/70 O2 Sat by Pulse 98 Oximetry EKG Findings - EKG Comments: EKG Findings:: My EKG interpretation: Ventricular rate 97, A-fib, QRS 109, QTc 399. No [place] prolongation, no QTC prolongation, no ST or T-wave changes noted. Overall, this EKG is unremarkable Medical Decision Making - Medical Decision Making Was pt. sent in by a medical professional or institution (Dr. PA, CYTOLOGY SUPERVISOR, urgent care, hospital, or snf...) When possible be specific @ -No Did you speak to anyone other than the patient for history (EMS, parent, family, police, friend...)? What history was obtained from this source @ -Daughter as described above Did you review nursing and triage notes (agree or disagree)? Why? @ -I reviewed and agree with nursing and triage notes Were old charts reviewed (outside hosp., previous admission, EMS record, old EKG, old radiological studies, urgent care reports/EKG's, snf records)? Report findings @ -No old charts were reviewed Differential Diagnosis (chest pain, altered mental status, abdominal pain women, abdominal pain men, vaginal bleeding, musculoskeletal, weakness, fever, dyspnea, syncope, headache, dizziness, GI bleed, back pain, seizure, CVA, palpatations, mental health)? @ -Lab error, acute kidney injury, rhabdomyolysis EKG interpreted by me (3pts min.). @ -See above X-rays interpreted by me (1pt min.). @ -None done CT interpreted by me (1pt min.). @ -None done U/S interpreted by me (1pt. min.). @ -None done What testing was considered but not performed or refused? (CT, X-rays, U/S, labs)? Why? @ -None What meds were considered but not given or refused? Why? @ -None Was smoking cessation discussed for >3mins.? @ -No Were there social determinants of health that impacted care today? How? (Homelessness, low income, unemployed, alcoholism, drug addiction, transportation, low edu. Level, literacy, decrease access to med. care, intermediate, rehab)? @ -No Was there de-escalation of care discussed even if they declined (Discuss DNR or withdrawal of care, Hospice)? DNR status @ -No What co-morbidities impacted this encounter? (DM, HTN, Smoking, COPD, CAD, Cancer, CVA, ARF, Chemo, Hep., AIDS, mental health diagnosis, sleep apnea, morbid obesity)? @ -None Was patient admitted / discharged? Hospital course, mention meds given and route, prescriptions, significant lab abnormalities, going to OR and other pertinent info. @ -83-year-old male brought to the emergency department by daughter for abnormal outpatient labs. He had routine blood work performed yesterday. He was called today states that he had hyperkalemia. Vital signs stable. Patient has no complaints. BMP ordered. Potassium level 4.8. Metabolic panel shows no other abnormalities. Patient discharged. Likely lab error Did you discuss the management of the patient with other professionals (professionals i.e. , PA, CYTOLOGY SUPERVISOR, lab, RT, psych nurse, nephrology social worker, hand winder, teacher, amphibious operations officer, catalytic case operator)? Give summary @ -No Was critical care preformed (if so, how long)? @ -No Undiagnosed new problem with uncertain prognosis? @ -No Drug Therapy requiring intensive monitoring for toxicity (Heparin, Nitro, Insulin, Cardizem)? @ -No Were any procedures done? @ -No Diagnosis/symptom? Acute, or Chronic, or Acute on Chronic? Uncomplicated (without systemic symptoms) or Complicated (systemic symptoms)? @ -Abnormal outpatient lab Side effects of treatment? @ -No Exacerbation, Progression, or Severe Exacerbation? @ -No Poses a threat to life or bodily function? How? (Chest pain, [place], PR, pneumonia, PE, COPD, DKA, ARF, appy, cholecystitis, CVA, Diverticulitis, Homicidal, Suicidal, threat to staff... and all critical care pts) @ -No - Lab Data Result diagrams: 03/19/24 13:44 Lab Results 03/19/24 Range/Units 13:44 Sodium 136 L (137-145) mmol/L Potassium 4.8 (3.5-5.1) mmol/L Chloride 103 (98-107) mmol/L Carbon Dioxide 26 (22-30) mmol/L Anion Gap 7 mmol/L BUN 28 H (9-20) mg/dL Creatinine 1.38 H (0.66-1.25) mg/dL Est GFR (CKD-EPI)AfAm 54 (>60 ml/min/1.73 sqM) Est GFR (CKD-EPI)NonAf 47 (>60 ml/min/1.73 sqM) Glucose 147 H (74-99) mg/dL Calcium 9.7 (8.4-10.2) mg/dL Magnesium 1.9 (1.6-2.3) mg/dL Disposition Clinical Impression: Abnormal laboratory test Disposition: HOME SELF-CARE Condition: Good Is patient prescribed a controlled substance at d/c from ED?: No Referrals: Taylor Nava MD [Primary Care Provider] - 1-2 days Time of Disposition: 14:18
[2024-03-19] MEDS: SODIUM CHLORIDE 0.9% 1,000 ML IV STA (13:46)
[2024-03-19 14:07] LABS: African American GFR (CKD) 54 (>60 ml/min/1.73 sqM); Anion Gap 7 mmol/L; Blood Urea Nitrogen 28 mg/dL (9-20); Calcium 9.7 mg/dL (8.4-10.2); Carbon Dioxide 26 mmol/L (22-30); Chloride 103 mmol/L (98-107); Glucose 147 mg/dL (74-99); Magnesium 1.9 mg/dL (1.6-2.3); Non-African American GFR(CKD) 47 (>60 ml/min/1.73 sqM); Potassium 4.8 mmol/L (3.5-5.1); Sodium 136 mmol/L (137-145)
[2024-03-19 14:32] VITALS: BP 137/65; PULSE 74
== END 2024-03-19 14:32 | disposition home or self-care (01) ==
LOC: EC 13:10
DX: R79.9 Abnormal finding of blood chemistry, unspecified (principal); Z87.891 Personal history of nicotine dependence; Z86.73 Personal history of transient ischemic attack (TIA), and cerebral infarction without residual deficits
CPT/HCPCS: 36415; 80048; 83735; 93005; 99283

== ENCOUNTER → 2024-04-09 | Outpatient (CLI) | payer MEDICARE, BC | END | disposition home or self-care (01) | LOC: LABWHC1 09:48 | DX: C67.8 Malignant neoplasm of overlapping sites of bladder (principal); Z98.890 Other specified postprocedural states | CPT/HCPCS: 87086 ==

== ENCOUNTER → 2024-07-16 | Outpatient (CLI) | payer MEDICARE, BC ==
[2024-07-16 09:34] LABS: Prothrombin Time 82.5 sec (10.0-12.5)
[2024-07-16 09:42] LABS: INR 8.3 (<1.2)
== END | disposition home or self-care (01) ==
LOC: LABWHC1 08:49
PROVIDERS: ATTEND Nurse Practitioner Adult Health
DX: I48.11 Longstanding persistent atrial fibrillation (principal)
CPT/HCPCS: 36415; 85610

== ENCOUNTER 2024-08-03 09:13 | Inpatient (IN) | payer MEDICARE, BC ==
[2024-08-03 10:15] LABS: Basophils % (A) 0 %; Eosinophils % (A) 0 %; HCT 30.4 % (39.0-53.0); HGB 10.2 gm/dL (13.0-17.5); Hypochromasia Slight; Lymphocytes # (A) 0.7 k/uL (1.0-4.8); Lymphocytes % (A) 6 %; MCH 29.5 pg (25.0-35.0); MCHC 33.5 g/dL (31.0-37.0); Mean Platelet Volume 6.9; Monocytes # (A) 0.4 k/uL (0-1.0); Monocytes % (A) 3 %; Neutrophils # (A) 10.5 k/uL (1.3-7.7); Neutrophils % (A) 89 %; Platelet Count 310 k/uL (150-450); Poikilocytosis Slight; RBC 3.46 m/uL (4.30-5.90); RDW 15.5 % (11.5-15.5); WBC 11.8 k/uL (3.8-10.6)
[2024-08-03] MEDS: SODIUM CHLORIDE 0.9% 1,000 ML IV ONE (10:24)
--- NOTE | 2024-08-03 10:27 | XR ---
EXAMINATION TYPE: XR chest 2V DATE OF EXAM: 08/03/2024 10:21 AM COMPARISON: 05/17/2017 CLINICAL INDICATION: Male, 83 years old with history of Weakness, TECHNIQUE: XR chest 2V view(s) obtained. FINDINGS: The heart size is normal. The pulmonary vasculature is normal. Left lower lobe infiltrate is present. Some mild subsegmental infiltrate medially at the right base. Previous left pleural effusion is diminished. Previous right pleural effusion is largely resolved. IMPRESSION: 1. Improving bibasilar infiltrates greater on the left. 2. Improving pleural effusions. [facility], , 08/03/2024 10:25 AM
[2024-08-03 10:28] LABS: Partial Thromboplastin Time 52.8 sec (22.0-30.0); Prothrombin Time 69.9 sec (10.0-12.5)
[2024-08-03 10:38] LABS: INR 7.1 (<1.2)
--- NOTE | 2024-08-03 10:38 | ED ---
General Adult HPI - General Chief complaint: Weakness Stated complaint: Fall/on thinners Time Seen by Provider: 08/03/24 09:27 Source: patient, RN notes reviewed Mode of arrival: wheelchair Limitations: no limitations - History of Present Illness Initial comments: 83-year-old male presents to the emergency department for evaluation of fall with weakness. Patient reports that today he was sitting on the edge of his bed when he fell. He is unsure why he fell but reports that he has been feeling weak. He denies any head injury. 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 Patient's family reports that he has been more confused than usual. Denies recent fever, chills. Denies nausea, vomiting, abdominal pain. Denies dysuria, hematuria. - Related Data Home Medications Medication Instructions Recorded Confirmed metFORMIN HCL [Glucophage] 500 mg PO BID 03/29/17 08/03/24 Atorvastatin [Lipitor] 40 mg PO DAILY 05/17/17 08/03/24 Warfarin [Coumadin] 5 mg PO DIRECTED 05/17/17 08/03/24 Docusate [Colace] 100 mg PO DAILY 08/03/24 08/03/24 Furosemide [Lasix] 20 mg PO DAILY 08/03/24 08/03/24 Metoprolol Tartrate [Lopressor] 25 mg PO BID 08/03/24 08/03/24 Multivit-Min/FA/Lycopen/Lutein 1 tab PO DAILY 08/03/24 08/03/24 [Centrum Silver Tablet] lisinopriL [Zestril] 10 mg PO DAILY 08/03/24 08/03/24 Allergies Allergy/AdvReac Type Severity Reaction Status Date / Time No Known Allergies Allergy Verified 08/03/24 13:13 Review of Systems ROS Statement: Those systems with pertinent positive or pertinent negative responses have been documented in the HPI. ROS Other: All systems not noted in ROS Statement are negative. 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 bladder cancer History of Any Multi-Drug Resistant Organisms: None Reported Past Surgical History: Heart Catheterization Additional Past Surgical History / Comment(s): 1998 benign brain tumor removed. cardioversion Past Anesthesia/Blood Transfusion Reactions: No Reported Reaction Additional Past Anesthesia/Blood Transfusion Reaction / Comment(s): No hx blood transfusion Past Psychological History: No Psychological Hx Reported Smoking Status: Former smoker Past Alcohol Use History: Rare Past Drug Use History: None Reported - Past Family History Father Family Medical History: Myocardial Infarction (OK) Additional Family Medical History / Comment(s): Father of a OK at the age of 93yrs. Mother Family Medical History: Myocardial Infarction (OK) Additional Family Medical History / Comment(s): Mother of a OK at the age of 88yrs. General Exam Limitations: no limitations General appearance: alert, in no apparent distress Head exam: Present: atraumatic, normocephalic, normal inspection Eye exam: Present: normal appearance, PERRL, EOMI. Absent: scleral icterus, conjunctival injection, periorbital swelling ENT exam: Present: normal exam, mucous membranes moist Neck exam: Present: normal inspection. Absent: tenderness, meningismus, lymphadenopathy Respiratory exam: Present: normal lung sounds bilaterally. Absent: respiratory distress, wheezes, rales, rhonchi, stridor Cardiovascular Exam: Present: tachycardia, irregular rhythm, normal heart sounds. Absent: systolic murmur, diastolic murmur, rubs, gallop, clicks GI/Abdominal exam: Present: soft. Absent: distended, tenderness, guarding, rebound, rigid Extremities exam: Present: normal inspection, full ROM, normal capillary refill. Absent: tenderness, pedal edema, joint swelling, calf tenderness Neurological exam: Present: alert, oriented X3, CN II-XII intact Psychiatric exam: Present: normal affect, normal mood Skin exam: Present: warm, dry, intact, normal color. Absent: rash Course Vital Signs 08/03/24 08/03/24 08/03/24 09:15 11:49 14:56 Temperature 97.4 F L Pulse Rate 69 110 H 114 H Respiratory 20 18 18 Rate Blood Pressure 130/66 123/63 133/73 O2 Sat by Pulse 95 96 94 L Oximetry Medical Decision Making - Medical Decision Making Was pt. sent in by a medical professional or institution (JOHN Dinh, SPRAY PAINTER, urgent care, hospital, or retirement...) When possible be specific @ -No Did you speak to anyone other than the patient for history (EMS, parent, family, police, friend...)? What history was obtained from this source @ -Patient's family provides a history of this patient Did you review nursing and triage notes (agree or disagree)? Why? @ -I reviewed and agree with nursing and triage notes Were old charts reviewed (outside hosp., previous admission, EMS record, old EKG, old radiological studies, urgent care reports/EKG's, retirement records)? Report findings @ -No old charts were reviewed Differential Diagnosis (chest pain, altered mental status, abdominal pain women, abdominal pain men, vaginal bleeding, weakness, fever, dyspnea, syncope, headache, dizziness, GI bleed, back pain, seizure, CVA, palpatations, mental health, musculoskeletal)? @ -Differential Weakness: Hypoglycemia, shock, sepsis, hyponatremia, anemia, infection, [place], ETOH, adverse medicine reaction, overdose, stroke, this is not meant to be an all-inclusive list. EKG interpreted by me (3pts min.). @ -EKG at 934 shows A-fib with RVR rate 133, QRS 117, QTQTc [id number] X-rays interpreted by me (1pt min.). @ -Chest x-ray reveals bibasilar infiltrates and pleural effusion CT interpreted by me (1pt min.). @ -None done U/S interpreted by me (1pt. min.). @ -None done What testing was considered but not performed or refused? (CT, X-rays, U/S, labs)? Why? @ -None What meds were considered but not given or refused? Why? @ -None Did you discuss the management of the patient with other professionals (professionals i.e. JOHN Dinh, SPRAY PAINTER, lab, RT, psych nurse, social services counselor, forming machine tender, teacher, intelligence support officer, transplant case manager)? Give summary @ -Case discussed with Dr. Nava who is accepting of the admission Was smoking cessation discussed for >3mins.? @ -No Was critical care preformed (if so, how long)? @ -No Were there social determinants of health that impacted care today? How? (Homelessness, low income, unemployed, alcoholism, drug addiction, transportation, low edu. Level, literacy, decrease access to med. care, care home, rehab)? @ -No Was there de-escalation of care discussed even if they declined (Discuss DNR or withdrawal of care, Hospice)? DNR status @ -No What co-morbidities impacted this encounter? (DM, HTN, Smoking, COPD, CAD, Cancer, CVA, ARF, Chemo, Hep., AIDS, mental health diagnosis, sleep apnea, mo rbid obesity)? @ -None Was patient admitted / discharged? Hospital course, mention meds given and r oute, prescriptions, significant lab abnormalities, going to OR and other pertinent info. @ -Admitted. Patient presented to the emergency department for evaluation of fall, generalized weakness. Denies head injury. He is typically on warfarin but he has been off it since Saturday due to elevated INR.Laboratory studies obtained significant for leukocytosis of 11.8, hemoglobin 10.2; INR 7.1. CMP shows elevated LFTs, very mild lactic acidosis at 2.2. Patient was provided IV fluids with improvement in lactic acid. UA shows trace protein, trace leukocyte esterase. Chest x-ray shows bibasilar infiltrates and pleural effusions which were visible on prior chest x-ray. Patient will be treated for pneumonia and started on maintenance fluids. Patient also in A-fib with RVR and was started on Cardizem drip. Cardiology will be consulted. The case was discussed with Dr. Nava who is accepting of the admission Undiagnosed new problem with uncertain prognosis? @ -No Drug Therapy requiring intensive monitoring for toxicity (Heparin, Nitro, Insulin, Cardizem)? @ -No Were any procedures done? @ -No Diagnosis/symptom? @ -Pneumonia Acute, or Chronic, or Acute on Chronic? @ -Acute Uncomplicated (without systemic symptoms) or Complicated (systemic symptoms)? @ -Uncomplicated Side effects of treatment? @ -No Exacerbation, Progression, or Severe Exacerbation? @ -No Poses a threat to life or bodily function? How? (Chest pain, [place], [place], pneumonia, PE, COPD, DKA, ARF, appy, cholecystitis, CVA, Diverticulitis, Homicidal, Suicidal, threat to staff... and all critical care pts) @ -No - Lab Data Result diagrams: 08/03/24 10:03 08/03/24 10:03 Lab Results 08/03/24 08/03/24 08/03/24 Range/Units 10:03 10:03 10:03 WBC 11.8 H (3.8-10.6) k/uL RBC 3.46 L (4.30-5.90) m/uL Hgb 10.2 L (13.0-17.5) gm/dL Hct 30.4 L (39.0-53.0) % MCV 88.0 (80.0-100.0) fL MCH 29.5 (25.0-35.0) pg MCHC 33.5 (31.0-37.0) g/dL RDW 15.5 (11.5-15.5) % Plt Count 310 (150-450) k/uL MPV 6.9 Neutrophils % 89 % Lymphocytes % 6 % Monocytes % 3 % Eosinophils % 0 % Basophils % 0 % Neutrophils # 10.5 H (1.3-7.7) k/uL Lymphocytes # 0.7 L (1.0-4.8) k/uL Monocytes # 0.4 (0-1.0) k/uL Eosinophils # 0.0 (0-0.7) k/uL Basophils # 0.0 (0-0.2) k/uL Hypochromasia Slight Poikilocytosis Slight PT 69.9 H (10.0-12.5) sec INR 7.1 H* (<1.2) APTT 52.8 H (22.0-30.0) sec Sodium 134 L (137-145) mmol/L Potassium 5.4 H (3.5-5.1) mmol/L Chloride 100 (98-107) mmol/L Carbon Dioxide 25 (22-30) mmol/L Anion Gap 9 mmol/L BUN 44 H (9-20) mg/dL Creatinine 1.11 (0.66-1.25) mg/dL Est GFR (CKD-EPI)AfAm 71 (>60 ml/min/1.73 sqM) Est GFR (CKD-EPI)NonAf 61 (>60 ml/min/1.73 sqM) Glucose 134 H (74-99) mg/dL Lactic Ac Sepsis Rflx Plasma Lactic Acid Efrem (0.7-2.0) mmol/L Calcium 10.5 H (8.4-10.2) mg/dL Magnesium 1.6 (1.6-2.3) mg/dL Total Bilirubin 0.8 (0.2-1.3) mg/dL AST 158 H (17-59) U/L ALT 156 H (4-49) U/L Alkaline Phosphatase 168 H (38-126) U/L Total Protein 6.6 (6.3-8.2) g/dL Albumin 3.4 L (3.5-5.0) g/dL TSH 1.140 (0.465-4.680) mIU/L Urine Color Urine Appearance (Clear) Urine pH (5.0-8.0) Ur Specific [place] (1.001-1.035) Urine Protein (Negative) Urine Glucose (UA) (Negative) Urine Ketones (Negative) Urine Blood (Negative) Urine Nitrite (Negative) Urine Bilirubin (Negative) Urine Urobilinogen (<2.0) mg/dL Ur Leukocyte Esterase (Negative) Urine RBC (0-5) /hpf Urine WBC (0-5) /hpf Ur Squamous Epith Cells (0-4) /hpf Urine Bacteria (None) /hpf Hyaline Casts (0-2) /lpf Urine Mucus (None) /hpf 08/03/24 08/03/24 08/03/24 Range/Units 10:03 11:05 14:49 WBC (3.8-10.6) k/uL RBC (4.30-5.90) m/uL Hgb (13.0-17.5) gm/dL Hct (39.0-53.0) % MCV (80.0-100.0) fL MCH (25.0-35.0) pg MCHC (31.0-37.0) g/dL RDW (11.5-15.5) % Plt Count (150-450) k/uL MPV Neutrophils % % Lymphocytes % % Monocytes % % Eosinophils % % Basophils % % Neutrophils # (1.3-7.7) k/uL Lymphocytes # (1.0-4.8) k/uL Monocytes # (0-1.0) k/uL Eosinophils # (0-0.7) k/uL Basophils # (0-0.2) k/uL Hypochromasia Poikilocytosis PT (10.0-12.5) sec INR (<1.2) APTT (22.0-30.0) sec Sodium (137-145) mmol/L Potassium (3.5-5.1) mmol/L Chloride (98-107) mmol/L Carbon Dioxide (22-30) mmol/L Anion Gap mmol/L BUN (9-20) mg/dL Creatinine (0.66-1.25) mg/dL Est GFR (CKD-EPI)AfAm (>60 ml/min/1.73 sqM) Est GFR (CKD-EPI)NonAf (>60 ml/min/1.73 sqM) Glucose (74-99) mg/dL Lactic Ac Sepsis Rflx Y Plasma Lactic Acid Efrem 2.2 H* 0.9 (0.7-2.0) mmol/L Calcium (8.4-10.2) mg/dL Magnesium (1.6-2.3) mg/dL Total Bilirubin (0.2-1.3) mg/dL AST (17-59) U/L ALT (4-49) U/L Alkaline Phosphatase (38-126) U/L Total Protein (6.3-8.2) g/dL Albumin (3.5-5.0) g/dL TSH (0.465-4.680) mIU/L Urine Color Urine Appearance (Clear) Urine pH (5.0-8.0) Ur Specific [place] (1.001-1.035) Urine Protein (Negative) Urine Glucose (UA) (Negative) Urine Ketones (Negative) Urine Blood (Negative) Urine Nitrite (Negative) Urine Bilirubin (Negative) Urine Urobilinogen (<2.0) mg/dL Ur Leukocyte Esterase (Negative) Urine RBC (0-5) /hpf Urine WBC (0-5) /hpf Ur Squamous Epith Cells (0-4) /hpf Urine Bacteria (None) /hpf Hyaline Casts (0-2) /lpf Urine Mucus (None) /hpf 08/03/24 Range/Units 14:56 WBC (3.8-10.6) k/uL RBC (4.30-5.90) m/uL Hgb (13.0-17.5) gm/dL Hct (39.0-53.0) % MCV (80.0-100.0) fL MCH (25.0-35.0) pg MCHC (31.0-37.0) g/dL RDW (11.5-15.5) % Plt Count (150-450) k/uL MPV Neutrophils % % Lymphocytes % % Monocytes % % Eosinophils % % Basophils % % Neutrophils # (1.3-7.7) k/uL Lymphocytes # (1.0-4.8) k/uL Monocytes # (0-1.0) k/uL Eosinophils # (0-0.7) k/uL Basophils # (0-0.2) k/uL Hypochromasia Poikilocytosis PT (10.0-12.5) sec INR (<1.2) APTT (22.0-30.0) sec Sodium (137-145) mmol/L Potassium (3.5-5.1) mmol/L Chloride (98-107) mmol/L Carbon Dioxide (22-30) mmol/L Anion Gap mmol/L BUN (9-20) mg/dL Creatinine (0.66-1.25) mg/dL Est GFR (CKD-EPI)AfAm (>60 ml/min/1.73 sqM) Est GFR (CKD-EPI)NonAf (>60 ml/min/1.73 sqM) Glucose (74-99) mg/dL Lactic Ac Sepsis Rflx Plasma Lactic Acid Efrem (0.7-2.0) mmol/L Calcium (8.4-10.2) mg/dL Magnesium (1.6-2.3) mg/dL Total Bilirubin (0.2-1.3) mg/dL AST (17-59) U/L ALT (4-49) U/L Alkaline Phosphatase (38-126) U/L Total Protein (6.3-8.2) g/dL Albumin (3.5-5.0) g/dL TSH (0.465-4.680) mIU/L Urine Color Yellow Urine Appearance Clear (Clear) Urine pH 5.5 (5.0-8.0) Ur Specific [place] 1.021 (1.001-1.035) Urine Protein Trace H (Negative) Urine Glucose (UA) Negative (Negative) Urine Ketones Negative (Negative) Urine Blood Negative (Negative) Urine Nitrite Negative (Negative) Urine Bilirubin Negative (Negative) Urine Urobilinogen <2.0 (<2.0) mg/dL Ur Leukocyte Esterase Trace H (Negative) Urine RBC 1 (0-5) /hpf Urine WBC 6 H (0-5) /hpf Ur Squamous Epith Cells <1 (0-4) /hpf Urine Bacteria Rare H (None) /hpf Hyaline Casts 6 H (0-2) /lpf Urine Mucus Rare H (None) /hpf Disposition Clinical Impression: Pneumonia, Weakness Disposition: ADMITTED IP TO THIS HOSP Condition: Stable Is patient prescribed a controlled substance at d/c from ED?: No Referrals: Taylor Nava MD [Primary Care Provider] - 1-2 days
--- NOTE | 2024-08-03 10:39 | CT ---
EXAMINATION TYPE: CT brain wo con DATE OF EXAM: 08/03/2024 COMPARISON: 12/13/2010 CLINICAL INDICATION: Male, 83 years old with history of confusion; PHH, Multiple falls CT DLP: 1068.4 mGycm Automated exposure control for dose reduction was used. FINDINGS: Remote ischemic change involving the left frontal lobe and right cerebellum noted. No midline shift. There is a punctate calcification in the left parietal lobe. There is a CSF collection suspicious for chronic subdural hematoma measuring maximal thickness of 1.5 cm. This does result in mass effect and is similar in size to prior exam. Postsurgical change involving the calvarium. IMPRESSION: 1. CHRONIC RIGHT SUBDURAL HEMATOMA WITH MILD MASS EFFECT UPON THE ADJACENT CORTEX MEASURING A MAXIMAL THICKNESS OF 1.5 CM. NO DEFINITE ACUTE HEMORRHAGE. 2. REMOTE ISCHEMIC CHANGE INVOLVING THE RIGHT CEREBELLUM AND LEFT FRONTAL LOBE SIMILAR TO PRIOR MRI. [facility], , 08/03/2024 10:36 AM
[2024-08-03 10:45] LABS: ALT 156 U/L (4-49); African American GFR (CKD) 71 (>60 ml/min/1.73 sqM); Albumin 3.4 g/dL (3.5-5.0); Anion Gap 9 mmol/L; Blood Urea Nitrogen 44 mg/dL (9-20); Calcium 10.5 mg/dL (8.4-10.2); Carbon Dioxide 25 mmol/L (22-30); Chloride 100 mmol/L (98-107); Glucose 134 mg/dL (74-99); Non-African American GFR(CKD) 61 (>60 ml/min/1.73 sqM); Sodium 134 mmol/L (137-145); Total Bilirubin 0.8 mg/dL (0.2-1.3); Total Protein 6.6 g/dL (6.3-8.2)
[2024-08-03 11:02] LABS: Magnesium 1.6 mg/dL (1.6-2.3); Potassium 5.4 mmol/L (3.5-5.1)
[2024-08-03 11:03] LABS: AST 158 U/L (17-59); Alkaline Phosphatase 168 U/L (38-126)
[2024-08-03 15:08] LABS: Appearance,Urine Clear (Clear); Bacteria,Urine Rare /hpf; Bilirubin,Urine Negative (Negative); Blood,Urine Negative (Negative); Color,Urine Yellow; Glucose,Urine (UA) Negative (Negative); Hyaline Casts,Urine 6 /lpf (0-2); Ketones,Urine Negative (Negative); Leukocyte Esterase,Urine Trace (Negative); Mucus,Urine Rare /hpf; Nitrite,Urine Negative (Negative); PH, Urine 5.5 (5.0-8.0); Protein,Urine Trace (Negative); RBC,Urine 1 /hpf (0-5); Specific Gravity,Urine 1.021 (1.001-1.035); Squamous Epithelial Cell,Urine <1 /hpf (0-4); Urobilinogen,Urine <2.0 mg/dL (<2.0); WBC,Urine 6 /hpf (0-5)
[2024-08-03] MEDS: SODIUM CHLORIDE 0.9% 1,000 ML IV SCH (15:34)
[2024-08-03] MEDS ORDERED: NALOXONE 0.4 MG/ML 1 ML VIAL IV PRN (15:59)
[2024-08-03] MEDS: DILTIAZEM 125 MG in SODIUM CHLORIDE 0.9% 100 ML IV SCH (16:26)
[2024-08-03] MEDS: DILTIAZEM DRIP BOLUS FROM BAG 1 MG SOLN IV ONE (16:26)
[2024-08-03] MEDS: AZITHROMYCIN 500 MG in SODIUM CHLORIDE 0.9% 250 ML IVPB STA (16:27)
[2024-08-04 06:46] LABS: Basophils % (A) 0 %; Eosinophils % (A) 0 %; HCT 28.4 % (39.0-53.0); Hypochromasia Moderate; Lymphocytes # (A) 0.4 k/uL (1.0-4.8); Lymphocytes % (A) 4 %; MCH 28.4 pg (25.0-35.0); MCHC 31.8 g/dL (31.0-37.0); MCV 89.2 fL (80.0-100.0); Mean Platelet Volume 6.6; Monocytes # (A) 0.4 k/uL (0-1.0); Monocytes % (A) 4 %; Neutrophils % (A) 90 %; Platelet Count 269 k/uL (150-450); RBC 3.18 m/uL (4.30-5.90); RDW 15.4 % (11.5-15.5); WBC 8.9 k/uL (3.8-10.6)
[2024-08-04 07:33] LABS: African American GFR (CKD) 89 (>60 ml/min/1.73 sqM); Anion Gap 7 mmol/L; Blood Urea Nitrogen 30 mg/dL (9-20); Carbon Dioxide 25 mmol/L (22-30); Chloride 105 mmol/L (98-107); Glucose 125 mg/dL (74-99); Non-African American GFR(CKD) 77 (>60 ml/min/1.73 sqM); Potassium 3.7 mmol/L (3.5-5.1); Sodium 137 mmol/L (137-145)
[2024-08-04] MEDS: METOPROLOL TARTRATE 50 MG TAB PO SCH (08:39)
[2024-08-04 08:50] LABS: HGB 8.8 gm/dL (13.0-17.5); RBC 3.11 m/uL (4.30-5.90); WBC 8.6 k/uL (3.8-10.6)
[2024-08-04 08:51] LABS: Basophils % (A) 0 %; Eosinophils % (A) 0 %; HCT 27.7 % (39.0-53.0); Hypochromasia Slight; Lymphocytes # (A) 0.5 k/uL (1.0-4.8); Lymphocytes % (A) 6 %; MCH 28.2 pg (25.0-35.0); MCHC 31.8 g/dL (31.0-37.0); MCV 88.8 fL (80.0-100.0); Monocytes # (A) 0.3 k/uL (0-1.0); Monocytes % (A) 4 %; Neutrophils # (A) 7.7 k/uL (1.3-7.7); Neutrophils % (A) 89 %; Platelet Count 268 k/uL (150-450); RDW 15.4 % (11.5-15.5)
[2024-08-04] MEDS ORDERED: DEXTROSE 50% SYRINGE 50 ML IVP PRN ×2 (09:31)
[2024-08-04] MEDS: FUROSEMIDE 20 MG TAB PO SCH (09:34)
[2024-08-04] MEDS: DOCUSATE 100 MG CAP PO SCH (09:34)
[2024-08-04] MEDS: MULTIVITAMINS, THERA 1 EACH TAB PO SCH (09:35)
[2024-08-04] MEDS: lisinopriL 10 MG TAB PO SCH (09:35)
--- NOTE | 2024-08-04 09:38 | P.HPIM ---
History of Present Illness H&P Date: 08/03/24 Beto David is an 83-year-old male patient who presented to the hospital with concerns of falls weakness and increased confusion. According to family member at bedside patient had 2 episodes of falls yesterday patient unable to recall event. Patient usually is independent ANO x 3 patient does have a history of atrial fibrillation maintained on Coumadin which has been on hold since last week due to elevated INR. Additional medical history includes CVA, diabetes mellitus, DVT, GERD, hyperlipidemia, hypertension and pneumonia. Chest x-ray completed showing improving basilar infiltrates greater on left improving pleural effusions head CT completed showing chronic right subdural hematoma with mild mass effect upon the adjacent cortex measuring a maximal thickness of 1.5 cm no definitive acute hemorrhage remote ischemic change involving the right cerebellum and left frontal lobe similar to prior MRI. Lab work revealing white blood cell 11.8, hemoglobin 10.2 INR significantly elevated at 7.1, sodium 134 potassium 5.4 bun 44, creatinine 1.1 lactic acid 2.2 and elevated liver enzymes AST 158, ALT 156 and alkaline phosphatase 168. At this time patient has been admitted cardiology, infectious disease and neurology services all consulted. At this time patient will be started back on IV antibiotics. Will order liver ultrasound. 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 bladder cancer History of Any Multi-Drug Resistant Organisms: None Reported Past Surgical History: Heart Catheterization Additional Past Surgical History / Comment(s): 1998 benign brain tumor removed. cardioversion Past Anesthesia/Blood Transfusion Reactions: No Reported Reaction Additional Past Anesthesia/Blood Transfusion Reaction / Comment(s): No hx blood transfusion Past Psychological History: No Psychological Hx Reported Smoking Status: Former smoker Past Alcohol Use History: Rare Past Drug Use History: None Reported - Past Family History Father Family Medical History: Myocardial Infarction (VT) Additional Family Medical History / Comment(s): Father of a VT at the age of 93yrs. Mother Family Medical History: Myocardial Infarction (VT) Additional Family Medical History / Comment(s): Mother of a VT at the age of 88yrs. Medications and Allergies Home Medications Medication Instructions Recorded Confirmed Type metFORMIN HCL [Glucophage] 500 mg PO BID 03/29/17 08/03/24 History Atorvastatin [Lipitor] 40 mg PO DAILY 05/17/17 08/03/24 History Warfarin [Coumadin] 5 mg PO DIRECTED 05/17/17 08/03/24 History Docusate [Colace] 100 mg PO DAILY 08/03/24 08/03/24 History Furosemide [Lasix] 20 mg PO DAILY 08/03/24 08/03/24 History Metoprolol Tartrate [Lopressor] 25 mg PO BID 08/03/24 08/03/24 History Multivit-Min/FA/Lycopen/Lutein 1 tab PO DAILY 08/03/24 08/03/24 History [Centrum Silver Tablet] lisinopriL [Zestril] 10 mg PO DAILY 08/03/24 08/03/24 History Allergies Allergy/AdvReac Type Severity Reaction Status Date / Time No Known Allergies Allergy Verified 08/03/24 13:13 Physical Exam Vitals: Vital Signs Temp Pulse Resp BP Pulse Ox 08/03/24 14:56 114 H 18 133/73 94 L 08/03/24 11:49 110 H 18 123/63 96 08/03/24 09:15 97.4 F L 69 20 130/66 95 Intake and Output 08/03/24 08/03/24 08/03/24 06:59 14:59 22:59 Other: Weight 90.718 kg Head normocephalic Neck supple Lungs clear to auscultation bilaterally no wheezing or crackles Heart regular rate and rhythm S1-S2, no rub or gallop Abdomen is soft nontender nondistended positive bowel sounds no hepatosplenomegaly Extremities no edema Neuro alert and orientated to 1. Intermittent confusion Results CBC & Chem 7: 08/04/24 08:14 08/04/24 05:52 Labs: Abnormal Lab Results - Last 24 Hours (Table) 08/03/24 08/03/24 08/03/24 Range/Units 10:03 10:03 10:03 WBC 11.8 H (3.8-10.6) k/uL RBC 3.46 L (4.30-5.90) m/uL Hgb 10.2 L (13.0-17.5) gm/dL Hct 30.4 L (39.0-53.0) % Neutrophils # 10.5 H (1.3-7.7) k/uL Lymphocytes # 0.7 L (1.0-4.8) k/uL PT 69.9 H (10.0-12.5) sec INR 7.1 H* (<1.2) APTT 52.8 H (22.0-30.0) sec Sodium 134 L (137-145) mmol/L Potassium 5.4 H (3.5-5.1) mmol/L BUN 44 H (9-20) mg/dL Glucose 134 H (74-99) mg/dL Plasma Lactic Acid Efrem (0.7-2.0) mmol/L Calcium 10.5 H (8.4-10.2) mg/dL AST 158 H (17-59) U/L ALT 156 H (4-49) U/L Alkaline Phosphatase 168 H (38-126) U/L Albumin 3.4 L (3.5-5.0) g/dL Urine Protein (Negative) Ur Leukocyte Esterase (Negative) Urine WBC (0-5) /hpf Urine Bacteria (None) /hpf Hyaline Casts (0-2) /lpf Urine Mucus (None) /hpf 08/03/24 08/03/24 Range/Units 10:03 14:56 WBC (3.8-10.6) k/uL RBC (4.30-5.90) m/uL Hgb (13.0-17.5) gm/dL Hct (39.0-53.0) % Neutrophils # (1.3-7.7) k/uL Lymphocytes # (1.0-4.8) k/uL PT (10.0-12.5) sec INR (<1.2) APTT (22.0-30.0) sec Sodium (137-145) mmol/L Potassium (3.5-5.1) mmol/L BUN (9-20) mg/dL Glucose (74-99) mg/dL Plasma Lactic Acid Efrem 2.2 H* (0.7-2.0) mmol/L Calcium (8.4-10.2) mg/dL AST (17-59) U/L ALT (4-49) U/L Alkaline Phosphatase (38-126) U/L Albumin (3.5-5.0) g/dL Urine Protein Trace H (Negative) Ur Leukocyte Esterase Trace H (Negative) Urine WBC 6 H (0-5) /hpf Urine Bacteria Rare H (None) /hpf Hyaline Casts 6 H (0-2) /lpf Urine Mucus Rare H (None) /hpf Assessment and Plan Assessment: 1. Generalized weakness with falls 2. Intermittent confusion 3. Supratherapeutic INR 4. A-fib with RVR. Patient was started on Cardizem drip 5. Possible pneumonia 6. Abnormal head CT 7. History of systolic congestive heart failure 8. History of aortic valve replacement 9. History of diabetes mellitus type 2 sliding scale coverage added 10. History of CVA 11. History of chronic atrial fibrillation 12. History of COPD 13. History of hyperlipidemia 14. History of benign brain tumor resected in 1989 15. History of cardiomyopathy 16. History of bladder cancer 17. Elevated liver enzymes DVT prophylaxis SCDs secondary to supratherapeutic INR. GI prophylaxis Protonix Neurology, cardiology and infectious disease services consulted Repeat labs ordered Liver ultrasound ordered Patient started on IV antibiotics Urine and blood cultures ordered Time with Patient: Greater than 30 (Greater than 60% of the total time spent in counseling and coordination of care)
[2024-08-04 09:39] LABS: ALT 109 U/L (4-49); AST 84 U/L (17-59); African American GFR (CKD) 90 (>60 ml/min/1.73 sqM); Albumin 2.6 g/dL (3.5-5.0); Alkaline Phosphatase 148 U/L (38-126); Anion Gap 8 mmol/L; Blood Urea Nitrogen 29 mg/dL (9-20); Calcium 9.9 mg/dL (8.4-10.2); Carbon Dioxide 23 mmol/L (22-30); Chloride 106 mmol/L (98-107); Glucose 119 mg/dL (74-99); Non-African American GFR(CKD) 78 (>60 ml/min/1.73 sqM); Potassium 3.8 mmol/L (3.5-5.1); Sodium 137 mmol/L (137-145); Total Bilirubin 0.6 mg/dL (0.2-1.3); Total Protein 5.3 g/dL (6.3-8.2)
--- NOTE | 2024-08-04 09:39 | P.PN ---
Subjective Progress Note Date: 08/04/24 Beto David is an 83-year-old male patient who presented to the hospital with concerns of falls weakness and increased confusion. According to family member at bedside patient had 2 episodes of falls yesterday patient unable to recall event. Patient usually is independent ANO x 3 patient does have a history of atrial fibrillation maintained on Coumadin which has been on hold since last week due to elevated INR. Additional medical history includes CVA, diabetes mellitus, DVT, GERD, hyperlipidemia, hypertension and pneumonia. Chest x-ray completed showing improving basilar infiltrates greater on left improving pleural effusions head CT completed showing chronic right subdural hematoma with mild mass effect upon the adjacent cortex measuring a maximal thickness of 1.5 cm no definitive acute hemorrhage remote ischemic change involving the right cerebellum and left frontal lobe similar to prior MRI. Lab work revealing white blood cell 11.8, hemoglobin 10.2 INR significantly elevated at 7.1, sodium 134 potassium 5.4 bun 44, creatinine 1.1 lactic acid 2.2 and elevated liver enzymes AST 158, ALT 156 and alkaline phosphatase 168. At this time patient has been admitted cardiology, infectious disease and neurology services all consulted. At this time patient will be started back on IV antibiotics. Will order liver ultrasound. Repeat labs ordered On 08/04/2024 patient is alert but confused. Family at bedside. Patient has been transitioned oral home medication Cardizem DC'd per cardiology. Repeat labs pending. Patient denies chest pain or shortness of breath. Patient denies nausea vomiting or diarrhea. Patient denies any urinary burning frequency. Current vital signs temp 98.0, heart rate 99, respiratory rate 16, blood pressure 122/65 with a pulse ox of 99% on room air Objective - Vital Signs Vital signs: Vital Signs Temp 98.0 F 08/04/24 07:32 Pulse 75 08/04/24 09:30 Resp 16 08/04/24 09:30 BP 137/59 08/04/24 09:30 Pulse Ox 99 08/04/24 09:30 FiO2 Intake & Output 08/03/24 08/04/24 08/04/24 18:59 06:59 18:59 Weight 90.718 kg - Exam Head normocephalic Neck supple Lungs clear to auscultation bilaterally no wheezing or crackles Heart regular rate and rhythm S1-S2, no rub or gallop Abdomen is soft nontender nondistended positive bowel sounds no hepatosplenomegaly Extremities no edema Neuro alert and orientated to 1. Intermittent confusion - Labs CBC & Chem 7: 08/04/24 08:14 08/04/24 05:52 Labs: Abnormal Lab Results - Last 24 Hours (Table) 08/03/24 08/03/24 08/03/24 Range/Units 10:03 10:03 10:03 WBC 11.8 H (3.8-10.6) k/uL RBC 3.46 L (4.30-5.90) m/uL Hgb 10.2 L (13.0-17.5) gm/dL Hct 30.4 L (39.0-53.0) % Neutrophils # 10.5 H (1.3-7.7) k/uL Lymphocytes # 0.7 L (1.0-4.8) k/uL PT 69.9 H (10.0-12.5) sec INR 7.1 H* (<1.2) APTT 52.8 H (22.0-30.0) sec Sodium 134 L (137-145) mmol/L Potassium 5.4 H (3.5-5.1) mmol/L BUN 44 H (9-20) mg/dL Glucose 134 H (74-99) mg/dL Plasma Lactic Acid Efrem (0.7-2.0) mmol/L Calcium 10.5 H (8.4-10.2) mg/dL AST 158 H (17-59) U/L ALT 156 H (4-49) U/L Alkaline Phosphatase 168 H (38-126) U/L Albumin 3.4 L (3.5-5.0) g/dL Urine Protein (Negative) Ur Leukocyte Esterase (Negative) Urine WBC (0-5) /hpf Urine Bacteria (None) /hpf Hyaline Casts (0-2) /lpf Urine Mucus (None) /hpf 08/03/24 08/03/24 08/04/24 Range/Units 10:03 14:56 05:52 WBC (3.8-10.6) k/uL RBC 3.18 L (4.30-5.90) m/uL Hgb 9.0 L (13.0-17.5) gm/dL Hct 28.4 L (39.0-53.0) % Neutrophils # 8.0 H (1.3-7.7) k/uL Lymphocytes # 0.4 L (1.0-4.8) k/uL PT (10.0-12.5) sec INR (<1.2) APTT (22.0-30.0) sec Sodium (137-145) mmol/L Potassium (3.5-5.1) mmol/L BUN (9-20) mg/dL Glucose (74-99) mg/dL Plasma Lactic Acid Efrem 2.2 H* (0.7-2.0) mmol/L Calcium (8.4-10.2) mg/dL AST (17-59) U/L ALT (4-49) U/L Alkaline Phosphatase (38-126) U/L Albumin (3.5-5.0) g/dL Urine Protein Trace H (Negative) Ur Leukocyte Esterase Trace H (Negative) Urine WBC 6 H (0-5) /hpf Urine Bacteria Rare H (None) /hpf Hyaline Casts 6 H (0-2) /lpf Urine Mucus Rare H (None) /hpf 08/04/24 08/04/24 Range/Units 05:52 08:14 WBC (3.8-10.6) k/uL RBC 3.11 L (4.30-5.90) m/uL Hgb 8.8 L (13.0-17.5) gm/dL Hct 27.7 L (39.0-53.0) % Neutrophils # (1.3-7.7) k/uL Lymphocytes # 0.5 L (1.0-4.8) k/uL PT (10.0-12.5) sec INR (<1.2) APTT (22.0-30.0) sec Sodium (137-145) mmol/L Potassium (3.5-5.1) mmol/L BUN 30 H (9-20) mg/dL Glucose 125 H (74-99) mg/dL Plasma Lactic Acid Efrem (0.7-2.0) mmol/L Calcium (8.4-10.2) mg/dL AST (17-59) U/L ALT (4-49) U/L Alkaline Phosphatase (38-126) U/L Albumin (3.5-5.0) g/dL Urine Protein (Negative) Ur Leukocyte Esterase (Negative) Urine WBC (0-5) /hpf Urine Bacteria (None) /hpf Hyaline Casts (0-2) /lpf Urine Mucus (None) /hpf Assessment and Plan Assessment: 1. Generalized weakness with falls 2. Intermittent confusion 3. Supratherapeutic INR 4. A-fib with RVR. Patient was started on Cardizem drip 5. Possible pneumonia 6. Abnormal head CT 7. History of systolic congestive heart failure 8. History of aortic valve replacement 9. History of diabetes mellitus type 2 sliding scale coverage added 10. History of CVA 11. History of chronic atrial fibrillation 12. History of COPD 13. History of hyperlipidemia 14. History of benign brain tumor resected in 1989 15. History of cardiomyopathy 16. History of bladder cancer 17. Elevated liver enzymes DVT prophylaxis SCDs secondary to supratherapeutic INR. GI prophylaxis Protonix Neurology, cardiology and infectious disease services consulted Repeat labs ordered Liver ultrasound ordered Patient started on IV antibiotics Urine and blood cultures ordered
[2024-08-04 09:47] LABS: Prothrombin Time 51.7 sec (10.0-12.5)
[2024-08-04 09:53] LABS: INR 5.3 (<1.2)
--- NOTE | 2024-08-04 10:41 | P.CRDCN ---
History of Present Illness History of present illness: HISTORY OF PRESENT ILLNESS: This is a 83-year-old male with a past medical history significant for atrial fibrillation, aortic valve replacement, cardiomyopathy, bladder cancer with hematuria, hypertension, hyperlipidemia, and diabetes. Patient follows in the office with Dr. Sewell. We have been asked to see the patient in consultation for A-fib with RVR. Patient examined at the bedside in the emergency room. The patient is confused at the time of examination. There is no family present. The patient does have a health and safety trainer at the bedside. The patient presented to the hospital after sustaining a fall at home. The patient denies losing consciousness. The patient's INR was found to be elevated on admission at 7.1. Repeat this morning is 5.3. His Coumadin has been discontinued. Patient was also found to be in A-fib with RVR upon admission. He was started on IV Cardiz em at 5 mg an hour. He remains in atrial fibrillation with controlled ventricular rate at the time of examination. DIAGNOSTICS: - EKG reveals A-fib with RVR. - Chest xray improving bibasilar infiltrates greater on the left. Improving pleural effusions. - CT of the brain: Chronic right subdural hematoma with mild mass effect upon the adjacent cortex measuring maximum thickness of 1.5 cm. No definite acute hemorrhage. Remote ischemic change involving right cerebellum and left frontal lobe similar to prior MRI. - Laboratory data: WBC 8.6. Hemoglobin 8.8. Platelet count 268. Sodium 134. Potassium 3.8. BUN 29. Creatinine 0.91. AST 84. ALT 109. TSH 1.140. - Current home cardiac medications include Coumadin 5 mg daily, atorvastatin 40 mg daily, metoprolol tartrate 25 mg twice a day, lisinopril 10 mg daily, Lasix 20 mg daily - Most recent echocardiogram obtained in September 2023 revealed ejection fraction 47%, prosthetic aortic valve, moderate MR, mild to moderate TR - Patient underwent tissue aortic valve replacement and clipping in March 2017 - Cardiac catheterization history: January 2017 revealing 40% mid RCA right dominant system. REVIEW OF SYSTEMS: At the time of my exam: Unable to obtain thorough review of systems secondary to altered mental status PHYSICAL EXAM: VITAL SIGNS: Reviewed. GENERAL: Well-developed in no acute distress. HEENT: Head is normocephalic. Pupils are equal, round. Sclerae anicteric. Mucous membranes of the mouth are moist. Neck supple. No JVD or thyromegaly LUNGS: Respirations even and unlabored. Lungs essentially clear to auscultation bilaterally. HEART: Irregular rate and rhythm. S1 and S2 heard. Systolic murmur noted ABDOMEN: Soft. Nondistended. Nontender. EXTREMITIES: Normal range of motion. No clubbing or cyanosis. Peripheral pulses intact. No lower extremity edema NEUROLOGIC: Awake and alert. Oriented x 1. ASSESSMENT: Status post mechanical fall Altered mental status, baseline unknown Chronic atrial fibrillation with RVR, currently rate controlled Supratherapeutic INR, 7.1 on admission Chronic right subdural hematoma, per CT scan History of CVA History of bioprosthetic aortic valve replacement History of nonischemic cardiomyopathy Mild CAD, 40% mid RCA, per cath in 2017 History of bladder cancer with hematuria Hypertension Hyperlipidemia Diabetes PLAN: Obtain 2D echo to assess cardiac structure and function Neurology consulted. Await evaluation. Continue to hold Coumadin. Monitor INR. Patient not a candidate to be resumed on anticoagulation. Increase metoprolol to 50 mg twice a day Discontinue IV Cardizem Continue telemetry monitoring Further recommendations pending patient course Nurse practitioner note has been reviewed by physician. Signing provider agrees with the documented findings, assessment, and plan of care documented by RECEIVER STOCKER as a scribe. 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 bladder cancer History of Any Multi-Drug Resistant Organisms: None Reported Past Surgical History: Heart Catheterization Additional Past Surgical History / Comment(s): 1998 benign brain tumor removed. cardioversion Past Anesthesia/Blood Transfusion Reactions: No Reported Reaction Additional Past Anesthesia/Blood Transfusion Reaction / Comment(s): No hx blood transfusion Past Psychological History: No Psychological Hx Reported Smoking Status: Former smoker Past Alcohol Use History: Rare Past Drug Use History: None Reported - Past Family History Father Family Medical History: Myocardial Infarction (DE) Additional Family Medical History / Comment(s): Father of a DE at the age of 93yrs. Mother Family Medical History: Myocardial Infarction (DE) Additional Family Medical History / Comment(s): Mother of a DE at the age of 88yrs. Medications and Allergies Home Medications Medication Instructions Recorded Confirmed Type metFORMIN HCL [Glucophage] 500 mg PO BID 03/29/17 08/03/24 History Atorvastatin [Lipitor] 40 mg PO DAILY 05/17/17 08/03/24 History Warfarin [Coumadin] 5 mg PO DIRECTED 05/17/17 08/03/24 History Docusate [Colace] 100 mg PO DAILY 08/03/24 08/03/24 History Furosemide [Lasix] 20 mg PO DAILY 08/03/24 08/03/24 History Metoprolol Tartrate [Lopressor] 25 mg PO BID 08/03/24 08/03/24 History Multivit-Min/FA/Lycopen/Lutein 1 tab PO DAILY 08/03/24 08/03/24 History [Centrum Silver Tablet] lisinopriL [Zestril] 10 mg PO DAILY 08/03/24 08/03/24 History Allergies Allergy/AdvReac Type Severity Reaction Status Date / Time No Known Allergies Allergy Verified 08/03/24 13:13 Physical Exam Vitals: Vital Signs Temp Pulse Resp BP Pulse Ox 08/04/24 09:30 75 16 137/59 99 08/04/24 08:27 96 16 139/80 96 08/04/24 07:32 98.0 F 99 16 122/65 99 08/04/24 06:40 94 18 136/68 94 L 08/04/24 05:11 104 H 18 118/79 97 08/04/24 03:40 116 H 16 132/75 94 L 08/04/24 01:35 99 18 128/81 94 L 08/03/24 21:19 101 H 18 129/68 97 08/03/24 19:25 111 H 18 137/81 97 08/03/24 16:41 101 H 18 132/71 96 08/03/24 14:56 114 H 18 133/73 94 L 08/03/24 11:49 110 H 18 123/63 96 Results 08/04/24 08:14 08/04/24 08:14 Cardiac Enzymes 08/03/24 08/04/24 Range/Units 10:03 08:14 AST 158 H 84 H (17-59) U/L Coagulation 08/03/24 08/04/24 Range/Units 10:03 08:09 PT 69.9 H 51.7 H (10.0-12.5) sec APTT 52.8 H (22.0-30.0) sec CBC 08/04/24 08/04/24 Range/Units 05:52 08:14 WBC 8.9 8.6 (3.8-10.6) k/uL RBC 3.18 L 3.11 L (4.30-5.90) m/uL Hgb 9.0 L 8.8 L (13.0-17.5) gm/dL Hct 28.4 L 27.7 L (39.0-53.0) % Plt Count 269 268 (150-450) k/uL Comprehensive Metabolic Panel 08/03/24 08/04/24 08/04/24 Range/Units 10:03 05:52 08:14 Sodium 134 L 137 137 (137-145) mmol/L Potassium 5.4 H 3.7 3.8 (3.5-5.1) mmol/L Chloride 100 105 106 (98-107) mmol/L Carbon Dioxide 25 25 23 (22-30) mmol/L BUN 44 H 30 H 29 H (9-20) mg/dL Creatinine 1.11 0.92 0.91 (0.66-1.25) mg/dL Glucose 134 H 125 H 119 H (74-99) mg/dL Calcium 10.5 H 10.0 9.9 (8.4-10.2) mg/dL AST 158 H 84 H (17-59) U/L ALT 156 H 109 H (4-49) U/L Alkaline Phosphatase 168 H 148 H (38-126) U/L Total Protein 6.6 5.3 L (6.3-8.2) g/dL Albumin 3.4 L 2.6 L (3.5-5.0) g/dL Current Medications Generic Name Dose Route Start Last Admin Trade Name Freq PRN Reason Stop Dose Admin Dextrose/Water 25 ml 08/04/24 09:31 Dextrose 50% Syringe 50 Ml IVP PER PROTOCOL PRN Hypoglycemia Protocol Dextrose/Water 50 ml 08/04/24 09:31 Dextrose 50% Syringe 50 Ml IVP PER PROTOCOL PRN Hypoglycemia Protocol Docusate Sodium 100 mg 08/04/24 09:00 08/04/24 09:34 Docusate 100 Mg Cap PO 100 mg DAILY FARHANA Administration Furosemide 20 mg 08/04/24 09:00 08/04/24 09:34 Furosemide 20 Mg Tab PO 20 mg DAILY FARHANA Administration Sodium Chloride 1,000 mls @ 100 mls/hr 08/03/24 15:30 08/04/24 05:17 Saline 0.9% IV 100 mls/hr .Q10H FARHANA Administration Ceftriaxone Sodium 1 gm/ 50 mls @ 100 mls/hr 08/04/24 15:30 Sodium Chloride IVPB Q24H [facility] Protocol Azithromycin 500 mg/ Sodium 250 mls @ 250 mls/hr 08/04/24 15:00 Chloride IVPB 08/06/24 15:59 DAILY@1500 [facility] Protocol Insulin Aspart 0 unit 08/04/24 12:30 Insulin Aspart (Novolog) 100 Unit/Ml Vial SQ ACHS [facility] Protocol Lisinopril 10 mg 08/04/24 09:00 08/04/24 09:35 Lisinopril 10 Mg Tab PO 10 mg DAILY FARHANA Administration Metoprolol Tartrate 50 mg 08/04/24 09:00 08/04/24 08:39 Metoprolol Tartrate 50 Mg Tab PO 50 mg BID FARHANA Administration Morphine Sulfate 2 mg 08/03/24 15:59 Morphine Sulfate 2 Mg/Ml Syringe IV Q4HR PRN Severe Pain (Scale 7 to 10) Multivitamins 1 each 08/04/24 09:00 08/04/24 09:35 Multivitamins, Thera 1 Each Tab PO 1 each DAILY FARHANA Administration Naloxone HCl 0.2 mg 08/03/24 15:59 Naloxone 0.4 Mg/Ml 1 Ml Vial IV Q2M PRN Opioid Reversal Pantoprazole Sodium 40 mg 08/05/24 07:30 Pantoprazole 40 Mg Tablet PO AC-[id number] [facility] 08/04/24 08:14 08/04/24 08:14
[2024-08-04] MEDS: ATORVASTATIN 40 MG TAB PO SCH (11:10)
--- NOTE | 2024-08-04 11:53 | CT ---
EXAMINATION TYPE: CT brain wo con CT DLP: 1133 mGycm, Automated exposure control for dose reduction was used. DATE OF EXAM: 08/04/2024 11:31 AM COMPARISON: CT brain 08/03/2024 CLINICAL INDICATION:Male, 83 years old with history of confusion, ams TECHNIQUE: Brain: Multiple axial CT images of the brain were obtained without IV contrast. . Coronal and sagitta l reformats reviewed. FINDINGS: Brain: Extra-axial spaces: Redemonstration of CSF collection on the right cerebral convexity measuring up to 1.8 cm in thickness. This demonstrates more layering along the parietal convexity on today's exam. N o new hyperdense components definitively identified. No abnormal left-sided extra-axial fluid collect ion. Ventricular system: Within normal limits Cerebral parenchyma/cerebellum: Remote ischemic changes with encephalomalacia involving the left fron sahra lobe and right cerebellum. No acute intraparenchymal hemorrhage. The gee-white junction is well differentiated. Remote lacunar infarct involving the inferior left basal ganglia. Mass effect: Stable midline shift to the left of 3 mm. Intracranial vasculature: Atherosclerotic calcifications of the intracranial vessels. Soft tissues: Normal. Calvarium/osseous structures: No depressed skull fracture. Left frontal craniotomy changes redemonstr ated. Paranasal sinuses and mastoid air cells: Mastoid air cells are clear. Air-fluid levels identified wit hin the sphenoid sinuses again. The remaining paranasal sinuses are clear. Visualized orbits: Orbital contents are intact. IMPRESSION: 1. Redemonstration of chronic CSF attenuating right subdural hematoma with mild mass effect upon the adjacent cortex. There is more layered appearance now along the right parietal convexity. No definit e acute hemorrhage. Stable left-sided midline shift of 3 mm. 2. Remote ischemic change involving the right cerebellum and left frontal lobe. Remote small lacunar infarct involving the inferior left basal ganglia. [facility], , 08/04/2024 11:51 AM
[2024-08-04 12:49] LABS: Glucose,Whole Blood 122 mg/dL (70-110)
[2024-08-04] MEDS: INSULIN ASPART (NovoLOG) 100 UNIT/ML VIAL SQ SCH (13:52)
--- NOTE | 2024-08-04 14:03 | P.CNNES ---
History of Present Illness Consult date: 08/04/24 Requesting physician: Taylor Nava Reason for Consult: confusion, abnormal ct head History of Present Illness: This is an 83-year-old gentleman in the emergency department because of 2 episode of falls. History is obtained from the patient's granddaughter was at bedside. According to the granddaughter patient resides with her mother and he is usually oriented times [address] without any issues. It seems that yest erday he had 2 falls that were not witnessed and one of the falls seems the patient slipped and the second fall unsure how transpired but no seizure-like activity per the granddaughter that was witnessed by her mother. Falls patient was not confused and unsure if patient had any head trauma. It seems that maybe 2 hours after being in our facility he became severely confused. Patient does not have any history of seizure. Seems the patient has underlying history of atrial fibrillation and he is on Coumadin and it seems that the INR is supratherapeutic in which a week ago his INR was 8 and he was supposed to have another blood level drawn today as an outpatient. His Coumadin was held for the past 1 week. Patient has underlying history of stroke, brain tumor status post resection, CABG. Now patient continues to be confused and unable to provide detailed history. Per the history patient's granddaughter stated that patient had episode that was brief of left hand tremor but he was responding during this episode and that occurred yesterday. Some of the workup during this hospital visit consisted of: Sodium is 134, potassium is 5.4 on presentation now with normalized. Creatinine is 44 on presentation and it is trending down. Initial serum glucose is 134 Plasma lactic acid venous 2.2 and it is resolved AST is 158 ALT is 156. Liver function tests is trending down TSH is 1.140 Magnesium is 1.60 INR on presentation 7.1 and repeat is 5.3. PT/INR on presentation 69.9 and PTT is 52.8 CT of the head is reported as chronic right subdural hematoma with mild mass effect upon the adjacent cortex measuring a maximum thickness of 0.5 cm. No definitive acute hemorrhage. Remote ischemic change involving the right cerebellum and the left frontal lobe similar to prior MRI. I personally reviewed the CT and agree there is no acute or subacute stroke. I do not See any prior CTs in our system to compare with. EKG is reported as atrial fibrillation with RVR. Review of Systems Limited but as per HPI. 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 bladder cancer History of Any Multi-Drug Resistant Organisms: None Reported Past Surgical History: Heart Catheterization Additional Past Surgical History / Comment(s): 1998 benign brain tumor removed. cardioversion Past Anesthesia/Blood Transfusion Reactions: No Reported Reaction Additional Past Anesthesia/Blood Transfusion Reaction / Comment(s): No hx blood transfusion Past Psychological History: No Psychological Hx Reported Smoking Status: Former smoker Past Alcohol Use History: Rare Past Drug Use History: None Reported - Past Family History Father Family Medical History: Myocardial Infarction (ND) Additional Family Medical History / Comment(s): Father of a ND at the age of 93yrs. Mother Family Medical History: Myocardial Infarction (ND) Additional Family Medical History / Comment(s): Mother of a ND at the age of 88yrs. Medications and Allergies Home Medications Medication Instructions Recorded Confirmed Type metFORMIN HCL [Glucophage] 500 mg PO BID 03/29/17 08/03/24 History Atorvastatin [Lipitor] 40 mg PO DAILY 05/17/17 08/03/24 History Warfarin [Coumadin] 5 mg PO DIRECTED 05/17/17 08/03/24 History Docusate [Colace] 100 mg PO DAILY 08/03/24 08/03/24 History Furosemide [Lasix] 20 mg PO DAILY 08/03/24 08/03/24 History Metoprolol Tartrate [Lopressor] 25 mg PO BID 08/03/24 08/03/24 History Multivit-Min/FA/Lycopen/Lutein 1 tab PO DAILY 08/03/24 08/03/24 History [Centrum Silver Tablet] lisinopriL [Zestril] 10 mg PO DAILY 08/03/24 08/03/24 History Allergies Allergy/AdvReac Type Severity Reaction Status Date / Time No Known Allergies Allergy Verified 08/03/24 13:13 Physical Examination - Vital Signs Vital Signs: Vital Signs Temp Pulse Resp BP Pulse Ox 08/04/24 10:00 65 12 137/59 08/04/24 09:30 75 16 137/59 99 08/04/24 09:00 12 139/90 08/04/24 08:27 96 16 139/80 96 08/04/24 08:00 87 11 L 122/65 08/04/24 07:32 98.0 F 99 16 122/65 99 08/04/24 07:00 103 H 16 136/68 08/04/24 06:40 94 18 136/68 94 L 08/04/24 06:00 98 15 118/79 08/04/24 05:11 104 H 18 118/79 97 08/04/24 05:00 20 123/66 08/04/24 04:00 110 H 13 132/75 94 L 08/04/24 03:40 116 H 16 132/75 94 L 08/04/24 03:00 20 116/58 88 L 08/04/24 02:00 89 18 128/81 93 L 08/04/24 01:35 99 18 128/81 94 L 08/04/24 01:00 98 12 142/59 94 L 08/03/24 23:00 150/72 08/03/24 22:00 115 H 8 L 129/68 08/03/24 21:19 101 H 18 129/68 97 08/03/24 21:18 101 H 7 L 129/68 80 L 08/03/24 19:25 111 H 18 137/81 97 08/03/24 16:41 101 H 18 132/71 96 08/03/24 14:56 114 H 18 133/73 94 L General: Lying in bed and does not appear in acute distress. Lung: Mild coarse Neuro: Limited. During examination is limited because of his confusion. He is oriented to self and stated that the year is 2022 and upon that is incorrect then he said 2023. He stated that the current month is August and its his birthday. At times he talks nonsensical. He was able to follow simple commands but needs redirection. He is able to identify objects correctly such as pen and glasses. Pupils are round about 3 mm bilaterally and reactive to light. Visual carias are full to confrontation. No facial weakness. Mild dysathria. Motor: Strength is 5 out of 5 throughout Results - Laboratory Findings CBC and BMP: 08/04/24 08:14 08/04/24 08:14 Abnormal Lab Findings: Abnormal Labs 08/03/24 08/03/24 08/03/24 10:03 10:03 10:03 WBC 11.8 H RBC 3.46 L Hgb 10.2 L Hct 30.4 L Neutrophils # 10.5 H Lymphocytes # 0.7 L PT 69.9 H INR 7.1 H* APTT 52.8 H Sodium 134 L Potassium 5.4 H BUN 44 H Glucose 134 H POC Glucose (mg/dL) Plasma Lactic Acid Efrem Calcium 10.5 H AST 158 H ALT 156 H Alkaline Phosphatase 168 H Total Protein Albumin 3.4 L Urine Protein Ur Leukocyte Esterase Urine WBC Urine Bacteria Hyaline Casts Urine Mucus 08/03/24 08/03/24 08/04/24 10:03 14:56 05:52 WBC RBC 3.18 L Hgb 9.0 L Hct 28.4 L Neutrophils # 8.0 H Lymphocytes # 0.4 L PT INR APTT Sodium Potassium BUN Glucose POC Glucose (mg/dL) Plasma Lactic Acid Efrem 2.2 H* Calcium AST ALT Alkaline Phosphatase Total Protein Albumin Urine Protein Trace H Ur Leukocyte Esterase Trace H Urine WBC 6 H Urine Bacteria Rare H Hyaline Casts 6 H Urine Mucus Rare H 08/04/24 08/04/24 08/04/24 05:52 08:09 08:14 WBC RBC 3.11 L Hgb 8.8 L Hct 27.7 L Neutrophils # Lymphocytes # 0.5 L PT 51.7 H INR 5.3 H* APTT Sodium Potassium BUN 30 H Glucose 125 H POC Glucose (mg/dL) Plasma Lactic Acid Efrem Calcium AST ALT Alkaline Phosphatase Total Protein Albumin Urine Protein Ur Leukocyte Esterase Urine WBC Urine Bacteria Hyaline Casts Urine Mucus 08/04/24 08/04/24 08:14 12:45 WBC RBC Hgb Hct Neutrophils # Lymphocytes # PT INR APTT Sodium Potassium BUN 29 H Glucose 119 H POC Glucose (mg/dL) 122 H Plasma Lactic Acid Efrem Calcium AST 84 H ALT 109 H Alkaline Phosphatase 148 H Total Protein 5.3 L Albumin 2.6 L Urine Protein Ur Leukocyte Esterase Urine WBC Urine Bacteria Hyaline Casts Urine Mucus Assessment and Plan Assessment: This is an 83-year-old gentleman who presents emergency department because of 2 episode of fall neurologist consult for confusion. According to the g randdaughter he had 2 unwitnessed falls and 1 of him was that he slipped. Seems after the falls patient was not confused and it seems 2 hours after being in the hospital he started having confusion. He had a brief episode of left hand tremor but was responding to the granddaughter yesterday. Patient does not have any history of seizure. He has elevated liver function test. It seems that he has supratherapeutic INR for the last 1 week and his Coumadin was held as a result for the past 1 week. Encephalopathy seems due to metabolic encephalopathy. Cannot rule out seizure especially with left hand tremor and continued confusion. Also tremor could be due to metabolic derangement. Rule out stroke especially since his anticoagulation has been held Transaminitis Supratherapeutic INR and Coumadin has been held for the past 1 week. On initial presentation his INR was 7.1 and currently is 5.3 neck History of stroke History of brain tumor status post resection History of CABG Plan: I ordered routine EEG I placed the patient on empiric treatment of Keppra 500 mg twice daily Ordered ammonia level follow your B12 and folate Ordered MRI of the brain with and without Consider placing the patient on aspirin 81 mg daily especially since the patient is not on any anticoagulation due to supratherapeutic INR. Cardiology team is consulted ID team is consulted for concern of possible pneumonia Will defer the rest of the medical management to primary and other specialist Plan is discussed with the patient's granddaughter was at bedside Thank you for the consultation Time with Patient: Greater than 30
--- NOTE | 2024-08-04 16:20 | US ---
EXAMINATION TYPE: US liver DATE OF EXAM: 08/04/2024 COMPARISON: US 2017 CLINICAL INDICATION: Male, 83 years old with history of elevated liver enzymes; TECHNIQUE: Grayscale and color Doppler imaging of the right upper quadrant was performed. FINDINGS: EXAM MEASUREMENTS: Liver Length: 19.2 cm Gallbladder Wall: 0.2 cm CBD: 0.8cm cm Right Kidney: 10.1 x 5.1 x 5.2 cm Pancreas: visualized portions wnl, limited by overlying midline bowel gas Liver: wnl Gallbladder: cholelithiasis Evidence for sonographic Barajas's sign: no CBD: dilated Right Kidney: 2.7cm cystic area lateral mid pole IMPRESSION: 1. No evidence for acute process. 2. Cholelithiasis. 3. Right renal cyst. [facility], Workstation: [email or web address], 08/04/2024 4:18 PM
[2024-08-04] MEDS: levETIRAcetam IV 500 MG/5 ML VIAL IVP SCH (16:45)
[2024-08-04] MEDS: AZITHROMYCIN 500 MG in SODIUM CHLORIDE 0.9% 250 ML IVPB SCH (16:48)
[2024-08-04 23:04] LABS: Glucose,Whole Blood 98 mg/dL (70-110)
--- NOTE | 2024-08-04 23:04 | P.CONS ---
History of Present Illness - Reason for Consult Consult date: 08/04/24 Pneumonia Requesting physician: Taylor Nava - Chief Complaint Weakness and fall x 1 day - History of Present Illness Patient is 83-year-old male with a past medical history significant for diabetes mellitus hypertension hyperlipidemia CVA TIA atrial fibrillation patient has been brought into the hospital after pending the patient did have a fall with weakness patient was sitting on the edge of the bed when he fell down did not recall any loss of consciousness or hitting her head patient did not have any fever at home and no fever have been recorded while here in the hospital patient was tachycardic but not hypotensive or hypoxic and no need for supplemental oxygen patient did have white count of 11.8 on admission with a left shift creatinine is normal liver isms mildly elevated urine mildly positive patient did have a chest x-ray improving bibasilar infiltrates greater on the left CT of the brain did shows remote ischemic changes chronic right subdural hematoma with mild mass effect on the adjacent cortex neurology has been consulted patient also noticed to have a congested cough with a question of possible pneumonia patient was started on Zosyn and Zithromax infectious disease was consulted for further management of antibiotic therapy most information has been obtained from the daughter at the bedside as the patient himself was not a very good historian Review of Systems Positive points has been mentioned in HPI complete review could not be obtained because of his underlying mental status Past Medical History Past Medical History: Atrial Fibrillation, Cancer, CVA/TIA, Diabetes Mellitus, Deep Vein Thrombosis (DVT), GERD/Reflux, Hyperlipidemia, Hypertension, Pneumonia Additional Past Medical History / Comment(s): Atrial fibrillation, chronic, 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 bladder cancer History of Any Multi-Drug Resistant Organisms: None Reported Past Surgical History: Heart Catheterization Additional Past Surgical History / Comment(s): 1998 benign brain tumor removed. cardioversion Past Anesthesia/Blood Transfusion Reactions: No Reported Reaction Additional Past Anesthesia/Blood Transfusion Reaction / Comm: No hx blood transfusion Past Psychological History: No Psychological Hx Reported Smoking Status: Former smoker Past Alcohol Use History: Rare Past Drug Use History: None Reported - Past Family History Father Family Medical History: Myocardial Infarction (MD) Additional Family Medical History / Comment(s): Father of a MD at the age of 93yrs. Mother Family Medical History: Myocardial Infarction (MD) Additional Family Medical History / Comment(s): Mother of a MD at the age of 88yrs. Medications and Allergies Home Medications Medication Instructions Recorded Confirmed Type metFORMIN HCL [Glucophage] 500 mg PO BID 03/29/17 08/03/24 History Atorvastatin [Lipitor] 40 mg PO DAILY 05/17/17 08/03/24 History Warfarin [Coumadin] 5 mg PO DIRECTED 05/17/17 08/03/24 History Docusate [Colace] 100 mg PO DAILY 08/03/24 08/03/24 History Furosemide [Lasix] 20 mg PO DAILY 08/03/24 08/03/24 History Metoprolol Tartrate [Lopressor] 25 mg PO BID 08/03/24 08/03/24 History Multivit-Min/FA/Lycopen/Lutein 1 tab PO DAILY 08/03/24 08/03/24 History [Centrum Silver Tablet] lisinopriL [Zestril] 10 mg PO DAILY 08/03/24 08/03/24 History Allergies Allergy/AdvReac Type Severity Reaction Status Date / Time No Known Allergies Allergy Verified 08/03/24 13:13 Physical Exam Vitals: Vital Signs Temp Pulse Resp BP Pulse Ox 08/04/24 09:30 75 16 137/59 99 08/04/24 08:27 96 16 139/80 96 08/04/24 07:32 98.0 F 99 16 122/65 99 08/04/24 06:40 94 18 136/68 94 L 08/04/24 05:11 104 H 18 118/79 97 08/04/24 03:40 116 H 16 132/75 94 L 08/04/24 01:35 99 18 128/81 94 L 08/03/24 21:19 101 H 18 129/68 97 08/03/24 19:25 111 H 18 137/81 97 08/03/24 16:41 101 H 18 132/71 96 08/03/24 14:56 114 H 18 133/73 94 L 08/03/24 11:49 110 H 18 123/63 96 GENERAL DESCRIPTION: Elderly male lying in bed, no distress. No tachypnea or accessory muscle of respiration use. HEENT: Shows Pallor , no scleral icterus. Oral mucous membrane is dry. No pharyngeal erythema or thrush NECK: Trachea central, no thyromegaly. LUNGS: Unlabored breathing. Decreased breath sound at the base HEART: S1, S2, regular rate and rhythm. No loud murmur ABDOMEN: Soft, no tenderness , guarding or rigidity, no organomegaly EXTREMITIES: No edema of feet. SKIN: No rash, no masses palpable. NEUROLOGICAL: The patient is awake, but pleasantly confused orientation could not be determined Results CBC & Chem 7: 08/05/24 06:21 08/05/24 06:21 Labs: Abnormal Lab Results - Last 24 Hours (Table) 08/03/24 08/03/24 08/03/24 Range/Units 10:03 10:03 14:56 RBC (4.30-5.90) m/uL Hgb (13.0-17.5) gm/dL Hct (39.0-53.0) % Neutrophils # (1.3-7.7) k/uL Lymphocytes # (1.0-4.8) k/uL PT (10.0-12.5) sec INR (<1.2) Sodium 134 L (137-145) mmol/L Potassium 5.4 H (3.5-5.1) mmol/L BUN 44 H (9-20) mg/dL Glucose 134 H (74-99) mg/dL Plasma Lactic Acid Efrem 2.2 H* (0.7-2.0) mmol/L Calcium 10.5 H (8.4-10.2) mg/dL AST 158 H (17-59) U/L ALT 156 H (4-49) U/L Alkaline Phosphatase 168 H (38-126) U/L Total Protein (6.3-8.2) g/dL Albumin 3.4 L (3.5-5.0) g/dL Urine Protein Trace H (Negative) Ur Leukocyte Esterase Trace H (Negative) Urine WBC 6 H (0-5) /hpf Urine Bacteria Rare H (None) /hpf Hyaline Casts 6 H (0-2) /lpf Urine Mucus Rare H (None) /hpf 08/04/24 08/04/24 08/04/24 Range/Units 05:52 05:52 08:09 RBC 3.18 L (4.30-5.90) m/uL Hgb 9.0 L (13.0-17.5) gm/dL Hct 28.4 L (39.0-53.0) % Neutrophils # 8.0 H (1.3-7.7) k/uL Lymphocytes # 0.4 L (1.0-4.8) k/uL PT 51.7 H (10.0-12.5) sec INR 5.3 H* (<1.2) Sodium (137-145) mmol/L Potassium (3.5-5.1) mmol/L BUN 30 H (9-20) mg/dL Glucose 125 H (74-99) mg/dL Plasma Lactic Acid Efrem (0.7-2.0) mmol/L Calcium (8.4-10.2) mg/dL AST (17-59) U/L ALT (4-49) U/L Alkaline Phosphatase (38-126) U/L Total Protein (6.3-8.2) g/dL Albumin (3.5-5.0) g/dL Urine Protein (Negative) Ur Leukocyte Esterase (Negative) Urine WBC (0-5) /hpf Urine Bacteria (None) /hpf Hyaline Casts (0-2) /lpf Urine Mucus (None) /hpf 08/04/24 08/04/24 Range/Units 08:14 08:14 RBC 3.11 L (4.30-5.90) m/uL Hgb 8.8 L (13.0-17.5) gm/dL Hct 27.7 L (39.0-53.0) % Neutrophils # (1.3-7.7) k/uL Lymphocytes # 0.5 L (1.0-4.8) k/uL PT (10.0-12.5) sec INR (<1.2) Sodium (137-145) mmol/L Potassium (3.5-5.1) mmol/L BUN 29 H (9-20) mg/dL Glucose 119 H (74-99) mg/dL Plasma Lactic Acid Efrem (0.7-2.0) mmol/L Calcium (8.4-10.2) mg/dL AST 84 H (17-59) U/L ALT 109 H (4-49) U/L Alkaline Phosphatase 148 H (38-126) U/L Total Protein 5.3 L (6.3-8.2) g/dL Albumin 2.6 L (3.5-5.0) g/dL Urine Protein (Negative) Ur Leukocyte Esterase (Negative) Urine WBC (0-5) /hpf Urine Bacteria (None) /hpf Hyaline Casts (0-2) /lpf Urine Mucus (None) /hpf Assessment and Plan (1) Pneumonia Current Visit: Yes Status: Acute Code(s): J18.9 - PNEUMONIA, UNSPECIFIED ORGANISM SNOMED Code(s): 606408205 Plan: 1patient presented to hospital with weakness and fall in this patient did have some bibasilar infiltrate noticed to have a congested cough possible component of pneumonia not entirely excluded. 2patient did have some confusion with abnormality seen on the CT concerning for subdural hematoma neurology has been consulted could be etiology of his confu michael and possible fall. 3we will try to obtain a sputum for Gram stain culture and aspiration preca ution. 4continue with Rocephin and Zithromax while waiting for the workup to be completed. We will follow on clinical condition and cultures to further adjust medication if needed Thank you for this consultation we will follow the patient along with you Dictation was produced using [employer] dictation software. please excuse any grammatical, word or spelling errors. Time with Patient: Greater than 30
--- NOTE | 2024-08-05 03:10 | EEG ---
ELECTROENCEPHALOGRAM REPORT CLINICAL HISTORY: This is an 83-year-old gentleman with history of brain tumor, status post resection and stroke, who has altered mental status. The video EEG is obtained to evaluate for seizure epileptiform activity. RELEVANT MEDICATION: The patient is not on any antiseizure medication. EEG TYPE: This is a routine 21-channel EEG with video using the 10/20 electrode placement system. DESCRIPTION: Wakefulness is only obtained. During awake state, the background consists of low-to- moderate voltage of 7 to 8 hertz activity intermixed with delta/theta activity. There was no physiological stage 2 sleep architecture. There is focal slowing over the left frontal region. There is moderate diffuse myogenic artifact. Interictal and ictal is none. ACTIVATION PROCEDURE: Photic stimulation did not evoke a posterior driving response. There is no abnormality during the photic stimulation. Hyperventilation is not performed. CLINICAL INTERPRETATION: This is an abnormal routine EEG. The background slowing is suggestive of moderate encephalopathy. There is focal slowing over the left frontal region suggestive of cerebral dysfunction in the involved region. There is no epileptiform discharges or seizure on the EEG. Clinical correlation is recommended. MMODL / IJN: [id number] /
[2024-08-05 04:40] LABS: Glucose,Whole Blood 101 mg/dL (70-110)
[2024-08-05 10:16] LABS: INR 4.9 (<1.2); Prothrombin Time 48.7 sec (10.0-12.5)
[2024-08-05] MEDS: METOPROLOL TARTRATE 50 MG TAB PO SCH (10:20)
[2024-08-05] MEDS: PANTOPRAZOLE 40 MG TABLET PO SCH (10:20)
[2024-08-05 10:37] LABS: Basophils # (A) 0.02 X 10*3/uL (0.00-0.10); Basophils % (A) 0.2 %; Eosinophils # (A) 0.02 X 10*3/uL (0.04-0.35); Eosinophils % (A) 0.2 %; HCT 27.9 % (39.6-50.0); HGB 8.4 g/dL (13.0-17.0); Lymphocytes # (A) 0.61 X 10*3/uL (0.90-5.00); Lymphocytes % (A) 6.7 %; MCH 27.7 pg (27.0-32.0); MCHC 30.1 g/dL (32.0-37.0); MCV 92.1 FL (80.0-97.0); Mean Platelet Volume 9.3 FL (9.5-12.2); Monocytes # (A) 0.45 X 10*3/uL (0.20-1.00); NRBC Per 100 WBC 0 X 10*3/uL (0.00-0.01); Neutrophils # (A) 7.95 X 10*3/uL (1.80-7.70); Neutrophils % (A) 87.5 %; Platelet Count 240 X 10*3/uL (140-440); RBC 3.03 X 10*6/uL (4.40-5.60); WBC 9.09 X 10*3/uL (4.50-10.00)
--- NOTE | 2024-08-05 10:41 | P.PN ---
Subjective Progress Note Date: 08/05/24 Beto David is an 83-year-old male patient who presented to the hospital with concerns of falls weakness and increased confusion. According to family member at bedside patient had 2 episodes of falls yesterday patient unable to recall event. Patient usually is independent ANO x 3 patient does have a history of atrial fibrillation maintained on Coumadin which has been on hold since last week due to elevated INR. Additional medical history includes CVA, diabetes mellitus, DVT, GERD, hyperlipidemia, hypertension and pneumonia. Chest x-ray completed showing improving basilar infiltrates greater on left improving pleural effusions head CT completed showing chronic right subdural hematoma with mild mass effect upon the adjacent cortex measuring a maximal thickness of 1.5 cm no definitive acute hemorrhage remote ischemic change involving the right cerebellum and left frontal lobe similar to prior MRI. Lab work revealing white blood cell 11.8, hemoglobin 10.2 INR significantly elevated at 7.1, sodium 134 potassium 5.4 bun 44, creatinine 1.1 lactic acid 2.2 and elevated liver enzymes AST 158, ALT 156 and alkaline phosphatase 168. At this time patient has been admitted cardiology, infectious disease and neurology services all consulted. At this time patient will be started back on IV antibiotics. Will order liver ultrasound. Repeat labs ordered On 08/04/2024 patient is alert but confused. Family at bedside. Patient has been transitioned oral home medication Cardizem DC'd per cardiology. Repeat labs pending. Patient denies chest pain or shortness of breath. Patient denies nausea vomiting or diarrhea. Patient denies any urinary burning frequency. Current vital signs temp 98.0, heart rate 99, respiratory rate 16, blood pressure 122/65 with a pulse ox of 99% on room air On 08/05/2024 patient remains confused sitter at bedside resting comfortably in bed. Patient was evaluated by neurology services EEG and MRI has been ordered. Patient remains on azithromycin and Rocephin infectious disease services following. Current vital signs temp 98.0, heart rate 80, respiratory rate 20, blood pressure 111/65 with a pulse ox of 97% on room air. Lab work currently pending Objective - Vital Signs Vital signs: Vital Signs Temp 98 F 08/05/24 09:34 Pulse 78 08/05/24 09:34 Resp 16 08/05/24 09:34 BP 135/64 08/05/24 09:34 Pulse Ox 96 08/05/24 09:34 FiO2 - Exam Head normocephalic Neck supple Lungs clear to auscultation bilaterally no wheezing or crackles Heart regular rate and rhythm S1-S2, no rub or gallop Abdomen is soft nontender nondistended positive bowel sounds no hepatosplenomegaly Extremities no edema Neuro alert and orientated to 1. Intermittent confusion - Labs CBC & Chem 7: 08/05/24 06:21 08/04/24 08:14 Labs: Abnormal Lab Results - Last 24 Hours (Table) 08/04/24 08/05/24 Range/Units 12:45 06:21 RBC 3.03 L (4.40-5.60) X 10*6/uL Hgb 8.4 L (13.0-17.0) g/dL Hct 27.9 L (39.6-50.0) % MCHC 30.1 L (32.0-37.0) g/dL RDW 15.0 H (11.5-14.5) % MPV 9.3 L (9.5-12.2) FL Neutrophils # 7.95 H (1.80-7.70) X 10*3/uL Lymphocytes # 0.61 L (0.90-5.00) X 10*3/uL Eosinophils # 0.02 L (0.04-0.35) X 10*3/uL POC Glucose (mg/dL) 122 H (70-110) mg/dL Assessment and Plan Assessment: 1. Generalized weakness with falls 2. Intermittent confusion 3. Supratherapeutic INR 4. A-fib with RVR. Patient was started on Cardizem drip 5. Possible pneumonia 6. Abnormal head CT 7. History of systolic congestive heart failure 8. History of aortic valve replacement 9. History of diabetes mellitus type 2 sliding scale coverage added 10. History of CVA 11. History of chronic atrial fibrillation 12. History of COPD 13. History of hyperlipidemia 14. History of benign brain tumor resected in 1989 15. History of cardiomyopathy 16. History of bladder cancer 17. Elevated liver enzymes DVT prophylaxis SCDs secondary to supratherapeutic INR. GI prophylaxis Protonix Neurology, cardiology and infectious disease services consulted Repeat labs ordered Patient started on IV antibiotics Urine and blood cultures ordered MRI and EEG ordered per neurology
[2024-08-05 10:54] LABS: INR 4.46 sec (0.93-1.11); Prothrombin Time 45.5 sec (9.9-11.9)
[2024-08-05 10:56] LABS: ALT 97 U/L (10-49); AST 88 U/L (14-35); Albumin 2.8 g/dL (3.8-4.9); Albumin/Globulin Ratio 1.12 Ratio (1.60-3.17); Alkaline Phosphatase 140 U/L (41-126); Blood Urea Nitrogen 24.3 mg/dL (9.0-27.0); Calcium 9.9 mg/dL (8.7-10.3); Chloride 108 mmol/L (96-109); Globulin 2.5 g/dL (1.6-3.3); Glucose 90 mg/dL (70-110); Potassium 3.8 mmol/L (3.5-5.5); Sodium 142 mmol/L (135-145); Total Bilirubin 0.4 mg/dL (0.3-1.2); Total Protein 5.3 g/dL (6.2-8.2)
--- NOTE | 2024-08-05 11:15 | P.PN ---
Subjective Progress Note Date: 08/05/24 HISTORY OF PRESENT ILLNESS: This is a 83-year-old male with a past medical history significant for atrial fibrillation, aortic valve replacement, cardiomyopathy, bladder cancer with hematuria, hypertension, hyperlipidemia, and diabetes. Patient follows in the office with Dr. Sewell. We have been asked to see the patient in consultation for A-fib with RVR. Patient examined at the bedside in the emergency room. The patient is confused at the time of examination. There is no family present. The patient does have a boating safety officer at the bedside. The patient presented to the hospital after sustaining a fall at home. The patient denies losing consciousness. The patient's INR was found to be elevated on admission at 7.1. Repeat this morning is 5.3. His Coumadin has been discontinued. Patient was also found to be in A-fib with RVR upon admission. He was started on IV Cardizem at 5 mg an hour. He remains in atrial fibrillation with controlled ventricular rate at the time of examination. DIAGNOSTICS: - EKG reveals A-fib with RVR. - Chest xray improving bibasilar infiltrates greater on the left. Improving pleural effusions. - CT of the brain: Chronic right subdural hematoma with mild mass effect upon the adjacent cortex measuring maximum thickness of 1.5 cm. No definite acute hemorrhage. Remote ischemic change involving right cerebellum and left frontal lobe similar to prior MRI. - Laboratory data: WBC 8.6. Hemoglobin 8.8. Platelet count 268. Sodium 134. Potassium 3.8. BUN 29. Creatinine 0.91. AST 84. ALT 109. TSH 1.140. - Current home cardiac medications include Coumadin 5 mg daily, atorvastatin 40 mg daily, metoprolol tartrate 25 mg twice a day, lisinopril 10 mg daily, Lasix 20 mg daily - Most recent echocardiogram obtained in September 2023 revealed ejection fraction 47%, prosthetic aortic valve, moderate MR, mild to moderate TR - Patient underwent tissue aortic valve replacement and clipping in March 2017 - Cardiac catheterization history: January 2017 revealing 40% mid RCA right dominant system. 08/05/2024 Patient seen and examined on the observation unit. Patient continues to have mental status changes and unable to take any of his medications as he is not awake enough to swallow pills. He has a boating safety officer at the bedside. Patient remains in atrial fibrillation in the 90s. Blood pressure 135/64, pulse ox 96% on room air. Repeat blood work reveals hemoglobin 8.4. INR is at 4.46. Sodium 142, potassium 3.8, BUN 24 creatinine 0.9. A1c 6.3. Liver function test are improving. No acute process found on liver ultrasound. PHYSICAL EXAM: VITAL SIGNS: Reviewed. GENERAL: Well-developed in no acute distress. HEENT: Head is normocephalic. Pupils are equal, round. Sclerae anicteric. Mucous membranes of the mouth are moist. Neck supple. No JVD or thyromegaly LUNGS: Respirations even and unlabored. Lungs essentially clear to auscultation bilaterally. HEART: Irregular rate and rhythm. S1 and S2 heard. Systolic murmur noted ABDOMEN: Soft. Nondistended. Nontender. EXTREMITIES: Normal range of motion. No clubbing or cyanosis. Peripheral pulses intact. No lower extremity edema NEUROLOGIC: Awake and alert. Oriented x 1. ASSESSMENT: Status post mechanical fall Altered mental status, baseline unknown Chronic atrial fibrillation with RVR, currently rate controlled Supratherapeutic INR, 7.1 on admission Chronic right subdural hematoma, per CT scan History of CVA History of bioprosthetic aortic valve replacement History of nonischemic cardiomyopathy Mild CAD, 40% mid RCA, per cath in 2017 History of bladder cancer with hematuria Hypertension Hyperlipidemia Diabetes PLAN: Obtain 2D echo to assess cardiac structure and function Neurology consulted. Continue to hold Coumadin. Monitor INR. Patient not a candidate to be resumed on anticoagulation. Increase metoprolol 50 mg 3 times daily Continue telemetry monitoring Further recommendations pending patient course Nurse practitioner note has been reviewed by physician. Signing provider agrees with the documented findings, assessment, and plan of care documented by [employer] as a scribe. Objective - Vital Signs Vital signs: Vital Signs Temp 98.8 F 08/05/24 06:57 Pulse 80 08/05/24 06:12 Resp 20 08/05/24 06:12 BP 111/65 08/05/24 06:12 Pulse Ox 97 08/05/24 06:12 FiO2 - Labs CBC & Chem 7: 08/05/24 06:21 08/05/24 06:21 Labs: Abnormal Lab Results - Last 24 Hours (Table) 08/04/24 08/04/24 08/04/24 Range/Units 08:09 08:14 12:45 PT 51.7 H (10.0-12.5) sec INR 5.3 H* (<1.2) BUN 29 H (9-20) mg/dL Glucose 119 H (74-99) mg/dL POC Glucose (mg/dL) 122 H (70-110) mg/dL AST 84 H (17-59) U/L ALT 109 H (4-49) U/L Alkaline Phosphatase 148 H (38-126) U/L Total Protein 5.3 L (6.3-8.2) g/dL Albumin 2.6 L (3.5-5.0) g/dL
[2024-08-05 16:46] LABS: Glucose,Whole Blood 138 mg/dL (70-110)
--- NOTE | 2024-08-05 18:12 | P.PN ---
Subjective Progress Note Date: 08/05/24 I am following up with the patient and upon seeing him the patient was sleepy. Objective - Vital Signs Vital signs: Vital Signs Temp 97.8 F 08/05/24 14:00 Pulse 79 08/05/24 14:00 Resp 17 08/05/24 14:00 BP 126/58 08/05/24 14:00 Pulse Ox 98 08/05/24 14:00 FiO2 Intake & Output 08/04/24 08/05/24 08/05/24 18:59 06:59 18:59 Intake Total 20 Output Total 100 Balance -80 Intake: Intake, IV Titration 20 Amount cefTRIAXone 1 gm In 20 Sodium Chloride 0.9% 50 ml @ 100 mls/hr IVPB Q24H [facility] Rx#:[id number] Output: Urine 100 Other: Voiding Method External Catheter - Exam General: Lying in bed and is not in acute distress. Neuro: Limited and patient was sleepy. He is oriented to self. He stated that he is in [facility]. He followed few simple commands. Some of the workup during this hospital visit consisted of: Sodium is 134, potassium is 5.4 on presentation now with normalized. Creatinine is 44 on presentation and it is trending down. Initial serum glucose is 134 Plasma lactic acid venous 2.2 and it is resolved AST is 158 ALT is 156. Liver function tests is trending down TSH is 1.140 Magnesium is 1.60 Vitamin B12 is 777 Serum folate is 13.10 Ammonia level is less than 9 INR on presentation 7.1 and repeat is 5.3-->4.9 CT of the head is reported as chronic right subdural hematoma with mild mass effect upon the adjacent cortex measuring a maximum thickness of 0.5 cm. No definitive acute hemorrhage. Remote ischemic change involving the right cerebellum and the left frontal lobe similar to prior MRI. I personally reviewed the CT and agree there is no acute or subacute stroke. I do not See any prior CTs in our system to compare with. EKG is reported as atrial fibrillation with RVR. Routine EEG: Is abnormal. The background slowing is suggestive of moderate ence phalopathy. There is focal slowing over the left frontal region suggestive of cerebral dysfunction in the involved region. There is no epileptiform discharges or seizure on the EEG. - Labs CBC & Chem 7: 08/05/24 06:21 08/05/24 06:21 Labs: Abnormal Lab Results - Last 24 Hours (Table) 08/05/24 08/05/24 08/05/24 Range/Units 06:21 06:21 06:21 RBC 3.03 L (4.40-5.60) X 10*6/uL Hgb 8.4 L (13.0-17.0) g/dL Hct 27.9 L (39.6-50.0) % MCHC 30.1 L (32.0-37.0) g/dL RDW 15.0 H (11.5-14.5) % MPV 9.3 L (9.5-12.2) FL Neutrophils # 7.95 H (1.80-7.70) X 10*3/uL Lymphocytes # 0.61 L (0.90-5.00) X 10*3/uL Eosinophils # 0.02 L (0.04-0.35) X 10*3/uL PT 45.5 H (9.9-11.9) sec INR 4.46 H (0.93-1.11) sec Carbon Dioxide (21.6-31.8) mmol/L Anion Gap (4.00-12.00) mmol/L BUN/Creatinine Ratio (12.00-20.00) Ratio POC Glucose (mg/dL) (70-110) mg/dL Hemoglobin A1c 6.3 H (<=6.0) % AST (14-35) U/L ALT (10-49) U/L Alkaline Phosphatase (41-126) U/L Total Protein (6.2-8.2) g/dL Albumin (3.8-4.9) g/dL Albumin/Globulin Ratio (1.60-3.17) Ratio 08/05/24 08/05/24 08/05/24 Range/Units 06:21 09:57 16:43 RBC (4.40-5.60) X 10*6/uL Hgb (13.0-17.0) g/dL Hct (39.6-50.0) % MCHC (32.0-37.0) g/dL RDW (11.5-14.5) % MPV (9.5-12.2) FL Neutrophils # (1.80-7.70) X 10*3/uL Lymphocytes # (0.90-5.00) X 10*3/uL Eosinophils # (0.04-0.35) X 10*3/uL PT 48.7 H (9.9-11.9) sec INR 4.9 H (0.93-1.11) sec Carbon Dioxide 21.0 L (21.6-31.8) mmol/L Anion Gap 13.00 H (4.00-12.00) mmol/L BUN/Creatinine Ratio 27.00 H (12.00-20.00) Ratio POC Glucose (mg/dL) 138 H (70-110) mg/dL Hemoglobin A1c (<=6.0) % AST 88 H (14-35) U/L ALT 97 H (10-49) U/L Alkaline Phosphatase 140 H (41-126) U/L Total Protein 5.3 L (6.2-8.2) g/dL Albumin 2.8 L (3.8-4.9) g/dL Albumin/Globulin Ratio 1.12 L (1.60-3.17) Ratio Microbiology - Last 24 Hours (Table) 08/04/24 09:44 Blood Culture - Preliminary Blood Assessment and Plan Assessment: This is an 83-year-old gentleman who presents emergency department because of 2 episode of fall neurologist consult for confusion. According to the granddaughter he had 2 unwitnessed falls and 1 of him was that he slipped. Seems after the falls patient was not confused and it seems 2 hours after being in the hospital he started having confusion. He had a brief episode of left hand tremor but was responding to the granddaughter yesterday. Patient does not have any history of seizure. He has elevated liver function test. It seems that he has supratherapeutic INR for the last 1 week and his Coumadin was held as a result for the past 1 week. Encephalopathy seems due to metabolic encephalopathy. Cannot rule out seizure especially with left hand tremor and continued confusion. Also tremor could be due to metabolic derangement. Rule out stroke especially since his anticoagulation has been held Transaminitis Supratherapeutic INR and Coumadin has been held for the past 1 week. On initial presentation his INR was 7.1 and currently is 5.3 neck History of stroke History of brain tumor status post resection History of CABG Plan: I placed the patient on empiric treatment of Keppra 500 mg twice daily pending MRI of the brain with and without Consider placing the patient on aspirin 81 mg daily especially since the patient is not on any anticoagulation due to supratherapeutic INR. Cardiology team is consulted ID team is consulted for concern of possible pneumonia Will defer the rest of the medical management to primary and other specialist Plan is discussed with primary team. Time with Patient: Less than 30
[2024-08-05 21:11] LABS: Glucose,Whole Blood 91 mg/dL (70-110)
--- NOTE | 2024-08-05 21:33 | P.PN ---
Subjective Progress Note Date: 08/05/24 Principal diagnosis: Reason for follow-up is pneumonia Patient is 83-year-old male with a past medical history significant for diabetes mellitus hypertension hyperlipidemia CVA TIA atrial fibrillation patient has been brought into the hospital after pending the patient did have a fall with weakness, patient did have some abnormality on the CT of the brain chest x-ray with right basilar infiltrate concerning for possible pneumonia. On today's evaluation that is 08/05/2024,the patient is more awake and alert today denies any fever or any chills, patient is breathing comfortably on room air, the patient denies chest pain shortness of breath and cough has decreased in intensity no nausea vomiting abdominal pain or diarrhea. Patient white count is 9.09 creatinine 0.9 liver enzymes mildly elevated blood cultures are pending Objective - Vital Signs Vital signs: Vital Signs Temp 98 F 08/05/24 09:34 Pulse 78 08/05/24 09:34 Resp 16 08/05/24 09:34 BP 135/64 08/05/24 09:34 Pulse Ox 97 08/05/24 11:27 FiO2 - Exam GENERAL DESCRIPTION: An elderly male lying in bed in no distress RESPIRATORY SYSTEM: Unlabored breathing , decreased breath sounds at bases HEART: S1 S2 regular rate and rhythm , ABDOMEN: Soft , no tenderness EXTREMITIES: No edema feet - Labs CBC & Chem 7: 08/05/24 06:21 08/05/24 06:21 Labs: Abnormal Lab Results - Last 24 Hours (Table) 08/04/24 08/05/24 08/05/24 Range/Units 12:45 06:21 06:21 RBC 3.03 L (4.40-5.60) X 10*6/uL Hgb 8.4 L (13.0-17.0) g/dL Hct 27.9 L (39.6-50.0) % MCHC 30.1 L (32.0-37.0) g/dL RDW 15.0 H (11.5-14.5) % MPV 9.3 L (9.5-12.2) FL Neutrophils # 7.95 H (1.80-7.70) X 10*3/uL Lymphocytes # 0.61 L (0.90-5.00) X 10*3/uL Eosinophils # 0.02 L (0.04-0.35) X 10*3/uL PT (9.9-11.9) sec INR (0.93-1.11) sec Carbon Dioxide (21.6-31.8) mmol/L Anion Gap (4.00-12.00) mmol/L BUN/Creatinine Ratio (12.00-20.00) Ratio POC Glucose (mg/dL) 122 H (70-110) mg/dL Hemoglobin A1c 6.3 H (<=6.0) % AST (14-35) U/L ALT (10-49) U/L Alkaline Phosphatase (41-126) U/L Total Protein (6.2-8.2) g/dL Albumin (3.8-4.9) g/dL Albumin/Globulin Ratio (1.60-3.17) Ratio 08/05/24 08/05/24 08/05/24 Range/Units 06:21 06:21 09:57 RBC (4.40-5.60) X 10*6/uL Hgb (13.0-17.0) g/dL Hct (39.6-50.0) % MCHC (32.0-37.0) g/dL RDW (11.5-14.5) % MPV (9.5-12.2) FL Neutrophils # (1.80-7.70) X 10*3/uL Lymphocytes # (0.90-5.00) X 10*3/uL Eosinophils # (0.04-0.35) X 10*3/uL PT 45.5 H 48.7 H (9.9-11.9) sec INR 4.46 H 4.9 H (0.93-1.11) sec Carbon Dioxide 21.0 L (21.6-31.8) mmol/L Anion Gap 13.00 H (4.00-12.00) mmol/L BUN/Creatinine Ratio 27.00 H (12.00-20.00) Ratio POC Glucose (mg/dL) (70-110) mg/dL Hemoglobin A1c (<=6.0) % AST 88 H (14-35) U/L ALT 97 H (10-49) U/L Alkaline Phosphatase 140 H (41-126) U/L Total Protein 5.3 L (6.2-8.2) g/dL Albumin 2.8 L (3.8-4.9) g/dL Albumin/Globulin Ratio 1.12 L (1.60-3.17) Ratio Assessment and Plan (1) Pneumonia Current Visit: Yes Status: Acute Code(s): J18.9 - PNEUMONIA, UNSPECIFIED ORGANISM SNOMED Code(s): 486441516 Plan: 1patient presented to hospital with weakness and fall in this patient did have some bibasilar infiltrate noticed to have a congested cough possible component of pneumonia not entirely excluded. 2patient did have some confusion with abnormality seen on the CT concerning for subdural hematoma neurology has been consulted could be etiology of his confusion and possible fall. 3sputum has been requested not collected 4patient to continue with the Rocephin and Zithromax while waiting for the workup to be completed. Dictation was produced using [employer] dictation software. please excuse any grammatical, word or spelling errors. Time with Patient: Less than 30
[2024-08-06 03:26] LABS: Basophils % (A) 0 %; Eosinophils % (A) 0 %; HCT 27.2 % (39.0-53.0); Hypochromasia Slight; Lymphocytes # (A) 0.6 k/uL (1.0-4.8); Lymphocytes % (A) 5 %; MCH 28.9 pg (25.0-35.0); MCV 87.6 fL (80.0-100.0); Mean Platelet Volume 7.4; Monocytes # (A) 0.5 k/uL (0-1.0); Monocytes % (A) 5 %; Neutrophils # (A) 9.1 k/uL (1.3-7.7); Neutrophils % (A) 88 %; Platelet Count 270 k/uL (150-450); Poikilocytosis Slight; RBC 3.11 m/uL (4.30-5.90); RDW 15.5 % (11.5-15.5); WBC 10.4 k/uL (3.8-10.6)
[2024-08-06 04:00] LABS: ALT 108 U/L (4-49); AST 97 U/L (17-59); African American GFR (CKD) >90 (>60 ml/min/1.73 sqM); Albumin 2.8 g/dL (3.5-5.0); Alkaline Phosphatase 160 U/L (38-126); Anion Gap 6 mmol/L; Blood Urea Nitrogen 21 mg/dL (9-20); Calcium 10.2 mg/dL (8.4-10.2); Carbon Dioxide 22 mmol/L (22-30); Chloride 112 mmol/L (98-107); Glucose 112 mg/dL (74-99); Non-African American GFR(CKD) 81 (>60 ml/min/1.73 sqM); Potassium 3.7 mmol/L (3.5-5.1); Sodium 140 mmol/L (137-145); Total Bilirubin 0.6 mg/dL (0.2-1.3); Total Protein 5.6 g/dL (6.3-8.2)
[2024-08-06 04:03] LABS: Prothrombin Time 63.8 sec (10.0-12.5)
[2024-08-06 04:12] LABS: INR 6.4 (<1.2)
[2024-08-06 05:50] LABS: Glucose,Whole Blood 104 mg/dL (70-110)
--- NOTE | 2024-08-06 10:29 | CA ---
Transthoracic Echo Report Name: Kel David Age: 83 Gender: M : 1940 Exam Date: 08/05/2024 14:30 Exam Location: [facility] Ht (in): 70 Wt (lb): 200 Ordering Physician: Stephanie Henning Attending/Referring Phys: [id number], Milady Senior [employer] Felisha Rogers RDCS Procedure CPT: Indications: LVF Cardiac Hx: Technical Quality: Good Contrast 1: Total Dose (mL): Contrast 2: Total Dose (mL): MEASUREMENTS (Male / Female) Normal Values 2D ECHO LV Diastolic Diameter PLAX 5.5 cm 4.2 - 5.9 / 3.9 - 5.3 cm LV Systolic Diameter PLAX 3.8 cm IVS Diastolic Thickness 1.0 cm 0.6 - 1.0 / 0.6 - 0.9 cm LVPW Diastolic Thickness 1.0 cm 0.6 - 1.0 / 0.6 - 0.9 cm LV Relative Wall Thickness 0.4 RV Internal Dim ED PLAX 3.9 cm LVOT Diameter 2.0 cm LA Systolic Diameter LX 4.5 cm 3.0 - 4.0 / 2.7 - 3.8 cm LV Diastolic Volume MOD 4C 161.7 cm??? LV Systolic Volume MOD 4C 110.9 cm??? LV Ejection Fraction MOD 4C 31.4 % LV Cardiac Index MOD 4C 2260.3 cm???/min???m??? LV Diastolic Length 4C 8.5 cm LV Systolic Length 4C 7.5 cm LV Diastolic Volume MOD 2C 156.3 cm??? LV Systolic Volume MOD 2C 82.4 cm??? LV Ejection Fraction MOD 2C 47.3 % LV Cardiac Index MOD 2C 3285.1 cm???/min???m??? LV Diastolic Length 2C 8.4 cm LV Systolic Length 2C 7.0 cm LA Volume 92.4 cm??? 18 - 58 / 22 - 52 cm??? LA Volume Index 43.3 cm???/m??? 16 - 28 cm???/m??? DOPPLER AV Peak Velocity 269.6 cm/s AV Peak Gradient 29.1 mmHg AV Mean Velocity 164.3 cm/s AV Mean Gradient 12.8 mmHg AV Velocity Time Integral 56.6 cm LVOT Peak Velocity 133.9 cm/s LVOT Peak Gradient 7.2 mmHg LVOT Velocity Time Integral 28.2 cm LVOT Stroke Volume 90.6 cm??? LVOT Stroke Volume Index 43.4 ml/m??? LVOT Cardiac Index 4027.5 cm???/min???m??? AV Area Cont Eq vti 1.6 cm??? AV Area Cont Eq pk 1.6 cm??? MV Area PHT 3.4 cm??? MV Deceleration Time 147.2 ms TR Peak Velocity 335.2 cm/s TR Peak Gradient 45.0 mmHg Right Ventricular Systolic Press 50.0 mmHg FINDINGS Left Ventricle Left ventricular ejection fraction is estimated at 40-45% %. Left ventricular cavity size normal. Left ventricular wall thickness normal. Mild to moderately reduced global left ventricular systolic function. Right Ventricle Moderate right ventricular dilatation. Moderate pulmonary hypertension. Right ventricular systolic pressure estimated at 50 mm hg. Right Atrium Mild right atrial dilatation. No right atrial thrombus or mass seen. Left Atrium Mildly increased left atrial diameter. Severely increased left atrial volume. Mildly increased left atrial area. Mitral Valve Structurally normal mitral valve. Kbni-pe-rdaxibsy mitral regurgitation. Aortic Valve Trileaflet aortic valve. Aortic valve sclerosis. Mild aortic stenosis with a peak gradient of 29 mmHg and a mean gradient of 13 mmHg. Tricuspid Valve Structurally normal tricuspid valve. [id number] tricuspid regurgitation. Pulmonic Valve Structurally normal pulmonic valve. No pulmonic regurgitation. Pericardium No pericardial or pleural effusion. Aorta Normal size aortic root and proximal ascending aorta. CONCLUSIONS Normal LV size with mild to moderate global decrease in contractility. Patient is probably in atrial fibrillation. Right ventricle is dilated moderate pulmonary hypertension. Left atrium is enlarged. Aortic valve sclerosis with mild stenosis. Mild to moderate mitral and tricuspid regurgitation. Moderate pulmonary hypertension. No pericardial effusion Previewed by: Dr. Nel Arredondo MD (Electronically Signed) Final Date: 06 August 2024 10:29
[2024-08-06 11:58] LABS: Glucose,Whole Blood 159 mg/dL (70-110)
--- NOTE | 2024-08-06 13:23 | P.PN ---
Subjective Progress Note Date: 08/06/24 I am following up with the patient and according to the nurse he is more awake and responding appropriately. Patient denies of any headache. He feels about the same. Denies any new weakness. Objective - Vital Signs Vital signs: Vital Signs Temp 98.1 F 08/06/24 02:00 Pulse 92 08/06/24 08:00 Resp 16 08/06/24 08:00 BP 124/72 08/06/24 08:00 Pulse Ox 95 08/06/24 08:00 FiO2 Intake & Output 08/05/24 08/06/24 08/06/24 18:59 06:59 18:59 Intake Total 20 118 Output Total 100 500 450 Balance -80 -500 -332 Weight 90.718 kg Intake: Intake, IV Titration 20 Amount cefTRIAXone 1 gm In 20 Sodium Chloride 0.9% 50 ml @ 100 mls/hr IVPB Q24H [facility] Rx#:[id number] Oral 118 Output: Urine 100 500 450 Other: Voiding Method External Catheter External Catheter External Catheter # Bowel Movements 1 - Exam General: Lying in bed and is not in acute distress. Neuro: Patient is mildly drowsy but is awake able to voice. He is oriented to self place and time. He is following simple commands. He is able to name objects correctly such as watch and glasses. No aphasia. Pupils are round equal reactive to light. Pupils are round 3 mm bilaterally. No facial weakness. No dysarthria Motor the strength appears normal throughout. Some of the workup during this hospital visit consisted of: Sodium is 134, potassium is 5.4 on presentation now with normalized. Creatinine is 44 on presentation and it is trending down. Initial serum glucose is 134 Plasma lactic acid venous 2.2 and it is resolved AST is 158 ALT is 156. Liver function tests is trending down TSH is 1.140 Magnesium is 1.60 Vitamin B12 is 777 Serum folate is 13.10 Ammonia level is less than 9 INR on presentation 7.1 and repeat is 5.3-->4.9 CT of the head is reported as chronic right subdural hematoma with mild mass effect upon the adjacent cortex measuring a maximum thickness of 0.5 cm. No definitive acute hemorrhage. Remote ischemic change involving the right cerebellum and the left frontal lobe similar to prior MRI. I personally reviewed the CT and agree there is no acute or subacute stroke. I do not See any prior CTs in our system to compare with. EKG is reported as atrial fibrillation with RVR. Routine EEG: Is abnormal. The background slowing is suggestive of moderate encephalopathy. There is focal slowing over the left frontal region suggestive of cerebral dysfunction in the involved region. There is no epileptiform discharges or seizure on the EEG. The echo report is reviewed and patient has mild to moderate global decreased contractility. Patient probably is in atrial fibrillation. Right ventricle dilated moderate moderate pulmonary hypertension. Left atrium is enlarged. - Labs CBC & Chem 7: 08/06/24 03:09 08/06/24 03:09 Labs: Abnormal Lab Results - Last 24 Hours (Table) 08/05/24 08/06/24 08/06/24 Range/Units 16:43 03:09 03:09 RBC 3.11 L (4.30-5.90) m/uL Hgb 9.0 L (13.0-17.5) gm/dL Hct 27.2 L (39.0-53.0) % Neutrophils # 9.1 H (1.3-7.7) k/uL Lymphocytes # 0.6 L (1.0-4.8) k/uL PT 63.8 H (10.0-12.5) sec INR 6.4 H* (<1.2) Chloride (98-107) mmol/L BUN (9-20) mg/dL Glucose (74-99) mg/dL POC Glucose (mg/dL) 138 H (70-110) mg/dL AST (17-59) U/L ALT (4-49) U/L Alkaline Phosphatase (38-126) U/L Total Protein (6.3-8.2) g/dL Albumin (3.5-5.0) g/dL 08/06/24 08/06/24 Range/Units 03:09 11:56 RBC (4.30-5.90) m/uL Hgb (13.0-17.5) gm/dL Hct (39.0-53.0) % Neutrophils # (1.3-7.7) k/uL Lymphocytes # (1.0-4.8) k/uL PT (10.0-12.5) sec INR (<1.2) Chloride 112 H (98-107) mmol/L BUN 21 H (9-20) mg/dL Glucose 112 H (74-99) mg/dL POC Glucose (mg/dL) 159 H (70-110) mg/dL AST 97 H (17-59) U/L ALT 108 H (4-49) U/L Alkaline Phosphatase 160 H (38-126) U/L Total Protein 5.6 L (6.3-8.2) g/dL Albumin 2.8 L (3.5-5.0) g/dL Microbiology - Last 24 Hours (Table) 08/05/24 04:41 Urine Culture - Final Urine,Clean Catch 08/04/24 09:44 Blood Culture - Preliminary Blood Assessment and Plan Assessment: This is an 83-year-old gentleman who presents emergency department because of 2 episode of fall neurologist consult for confusion. According to the granddaughter he had 2 unwitnessed falls and 1 of him was that he slipped. See ms after the falls patient was not confused and it seems 2 hours after being in the hospital he started having confusion. He had a brief episode of left hand tremor but was responding to the granddaughter yesterday. Patient does not have any history of seizure. He has elevated liver function test. It seems that he has supratherapeutic INR for the last 1 week and his Coumadin was held as a resu lt for the past 1 week. Encephalopathy seems due to metabolic encephalopathy. Cannot rule out seizure especially with left hand tremor and continued confusion. Also tremor could be due to metabolic derangement. Rule out stroke especially since his anticoagulation has been held---mentation is improving Possible underlying history of atrial fibrillation on 2D echo Transaminitis Supratherapeutic INR and Coumadin has been held for the past 1 week. On initial presentation his INR was 7.1 and currently is 5.3 neck History of stroke History of brain tumor status post resection History of CABG Plan: I placed the patient on empiric treatment of Keppra 500 mg twice daily pending MRI of the brain with and without Consider placing the patient on aspirin 81 mg daily especially since the patient is not on any anticoagulation due to supratherapeutic INR. Will defer the use of anticoagulation to the cardiology and the primary team. Cardiology team is consulted ID team is consulted for concern of possible pneumonia Will defer the rest of the medical management to primary and other specialist Plan is discussed with his nurse. Time with Patient: Less than 30
--- NOTE | 2024-08-06 15:06 | P.PN ---
Subjective Progress Note Date: 08/06/24 Principal diagnosis: Reason for follow-up is pneumonia Patient is 83-year-old male with a past medical history significant for diabetes mellitus hypertension hyperlipidemia CVA TIA atrial fibrillation patient has been brought into the hospital after pending the patient did have a fall with weakness, patient did have some abnormality on the CT of the brain chest x-ray with right basilar infiltrate concerning for possible pneumonia. On today's evaluation that is 08/06/2024,the patient remains to be afebrile, patient is on room air not requiring supplemental oxygen and denies any shortness of breath no chest pain or any worsening cough.Patient denies having any nausea or vomiting, no abdominal pain and no diarrhea has been reported. Patient white count is 10.4, creatinine 0.85 blood urine negative so far Objective - Vital Signs Vital signs: Vital Signs Temp 98.1 F 08/06/24 02:00 Pulse 92 08/06/24 08:00 Resp 16 08/06/24 08:00 BP 124/72 08/06/24 08:00 Pulse Ox 95 08/06/24 08:00 FiO2 Intake & Output 08/05/24 08/06/24 08/06/24 18:59 06:59 18:59 Intake Total 20 118 Output Total 100 500 450 Balance -80 -500 -332 Weight 90.718 kg Intake: Intake, IV Titration 20 Amount cefTRIAXone 1 gm In 20 Sodium Chloride 0.9% 50 ml @ 100 mls/hr IVPB Q24H [facility] Rx#:[id number] Oral 118 Output: Urine 100 500 450 Other: Voiding Method External Catheter External Catheter External Catheter # Bowel Movements 1 - Exam GENERAL DESCRIPTION: An elderly male lying in bed in no distress RESPIRATORY SYSTEM: Unlabored breathing , decreased breath sounds at bases HEART: S1 S2 regular rate and rhythm , ABDOMEN: Soft , no tenderness EXTREMITIES: No edema feet - Labs CBC & Chem 7: 08/06/24 03:09 08/06/24 03:09 Labs: Abnormal Lab Results - Last 24 Hours (Table) 08/05/24 08/06/24 08/06/24 Range/Units 16:43 03:09 03:09 RBC 3.11 L (4.30-5.90) m/uL Hgb 9.0 L (13.0-17.5) gm/dL Hct 27.2 L (39.0-53.0) % Neutrophils # 9.1 H (1.3-7.7) k/uL Lymphocytes # 0.6 L (1.0-4.8) k/uL PT 63.8 H (10.0-12.5) sec INR 6.4 H* (<1.2) Chloride (98-107) mmol/L BUN (9-20) mg/dL Glucose (74-99) mg/dL POC Glucose (mg/dL) 138 H (70-110) mg/dL AST (17-59) U/L ALT (4-49) U/L Alkaline Phosphatase (38-126) U/L Total Protein (6.3-8.2) g/dL Albumin (3.5-5.0) g/dL 08/06/24 08/06/24 Range/Units 03:09 11:56 RBC (4.30-5.90) m/uL Hgb (13.0-17.5) gm/dL Hct (39.0-53.0) % Neutrophils # (1.3-7.7) k/uL Lymphocytes # (1.0-4.8) k/uL PT (10.0-12.5) sec INR (<1.2) Chloride 112 H (98-107) mmol/L BUN 21 H (9-20) mg/dL Glucose 112 H (74-99) mg/dL POC Glucose (mg/dL) 159 H (70-110) mg/dL AST 97 H (17-59) U/L ALT 108 H (4-49) U/L Alkaline Phosphatase 160 H (38-126) U/L Total Protein 5.6 L (6.3-8.2) g/dL Albumin 2.8 L (3.5-5.0) g/dL Microbiology - Last 24 Hours (Table) 08/05/24 04:41 Urine Culture - Final Urine,Clean Catch 08/04/24 09:44 Blood Culture - Preliminary Blood Assessment and Plan (1) Pneumonia Current Visit: Yes Status: Acute Code(s): J18.9 - PNEUMONIA, UNSPECIFIED ORGANISM SNOMED Code(s): 802961067 Plan: 1patient presented to hospital with weakness and fall in this patient did have some bibasilar infiltrate noticed to have a congested cough possible component o f pneumonia not entirely excluded. 2patient did have some confusion with abnormality seen on the CT concerning for subdural hematoma neurology has been consulted could be etiology of his confusion and possible fall. 3did have some clinical improvement the patient white count has normalized, patient will be treated Rocephin and Zithromax while waiting for the workup to be completed. Dictation was produced using [employer]apine dictation software. please excuse any grammatical, word or spelling errors. Time with Patient: Less than 30
[2024-08-06 16:13] LABS: Glucose,Whole Blood 132 mg/dL (70-110)
--- NOTE | 2024-08-06 16:31 | P.PN ---
Subjective Progress Note Date: 08/06/24 Beto David is an 83-year-old male patient who presented to the hospital with concerns of falls weakness and increased confusion. According to family member at bedside patient had 2 episodes of falls yesterday patient unable to recall event. Patient usually is independent ANO x 3 patient does have a history of atrial fibrillation maintained on Coumadin which has been on hold since last week due to elevated INR. Additional medical history includes CVA, diabetes mellitus, DVT, GERD, hyperlipidemia, hypertension and pneumonia. Chest x-ray completed showing improving basilar infiltrates greater on left improving pleural effusions head CT completed showing chronic right subdural hematoma with mild mass effect upon the adjacent cortex measuring a maximal thickness of 1.5 cm no definitive acute hemorrhage remote ischemic change involving the right cerebellum and left frontal lobe similar to prior MRI. Lab work revealing white blood cell 11.8, hemoglobin 10.2 INR significantly elevated at 7.1, sodium 134 potassium 5.4 bun 44, creatinine 1.1 lactic acid 2.2 and elevated liver enzymes AST 158, ALT 156 and alkaline phosphatase 168. At this time patient has been admitted cardiology, infectious disease and neurology services all consulted. At this time patient will be started back on IV antibiotics. Will order liver ultrasound. Repeat labs ordered On 08/04/2024 patient is alert but confused. Family at bedside. Patient has been transitioned oral home medication Cardizem DC'd per cardiology. Repeat labs pending. Patient denies chest pain or shortness of breath. Patient denies nausea vomiting or diarrhea. Patient denies any urinary burning frequency. Current vital signs temp 98.0, heart rate 99, respiratory rate 16, blood pressure 122/65 with a pulse ox of 99% on room air On 08/05/2024 patient remains confused sitter at bedside resting comfortably in bed. Patient was evaluated by neurology services EEG and MRI has been ordered. Patient remains on azithromycin and Rocephin infectious disease services following. Current vital signs temp 98.0, heart rate 80, respiratory rate 20, blood pressure 111/65 with a pulse ox of 97% on room air. Lab work currently pending On 08/06/2024 patient was seen and examined on the medical floor he is alert slightly confused in no apparent distress he is answering questions more appropriately today there is no fever or chills no headache or dizziness no chest pain no shortness of breath no cough no nausea or vomiting no abdominal pain no diarrhea and no urinary symptoms Objective - Vital Signs Vital signs: Vital Signs Temp 98.1 F 08/06/24 02:00 Pulse 122 H 08/06/24 14:00 Resp 16 08/06/24 14:00 BP 167/85 08/06/24 14:00 Pulse Ox 93 L 08/06/24 14:00 FiO2 Intake & Output 08/05/24 08/06/24 08/06/24 18:59 06:59 18:59 Intake Total 20 118 Output Total 100 500 450 Balance -80 -500 -332 Weight 90.718 kg Intake: Intake, IV Titration 20 Amount cefTRIAXone 1 gm In 20 Sodium Chloride 0.9% 50 ml @ 100 mls/hr IVPB Q24H [facility] Rx#:[id number] Oral 118 Output: Urine 100 500 450 Other: Voiding Method External Catheter External Catheter External Catheter # Bowel Movements 1 - Exam Head normocephalic Neck supple Lungs clear to auscultation bilaterally no wheezing or crackles Heart regular rate and rhythm S1-S2, no rub or gallop Abdomen is soft nontender nondistended positive bowel sounds no hepatosplenomeg bill Extremities no edema Neuro alert and orientated to 1. Intermittent confusion - Labs CBC & Chem 7: 08/06/24 03:09 08/06/24 03:09 Labs: Abnormal Lab Results - Last 24 Hours (Table) 08/05/24 08/06/24 08/06/24 Range/Units 16:43 03:09 03:09 RBC 3.11 L (4.30-5.90) m/uL Hgb 9.0 L (13.0-17.5) gm/dL Hct 27.2 L (39.0-53.0) % Neutrophils # 9.1 H (1.3-7.7) k/uL Lymphocytes # 0.6 L (1.0-4.8) k/uL PT 63.8 H (10.0-12.5) sec INR 6.4 H* (<1.2) Chloride (98-107) mmol/L BUN (9-20) mg/dL Glucose (74-99) mg/dL POC Glucose (mg/dL) 138 H (70-110) mg/dL AST (17-59) U/L ALT (4-49) U/L Alkaline Phosphatase (38-126) U/L Total Protein (6.3-8.2) g/dL Albumin (3.5-5.0) g/dL 08/06/24 08/06/24 08/06/24 Range/Units 03:09 11:56 16:12 RBC (4.30-5.90) m/uL Hgb (13.0-17.5) gm/dL Hct (39.0-53.0) % Neutrophils # (1.3-7.7) k/uL Lymphocytes # (1.0-4.8) k/uL PT (10.0-12.5) sec INR (<1.2) Chloride 112 H (98-107) mmol/L BUN 21 H (9-20) mg/dL Glucose 112 H (74-99) mg/dL POC Glucose (mg/dL) 159 H 132 H (70-110) mg/dL AST 97 H (17-59) U/L ALT 108 H (4-49) U/L Alkaline Phosphatase 160 H (38-126) U/L Total Protein 5.6 L (6.3-8.2) g/dL Albumin 2.8 L (3.5-5.0) g/dL Microbiology - Last 24 Hours (Table) 08/05/24 04:41 Urine Culture - Final Urine,Clean Catch 08/04/24 09:44 Blood Culture - Preliminary Blood Assessment and Plan Assessment: 1. Generalized weakness with falls 2. Intermittent confusion 3. Supratherapeutic INR 4. A-fib with RVR. Patient was started on Cardizem drip 5. Possible pneumonia 6. Abnormal head CT 7. History of systolic congestive heart failure 8. History of aortic valve replacement 9. History of diabetes mellitus type 2 sliding scale coverage added 10. History of CVA 11. History of chronic atrial fibrillation 12. History of COPD 13. History of hyperlipidemia 14. History of benign brain tumor resected in 1989 15. History of cardiomyopathy 16. History of bladder cancer 17. Elevated liver enzymes DVT prophylaxis SCDs secondary to supratherapeutic INR. GI prophylaxis Protonix Neurology, cardiology and infectious disease services consulted Repeat labs ordered Patient started on IV antibiotics Urine and blood cultures ordered MRI and EEG ordered per neurology
--- NOTE | 2024-08-06 20:09 | MR ---
INDICATION: Patient age:Male; 83 years old; Reason for study: confusion unknown cause; prior tumor removal in 1998 COMPARISON: CT brain 08/04/2024, 08/03/2024, 12/13/2010, 12/11/2010. TECHNIQUE: Multi planar, multi sequence imaging was performed through the brain. The patient was then given 9 cc of Gadavist intravenously and multi planar, T1 fat-saturation images were obtained. FINDINGS: The gee-white junctions, ventricular system, basal cisterns appear unremarkable. Redemonstration of fluid attenuation along the extra-axial right cerebral convexity measuring up to 1.5 cm. This demonst rates somewhat heterogenous low signal on FLAIR and is most consistent with a chronic subdural hygrom a. This causes some mild mass effect upon the right cerebral hemisphere. Encephalomalacia involving the left frontal lobe and right cerebellar hemisphere from prior surgical intervention/ischemia. Remote lacunar infarct within the inferior left basal ganglia. Prominence of t he peripheral sulci consistent with cerebral volume loss. Approximately 5 foci of restricted diffusio n identified within the bilateral parietal lobes and posterior right frontal lobe. Intracranial arter ial flow voids are maintained. Stable midline shift to the left of 3 mm. Patchy areas of high T2/FLAIR signal intensity are seen within the periventricular and subcortical wh ite matter. The susceptibility weighted images demonstrated foci of blooming artifact primarily withi n the right cerebellum encephalomalacia site. There is some surrounding T2/FLAIR hyperintensity in th e right cerebellum superiorly to the Ancef malacia site likely representing some gliosis. Additional T2/FLAIR hyperintensity along the left frontal lobe encephalomalacic site. After administration of ga dolinium, no abnormal enhancement is seen involving the left frontal lobe or right cerebellum. No cor responding enhancement identified within the FLAIR signal abnormality. There is diffuse smooth pachym eningeal enhancement. Post frontal craniotomy changes. The remaining bone marrow signal is within normal limits. Minimal mu cosal thickening of the left maxillary sinuses. Mild mucosal thickening of the sphenoid sinuses again with air-fluid levels. IMPRESSION: 1. Few scattered foci of acute/subacute ischemia involving the bilateral parietal lobes and right fro ntal lobe. Distribution raises possibility of embolic phenomenon. 2. Redemonstration of chronic right subdural hygroma along the right cerebral convexity resulting in 3 mm of leftward midline shift again. 3. Encephalomalacia involving the right cerebellum and left frontal lobe related to ischemia/surgical change. Additional remote small lacunar infarct involving the inferior left basal ganglia. No abnorm al contrast enhancement within these regions. 4. Nonspecific diffuse mild pachymeningeal enhancement. 5. Nonspecific white matter changes likely related to chronic small vessel ischemic disease. [facility], , 08/06/2024 8:07 PM
[2024-08-06 20:43] LABS: Glucose,Whole Blood 166 mg/dL (70-110)
[2024-08-07 06:50] LABS: Glucose,Whole Blood 125 mg/dL (70-110)
[2024-08-07 09:10] LABS: Basophils % (A) 0 %; Eosinophils % (A) 0 %; HCT 28.2 % (39.0-53.0); HGB 8.9 gm/dL (13.0-17.5); Hypochromasia Moderate; Lymphocytes # (A) 0.5 k/uL (1.0-4.8); Lymphocytes % (A) 5 %; MCH 28.1 pg (25.0-35.0); MCHC 31.5 g/dL (31.0-37.0); MCV 89.1 fL (80.0-100.0); Mean Platelet Volume 6.7; Monocytes # (A) 0.3 k/uL (0-1.0); Monocytes % (A) 3 %; Neutrophils # (A) 9.7 k/uL (1.3-7.7); Neutrophils % (A) 90 %; Platelet Count 283 k/uL (150-450); RBC 3.16 m/uL (4.30-5.90); RDW 15.4 % (11.5-15.5); WBC 10.7 k/uL (3.8-10.6)
[2024-08-07 09:15] LABS: ALT 99 U/L (4-49); AST 68 U/L (17-59); African American GFR (CKD) >90 (>60 ml/min/1.73 sqM); Albumin 2.6 g/dL (3.5-5.0); Albumin/Globulin Ratio 0.9; Alkaline Phosphatase 166 U/L (38-126); Anion Gap 7 mmol/L; Blood Urea Nitrogen 23 mg/dL (9-20); Calcium 10.6 mg/dL (8.4-10.2); Carbon Dioxide 24 mmol/L (22-30); Chloride 110 mmol/L (98-107); Globulin 2.8 g/dL; Glucose 121 mg/dL (74-99); Non-African American GFR(CKD) 81 (>60 ml/min/1.73 sqM); Potassium 4.2 mmol/L (3.5-5.1); Sodium 141 mmol/L (137-145); Total Bilirubin 0.7 mg/dL (0.2-1.3); Total Protein 5.4 g/dL (6.3-8.2)
--- NOTE | 2024-08-07 09:20 | P.PN ---
Subjective Progress Note Date: 08/07/24 Beto David is an 83-year-old male patient who presented to the hospital with concerns of falls weakness and increased confusion. According to family member at bedside patient had 2 episodes of falls yesterday patient unable to recall event. Patient usually is independent ANO x 3 patient does have a history of atrial fibrillation maintained on Coumadin which has been on hold since last week due to elevated INR. Additional medical history includes CVA, diabetes mellitus, DVT, GERD, hyperlipidemia, hypertension and pneumonia. Chest x-ray completed showing improving basilar infiltrates greater on left improving pleural effusions head CT completed showing chronic right subdural hematoma with mild mass effect upon the adjacent cortex measuring a maximal thickness of 1.5 cm no definitive acute hemorrhage remote ischemic change involving the right cerebellum and left frontal lobe similar to prior MRI. Lab work revealing white blood cell 11.8, hemoglobin 10.2 INR significantly elevated at 7.1, sodium 134 potassium 5.4 bun 44, creatinine 1.1 lactic acid 2.2 and elevated liver enzymes AST 158, ALT 156 and alkaline phosphatase 168. At this time patient has been admitted cardiology, infectious disease and neurology services all consulted. At this time patient will be started back on IV antibiotics. Will order liver ultrasound. Repeat labs ordered On 08/04/2024 patient is alert but confused. Family at bedside. Patient has been transitioned oral home medication Cardizem DC'd per cardiology. Repeat labs pending. Patient denies chest pain or shortness of breath. Patient denies nausea vomiting or diarrhea. Patient denies any urinary burning frequency. Current vital signs temp 98.0, heart rate 99, respiratory rate 16, blood pressure 122/65 with a pulse ox of 99% on room air On 08/05/2024 patient remains confused sitter at bedside resting comfortably in bed. Patient was evaluated by neurology services EEG and MRI has been ordered. Patient remains on azithromycin and Rocephin infectious disease services following. Current vital signs temp 98.0, heart rate 80, respiratory rate 20, blood pressure 111/65 with a pulse ox of 97% on room air. Lab work currently pending On 08/06/2024 patient was seen and examined on the medical floor he is alert slightly confused in no apparent distress he is answering questions more appropriately today there is no fever or chills no headache or dizziness no chest pain no shortness of breath no cough no nausea or vomiting no abdominal pain no diarrhea and no urinary symptoms On 08/07/2024 patient remains confused. MRI was completing awaiting neurology input. Current vital signs temp 98.2, heart rate 105, respiratory rate 18, blood pressure 136/78 with a pulse ox of 93% on room air. Patient denies chest pain or shortness of breath. Patient denies nausea vomiting or diarrhea. Patient denies any urinary burning or frequency Objective - Vital Signs Vital signs: Vital Signs Temp 98.2 F 08/07/24 07:34 Pulse 105 H 08/07/24 07:34 Resp 18 08/07/24 07:34 BP 162/60 08/07/24 07:34 Pulse Ox 92 L 08/07/24 07:34 FiO2 Intake & Output 08/06/24 08/07/24 08/07/24 18:59 06:59 18:59 Intake Total 118 Output Total 650 350 Balance -532 -350 Weight 90.718 kg Intake: Oral 118 Output: Urine 650 350 Other: Voiding Method External Catheter External Catheter - Exam Head normocephalic Neck supple Lungs clear to auscultation bilaterally no wheezing or crackles Heart regular rate and rhythm S1-S2, no rub or gallop Abdomen is soft nontender nondistended positive bowel sounds no hepatosplenomegaly Extremities no edema Neuro alert and orientated to 1. Intermittent confusion - Labs CBC & Chem 7: 08/07/24 08:26 08/07/24 08:26 Labs: Abnormal Lab Results - Last 24 Hours (Table) 08/06/24 08/06/24 08/06/24 Range/Units 11:56 16:12 20:41 WBC (3.8-10.6) k/uL RBC (4.30-5.90) m/uL Hgb (13.0-17.5) gm/dL Hct (39.0-53.0) % Neutrophils # (1.3-7.7) k/uL Lymphocytes # (1.0-4.8) k/uL Chloride (98-107) mmol/L BUN (9-20) mg/dL Glucose (74-99) mg/dL POC Glucose (mg/dL) 159 H 132 H 166 H (70-110) mg/dL Calcium (8.4-10.2) mg/dL AST (17-59) U/L ALT (4-49) U/L Alkaline Phosphatase (38-126) U/L Total Protein (6.3-8.2) g/dL Albumin (3.5-5.0) g/dL 08/07/24 08/07/24 08/07/24 Range/Units 06:48 08:26 08:26 WBC 10.7 H (3.8-10.6) k/uL RBC 3.16 L (4.30-5.90) m/uL Hgb 8.9 L (13.0-17.5) gm/dL Hct 28.2 L (39.0-53.0) % Neutrophils # 9.7 H (1.3-7.7) k/uL Lymphocytes # 0.5 L (1.0-4.8) k/uL Chloride 110 H (98-107) mmol/L BUN 23 H (9-20) mg/dL Glucose 121 H (74-99) mg/dL POC Glucose (mg/dL) 125 H (70-110) mg/dL Calcium 10.6 H (8.4-10.2) mg/dL AST 68 H (17-59) U/L ALT 99 H (4-49) U/L Alkaline Phosphatase 166 H (38-126) U/L Total Protein 5.4 L (6.3-8.2) g/dL Albumin 2.6 L (3.5-5.0) g/dL Microbiology - Last 24 Hours (Table) 08/04/24 09:44 Blood Culture - Preliminary Blood 08/05/24 04:41 Urine Culture - Final Urine,Clean Catch Assessment and Plan Assessment: 1. Generalized weakness with falls 2. Intermittent confusion 3. Supratherapeutic INR 4. A-fib with RVR. Patient was started on Cardizem drip 5. Possible pneumonia 6. Abnormal head CT 7. History of systolic congestive heart failure 8. History of aortic valve replacement 9. History of diabetes mellitus type 2 sliding scale coverage added 10. History of CVA 11. History of chronic atrial fibrillation 12. History of COPD 13. History of hyperlipidemia 14. History of benign brain tumor resected in 1989 15. History of cardiomyopathy 16. History of bladder cancer 17. Elevated liver enzymes DVT prophylaxis SCDs secondary to supratherapeutic INR. GI prophylaxis Protonix Neurology, cardiology and infectious disease services consulted Repeat labs ordered Patient started on IV antibiotics Urine and blood cultures ordered MRI and EEG ordered per neurology
[2024-08-07 11:32] LABS: Glucose,Whole Blood 126 mg/dL (70-110)
--- NOTE | 2024-08-07 12:16 | P.PN ---
Subjective Progress Note Date: 08/07/24 HISTORY OF PRESENT ILLNESS: This is a 83-year-old male with a past medical history significant for atrial fibrillation, aortic valve replacement, cardiomyopathy, bladder cancer with hematuria, hypertension, hyperlipidemia, and diabetes. Patient follows in the office with Dr. Sewell. We have been asked to see the patient in consultation for A-fib with RVR. Patient examined at the bedside in the emergency room. The patient is confused at the time of examination. There is no family present. The patient does have a safety admin assistant at the bedside. The patient presented to the hospital after sustaining a fall at home. The patient denies losing consciousness. The patient's INR was found to be elevated on admission at 7.1. Repeat this morning is 5.3. His Coumadin has been discontinued. Patient was also found to be in A-fib with RVR upon admission. He was started on IV Cardizem at 5 mg an hour. He remains in atrial fibrillation with controlled ventricular rate at the time of examination. DIAGNOSTICS: - EKG reveals A-fib with RVR. - Chest xray improving bibasilar infiltrates greater on the left. Improving pleural effusions. - CT of the brain: Chronic right subdural hematoma with mild mass effect upon the adjacent cortex measuring maximum thickness of 1.5 cm. No definite acute hemorrhage. Remote ischemic change involving right cerebellum and left frontal lobe similar to prior MRI. - Laboratory data: WBC 8.6. Hemoglobin 8.8. Platelet count 268. Sodium 134. Potassium 3.8. BUN 29. Creatinine 0.91. AST 84. ALT 109. TSH 1.140. - Current home cardiac medications include Coumadin 5 mg daily, atorvastatin 40 mg daily, metoprolol tartrate 25 mg twice a day, lisinopril 10 mg daily, Lasix 20 mg daily - Most recent echocardiogram obtained in September 2023 revealed ejection fraction 47%, prosthetic aortic valve, moderate MR, mild to moderate TR - Patient underwent tissue aortic valve replacement and clipping in March 2017 - Cardiac catheterization history: January 2017 revealing 40% mid RCA right dominant system. 08/05/2024 Patient seen and examined on the observation unit. Patient continues to have mental status changes and unable to take any of his medications as he is not awake enough to swallow pills. He has a safety admin assistant at the bedside. Patient remains in atrial fibrillation in the 90s. Blood pressure 135/64, pulse ox 96% on room air. Repeat blood work reveals hemoglobin 8.4. INR is at 4.46. Sodium 142, potassium 3.8, BUN 24 creatinine 0.9. A1c 6.3. Liver function test are improving. No acute process found on liver ultrasound. 08/07/2024 Patient seen and examined. Patient is now seen on the med-surg floor. His granddaughter is at the bedside and updated regarding results of MRI and she will ask further questions with neurology. Apparently patient's mental status has been improving. He is able to swallow and is taking oral medications. Patient remains in atrial fibrillation. His heart rate has been controlled running about 105, blood pressure 162/60, pulse ox 92% on room air. INR yesterday was 6.4. Hemoglobin is at 8.9. Echocardiogram reveals EF of 40 to 45%, right ventricle is dilated, moderate pulmonary hypertension. Aortic valve sclerosis with mild stenosis. Mild to moderate mitral and tricuspid regurgitation. PHYSICAL EXAM: VITAL SIGNS: Reviewed. GENERAL: Well-developed in no acute distress. HEENT: Head is normocephalic. Pupils are equal, round. Sclerae anicteric. Mucous membranes of the mouth are moist. Neck supple. No JVD or thyromegaly LUNGS: Respirations even and unlabored. Lungs essentially clear to auscultation bilaterally. HEART: Irregular rate and rhythm. S1 and S2 heard. Systolic murmur noted ABDOMEN: Soft. Nondistended. Nontender. EXTREMITIES: Normal range of motion. No clubbing or cyanosis. Peripheral pulses intact. No lower extremity edema ASSESSMENT: Status post mechanical fall Acute/subacute ischemia bilateral parietal lobes and right frontal lobe on MRI Chronic atrial fibrillation with RVR, currently rate controlled Supratherapeutic INR, 7.1 on admission Chronic right subdural hematoma, per CT scan History of CVA History of bioprosthetic aortic valve replacement History of nonischemic cardiomyopathy Mild CAD, 40% mid RCA, per cath in 2017 History of bladder cancer with hematuria Hypertension Hyperlipidemia Diabetes PLAN: Neurology consult appreciated Continue to hold Coumadin for 7 days. Monitor INR. If INR is less than 2, start patient on Eliquis 2.5 mg twice daily Continue increased metoprolol 50 mg 3 times daily Cardiology will sign off this case and follow on an as-needed basis. Please reconsult for any new concerns. Patient may follow-up in the office in one to [address] Sewell. Nurse practitioner note has been reviewed by physician. Signing provider agrees with the documented findings, assessment, and plan of care documented by VP [employer]PIRATORY as a scribe. Objective - Vital Signs Vital signs: Vital Signs Temp 98.2 F 08/07/24 07:34 Pulse 105 H 08/07/24 07:34 Resp 18 08/07/24 09:05 BP 162/60 08/07/24 07:34 Pulse Ox 92 L 08/07/24 07:34 FiO2 Intake & Output 08/06/24 08/07/24 08/07/24 18:59 06:59 18:59 Intake Total 118 Output Total 650 350 Balance -532 -350 Weight 90.718 kg Intake: Oral 118 Output: Urine 650 350 Other: Voiding Method External Catheter External Catheter - Labs CBC & Chem 7: 08/07/24 08:26 08/07/24 08:26 Labs: Abnormal Lab Results - Last 24 Hours (Table) 08/06/24 08/06/24 08/06/24 Range/Units 11:56 16:12 20:41 WBC (3.8-10.6) k/uL RBC (4.30-5.90) m/uL Hgb (13.0-17.5) gm/dL Hct (39.0-53.0) % Neutrophils # (1.3-7.7) k/uL Lymphocytes # (1.0-4.8) k/uL Chloride (98-107) mmol/L BUN (9-20) mg/dL Glucose (74-99) mg/dL POC Glucose (mg/dL) 159 H 132 H 166 H (70-110) mg/dL Calcium (8.4-10.2) mg/dL AST (17-59) U/L ALT (4-49) U/L Alkaline Phosphatase (38-126) U/L Total Protein (6.3-8.2) g/dL Albumin (3.5-5.0) g/dL 08/07/24 08/07/24 08/07/24 Range/Units 06:48 08:26 08:26 WBC 10.7 H (3.8-10.6) k/uL RBC 3.16 L (4.30-5.90) m/uL Hgb 8.9 L (13.0-17.5) gm/dL Hct 28.2 L (39.0-53.0) % Neutrophils # 9.7 H (1.3-7.7) k/uL Lymphocytes # 0.5 L (1.0-4.8) k/uL Chloride 110 H (98-107) mmol/L BUN 23 H (9-20) mg/dL Glucose 121 H (74-99) mg/dL POC Glucose (mg/dL) 125 H (70-110) mg/dL Calcium 10.6 H (8.4-10.2) mg/dL AST 68 H (17-59) U/L ALT 99 H (4-49) U/L Alkaline Phosphatase 166 H (38-126) U/L Total Protein 5.4 L (6.3-8.2) g/dL Albumin 2.6 L (3.5-5.0) g/dL Microbiology - Last 24 Hours (Table) 08/04/24 09:44 Blood Culture - Preliminary Blood 08/05/24 04:41 Urine Culture - Final Urine,Clean Catch
--- NOTE | 2024-08-07 15:08 | P.PN ---
Subjective Progress Note Date: 08/07/24 Principal diagnosis: Reason for follow-up is pneumonia Patient is 83-year-old male with a past medical history significant for diabetes mellitus hypertension hyperlipidemia CVA TIA atrial fibrillation patient has been brought into the hospital after pending the patient did have a fall with weakness, patient did have some abnormality on the CT of the brain chest x-ray with right basilar infiltrate concerning for possible pneumonia. On today's evaluation that is 08/07/2024, the patient continues to be afebrile, the patient is on room air and breathing comfortably, the Pt denies having any chest pain or any worsening cough, the patient denies having any abdominal pain no vomiting or any diarrhea has been reported by the nursing staff. Patient white count is 10.7 creatinine 0.84 blood urine culture have been negative MRI of the brain acute/subacute ischemia possible embolic phenomena Objective - Vital Signs Vital signs: Vital Signs Temp 98.2 F 08/07/24 07:34 Pulse 105 H 08/07/24 07:34 Resp 18 08/07/24 09:05 BP 162/60 08/07/24 07:34 Pulse Ox 92 L 08/07/24 07:34 FiO2 Intake & Output 08/06/24 08/07/24 08/07/24 18:59 06:59 18:59 Intake Total 118 Output Total 650 350 Balance -532 -350 Weight 90.718 kg Intake: Oral 118 Output: Urine 650 350 Other: Voiding Method External Catheter External Catheter - Exam GENERAL DESCRIPTION: An elderly male lying in bed in no distress RESPIRATORY SYSTEM: Unlabored breathing , decreased breath sounds at bases HEART: S1 S2 regular rate and rhythm , ABDOMEN: Soft , no tenderness EXTREMITIES: No edema feet - Labs CBC & Chem 7: 08/07/24 08:26 08/07/24 08:26 Labs: Abnormal Lab Results - Last 24 Hours (Table) 08/06/24 08/06/24 08/07/24 Range/Units 16:12 20:41 06:48 WBC (3.8-10.6) k/uL RBC (4.30-5.90) m/uL Hgb (13.0-17.5) gm/dL Hct (39.0-53.0) % Neutrophils # (1.3-7.7) k/uL Lymphocytes # (1.0-4.8) k/uL Chloride (98-107) mmol/L BUN (9-20) mg/dL Glucose (74-99) mg/dL POC Glucose (mg/dL) 132 H 166 H 125 H (70-110) mg/dL Calcium (8.4-10.2) mg/dL AST (17-59) U/L ALT (4-49) U/L Alkaline Phosphatase (38-126) U/L Total Protein (6.3-8.2) g/dL Albumin (3.5-5.0) g/dL 08/07/24 08/07/24 08/07/24 Range/Units 08:26 08:26 11:30 WBC 10.7 H (3.8-10.6) k/uL RBC 3.16 L (4.30-5.90) m/uL Hgb 8.9 L (13.0-17.5) gm/dL Hct 28.2 L (39.0-53.0) % Neutrophils # 9.7 H (1.3-7.7) k/uL Lymphocytes # 0.5 L (1.0-4.8) k/uL Chloride 110 H (98-107) mmol/L BUN 23 H (9-20) mg/dL Glucose 121 H (74-99) mg/dL POC Glucose (mg/dL) 126 H (70-110) mg/dL Calcium 10.6 H (8.4-10.2) mg/dL AST 68 H (17-59) U/L ALT 99 H (4-49) U/L Alkaline Phosphatase 166 H (38-126) U/L Total Protein 5.4 L (6.3-8.2) g/dL Albumin 2.6 L (3.5-5.0) g/dL Microbiology - Last 24 Hours (Table) 08/04/24 09:44 Blood Culture - Preliminary Blood Assessment and Plan (1) Pneumonia Current Visit: Yes Status: Acute Code(s): J18.9 - PNEUMONIA, UNSPECIFIED ORGANISM SNOMED Code(s): 336665696 Plan: 1patient presented to hospital with weakness and fall in this patient did have some bibasilar infiltrate noticed to have a congested cough possible component of pneumonia not entirely excluded. 2patient did have some confusion with abnormality seen on the CT concerning for subdural hematoma neurology has been consulted could be etiology of his confusion and possible fall. 3patient remains to be afebrile patient white count has normalized, patient currently being treated with Rocephin and monitor clinical course closely Dictation was produced using [employer] dictation software. please excuse any grammatical, word or spelling errors. Time with Patient: Less than 30
[2024-08-07 16:12] LABS: INR 6.3 sec (0.93-1.11); Prothrombin Time 61.6 sec (9.9-11.9)
--- NOTE | 2024-08-07 16:15 | P.PN ---
Subjective Progress Note Date: 08/07/24 I am following up with the patient and the patient's granddaughter is at bedside and she feels the patient speech is at times nonsensical. Pending MRI of the brain and and it shows concern for embolic stroke over bilateral hemisphere. According to the daughter the patient did have a history of bleed in the past and he had a history of brain cancer status post resection in the past. Objective - Vital Signs Vital signs: Vital Signs Temp 98.2 F 08/07/24 07:34 Pulse 105 H 08/07/24 07:34 Resp 18 08/07/24 09:05 BP 162/60 08/07/24 07:34 Pulse Ox 92 L 08/07/24 07:34 FiO2 Intake & Output 08/06/24 08/07/24 08/07/24 18:59 06:59 18:59 Intake Total 118 Output Total 650 350 Balance -532 -350 Weight 90.718 kg Intake: Oral 118 Output: Urine 650 350 Other: Voiding Method External Catheter External Catheter - Exam General: Lying in bed and is not in acute distress. Neuro: Patient is mildly drowsy but is awake able to voice. He is oriented to self place and time. He is following simple commands. Does have episode of confusion and appear expressive aphasia at times. Is mildly hyphonic. Pupils are round equal reactive to light. Pupils are round 3 mm bilaterally. No facial weakness. No dysarthria Motor the strength appears normal throughout. Some of the workup during this hospital visit consisted of: Sodium is 134, potassium is 5.4 on presentation now with normalized. Creatinine is 44 on presentation and it is trending down. Initial serum glucose is 134 Plasma lactic acid venous 2.2 and it is resolved AST is 158 ALT is 156. Liver function tests is trending down TSH is 1.140 Magnesium is 1.60 Vitamin B12 is 777 Serum folate is 13.10 Ammonia level is less than 9 INR on presentation 7.1 and repeat is 5.3-->4.9 CT of the head is reported as chronic right subdural hematoma with mild mass effect upon the adjacent cortex measuring a maximum thickness of 0.5 cm. No definitive acute hemorrhage. Remote ischemic change involving the right cerebellum and the left frontal lobe similar to prior MRI. I personally reviewed the CT and agree there is no acute or subacute stroke. I do not See any prior CTs in our system to compare with. EKG is reported as atrial fibrillation with RVR. Routine EEG: Is abnormal. The background slowing is suggestive of moderate encephalopathy. There is focal slowing over the left frontal region suggestive of cerebral dysfunction in the involved region. There is no epileptiform discharges or seizure on the EEG. 2D echo report is has mild to moderate global decreased contractility. Patient probably is in atrial fibrillation. Right ventricle dilated moderate pulmonary hypertension. Left atrium is enlarged. MRI Brain: Was reported as few scattered foci of acute/subacute ischemia involving bilateral parietal lobe and the right frontal lobe. Distribution raises possibility of embolic phenomena. Redemonstration of chronic right subdural hygroma along the right cerebral convexity resulting in 3 mm leftward midline shift. Encephalomalacia involving the right cerebellum and left frontal lobe related to ischemia/surgical change. Additional remote small lacunar infa rct involving left basal ganglia. No abnormal contrast-enhancement within this region. Nonspecific diffuse mild pachymeningeal enhancement. Nonspecific white matter changes likely related to chronic small vessel ischemic disease - Labs CBC & Chem 7: 08/07/24 08:26 08/07/24 08:26 Labs: Abnormal Lab Results - Last 24 Hours (Table) 08/06/24 08/06/24 08/07/24 Range/Units 16:12 20:41 06:48 WBC (3.8-10.6) k/uL RBC (4.30-5.90) m/uL Hgb (13.0-17.5) gm/dL Hct (39.0-53.0) % Neutrophils # (1.3-7.7) k/uL Lymphocytes # (1.0-4.8) k/uL Chloride (98-107) mmol/L BUN (9-20) mg/dL Glucose (74-99) mg/dL POC Glucose (mg/dL) 132 H 166 H 125 H (70-110) mg/dL Calcium (8.4-10.2) mg/dL AST (17-59) U/L ALT (4-49) U/L Alkaline Phosphatase (38-126) U/L Total Protein (6.3-8.2) g/dL Albumin (3.5-5.0) g/dL 08/07/24 08/07/24 08/07/24 Range/Units 08:26 08:26 11:30 WBC 10.7 H (3.8-10.6) k/uL RBC 3.16 L (4.30-5.90) m/uL Hgb 8.9 L (13.0-17.5) gm/dL Hct 28.2 L (39.0-53.0) % Neutrophils # 9.7 H (1.3-7.7) k/uL Lymphocytes # 0.5 L (1.0-4.8) k/uL Chloride 110 H (98-107) mmol/L BUN 23 H (9-20) mg/dL Glucose 121 H (74-99) mg/dL POC Glucose (mg/dL) 126 H (70-110) mg/dL Calcium 10.6 H (8.4-10.2) mg/dL AST 68 H (17-59) U/L ALT 99 H (4-49) U/L Alkaline Phosphatase 166 H (38-126) U/L Total Protein 5.4 L (6.3-8.2) g/dL Albumin 2.6 L (3.5-5.0) g/dL Microbiology - Last 24 Hours (Table) 08/04/24 09:44 Blood Culture - Preliminary Blood Assessment and Plan Assessment: This is an 83-year-old gentleman who presents emergency department because of 2 episode of fall neurologist consult for confusion. According to the granddaughter he had 2 unwitnessed falls and 1 of him was that he slipped. Seems after the falls patient was not confused and it seems 2 hours after being in the hospital he started having confusion. He had a brief episode of left hand tremor but was responding to the granddaughter yesterday. Patient does not have any history of seizure. He has elevated liver function test. It seems that he has supratherapeutic INR for the last 1 week and his Coumadin was held as a result for the past 1 week. Acute to subacute acute ischemic stroke over bilateral hemisphere and seems embolic patient has a history of atrial fibrillation and INR is supratherapeutic. No IV thrombolytic since outside the window and INR sup ratherapeutic risk outweigh the benefit. Encephalopathy due to multifactorial: Acute/subacute ischemic stroke and appears emboli on MRI Brain as well metabolic encephalopathy. ---mentation is improving History of atrial fibrillation and was coumadin--held since supratherapeutic INR. Transaminitis Supratherapeutic INR and Coumadin has been held for the past 1 week. On initial presentation his INR was 7.1--> trended down and currently is 6.4 mild to moderate global decreased contractility. Patient probably is in atrial fibrillation. Right ventricle dilated moderate pulmonary hypertension on 2D echo History of stroke History of brain tumor status post resection History of CABG Plan: I ordered carotid duplex, lipid panel. Will defer the use of anticoagulation to the cardiology and the primary team. I spoke with the line haul truck driver on service today and he stated no anticoagulation until INR is less than 2 and he said to hold off on antiplatelet as well. Cardiology recommended no further Coumadin and recommended Eliquis instead. There is a increased risk of brain bleed especially with a history of brain bleed in the past as well as history of brain tumor status post resection. I notified this to the daughter and once the patient is more stable will consider resuming anticoagulation because of benefit outweigh the risk. Started the patient on Lipitor 1 mg nightly for secondary stroke prophylaxis. Continue on empiric treatment of Keppra 500 mg twice daily Continue neurochecks Cardiac monitoring PT OT and AUTOMATIC S[employer] SCREEN [employer] are consulted Cardiology team is consulted ID team is consulted for concern of possible pneumonia Will defer the rest of the medical management to primary and other specialist For DVT prophylaxis patient has supratherapeutic INR Plan is discussed with his granddaughter who is at bedside and his nurse. Dr. Carson with resume neurology service for a.m. then Dr. Kearns with resume this Saturday a.m. Time with Patient: Less than 30
[2024-08-07 16:42] LABS: Glucose,Whole Blood 128 mg/dL (70-110)
--- NOTE | 2024-08-07 17:31 | US ---
EXAMINATION TYPE: US carotid duplex BILAT DATE OF EXAM: 08/07/2024 COMPARISON: CLINICAL INDICATION: Male, 83 years old with history of stroke; Poor historian. HTN. Portable exam. Additional History: .... TECHNIQUE: Grayscale, color Doppler and spectral Doppler evaluation of the bilateral carotid systems and vertebral arteries. Indirect Doppler criteria was utilized. FINDINGS: EXAM MEASUREMENTS: RIGHT: Peak Systolic Velocity (PSV) cm/sec ----- Right CCA: 64.7 ----- Right ICA: 124.2 ----- Right ECA: 100.0 ICA/CCA ratio: 1.9 RIGHT: End Diastole cm/sec ----- Right CCA: 9.8 ----- Right ICA: 32.1 ----- Right ECA: 4.7 LEFT: Peak Systolic Velocity (PSV) cm/sec ----- Left CCA: 61.0 ----- Left ICA: 68.0 ----- Left ECA: 87.9 ICA/CCA ratio: 1.1 LEFT: End Diastole cm/sec ----- Left CCA: 7.8 ----- Left ICA: 12.0 ----- Left ECA: 0.0 VERTEBRALS (direction of flow): Right Vertebral: Antegrade- limited visualization and flow seen Left Vertebral: Antegrade Rhythm: Arrhythmia [employer] INTERN NOTES: Plaque seen in bilateral bulbs extending into ICA. Bilateral wall thickening. Color Doppler imaging shows patency with blood flow throughout the carotid artery. Spectral waveforms are within normal limits. IMPRESSION: Right: Less than 50% stenosis of the carotid bifurcation. Left: Less than 50% stenosis of the carotid bifurcation. Criteria for Assigning % of Stenosis / Diameter reduction (Estimation based on the indirect measurements of the internal carotid artery velocities (ICA PSV). 1. Normal (no stenosis)=ICA PSV < 125 cm/s: ratio < 2.0: ICA EDV<40 cm/s. 2. Less than 50% stenosis=ICA PSV < 125 cm/s: ratio < 2.0: ICA EDV<40 cm/s. 3. 50 to 69% stenosis=ICA PSV of 125 to 230 cm/s: ration 2.0 ? 4.0: ICA EDV 40-100 cm/s. 4. Greater than 70% stenosis to near occlusion= ICA PSV > 230 cm/s: ratio > 4.0: ICA EDV > 100 cm/s. 5. Near occlusion= ICA PSV velocities may be low or undetectable: variable ratio and ICA EDV. 6. Total occlusion=unable to detect flow. [facility], , 08/07/2024 5:29 PM
[2024-08-07 21:12] LABS: Glucose,Whole Blood 125 mg/dL (70-110)
[2024-08-07] MEDS: ATORVASTATIN 20 MG TAB PO SCH (21:41)
[2024-08-08] MEDS ORDERED: ZINC OXIDE PASTE (Z-GUARD) 1 APPLIC TOPICAL PRN (00:18)
[2024-08-08 05:28] LABS: Chol/HDL Ratio 2.87 Ratio; LDL Cholesterol,Calculated 37.1 mg/dL (0.0-131.0); VLDL Calculation 19.58 mg/dL (5.00-40.00)
[2024-08-08 07:03] LABS: Glucose,Whole Blood 126 mg/dL (70-110)
[2024-08-08 11:24] LABS: Glucose,Whole Blood 140 mg/dL (70-110)
[2024-08-08 11:27] LABS: Basophils # (A) 0.01 X 10*3/uL (0.00-0.10); Basophils % (A) 0.1 %; Eosinophils # (A) 0.01 X 10*3/uL (0.04-0.35); Eosinophils % (A) 0.1 %; HGB 8.4 g/dL (13.0-17.0); Lymphocytes % (A) 6.6 %; MCH 27.5 pg (27.0-32.0); MCV 91.5 FL (80.0-97.0); Mean Platelet Volume 9.6 FL (9.5-12.2); Monocytes # (A) 0.54 X 10*3/uL (0.20-1.00); Monocytes % (A) 5.1 %; NRBC Per 100 WBC 0 X 10*3/uL (0.00-0.01); Neutrophils # (A) 9.33 X 10*3/uL (1.80-7.70); Neutrophils % (A) 87.3 %; Platelet Count 270 X 10*3/uL (140-440); RBC 3.06 X 10*6/uL (4.40-5.60); RDW 15.2 % (11.5-14.5); WBC 10.68 X 10*3/uL (4.50-10.00)
--- NOTE | 2024-08-08 12:55 | P.PN ---
Subjective Progress Note Date: 08/08/24 Beto David is an 83-year-old male patient who presented to the hospital with concerns of falls weakness and increased confusion. According to family member at bedside patient had 2 episodes of falls yesterday patient unable to recall event. Patient usually is independent ANO x 3 patient does have a history of atrial fibrillation maintained on Coumadin which has been on hold since last week due to elevated INR. Additional medical history includes CVA, diabetes mellitus, DVT, GERD, hyperlipidemia, hypertension and pneumonia. Chest x-ray completed showing improving basilar infiltrates greater on left improving pleural effusions head CT completed showing chronic right subdural hematoma with mild mass effect upon the adjacent cortex measuring a maximal thickness of 1.5 cm no definitive acute hemorrhage remote ischemic change involving the right cerebellum and left frontal lobe similar to prior MRI. Lab work revealing white blood cell 11.8, hemoglobin 10.2 INR significantly elevated at 7.1, sodium 134 potassium 5.4 bun 44, creatinine 1.1 lactic acid 2.2 and elevated liver enzymes AST 158, ALT 156 and alkaline phosphatase 168. At this time patient has been admitted cardiology, infectious disease and neurology services all consulted. At this time patient will be started back on IV antibiotics. Will order liver ultrasound. Repeat labs ordered On 08/04/2024 patient is alert but confused. Family at bedside. Patient has been transitioned oral home medication Cardizem DC'd per cardiology. Repeat labs pending. Patient denies chest pain or shortness of breath. Patient denies nausea vomiting or diarrhea. Patient denies any urinary burning frequency. Current vital signs temp 98.0, heart rate 99, respiratory rate 16, blood pressure 122/65 with a pulse ox of 99% on room air On 08/05/2024 patient remains confused sitter at bedside resting comfortably in bed. Patient was evaluated by neurology services EEG and MRI has been ordered. Patient remains on azithromycin and Rocephin infectious disease services following. Current vital signs temp 98.0, heart rate 80, respiratory rate 20, blood pressure 111/65 with a pulse ox of 97% on room air. Lab work currently pending On 08/06/2024 patient was seen and examined on the medical floor he is alert slightly confused in no apparent distress he is answering questions more appropriately today there is no fever or chills no headache or dizziness no chest pain no shortness of breath no cough no nausea or vomiting no abdominal pain no diarrhea and no urinary symptoms On 08/07/2024 patient remains confused. MRI was completing awaiting neurology input. Current vital signs temp 98.2, heart rate 105, respiratory rate 18, blood pressure 136/78 with a pulse ox of 93% on room air. Patient denies chest pain or shortness of breath. Patient denies nausea vomiting or diarrhea. Patient denies any urinary burning or frequency. On 08/08/2024 patient was seen and examined on the medical floor he is somnolent arousable slightly confused in no apparent distress, there is no fever or chills no headache or dizziness no chest pain no shortness of breath he has occasional cough no nausea or vomiting no abdominal pain no diarrhea no urinary symptoms. Medication and labs were reviewed. Continue with current management [facility] in the next 48 hours. Objective - Vital Signs Vital signs: Vital Signs Temp 98.2 F 08/08/24 08:15 Pulse 112 H 08/08/24 08:15 Resp 18 08/08/24 08:15 BP 165/66 08/08/24 08:15 Pulse Ox 93 L 08/08/24 09:12 FiO2 Intake & Output 08/07/24 08/08/24 08/08/24 18:59 06:59 18:59 Weight 82 kg Other: Voiding Method Diaper Diaper # Voids 1 1 1 # Bowel Movements 1 1 1 - Exam Head normocephalic Neck supple Lungs clear to auscultation bilaterally no wheezing or crackles Heart regular rate and rhythm S1-S2, no rub or gallop Abdomen is soft nontender nondistended positive bowel sounds no hepatosplenomegaly Extremities no edema Neuro alert and orientated to 1. Intermittent confusion - Labs CBC & Chem 7: 08/08/24 06:46 08/07/24 08:26 Labs: Abnormal Lab Results - Last 24 Hours (Table) 08/07/24 08/07/24 08/07/24 Range/Units 08:26 09:16 16:40 WBC (4.50-10.00) X 10*3/uL RBC (4.40-5.60) X 10*6/uL Hgb (13.0-17.0) g/dL Hct (39.6-50.0) % MCHC (32.0-37.0) g/dL RDW (11.5-14.5) % Immature Gran # (0.00-0.04) X 10*3/uL Neutrophils # (1.80-7.70) X 10*3/uL Lymphocytes # (0.90-5.00) X 10*3/uL Eosinophils # (0.04-0.35) X 10*3/uL PT 61.6 H (9.9-11.9) sec INR 6.30 A* (0.93-1.11) sec POC Glucose (mg/dL) 128 H (70-110) mg/dL HDL Cholesterol 30.30 L (40.00-60.00) mg/dL 08/07/24 08/08/24 08/08/24 Range/Units 21:10 06:46 07:02 WBC 10.68 H (4.50-10.00) X 10*3/uL RBC 3.06 L (4.40-5.60) X 10*6/uL Hgb 8.4 L (13.0-17.0) g/dL Hct 28.0 L (39.6-50.0) % MCHC 30.0 L (32.0-37.0) g/dL RDW 15.2 H (11.5-14.5) % Immature Gran # 0.09 H (0.00-0.04) X 10*3/uL Neutrophils # 9.33 H (1.80-7.70) X 10*3/uL Lymphocytes # 0.70 L (0.90-5.00) X 10*3/uL Eosinophils # 0.01 L (0.04-0.35) X 10*3/uL PT (9.9-11.9) sec INR (0.93-1.11) sec POC Glucose (mg/dL) 125 H 126 H (70-110) mg/dL HDL Cholesterol (40.00-60.00) mg/dL 08/08/24 Range/Units 11:22 WBC (4.50-10.00) X 10*3/uL RBC (4.40-5.60) X 10*6/uL Hgb (13.0-17.0) g/dL Hct (39.6-50.0) % MCHC (32.0-37.0) g/dL RDW (11.5-14.5) % Immature Gran # (0.00-0.04) X 10*3/uL Neutrophils # (1.80-7.70) X 10*3/uL Lymphocytes # (0.90-5.00) X 10*3/uL Eosinophils # (0.04-0.35) X 10*3/uL PT (9.9-11.9) sec INR (0.93-1.11) sec POC Glucose (mg/dL) 140 H (70-110) mg/dL HDL Cholesterol (40.00-60.00) mg/dL Microbiology - Last 24 Hours (Table) 08/04/24 09:44 Blood Culture - Preliminary Blood Assessment and Plan Assessment: 1. Generalized weakness with falls 2. Intermittent confusion 3. Supratherapeutic INR 4. A-fib with RVR. Patient was started on Cardizem drip 5. Possible pneumonia 6. Abnormal head CT 7. History of systolic congestive heart failure 8. History of aortic valve replacement 9. History of diabetes mellitus type 2 sliding scale coverage added 10. History of CVA 11. History of chronic atrial fibrillation 12. History of COPD 13. History of hyperlipidemia 14. History of benign brain tumor resected in 1989 15. History of cardiomyopathy 16. History of bladder cancer 17. Elevated liver enzymes DVT prophylaxis SCDs secondary to supratherapeutic INR. GI prophylaxis Protonix Neurology, cardiology and infectious disease services consulted Repeat labs ordered Patient started on IV antibiotics Urine and blood cultures ordered MRI and EEG ordered per neurology
[2024-08-08 13:04] LABS: ALT 104 U/L (10-49); AST 101 U/L (14-35); Albumin 2.8 g/dL (3.8-4.9); Albumin/Globulin Ratio 1.08 Ratio (1.60-3.17); Alkaline Phosphatase 153 U/L (41-126); BUN/Creat Ratio 25.11 Ratio (12.00-20.00); Blood Urea Nitrogen 22.6 mg/dL (9.0-27.0); Calcium 10.3 mg/dL (8.7-10.3); Carbon Dioxide 20.1 mmol/L (21.6-31.8); Chloride 111 mmol/L (96-109); Globulin 2.6 g/dL (1.6-3.3); Glucose 121 mg/dL (70-110); Potassium 3.4 mmol/L (3.5-5.5); Sodium 146 mmol/L (135-145); Total Bilirubin 0.5 mg/dL (0.3-1.2); Total Protein 5.4 g/dL (6.2-8.2)
--- NOTE | 2024-08-08 14:59 | P.PN ---
Subjective Progress Note Date: 08/08/24 Principal diagnosis: Reason for follow-up is pneumonia Patient is 83-year-old male with a past medical history significant for diabetes mellitus hypertension hyperlipidemia CVA TIA atrial fibrillation patient has been brought into the hospital after pending the patient did have a fall with weakness, patient did have some abnormality on the CT of the brain chest x-ray with right basilar infiltrate concerning for possible pneumonia. On today's evaluation that is 08/08/2024, patient did not have any fever, the patient is currently breathing comfortable room air patient remained to be sleepy lethargic did not answer any question however he did open eyes to the name no vomiting or diarrhea has been reported. The patient white count is 10.68 creatinine 0.9 Objective - Vital Signs Vital signs: Vital Signs Temp 98.2 F 08/08/24 08:15 Pulse 112 H 08/08/24 08:15 Resp 18 08/08/24 08:15 BP 165/66 08/08/24 08:15 Pulse Ox 93 L 08/08/24 09:12 FiO2 Intake & Output 08/07/24 08/08/24 08/08/24 18:59 06:59 18:59 Weight 82 kg Other: Voiding Method Diaper Diaper # Voids 1 1 1 # Bowel Movements 1 1 1 - Exam GENERAL DESCRIPTION: An elderly male lying in bed in no distress RESPIRATORY SYSTEM: Unlabored breathing , decreased breath sounds at bases HEART: S1 S2 regular rate and rhythm , ABDOMEN: Soft , no tenderness EXTREMITIES: No edema feet - Labs CBC & Chem 7: 08/08/24 06:46 08/08/24 06:46 Labs: Abnormal Lab Results - Last 24 Hours (Table) 08/07/24 08/07/24 08/07/24 Range/Units 08:26 09:16 16:40 WBC (4.50-10.00) X 10*3/uL RBC (4.40-5.60) X 10*6/uL Hgb (13.0-17.0) g/dL Hct (39.6-50.0) % MCHC (32.0-37.0) g/dL RDW (11.5-14.5) % Immature Gran # (0.00-0.04) X 10*3/uL Neutrophils # (1.80-7.70) X 10*3/uL Lymphocytes # (0.90-5.00) X 10*3/uL Eosinophils # (0.04-0.35) X 10*3/uL PT 61.6 H (9.9-11.9) sec INR 6.30 A* (0.93-1.11) sec Sodium (135-145) mmol/L Potassium (3.5-5.5) mmol/L Chloride (96-109) mmol/L Carbon Dioxide (21.6-31.8) mmol/L Anion Gap (4.00-12.00) mmol/L BUN/Creatinine Ratio (12.00-20.00) Ratio Glucose (70-110) mg/dL POC Glucose (mg/dL) 128 H (70-110) mg/dL AST (14-35) U/L ALT (10-49) U/L Alkaline Phosphatase (41-126) U/L Total Protein (6.2-8.2) g/dL Albumin (3.8-4.9) g/dL Albumin/Globulin Ratio (1.60-3.17) Ratio HDL Cholesterol 30.30 L (40.00-60.00) mg/dL 08/07/24 08/08/24 08/08/24 Range/Units 21:10 06:46 06:46 WBC 10.68 H (4.50-10.00) X 10*3/uL RBC 3.06 L (4.40-5.60) X 10*6/uL Hgb 8.4 L (13.0-17.0) g/dL Hct 28.0 L (39.6-50.0) % MCHC 30.0 L (32.0-37.0) g/dL RDW 15.2 H (11.5-14.5) % Immature Gran # 0.09 H (0.00-0.04) X 10*3/uL Neutrophils # 9.33 H (1.80-7.70) X 10*3/uL Lymphocytes # 0.70 L (0.90-5.00) X 10*3/uL Eosinophils # 0.01 L (0.04-0.35) X 10*3/uL PT (9.9-11.9) sec INR (0.93-1.11) sec Sodium 146 H (135-145) mmol/L Potassium 3.4 L (3.5-5.5) mmol/L Chloride 111 H (96-109) mmol/L Carbon Dioxide 20.1 L (21.6-31.8) mmol/L Anion Gap 14.90 H (4.00-12.00) mmol/L BUN/Creatinine Ratio 25.11 H (12.00-20.00) Ratio Glucose 121 H (70-110) mg/dL POC Glucose (mg/dL) 125 H (70-110) mg/dL AST 101 H (14-35) U/L ALT 104 H (10-49) U/L Alkaline Phosphatase 153 H (41-126) U/L Total Protein 5.4 L (6.2-8.2) g/dL Albumin 2.8 L (3.8-4.9) g/dL Albumin/Globulin Ratio 1.08 L (1.60-3.17) Ratio HDL Cholesterol (40.00-60.00) mg/dL 08/08/24 08/08/24 Range/Units 07:02 11:22 WBC (4.50-10.00) X 10*3/uL RBC (4.40-5.60) X 10*6/uL Hgb (13.0-17.0) g/dL Hct (39.6-50.0) % MCHC (32.0-37.0) g/dL RDW (11.5-14.5) % Immature Gran # (0.00-0.04) X 10*3/uL Neutrophils # (1.80-7.70) X 10*3/uL Lymphocytes # (0.90-5.00) X 10*3/uL Eosinophils # (0.04-0.35) X 10*3/uL PT (9.9-11.9) sec INR (0.93-1.11) sec Sodium (135-145) mmol/L Potassium (3.5-5.5) mmol/L Chloride (96-109) mmol/L Carbon Dioxide (21.6-31.8) mmol/L Anion Gap (4.00-12.00) mmol/L BUN/Creatinine Ratio (12.00-20.00) Ratio Glucose (70-110) mg/dL POC Glucose (mg/dL) 126 H 140 H (70-110) mg/dL AST (14-35) U/L ALT (10-49) U/L Alkaline Phosphatase (41-126) U/L Total Protein (6.2-8.2) g/dL Albumin (3.8-4.9) g/dL Albumin/Globulin Ratio (1.60-3.17) Ratio HDL Cholesterol (40.00-60.00) mg/dL Microbiology - Last 24 Hours (Table) 08/04/24 09:44 Blood Culture - Preliminary Blood Assessment and Plan (1) Pneumonia Current Visit: Yes Status: Acute Code(s): J18.9 - PNEUMONIA, UNSPECIFIED ORGANISM SNOMED Code(s): 307945567 Plan: 1patient presented to hospital with weakness and fall in this patient did have some bibasilar infiltrate noticed to have a congested cough possible component of pneumonia not entirely excluded. 2patient did have some confusion with abnormality seen on the CT concerning for subdural hematoma neurology has been consulted could be etiology of his confusion and possible fall. 3patient remains to be afebrile patient white count has normalized, patient to continue Rocephin while inpatient because of decreased oral intake and monitor clinical course closely Dictation was produced using [employer] dictation software. please excuse any grammatical, word or spelling errors. Time with Patient: Less than 30
[2024-08-08 16:02] LABS: INR 7.46 sec (0.93-1.11); Prothrombin Time 73.3 sec (9.9-11.9)
[2024-08-08 16:40] LABS: Glucose,Whole Blood 134 mg/dL (70-110)
[2024-08-08 20:45] LABS: Glucose,Whole Blood 133 mg/dL (70-110)
[2024-08-09 07:03] LABS: Glucose,Whole Blood 99 mg/dL (70-110)
[2024-08-09 07:14] LABS: Basophils % (A) 0 %; Eosinophils % (A) 0 %; HCT 29.9 % (39.0-53.0); HGB 9.3 gm/dL (13.0-17.5); Hypochromasia Moderate; Lymphocytes # (A) 0.5 k/uL (1.0-4.8); Lymphocytes % (A) 5 %; MCHC 31.1 g/dL (31.0-37.0); Mean Platelet Volume 7.5; Monocytes # (A) 0.5 k/uL (0-1.0); Monocytes % (A) 5 %; Neutrophils # (A) 10.2 k/uL (1.3-7.7); Neutrophils % (A) 89 %; Platelet Count 285 k/uL (150-450); Poikilocytosis Slight; RBC 3.32 m/uL (4.30-5.90); RDW 15.6 % (11.5-15.5); WBC 11.4 k/uL (3.8-10.6)
[2024-08-09 07:26] LABS: Prothrombin Time 116.6 sec (10.0-12.5)
[2024-08-09 07:45] LABS: INR >10.0 (<1.2)
[2024-08-09 08:01] LABS: ALT 95 U/L (4-49); AST 71 U/L (17-59); African American GFR (CKD) >90 (>60 ml/min/1.73 sqM); Albumin 2.7 g/dL (3.5-5.0); Alkaline Phosphatase 164 U/L (38-126); Anion Gap 9 mmol/L; Blood Urea Nitrogen 25 mg/dL (9-20); Calcium 10.9 mg/dL (8.4-10.2); Carbon Dioxide 24 mmol/L (22-30); Chloride 114 mmol/L (98-107); Glucose 126 mg/dL (74-99); Non-African American GFR(CKD) 81 (>60 ml/min/1.73 sqM); Potassium 3.3 mmol/L (3.5-5.1); Sodium 147 mmol/L (137-145); Total Bilirubin 0.6 mg/dL (0.2-1.3); Total Protein 5.5 g/dL (6.3-8.2)
[2024-08-09] MEDS: PHYTONADIONE ORAL 5 MG/5 ML ORAL.SYRG PO ONE (09:33)
--- NOTE | 2024-08-09 09:51 | P.PN ---
Subjective Progress Note Date: 08/09/24 Beto David is an 83-year-old male patient who presented to the hospital with concerns of falls weakness and increased confusion. According to family member at bedside patient had 2 episodes of falls yesterday patient unable to recall event. Patient usually is independent ANO x 3 patient does have a history of atrial fibrillation maintained on Coumadin which has been on hold since last week due to elevated INR. Additional medical history includes CVA, diabetes mellitus, DVT, GERD, hyperlipidemia, hypertension and pneumonia. Chest x-ray completed showing improving basilar infiltrates greater on left improving pleural effusions head CT completed showing chronic right subdural hematoma with mild mass effect upon the adjacent cortex measuring a maximal thickness of 1.5 cm no definitive acute hemorrhage remote ischemic change involving the right cerebellum and left frontal lobe similar to prior MRI. Lab work revealing white blood cell 11.8, hemoglobin 10.2 INR significantly elevated at 7.1, sodium 134 potassium 5.4 bun 44, creatinine 1.1 lactic acid 2.2 and elevated liver enzymes AST 158, ALT 156 and alkaline phosphatase 168. At this time patient has been admitted cardiology, infectious disease and neurology services all consulted. At this time patient will be started back on IV antibiotics. Will order liver ultrasound. Repeat labs ordered On 08/04/2024 patient is alert but confused. Family at bedside. Patient has been transitioned oral home medication Cardizem DC'd per cardiology. Repeat labs pending. Patient denies chest pain or shortness of breath. Patient denies nausea vomiting or diarrhea. Patient denies any urinary burning frequency. Current vital signs temp 98.0, heart rate 99, respiratory rate 16, blood pressure 122/65 with a pulse ox of 99% on room air On 08/05/2024 patient remains confused sitter at bedside resting comfortably in bed. Patient was evaluated by neurology services EEG and MRI has been ordered. Patient remains on azithromycin and Rocephin infectious disease services following. Current vital signs temp 98.0, heart rate 80, respiratory rate 20, blood pressure 111/65 with a pulse ox of 97% on room air. Lab work currently pending On 08/06/2024 patient was seen and examined on the medical floor he is alert slightly confused in no apparent distress he is answering questions more appropriately today there is no fever or chills no headache or dizziness no chest pain no shortness of breath no cough no nausea or vomiting no abdominal pain no diarrhea and no urinary symptoms On 08/07/2024 patient remains confused. MRI was completing awaiting neurology input. Current vital signs temp 98.2, heart rate 105, respiratory rate 18, blood pressure 136/78 with a pulse ox of 93% on room air. Patient denies chest pain or shortness of breath. Patient denies nausea vomiting or diarrhea. Patient denies any urinary burning or frequency. On 08/08/2024 patient was seen and examined on the medical floor he is somnolent arousable slightly confused in no apparent distress, there is no fever or chills no headache or dizziness no chest pain no shortness of breath he has occasional cough no nausea or vomiting no abdominal pain no diarrhea no urinary symptoms. Medication and labs were reviewed. Continue with current management possible transfer to group home for rehab in the next 48 hours. On 08/09/2024 patient remains confused resting in bed. Patient denies chest pain or shortness of breath. Patient denies nausea vomiting or diarrhea. Patient denies any urinary burning or frequency patient remains on IV Rocephin and IV Keppra. Infectious disease, neurology services following. Objective - Vital Signs Vital signs: Vital Signs Temp 97.8 F 08/09/24 09:29 Pulse 90 08/09/24 09:29 Resp 22 08/09/24 09:29 BP 166/65 08/09/24 09:29 Pulse Ox 98 08/09/24 09:29 FiO2 Intake & Output 08/08/24 08/09/24 08/09/24 18:59 06:59 18:59 Intake Total 10 Balance 10 Intake: IV 10 Invasive Line 4 10 Other: Voiding Method Diaper Diaper Diaper # Voids 2 3 1 # Bowel Movements 2 1 - Exam Head normocephalic Neck supple Lungs clear to auscultation bilaterally no wheezing or crackles Heart regular rate and rhythm S1-S2, no rub or gallop Abdomen is soft nontender nondistended positive bowel sounds no hepatosplenomegaly Extremities no edema Neuro alert and orientated to 1. Intermittent confusion - Labs CBC & Chem 7: 08/09/24 06:41 08/09/24 06:41 Labs: Abnormal Lab Results - Last 24 Hours (Table) 08/08/24 08/08/24 08/08/24 Range/Units 06:46 06:46 06:46 WBC 10.68 H (4.50-10.00) X 10*3/uL RBC 3.06 L (4.40-5.60) X 10*6/uL Hgb 8.4 L (13.0-17.0) g/dL Hct 28.0 L (39.6-50.0) % MCHC 30.0 L (32.0-37.0) g/dL RDW 15.2 H (11.5-14.5) % Immature Gran # 0.09 H (0.00-0.04) X 10*3/uL Neutrophils # 9.33 H (1.80-7.70) X 10*3/uL Lymphocytes # 0.70 L (0.90-5.00) X 10*3/uL Eosinophils # 0.01 L (0.04-0.35) X 10*3/uL PT 73.3 H (9.9-11.9) sec INR 7.46 A* (0.93-1.11) sec Sodium 146 H (135-145) mmol/L Potassium 3.4 L (3.5-5.5) mmol/L Chloride 111 H (96-109) mmol/L Carbon Dioxide 20.1 L (21.6-31.8) mmol/L Anion Gap 14.90 H (4.00-12.00) mmol/L BUN (9-20) mg/dL BUN/Creatinine Ratio 25.11 H (12.00-20.00) Ratio Glucose 121 H (70-110) mg/dL POC Glucose (mg/dL) (70-110) mg/dL Calcium (8.4-10.2) mg/dL AST 101 H (14-35) U/L ALT 104 H (10-49) U/L Alkaline Phosphatase 153 H (41-126) U/L Total Protein 5.4 L (6.2-8.2) g/dL Albumin 2.8 L (3.8-4.9) g/dL Albumin/Globulin Ratio 1.08 L (1.60-3.17) Ratio 08/08/24 08/08/24 08/08/24 Range/Units 11:22 16:38 20:43 WBC (4.50-10.00) X 10*3/uL RBC (4.40-5.60) X 10*6/uL Hgb (13.0-17.0) g/dL Hct (39.6-50.0) % MCHC (32.0-37.0) g/dL RDW (11.5-14.5) % Immature Gran # (0.00-0.04) X 10*3/uL Neutrophils # (1.80-7.70) X 10*3/uL Lymphocytes # (0.90-5.00) X 10*3/uL Eosinophils # (0.04-0.35) X 10*3/uL PT (9.9-11.9) sec INR (0.93-1.11) sec Sodium (135-145) mmol/L Potassium (3.5-5.5) mmol/L Chloride (96-109) mmol/L Carbon Dioxide (21.6-31.8) mmol/L Anion Gap (4.00-12.00) mmol/L BUN (9-20) mg/dL BUN/Creatinine Ratio (12.00-20.00) Ratio Glucose (70-110) mg/dL POC Glucose (mg/dL) 140 H 134 H 133 H (70-110) mg/dL Calcium (8.4-10.2) mg/dL AST (14-35) U/L ALT (10-49) U/L Alkaline Phosphatase (41-126) U/L Total Protein (6.2-8.2) g/dL Albumin (3.8-4.9) g/dL Albumin/Globulin Ratio (1.60-3.17) Ratio 08/09/24 08/09/24 08/09/24 Range/Units 06:41 06:41 06:41 WBC 11.4 H (4.50-10.00) X 10*3/uL RBC 3.32 L (4.40-5.60) X 10*6/uL Hgb 9.3 L (13.0-17.0) g/dL Hct 29.9 L (39.6-50.0) % MCHC (32.0-37.0) g/dL RDW 15.6 H (11.5-14.5) % Immature Gran # (0.00-0.04) X 10*3/uL Neutrophils # 10.2 H (1.80-7.70) X 10*3/uL Lymphocytes # 0.5 L (0.90-5.00) X 10*3/uL Eosinophils # (0.04-0.35) X 10*3/uL PT 116.6 H (9.9-11.9) sec INR >10.0 H* (0.93-1.11) sec Sodium 147 H (135-145) mmol/L Potassium 3.3 L (3.5-5.5) mmol/L Chloride 114 H (96-109) mmol/L Carbon Dioxide (21.6-31.8) mmol/L Anion Gap (4.00-12.00) mmol/L BUN 25 H (9-20) mg/dL BUN/Creatinine Ratio (12.00-20.00) Ratio Glucose 126 H (70-110) mg/dL POC Glucose (mg/dL) (70-110) mg/dL Calcium 10.9 H (8.4-10.2) mg/dL AST 71 H (14-35) U/L ALT 95 H (10-49) U/L Alkaline Phosphatase 164 H (41-126) U/L Total Protein 5.5 L (6.2-8.2) g/dL Albumin 2.7 L (3.8-4.9) g/dL Albumin/Globulin Ratio (1.60-3.17) Ratio Assessment and Plan Assessment: 1. Generalized weakness with falls 2. Intermittent confusion 3. Supratherapeutic INR 4. A-fib with RVR. Patient was started on Cardizem drip 5. Possible pneumonia 6. Abnormal head CT 7. History of systolic congestive heart failure 8. History of aortic valve replacement 9. History of diabetes mellitus type 2 sliding scale coverage added 10. History of CVA 11. History of chronic atrial fibrillation 12. History of COPD 13. History of hyperlipidemia 14. History of benign brain tumor resected in 1989 15. History of cardiomyopathy 16. History of bladder cancer 17. Elevated liver enzymes DVT prophylaxis SCDs secondary to supratherapeutic INR. GI prophylaxis Protonix Neurology, cardiology and infectious disease services consulted Repeat labs ordered Patient started on IV antibiotics Urine and blood cultures ordered MRI and EEG ordered per neurology
[2024-08-09 11:29] LABS: Glucose,Whole Blood 131 mg/dL (70-110)
--- NOTE | 2024-08-09 14:30 | P.PN ---
Subjective Progress Note Date: 08/09/24 Principal diagnosis: Reason for follow-up is pneumonia Patient is 83-year-old male with a past medical history significant for diabetes mellitus hypertension hyperlipidemia CVA TIA atrial fibrillation patient has been brought into the hospital after pending the patient did have a fall with weakness, patient did have some abnormality on the CT of the brain chest x-ray with right basilar infiltrate concerning for possible pneumonia. On today's evaluation that is 08/09/2024, Patient is afebrile patient is currently on room air and breathing comfortably patient is sleepy did open eyes to his name no vomiting diarrhea and the changes reported by the family the bedside. Patient white count is 11.4 creatinine 0.58 Objective - Vital Signs Vital signs: Vital Signs Temp 98.0 F 08/09/24 12:12 Pulse 86 08/09/24 12:12 Resp 20 08/09/24 12:12 BP 168/78 08/09/24 12:12 Pulse Ox 92 L 08/09/24 12:12 FiO2 Intake & Output 08/08/24 08/09/24 08/09/24 18:59 06:59 18:59 Intake Total 10 Balance 10 Intake: IV 10 Invasive Line 4 10 Other: Voiding Method Diaper Diaper Diaper # Voids 2 3 1 # Bowel Movements 2 1 - Exam GENERAL DESCRIPTION: An elderly male lying in bed in no distress RESPIRATORY SYSTEM: Unlabored breathing , decreased breath sounds at bases HEART: S1 S2 regular rate and rhythm , ABDOMEN: Soft , no tenderness EXTREMITIES: No edema feet - Labs CBC & Chem 7: 08/09/24 06:41 08/09/24 06:41 Labs: Abnormal Lab Results - Last 24 Hours (Table) 08/08/24 08/08/24 08/08/24 Range/Units 06:46 16:38 20:43 WBC (3.8-10.6) k/uL RBC (4.30-5.90) m/uL Hgb (13.0-17.5) gm/dL Hct (39.0-53.0) % RDW (11.5-15.5) % Neutrophils # (1.3-7.7) k/uL Lymphocytes # (1.0-4.8) k/uL PT 73.3 H (9.9-11.9) sec INR 7.46 A* (0.93-1.11) sec Sodium (137-145) mmol/L Potassium (3.5-5.1) mmol/L Chloride (98-107) mmol/L BUN (9-20) mg/dL Glucose (74-99) mg/dL POC Glucose (mg/dL) 134 H 133 H (70-110) mg/dL Calcium (8.4-10.2) mg/dL AST (17-59) U/L ALT (4-49) U/L Alkaline Phosphatase (38-126) U/L Total Protein (6.3-8.2) g/dL Albumin (3.5-5.0) g/dL 08/09/24 08/09/24 08/09/24 Range/Units 06:41 06:41 06:41 WBC 11.4 H (3.8-10.6) k/uL RBC 3.32 L (4.30-5.90) m/uL Hgb 9.3 L (13.0-17.5) gm/dL Hct 29.9 L (39.0-53.0) % RDW 15.6 H (11.5-15.5) % Neutrophils # 10.2 H (1.3-7.7) k/uL Lymphocytes # 0.5 L (1.0-4.8) k/uL PT 116.6 H (9.9-11.9) sec INR >10.0 H* (0.93-1.11) sec Sodium 147 H (137-145) mmol/L Potassium 3.3 L (3.5-5.1) mmol/L Chloride 114 H (98-107) mmol/L BUN 25 H (9-20) mg/dL Glucose 126 H (74-99) mg/dL POC Glucose (mg/dL) (70-110) mg/dL Calcium 10.9 H (8.4-10.2) mg/dL AST 71 H (17-59) U/L ALT 95 H (4-49) U/L Alkaline Phosphatase 164 H (38-126) U/L Total Protein 5.5 L (6.3-8.2) g/dL Albumin 2.7 L (3.5-5.0) g/dL 08/09/24 Range/Units 11:27 WBC (3.8-10.6) k/uL RBC (4.30-5.90) m/uL Hgb (13.0-17.5) gm/dL Hct (39.0-53.0) % RDW (11.5-15.5) % Neutrophils # (1.3-7.7) k/uL Lymphocytes # (1.0-4.8) k/uL PT (9.9-11.9) sec INR (0.93-1.11) sec Sodium (137-145) mmol/L Potassium (3.5-5.1) mmol/L Chloride (98-107) mmol/L BUN (9-20) mg/dL Glucose (74-99) mg/dL POC Glucose (mg/dL) 131 H (70-110) mg/dL Calcium (8.4-10.2) mg/dL AST (17-59) U/L ALT (4-49) U/L Alkaline Phosphatase (38-126) U/L Total Protein (6.3-8.2) g/dL Albumin (3.5-5.0) g/dL Assessment and Plan (1) Pneumonia Current Visit: Yes Status: Acute Code(s): J18.9 - PNEUMONIA, UNSPECIFIED ORGANISM SNOMED Code(s): 821846211 Plan: 1patient presented to hospital with weakness and fall in this patient did have some bibasilar infiltrate noticed to have a congested cough possible component of pneumonia not entirely excluded. 2patient did have some confusion with abnormality seen on the CT concerning for subdural hematoma neurology has been consulted could be etiology of his confusion and possible fall. 3patient remains to be afebrile patient white count slightly up the need to be monitored closely patient will be treated with Rocephin while inpatient and monitor clinical course closely Family at the bedside question answered Dictation was produced using [employer] dictation software. please excuse any grammatical, word or spelling errors. Time with Patient: Less than 30
[2024-08-09 14:47] LABS: Prothrombin Time 98.4 sec (10.0-12.5)
[2024-08-09 15:00] LABS: INR 9.8 (<1.2)
[2024-08-09] MEDS: PHYTONADIONE 10 MG in SODIUM CHLORIDE 0.9% 50 ML IVPB STA (15:21)
[2024-08-09 16:31] LABS: Glucose,Whole Blood 129 mg/dL (70-110)
[2024-08-09 20:10] LABS: Glucose,Whole Blood 144 mg/dL (70-110)
--- NOTE | 2024-08-09 21:32 | P.CONS ---
History of Present Illness - Reason for Consult Consult date: 08/09/24 Coagulopathy,transaminitis, MS changes - History of Present Illness The pt is an 83 yr old WM, with multiple medical problems, including h/o A fib, and CVAs. He was brought in by his family due to increased weakness, falls, and confusion over the past 2-3 days. He had fallen at least twice in the 24 hrs before coming in. The pt 's INR had been elevated due to which coumadin was on hold over the prior few days as an outpt. Despite the same his INR was in the 6 range on admission. It declined to 4.6, but then started to increase again and was > 10 today, leading to Heme consult. Pt was unable to provide any history, as he was confused, and mostly not responding verbally. History/ROS was obtained from the EMR and Nsg. There appears to be no obvious bleeding. Hgb has been stable this admission Pt was found to hve possible LLL pneumonia on CXR. He was started on antibiotics on 08/04/24. MRI and brain CTs showed no acute bleeding. An old, stable hygroma was seen rt frontal. There was evidence of acute and chronic ischemic changes. EKG showed a fib. ECHO revealed mild decrease in EF Review of Systems Constitutional: Reports poor appetite, Reports weakness Eyes: denies blurred vision, denies pain Ears: deny: decreased hearing, ear discharge, earache, tinnitus Ears, nose, mouth and throat: Denies headache, Denies sore throat Cardiovascular: Reports as per HPI, Reports decreased exercise tolerance Respiratory: Denies cough Gastrointestinal: Denies abdominal pain, Denies diarrhea, Denies nausea, Denies vomiting Genitourinary: Reports as per HPI Musculoskeletal: Reports muscle weakness Integumentary: Denies pruritus, Denies rash Neurological: Reports balance difficulties, Reports change in mentation, Reports confusion, Reports weakness Psychiatric: Reports confusion Hematologic/Lymphatic: Reports as per HPI Past Medical History Past Medical History: Atrial Fibrillation, Cancer, CVA/TIA, Diabetes Mellitus, Deep Vein Thrombosis (DVT), GERD/Reflux, Hyperlipidemia, Hypertension, Pneumonia Additional Past Medical History / Comment(s): Atrial fibrillation, chronic, 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 bladder cancer treatment completed 05/2024 History of Any Multi-Drug Resistant Organisms: None Reported Past Surgical History: Heart Catheterization Additional Past Surgical History / Comment(s): 1998 benign brain tumor removed. cardioversion Past Anesthesia/Blood Transfusion Reactions: No Reported Reaction Additional Past Anesthesia/Blood Transfusion Reaction / Comm: No hx blood transfusion Smoking Status: Former smoker - Past Family History Father Family Medical History: Myocardial Infarction (RI) Additional Family Medical History / Comment(s): Father of a RI at the age of 93yrs. Mother Family Medical History: Myocardial Infarction (RI) Additional Family Medical History / Comment(s): Mother of a RI at the age of 88yrs. Medications and Allergies Home Medications Medication Instructions Recorded Confirmed Type metFORMIN HCL [Glucophage] 500 mg PO BID 03/29/17 08/03/24 History Atorvastatin [Lipitor] 40 mg PO DAILY 05/17/17 08/03/24 History Warfarin [Coumadin] 5 mg PO DIRECTED 05/17/17 08/03/24 History Docusate [Colace] 100 mg PO DAILY 08/03/24 08/03/24 History Furosemide [Lasix] 20 mg PO DAILY 08/03/24 08/03/24 History Metoprolol Tartrate [Lopressor] 25 mg PO BID 08/03/24 08/03/24 History Multivit-Min/FA/Lycopen/Lutein 1 tab PO DAILY 08/03/24 08/03/24 History [Centrum Silver Tablet] lisinopriL [Zestril] 10 mg PO DAILY 08/03/24 08/03/24 History Allergies Allergy/AdvReac Type Severity Reaction Status Date / Time No Known Allergies Allergy Verified 08/03/24 13:13 Physical Exam Vitals: Vital Signs Temp Pulse Resp BP Pulse Ox 08/09/24 15:49 98.1 F 107 H 22 98 08/09/24 15:36 97.4 F L 118 H 22 142/70 100 08/09/24 15:24 98.3 F 94 22 153/77 98 08/09/24 12:12 98.0 F 86 20 168/78 92 L 08/09/24 09:29 97.8 F 90 22 166/65 98 08/09/24 04:00 98.0 F 102 H 24 124/91 91 L 08/09/24 02:00 22 08/08/24 23:53 98.2 F 90 22 144/66 92 L Intake and Output 08/09/24 08/09/24 08/09/24 06:59 14:59 22:59 Intake Total 650 Balance 650 Intake: Intake, IV Titration 650 Amount Phytonadione 10 mg In 50 Sodium Chloride 0.9% 50 ml @ 100 mls/hr IVPB ONCE STA Rx#:[id number] Sodium Chloride 0.9% 1, 600 000 ml @ 100 mls/hr IV . Q10H [facility] Rx#:[id number] Other: Voiding Method Diaper Diaper # Voids 3 1 2 # Bowel Movements 1 2 - Constitutional General appearance: no acute distress - EENT Eyes: EOMI, PERRLA ENT: hearing grossly normal, normal oropharynx - Neck Neck: no lymphadenopathy Thyroid: bilateral: normal size - Respiratory Respiratory: bilateral: CTA - Cardiovascular Rhythm: irregularly irregular Heart sounds: normal: S1, S2 - Gastrointestinal General gastrointestinal: normal bowel sounds, soft - Integumentary Integumentary: normal - Neurologic Neurologic: CNII-XII intact (grossly - difficult to accurately assess due to pts MS) - Musculoskeletal Musculoskeletal: generalized weakness, strength equal bilaterally - Psychiatric confused, mostly non verbal, lethargic, obeys some simple commands Results CBC & Chem 7: 08/09/24 06:41 08/09/24 06:41 Labs: Abnormal Lab Results - Last 24 Hours (Table) 08/08/24 08/09/24 08/09/24 Range/Units 20:43 06:41 06:41 WBC 11.4 H (3.8-10.6) k/uL RBC 3.32 L (4.30-5.90) m/uL Hgb 9.3 L (13.0-17.5) gm/dL Hct 29.9 L (39.0-53.0) % RDW 15.6 H (11.5-15.5) % Neutrophils # 10.2 H (1.3-7.7) k/uL Lymphocytes # 0.5 L (1.0-4.8) k/uL PT 116.6 H (10.0-12.5) sec INR >10.0 H* (<1.2) Sodium (137-145) mmol/L Potassium (3.5-5.1) mmol/L Chloride (98-107) mmol/L BUN (9-20) mg/dL Glucose (74-99) mg/dL POC Glucose (mg/dL) 133 H (70-110) mg/dL Calcium (8.4-10.2) mg/dL AST (17-59) U/L ALT (4-49) U/L Alkaline Phosphatase (38-126) U/L Total Protein (6.3-8.2) g/dL Albumin (3.5-5.0) g/dL 08/09/24 08/09/24 08/09/24 Range/Units 06:41 11:27 14:21 WBC (3.8-10.6) k/uL RBC (4.30-5.90) m/uL Hgb (13.0-17.5) gm/dL Hct (39.0-53.0) % RDW (11.5-15.5) % Neutrophils # (1.3-7.7) k/uL Lymphocytes # (1.0-4.8) k/uL PT 98.4 H (10.0-12.5) sec INR 9.8 H* (<1.2) Sodium 147 H (137-145) mmol/L Potassium 3.3 L (3.5-5.1) mmol/L Chloride 114 H (98-107) mmol/L BUN 25 H (9-20) mg/dL Glucose 126 H (74-99) mg/dL POC Glucose (mg/dL) 131 H (70-110) mg/dL Calcium 10.9 H (8.4-10.2) mg/dL AST 71 H (17-59) U/L ALT 95 H (4-49) U/L Alkaline Phosphatase 164 H (38-126) U/L Total Protein 5.5 L (6.3-8.2) g/dL Albumin 2.7 L (3.5-5.0) g/dL 08/09/24 08/09/24 Range/Units 16:30 20:08 WBC (3.8-10.6) k/uL RBC (4.30-5.90) m/uL Hgb (13.0-17.5) gm/dL Hct (39.0-53.0) % RDW (11.5-15.5) % Neutrophils # (1.3-7.7) k/uL Lymphocytes # (1.0-4.8) k/uL PT (10.0-12.5) sec INR (<1.2) Sodium (137-145) mmol/L Potassium (3.5-5.1) mmol/L Chloride (98-107) mmol/L BUN (9-20) mg/dL Glucose (74-99) mg/dL POC Glucose (mg/dL) 129 H 144 H (70-110) mg/dL Calcium (8.4-10.2) mg/dL AST (17-59) U/L ALT (4-49) U/L Alkaline Phosphatase (38-126) U/L Total Protein (6.3-8.2) g/dL Albumin (3.5-5.0) g/dL Microbiology - Last 24 Hours (Table) 08/04/24 09:44 Blood Culture - Final Blood Comments: ECHO, carotid doppler report reviewed Chest x-ray: report reviewed CT Scan - head: report reviewed MRI - head: report reviewed Assessment and Plan (1) Coagulopathy Narrative/Plan: The pt has persistently elevated INR despite being off warfarin for several days. Primary differential is prolonged warfarin effect due to decreased PO intake, liver insufficiency, and prob drug interaction. The increase during this admission can be due to initiation of IV antibiotics. - PO Vit K is unlikely to be effective in this setting. I will proceed with high dose IV vit K - Case d/w Nsg. Check INRs from contralateral arm from IV to avoid any dilutional effect - If INR does not respond appropriately I will check mixing studies - Monitor for any evidence of active bleeding. In that case, FFP or Kcentra can be utilized Current Visit: Yes Status: Acute Code(s): D68.9 - COAGULATION DEFECT, UNSPECIFIED SNOMED Code(s): 55616130 Plan: Defer to the admitting service and other consultants for management of his multiple other medical issues
[2024-08-10 06:24] LABS: Glucose,Whole Blood 128 mg/dL (70-110)
[2024-08-10 07:15] LABS: Basophils % (A) 0 %; Eosinophils % (A) 0 %; HCT 31.2 % (39.0-53.0); HGB 9.6 gm/dL (13.0-17.5); Hypochromasia Marked; Lymphocytes # (A) 0.9 k/uL (1.0-4.8); Lymphocytes % (A) 7 %; MCH 27.9 pg (25.0-35.0); MCHC 30.8 g/dL (31.0-37.0); MCV 90.4 fL (80.0-100.0); Mean Platelet Volume 7.3; Monocytes # (A) 0.4 k/uL (0-1.0); Monocytes % (A) 3 %; Neutrophils # (A) 10.5 k/uL (1.3-7.7); Neutrophils % (A) 88 %; Platelet Count 300 k/uL (150-450); RBC 3.45 m/uL (4.30-5.90); RDW 15.5 % (11.5-15.5)
[2024-08-10 07:25] LABS: ALT 82 U/L (4-49); AST 71 U/L (17-59); African American GFR (CKD) >90 (>60 ml/min/1.73 sqM); Albumin 2.7 g/dL (3.5-5.0); Alkaline Phosphatase 155 U/L (38-126); Anion Gap 8 mmol/L; Blood Urea Nitrogen 30 mg/dL (9-20); Calcium 11.4 mg/dL (8.4-10.2); Carbon Dioxide 25 mmol/L (22-30); Chloride 117 mmol/L (98-107); Glucose 121 mg/dL (74-99); Non-African American GFR(CKD) 81 (>60 ml/min/1.73 sqM); Potassium 3.7 mmol/L (3.5-5.1); Sodium 150 mmol/L (137-145); Total Bilirubin 0.9 mg/dL (0.2-1.3); Total Protein 5.6 g/dL (6.3-8.2)
[2024-08-10 07:30] LABS: INR 1.7 (<1.2); Prothrombin Time 17.1 sec (10.0-12.5)
--- NOTE | 2024-08-10 10:47 | P.PN ---
Subjective Progress Note Date: 08/10/24 Principal diagnosis: pneumonia, coagulopathy In f/u today pt moans when asked questions, a few words can be made out, no reported bleeding from staff caring for pt. Objective - Vital Signs Vital signs: Vital Signs Temp 98.4 F 08/10/24 08:07 Pulse 117 H 08/10/24 08:07 Resp 17 08/10/24 08:07 BP 152/71 08/10/24 08:07 Pulse Ox 92 L 08/10/24 08:07 FiO2 Intake & Output 08/09/24 08/10/24 08/10/24 18:59 06:59 18:59 Intake Total 650 240 10 Balance 650 240 10 Weight 82 kg Intake: IV 10 Invasive Line 4 10 Intake, IV Titration 650 240 Amount Phytonadione 10 mg In 50 Sodium Chloride 0.9% 50 ml @ 100 mls/hr IVPB ONCE STA Rx#:[id number] Sodium Chloride 0.9% 1, 600 240 000 ml @ 100 mls/hr IV . Q10H [facility] Rx#:[id number] Other: Voiding Method Diaper Diaper Diaper # Voids 2 1 1 # Bowel Movements 2 1 1 - Constitutional General appearance: Present: no acute distress, obese - EENT EENT Comment(s): dry mucus membranes, no visible blood or wet purpura in mouth or nares - Respiratory Details: resp unlabored - Cardiovascular Details: radial pulse 2+, mild tachycardia - Gastrointestinal General gastrointestinal: Present: soft - Integumentary Integumentary: Present: pale - Musculoskeletal Musculoskeletal: Present: generalized weakness - Psychiatric Psychiatric: Absent: A&O x's 3, appropriate affect, intact judgment & insight - Labs CBC & Chem 7: 08/10/24 06:38 08/10/24 06:38 Labs: Abnormal Lab Results - Last 24 Hours (Table) 08/09/24 08/09/24 08/09/24 Range/Units 11:27 14:21 16:30 WBC (3.8-10.6) k/uL RBC (4.30-5.90) m/uL Hgb (13.0-17.5) gm/dL Hct (39.0-53.0) % MCHC (31.0-37.0) g/dL Neutrophils # (1.3-7.7) k/uL Lymphocytes # (1.0-4.8) k/uL PT 98.4 H (10.0-12.5) sec INR 9.8 H* (<1.2) Sodium (137-145) mmol/L Chloride (98-107) mmol/L BUN (9-20) mg/dL Glucose (74-99) mg/dL POC Glucose (mg/dL) 131 H 129 H (70-110) mg/dL Calcium (8.4-10.2) mg/dL AST (17-59) U/L ALT (4-49) U/L Alkaline Phosphatase (38-126) U/L Total Protein (6.3-8.2) g/dL Albumin (3.5-5.0) g/dL 08/09/24 08/10/24 08/10/24 Range/Units 20:08 06:23 06:38 WBC (3.8-10.6) k/uL RBC (4.30-5.90) m/uL Hgb (13.0-17.5) gm/dL Hct (39.0-53.0) % MCHC (31.0-37.0) g/dL Neutrophils # (1.3-7.7) k/uL Lymphocytes # (1.0-4.8) k/uL PT 17.1 H (10.0-12.5) sec INR 1.7 H (<1.2) Sodium (137-145) mmol/L Chloride (98-107) mmol/L BUN (9-20) mg/dL Glucose (74-99) mg/dL POC Glucose (mg/dL) 144 H 128 H (70-110) mg/dL Calcium (8.4-10.2) mg/dL AST (17-59) U/L ALT (4-49) U/L Alkaline Phosphatase (38-126) U/L Total Protein (6.3-8.2) g/dL Albumin (3.5-5.0) g/dL 08/10/24 08/10/24 Range/Units 06:38 06:38 WBC 12.0 H (3.8-10.6) k/uL RBC 3.45 L (4.30-5.90) m/uL Hgb 9.6 L (13.0-17.5) gm/dL Hct 31.2 L (39.0-53.0) % MCHC 30.8 L (31.0-37.0) g/dL Neutrophils # 10.5 H (1.3-7.7) k/uL Lymphocytes # 0.9 L (1.0-4.8) k/uL PT (10.0-12.5) sec INR (<1.2) Sodium 150 H (137-145) mmol/L Chloride 117 H (98-107) mmol/L BUN 30 H (9-20) mg/dL Glucose 121 H (74-99) mg/dL POC Glucose (mg/dL) (70-110) mg/dL Calcium 11.4 H (8.4-10.2) mg/dL AST 71 H (17-59) U/L ALT 82 H (4-49) U/L Alkaline Phosphatase 155 H (38-126) U/L Total Protein 5.6 L (6.3-8.2) g/dL Albumin 2.7 L (3.5-5.0) g/dL Microbiology - Last 24 Hours (Table) 08/04/24 09:44 Blood Culture - Final Blood Assessment and Plan (1) Coagulopathy Current Visit: Yes Status: Acute Priority: High Code(s): D68.9 - COAGULATION DEFECT, UNSPECIFIED SNOMED Code(s): 88055648 Plan: Coagulopathy -INR 1.7 today, s/p IV vit K. GI absorption variability in setting of acute illness, so, INR reversal achieved with IV administration. -Suspect that prolonged warfarin effect was due to decreased PO intake, liver insufficiency, and possible drug interaction, exacerbated by initiation of IV antibiotics on admit. -As pt is not eating or drinking at baseline. Systemic vit K levels may be still be low/nil post INR reversal. Cont to monitor INR daily for now. Doctor attests: I performed a history and physical examination of this patient, developed impression and plan of care. Discussed with dictator. I agree with dictators note, documented as a scribe.
[2024-08-10 10:55] VITALS: BMI 25.9
[2024-08-10 11:28] LABS: Glucose,Whole Blood 133 mg/dL (70-110)
--- NOTE | 2024-08-10 12:39 | P.PN ---
Subjective Progress Note Date: 08/10/24 Principal diagnosis: History of atrial fibrillation with multifocal cerebral infarcts in setting of elevated INR from Coumadin. Mr. David is an 83-year-old male with history of atrial fibrillation for which she was previously on Coumadin, history of stroke, brain tumor, cancer, diabetes, deep venous thrombosis, gastroesophageal reflux disease, hyperlipidemia, hypertension, pneumonia. Patient was admitted to [facility] on August 03 status post 2 falls. He apparently did not suffer any seizure or altered mental status at the time of the falls but when he was brought to the hospital he developed altered mental status. He was seen by neurology on August 04 and received an electroencephalogram which revealed focal slowing over the left frontal lobe with generalized slowing as well and he was placed on Keppra 5 mg every 12 hours. He was noted to be more awake on August 06 but had confusion on August 07 and August 09. Today on follow-up, the patient is arousable. He will focus on the examiner and will follow one-step commands. He has difficulty following more complex commands. He has severely garbled speech and is not able to be intelligible. His INR was elevated at 9.8 yesterday but has declined precipitously to 1.7 as of this morning. He is off of Coumadin and has been given vitamin K repletion. He is considered a good candidate for Eliquis to resume instead of Coumadin. He also underwent a carotid ultrasound on August 07 revealing less than 50% stenosis bilaterally. Echocardiogram revealed ejection fraction of 40 to 45%. Assessment: Mr. Luther is an 83-year-old male status post multifocal embolic cerebr al infarcts. He has a history of atrial fibrillation and was previously anticoagulated with Coumadin. However his INR was significantly elevated though he does not appear to suffer intracerebral hemorrhages at this time. His INR precipitously declined to 1.7 as of this morning. Plan: 1. I will defer to the primary team as well as cardiology regarding the appropriate date to start the patient on Eliquis for cardiovascular and stroke protection. 2. Patient will be continued on Keppra at this time as he does have evidence of focal slowing with potentially epileptogenic region in his left frontal lobe. 3. Neurology will continue to follow this patient but likely on an intermittent basis and make further recommendations as needed. Objective - Vital Signs Vital signs: Vital Signs Temp 97.4 F L 08/10/24 11:36 Pulse 98 08/10/24 11:36 Resp 17 08/10/24 11:36 BP 143/87 08/10/24 11:36 Pulse Ox 94 L 08/10/24 11:36 FiO2 Intake & Output 08/09/24 08/10/24 08/10/24 18:59 06:59 18:59 Intake Total 650 240 10 Balance 650 240 10 Weight 82 kg 82 kg Intake: IV 10 Invasive Line 4 10 Intake, IV Titration 650 240 Amount Phytonadione 10 mg In 50 Sodium Chloride 0.9% 50 ml @ 100 mls/hr IVPB ONCE STA Rx#:[id number] Sodium Chloride 0.9% 1, 600 240 000 ml @ 100 mls/hr IV . Q10H [facility] Rx#:[id number] Other: Voiding Method Diaper Diaper Diaper # Voids 2 1 1 # Bowel Movements 2 1 1 - Labs CBC & Chem 7: 08/10/24 06:38 08/10/24 06:38 Labs: Abnormal Lab Results - Last 24 Hours (Table) 08/09/24 08/09/24 08/09/24 Range/Units 14:21 16:30 20:08 WBC (3.8-10.6) k/uL RBC (4.30-5.90) m/uL Hgb (13.0-17.5) gm/dL Hct (39.0-53.0) % MCHC (31.0-37.0) g/dL Neutrophils # (1.3-7.7) k/uL Lymphocytes # (1.0-4.8) k/uL PT 98.4 H (10.0-12.5) sec INR 9.8 H* (<1.2) Sodium (137-145) mmol/L Chloride (98-107) mmol/L BUN (9-20) mg/dL Glucose (74-99) mg/dL POC Glucose (mg/dL) 129 H 144 H (70-110) mg/dL Calcium (8.4-10.2) mg/dL AST (17-59) U/L ALT (4-49) U/L Alkaline Phosphatase (38-126) U/L Total Protein (6.3-8.2) g/dL Albumin (3.5-5.0) g/dL 08/10/24 08/10/24 08/10/24 Range/Units 06:23 06:38 06:38 WBC 12.0 H (3.8-10.6) k/uL RBC 3.45 L (4.30-5.90) m/uL Hgb 9.6 L (13.0-17.5) gm/dL Hct 31.2 L (39.0-53.0) % MCHC 30.8 L (31.0-37.0) g/dL Neutrophils # 10.5 H (1.3-7.7) k/uL Lymphocytes # 0.9 L (1.0-4.8) k/uL PT 17.1 H (10.0-12.5) sec INR 1.7 H (<1.2) Sodium (137-145) mmol/L Chloride (98-107) mmol/L BUN (9-20) mg/dL Glucose (74-99) mg/dL POC Glucose (mg/dL) 128 H (70-110) mg/dL Calcium (8.4-10.2) mg/dL AST (17-59) U/L ALT (4-49) U/L Alkaline Phosphatase (38-126) U/L Total Protein (6.3-8.2) g/dL Albumin (3.5-5.0) g/dL 08/10/24 08/10/24 Range/Units 06:38 11:26 WBC (3.8-10.6) k/uL RBC (4.30-5.90) m/uL Hgb (13.0-17.5) gm/dL Hct (39.0-53.0) % MCHC (31.0-37.0) g/dL Neutrophils # (1.3-7.7) k/uL Lymphocytes # (1.0-4.8) k/uL PT (10.0-12.5) sec INR (<1.2) Sodium 150 H (137-145) mmol/L Chloride 117 H (98-107) mmol/L BUN 30 H (9-20) mg/dL Glucose 121 H (74-99) mg/dL POC Glucose (mg/dL) 133 H (70-110) mg/dL Calcium 11.4 H (8.4-10.2) mg/dL AST 71 H (17-59) U/L ALT 82 H (4-49) U/L Alkaline Phosphatase 155 H (38-126) U/L Total Protein 5.6 L (6.3-8.2) g/dL Albumin 2.7 L (3.5-5.0) g/dL Microbiology - Last 24 Hours (Table) 08/04/24 09:44 Blood Culture - Final Blood
[2024-08-10] MEDS: SODIUM CHLORIDE 0.45% 1,000 ML IV SCH (16:01)
[2024-08-10 16:14] LABS: Glucose,Whole Blood 245 mg/dL (70-110)
--- NOTE | 2024-08-10 17:30 | P.PN ---
Subjective Progress Note Date: 08/10/24 Beto David is an 83-year-old male patient who presented to the hospital with concerns of falls weakness and increased confusion. According to family member at bedside patient had 2 episodes of falls yesterday patient unable to recall event. Patient usually is independent ANO x 3 patient does have a history of atrial fibrillation maintained on Coumadin which has been on hold since last week due to elevated INR. Additional medical history includes CVA, diabetes mellitus, DVT, GERD, hyperlipidemia, hypertension and pneumonia. Chest x-ray completed showing improving basilar infiltrates greater on left improving pleural effusions head CT completed showing chronic right subdural hematoma with mild mass effect upon the adjacent cortex measuring a maximal thickness of 1.5 cm no definitive acute hemorrhage remote ischemic change involving the right cerebellum and left frontal lobe similar to prior MRI. Lab work revealing white blood cell 11.8, hemoglobin 10.2 INR significantly elevated at 7.1, sodium 134 potassium 5.4 bun 44, creatinine 1.1 lactic acid 2.2 and elevated liver enzymes AST 158, ALT 156 and alkaline phosphatase 168. At this time patient has been admitted cardiology, infectious disease and neurology services all consulted. At this time patient will be started back on IV antibiotics. Will order liver ultrasound. Repeat labs ordered On 08/04/2024 patient is alert but confused. Family at bedside. Patient has been transitioned oral home medication Cardizem DC'd per cardiology. Repeat labs pending. Patient denies chest pain or shortness of breath. Patient denies nausea vomiting or diarrhea. Patient denies any urinary burning frequency. Current vital signs temp 98.0, heart rate 99, respiratory rate 16, blood pressure 122/65 with a pulse ox of 99% on room air On 08/05/2024 patient remains confused sitter at bedside resting comfortably in bed. Patient was evaluated by neurology services EEG and MRI has been ordered. Patient remains on azithromycin and Rocephin infectious disease services following. Current vital signs temp 98.0, heart rate 80, respiratory rate 20, blood pressure 111/65 with a pulse ox of 97% on room air. Lab work currently pending On 08/06/2024 patient was seen and examined on the medical floor he is alert slightly confused in no apparent distress he is answering questions more appropriately today there is no fever or chills no headache or dizziness no chest pain no shortness of breath no cough no nausea or vomiting no abdominal pain no diarrhea and no urinary symptoms On 08/07/2024 patient remains confused. MRI was completing awaiting neurology input. Current vital signs temp 98.2, heart rate 105, respiratory rate 18, blood pressure 136/78 with a pulse ox of 93% on room air. Patient denies chest pain or shortness of breath. Patient denies nausea vomiting or diarrhea. Patient denies any urinary burning or frequency. On 08/08/2024 patient was seen and examined on the medical floor he is somnolent arousable slightly confused in no apparent distress, there is no fever or chills no headache or dizziness no chest pain no shortness of breath he has occasional cough no nausea or vomiting no abdominal pain no diarrhea no urinary symptoms. Medication and labs were reviewed. Continue with current management possible [facility] in the next 48 hours. On 08/09/2024 patient remains confused resting in bed. Patient denies chest pain or shortness of breath. Patient denies nausea vomiting or diarrhea. Patient denies any urinary burning or frequency patient remains on IV Rocephin and IV Keppra. Infectious disease, neurology services following. On 08/10/2024 patient was seen and examined on the medical floor he is somnolent responsive slightly confused in no apparent distress, he answers few questions and he returns to sleep, there is no fever or chills no headache or dizziness no chest pain no shortness of breath no cough no nausea or vomiting no abdominal pain no diarrhea and no urinary symptoms. INR today is down to 1.7, patient was started on Eliquis 2.5 mg twice daily per cardiology recommendation, sodium today is up to 150 patient has very low oral intake, IV fluids switched to 0.45 at 75 cc/h, patient encouraged to take more free water with his diet. Objective - Vital Signs Vital signs: Vital Signs Temp 97.4 F L 08/10/24 11:36 Pulse 98 08/10/24 11:36 Resp 17 08/10/24 11:36 BP 143/87 08/10/24 11:36 Pulse Ox 94 L 08/10/24 11:36 FiO2 Intake & Output 08/09/24 08/10/24 08/10/24 18:59 06:59 18:59 Intake Total 650 240 10 Balance 650 240 10 Weight 82 kg 82 kg Intake: IV 10 Invasive Line 4 10 Intake, IV Titration 650 240 Amount Phytonadione 10 mg In 50 Sodium Chloride 0.9% 50 ml @ 100 mls/hr IVPB ONCE STA Rx#:[id number] Sodium Chloride 0.9% 1, 600 240 000 ml @ 100 mls/hr IV . Q10H [facility] Rx#:[id number] Other: Voiding Method Diaper Diaper Diaper # Voids 2 1 1 # Bowel Movements 2 1 1 - Exam Head normocephalic Neck supple Lungs clear to auscultation bilaterally no wheezing or crackles Heart regular rate and rhythm S1-S2, no rub or gallop Abdomen is soft nontender nondistended positive bowel sounds no hepatosplenom egaly Extremities no edema Neuro alert and orientated to 1. Intermittent confusion - Labs CBC & Chem 7: 08/10/24 06:38 08/10/24 06:38 Labs: Abnormal Lab Results - Last 24 Hours (Table) 08/09/24 08/09/24 08/09/24 Range/Units 14:21 16:30 20:08 WBC (3.8-10.6) k/uL RBC (4.30-5.90) m/uL Hgb (13.0-17.5) gm/dL Hct (39.0-53.0) % MCHC (31.0-37.0) g/dL Neutrophils # (1.3-7.7) k/uL Lymphocytes # (1.0-4.8) k/uL PT 98.4 H (10.0-12.5) sec INR 9.8 H* (<1.2) Sodium (137-145) mmol/L Chloride (98-107) mmol/L BUN (9-20) mg/dL Glucose (74-99) mg/dL POC Glucose (mg/dL) 129 H 144 H (70-110) mg/dL Calcium (8.4-10.2) mg/dL AST (17-59) U/L ALT (4-49) U/L Alkaline Phosphatase (38-126) U/L Total Protein (6.3-8.2) g/dL Albumin (3.5-5.0) g/dL 08/10/24 08/10/24 08/10/24 Range/Units 06:23 06:38 06:38 WBC 12.0 H (3.8-10.6) k/uL RBC 3.45 L (4.30-5.90) m/uL Hgb 9.6 L (13.0-17.5) gm/dL Hct 31.2 L (39.0-53.0) % MCHC 30.8 L (31.0-37.0) g/dL Neutrophils # 10.5 H (1.3-7.7) k/uL Lymphocytes # 0.9 L (1.0-4.8) k/uL PT 17.1 H (10.0-12.5) sec INR 1.7 H (<1.2) Sodium (137-145) mmol/L Chloride (98-107) mmol/L BUN (9-20) mg/dL Glucose (74-99) mg/dL POC Glucose (mg/dL) 128 H (70-110) mg/dL Calcium (8.4-10.2) mg/dL AST (17-59) U/L ALT (4-49) U/L Alkaline Phosphatase (38-126) U/L Total Protein (6.3-8.2) g/dL Albumin (3.5-5.0) g/dL 08/10/24 08/10/24 Range/Units 06:38 11:26 WBC (3.8-10.6) k/uL RBC (4.30-5.90) m/uL Hgb (13.0-17.5) gm/dL Hct (39.0-53.0) % MCHC (31.0-37.0) g/dL Neutrophils # (1.3-7.7) k/uL Lymphocytes # (1.0-4.8) k/uL PT (10.0-12.5) sec INR (<1.2) Sodium 150 H (137-145) mmol/L Chloride 117 H (98-107) mmol/L BUN 30 H (9-20) mg/dL Glucose 121 H (74-99) mg/dL POC Glucose (mg/dL) 133 H (70-110) mg/dL Calcium 11.4 H (8.4-10.2) mg/dL AST 71 H (17-59) U/L ALT 82 H (4-49) U/L Alkaline Phosphatase 155 H (38-126) U/L Total Protein 5.6 L (6.3-8.2) g/dL Albumin 2.7 L (3.5-5.0) g/dL Microbiology - Last 24 Hours (Table) 08/04/24 09:44 Blood Culture - Final Blood Assessment and Plan Assessment: 1. Generalized weakness with falls 2. Intermittent confusion 3. Supratherapeutic INR 4. A-fib with RVR. Patient was started on Cardizem drip 5. Possible pneumonia 6. Abnormal head CT 7. History of systolic congestive heart failure 8. History of aortic valve replacement 9. History of diabetes mellitus type 2 sliding scale coverage added 10. History of CVA 11. History of chronic atrial fibrillation 12. History of COPD 13. History of hyperlipidemia 14. History of benign brain tumor resected in 1989 15. History of cardiomyopathy 16. History of bladder cancer 17. Elevated liver enzymes DVT prophylaxis SCDs secondary to supratherapeutic INR. GI prophylaxis Protonix Neurology, cardiology and infectious disease services consulted Repeat labs ordered Patient started on IV antibiotics Urine and blood cultures ordered MRI and EEG ordered per neurology
[2024-08-10 20:09] LABS: Glucose,Whole Blood 184 mg/dL (70-110)
[2024-08-10] MEDS: APIXABAN 2.5 MG TABLET PO SCH (20:44)
[2024-08-11] MEDS: MORPHINE SULFATE 2 MG/ML SYRINGE IV PRN (05:01)
[2024-08-11 06:12] LABS: Glucose,Whole Blood 155 mg/dL (70-110)
[2024-08-11 07:44] LABS: Basophils % (A) 0 %; Eosinophils % (A) 0 %; HCT 29.3 % (39.0-53.0); HGB 9.1 gm/dL (13.0-17.5); Hypochromasia Marked; Lymphocytes # (A) 0.5 k/uL (1.0-4.8); Lymphocytes % (A) 4 %; MCH 28.2 pg (25.0-35.0); MCHC 31.2 g/dL (31.0-37.0); MCV 90.3 fL (80.0-100.0); Mean Platelet Volume 8.1; Monocytes # (A) 0.4 k/uL (0-1.0); Monocytes % (A) 3 %; Neutrophils # (A) 11.6 k/uL (1.3-7.7); Neutrophils % (A) 91 %; Platelet Count 255 k/uL (150-450); Poikilocytosis Slight; RBC 3.24 m/uL (4.30-5.90); RDW 15.9 % (11.5-15.5); WBC 12.7 k/uL (3.8-10.6)
[2024-08-11 07:53] LABS: INR 1.4 (<1.2); Prothrombin Time 14.3 sec (10.0-12.5)
[2024-08-11 08:12] LABS: ALT 121 U/L (4-49); AST 146 U/L (17-59); African American GFR (CKD) 81 (>60 ml/min/1.73 sqM); Albumin 2.5 g/dL (3.5-5.0); Alkaline Phosphatase 164 U/L (38-126); Anion Gap 8 mmol/L; Blood Urea Nitrogen 33 mg/dL (9-20); Calcium 11.6 mg/dL (8.4-10.2); Carbon Dioxide 24 mmol/L (22-30); Chloride 118 mmol/L (98-107); Glucose 141 mg/dL (74-99); Non-African American GFR(CKD) 70 (>60 ml/min/1.73 sqM); Potassium 3.4 mmol/L (3.5-5.1); Sodium 150 mmol/L (137-145); Total Bilirubin 0.6 mg/dL (0.2-1.3); Total Protein 5.3 g/dL (6.3-8.2)
--- NOTE | 2024-08-11 09:08 | P.PN ---
Subjective Progress Note Date: 08/11/24 Beto David is an 83-year-old male patient who presented to the hospital with concerns of falls weakness and increased confusion. According to family member at bedside patient had 2 episodes of falls yesterday patient unable to recall event. Patient usually is independent ANO x 3 patient does have a history of atrial fibrillation maintained on Coumadin which has been on hold since last week due to elevated INR. Additional medical history includes CVA, diabetes mellitus, DVT, GERD, hyperlipidemia, hypertension and pneumonia. Chest x-ray completed showing improving basilar infiltrates greater on left improving pleural effusions head CT completed showing chronic right subdural hematoma with mild mass effect upon the adjacent cortex measuring a maximal thickness of 1.5 cm no definitive acute hemorrhage remote ischemic change involving the right cerebellum and left frontal lobe similar to prior MRI. Lab work revealing white blood cell 11.8, hemoglobin 10.2 INR significantly elevated at 7.1, sodium 134 potassium 5.4 bun 44, creatinine 1.1 lactic acid 2.2 and elevated liver enzymes AST 158, ALT 156 and alkaline phosphatase 168. At this time patient has been admitted cardiology, infectious disease and neurology services all consulted. At this time patient will be started back on IV antibiotics. Will order liver ultrasound. Repeat labs ordered On 08/04/2024 patient is alert but confused. Family at bedside. Patient has been transitioned oral home medication Cardizem DC'd per cardiology. Repeat labs pending. Patient denies chest pain or shortness of breath. Patient denies nausea vomiting or diarrhea. Patient denies any urinary burning frequency. Current vital signs temp 98.0, heart rate 99, respiratory rate 16, blood pressure 122/65 with a pulse ox of 99% on room air On 08/05/2024 patient remains confused sitter at bedside resting comfortably in bed. Patient was evaluated by neurology services EEG and MRI has been ordered. Patient remains on azithromycin and Rocephin infectious disease services following. Current vital signs temp 98.0, heart rate 80, respiratory rate 20, blood pressure 111/65 with a pulse ox of 97% on room air. Lab work currently pending On 08/06/2024 patient was seen and examined on the medical floor he is alert slightly confused in no apparent distress he is answering questions more appropriately today there is no fever or chills no headache or dizziness no chest pain no shortness of breath no cough no nausea or vomiting no abdominal pain no diarrhea and no urinary symptoms On 08/07/2024 patient remains confused. MRI was completing awaiting neurology input. Current vital signs temp 98.2, heart rate 105, respiratory rate 18, blood pressure 136/78 with a pulse ox of 93% on room air. Patient denies chest pain or shortness of breath. Patient denies nausea vomiting or diarrhea. Patient denies any urinary burning or frequency. On 08/08/2024 patient was seen and examined on the medical floor he is somnolent arousable slightly confused in no apparent distress, there is no fever or chills no headache or dizziness no chest pain no shortness of breath he has occasional cough no nausea or vomiting no abdominal pain no diarrhea no urinary symptoms. Medication and labs were reviewed. Continue with current management possible [facility] in the next 48 hours. On 08/09/2024 patient remains confused resting in bed. Patient denies chest pain or shortness of breath. Patient denies nausea vomiting or diarrhea. Patient denies any urinary burning or frequency patient remains on IV Rocephin and IV Keppra. Infectious disease, neurology services following. On 08/10/2024 patient was seen and examined on the medical floor he is somnolent responsive slightly confused in no apparent distress, he answers few questions and he returns to sleep, there is no fever or chills no headache or dizziness no chest pain no shortness of breath no cough no nausea or vomiting no abdominal pain no diarrhea and no urinary symptoms. INR today is down to 1.7, patient was started on Eliquis 2.5 mg twice daily per cardiology recommendation, sodium today is up to 150 patient has very low oral intake, IV fluids switched to 0.45 at 75 cc/h, patient encouraged to take more free water with his diet. on 08/11/2024 patient remains confused sleepy in bed. INR today 1.4. Patient remains on eliquis. Patient has been switched to half-normal saline for hypernatremia.current vital signs temp 97.2, heart rate 83, respiratory rate 18, pressure 132/72 with pulse ox 92% on 6 L Objective - Vital Signs Vital signs: Vital Signs Temp 97.2 F L 08/11/24 04:00 Pulse 83 08/11/24 04:00 Resp 18 08/11/24 04:00 BP 132/72 08/11/24 04:00 Pulse Ox 92 L 08/11/24 04:00 FiO2 Intake & Output 08/10/24 08/11/24 08/11/24 18:59 06:59 18:59 Intake Total 140 180 Output Total 450 Balance 140 -450 180 Weight 82 kg 82.5 kg Intake: IV 20 Invasive Line 4 20 Oral 120 180 Output: Urine 450 Other: Voiding Method External Catheter External Catheter # Voids 1 # Bowel Movements 1 1 - Exam Head normocephalic Neck supple Lungs clear to auscultation bilaterally no wheezing or crackles Heart regular rate and rhythm S1-S2, no rub or gallop Abdomen is soft nontender nondistended positive bowel sounds no hepatosplenomegaly Extremities no edema Neuro alert and orientated to 1. Intermittent confusion - Labs CBC & Chem 7: 08/11/24 06:46 08/11/24 06:46 Labs: Abnormal Lab Results - Last 24 Hours (Table) 08/10/24 08/10/24 08/10/24 Range/Units 11:26 16:12 20:08 WBC (3.8-10.6) k/uL RBC (4.30-5.90) m/uL Hgb (13.0-17.5) gm/dL Hct (39.0-53.0) % RDW (11.5-15.5) % Neutrophils # (1.3-7.7) k/uL Lymphocytes # (1.0-4.8) k/uL PT (10.0-12.5) sec INR (<1.2) Sodium (137-145) mmol/L Potassium (3.5-5.1) mmol/L Chloride (98-107) mmol/L BUN (9-20) mg/dL Glucose (74-99) mg/dL POC Glucose (mg/dL) 133 H 245 H 184 H (70-110) mg/dL Calcium (8.4-10.2) mg/dL AST (17-59) U/L ALT (4-49) U/L Alkaline Phosphatase (38-126) U/L Total Protein (6.3-8.2) g/dL Albumin (3.5-5.0) g/dL 08/11/24 08/11/24 08/11/24 Range/Units 06:10 06:46 06:46 WBC 12.7 H (3.8-10.6) k/uL RBC 3.24 L (4.30-5.90) m/uL Hgb 9.1 L (13.0-17.5) gm/dL Hct 29.3 L (39.0-53.0) % RDW 15.9 H (11.5-15.5) % Neutrophils # 11.6 H (1.3-7.7) k/uL Lymphocytes # 0.5 L (1.0-4.8) k/uL PT 14.3 H (10.0-12.5) sec INR 1.4 H (<1.2) Sodium (137-145) mmol/L Potassium (3.5-5.1) mmol/L Chloride (98-107) mmol/L BUN (9-20) mg/dL Glucose (74-99) mg/dL POC Glucose (mg/dL) 155 H (70-110) mg/dL Calcium (8.4-10.2) mg/dL AST (17-59) U/L ALT (4-49) U/L Alkaline Phosphatase (38-126) U/L Total Protein (6.3-8.2) g/dL Albumin (3.5-5.0) g/dL 08/11/24 Range/Units 06:46 WBC (3.8-10.6) k/uL RBC (4.30-5.90) m/uL Hgb (13.0-17.5) gm/dL Hct (39.0-53.0) % RDW (11.5-15.5) % Neutrophils # (1.3-7.7) k/uL Lymphocytes # (1.0-4.8) k/uL PT (10.0-12.5) sec INR (<1.2) Sodium 150 H (137-145) mmol/L Potassium 3.4 L (3.5-5.1) mmol/L Chloride 118 H (98-107) mmol/L BUN 33 H (9-20) mg/dL Glucose 141 H (74-99) mg/dL POC Glucose (mg/dL) (70-110) mg/dL Calcium 11.6 H (8.4-10.2) mg/dL AST 146 H (17-59) U/L ALT 121 H (4-49) U/L Alkaline Phosphatase 164 H (38-126) U/L Total Protein 5.3 L (6.3-8.2) g/dL Albumin 2.5 L (3.5-5.0) g/dL Assessment and Plan Assessment: 1. Generalized weakness with falls 2. Intermittent confusion 3. Supratherapeutic INR 4. A-fib with RVR. Patient was started on Cardizem drip 5. Possible pneumonia 6. Abnormal head CT 7. History of systolic congestive heart failure 8. History of aortic valve replacement 9. History of diabetes mellitus type 2 sliding scale coverage added 10. History of CVA 11. History of chronic atrial fibrillation 12. History of COPD 13. History of hyperlipidemia 14. History of benign brain tumor resected in 1989 15. History of cardiomyopathy 16. History of bladder cancer 17. Elevated liver enzymes DVT prophylaxis SCDs secondary to supratherapeutic INR. GI prophylaxis Protonix Neurology, cardiology and infectious disease services consulted Repeat labs ordered Patient started on IV antibiotics Urine and blood cultures ordered MRI and EEG ordered per neurology
[2024-08-11 11:28] LABS: Glucose,Whole Blood 150 mg/dL (70-110)
--- NOTE | 2024-08-11 12:57 | P.PN ---
Subjective Progress Note Date: 08/10/24 Principal diagnosis: Reason for follow-up is pneumonia Patient is 83-year-old male with a past medical history significant for diabetes mellitus hypertension hyperlipidemia CVA TIA atrial fibrillation patient has been brought into the hospital after pending the patient did have a fall with weakness, patient did have some abnormality on the CT of the brain chest x-ray with right basilar infiltrate concerning for possible pneumonia. On today's evaluation that is 08/10/2024, patient has been afebrile, patient is breathing comfortably and is currently on 2 L nasal oxygen, patient slightly more awake responding to his name but did not answer any question. Patient white count is 12,000, creatinine 0.85 Objective - Vital Signs Vital signs: Vital Signs Temp 97.4 F L 08/10/24 11:36 Pulse 98 08/10/24 11:36 Resp 17 08/10/24 11:36 BP 143/87 08/10/24 11:36 Pulse Ox 94 L 08/10/24 11:36 FiO2 Intake & Output 08/09/24 08/10/24 08/10/24 18:59 06:59 18:59 Intake Total 650 240 20 Balance 650 240 20 Weight 82 kg 82 kg Intake: IV 20 Invasive Line 4 20 Intake, IV Titration 650 240 Amount Phytonadione 10 mg In 50 Sodium Chloride 0.9% 50 ml @ 100 mls/hr IVPB ONCE STA Rx#:[id number] Sodium Chloride 0.9% 1, 600 240 000 ml @ 100 mls/hr IV . Q10H [facility] Rx#:[id number] Other: Voiding Method Diaper Diaper External Catheter # Voids 2 1 1 # Bowel Movements 2 1 1 - Exam GENERAL DESCRIPTION: An elderly male lying in bed in no distress RESPIRATORY SYSTEM: Unlabored breathing , decreased breath sounds at bases HEART: S1 S2 regular rate and rhythm , ABDOMEN: Soft , no tenderness EXTREMITIES: No edema feet - Labs CBC & Chem 7: 08/11/24 06:46 08/11/24 06:46 Labs: Abnormal Lab Results - Last 24 Hours (Table) 08/09/24 08/09/24 08/09/24 Range/Units 14:21 16:30 20:08 WBC (3.8-10.6) k/uL RBC (4.30-5.90) m/uL Hgb (13.0-17.5) gm/dL Hct (39.0-53.0) % MCHC (31.0-37.0) g/dL Neutrophils # (1.3-7.7) k/uL Lymphocytes # (1.0-4.8) k/uL PT 98.4 H (10.0-12.5) sec INR 9.8 H* (<1.2) Sodium (137-145) mmol/L Chloride (98-107) mmol/L BUN (9-20) mg/dL Glucose (74-99) mg/dL POC Glucose (mg/dL) 129 H 144 H (70-110) mg/dL Calcium (8.4-10.2) mg/dL AST (17-59) U/L ALT (4-49) U/L Alkaline Phosphatase (38-126) U/L Total Protein (6.3-8.2) g/dL Albumin (3.5-5.0) g/dL 08/10/24 08/10/24 08/10/24 Range/Units 06:23 06:38 06:38 WBC 12.0 H (3.8-10.6) k/uL RBC 3.45 L (4.30-5.90) m/uL Hgb 9.6 L (13.0-17.5) gm/dL Hct 31.2 L (39.0-53.0) % MCHC 30.8 L (31.0-37.0) g/dL Neutrophils # 10.5 H (1.3-7.7) k/uL Lymphocytes # 0.9 L (1.0-4.8) k/uL PT 17.1 H (10.0-12.5) sec INR 1.7 H (<1.2) Sodium (137-145) mmol/L Chloride (98-107) mmol/L BUN (9-20) mg/dL Glucose (74-99) mg/dL POC Glucose (mg/dL) 128 H (70-110) mg/dL Calcium (8.4-10.2) mg/dL AST (17-59) U/L ALT (4-49) U/L Alkaline Phosphatase (38-126) U/L Total Protein (6.3-8.2) g/dL Albumin (3.5-5.0) g/dL 08/10/24 08/10/24 Range/Units 06:38 11:26 WBC (3.8-10.6) k/uL RBC (4.30-5.90) m/uL Hgb (13.0-17.5) gm/dL Hct (39.0-53.0) % MCHC (31.0-37.0) g/dL Neutrophils # (1.3-7.7) k/uL Lymphocytes # (1.0-4.8) k/uL PT (10.0-12.5) sec INR (<1.2) Sodium 150 H (137-145) mmol/L Chloride 117 H (98-107) mmol/L BUN 30 H (9-20) mg/dL Glucose 121 H (74-99) mg/dL POC Glucose (mg/dL) 133 H (70-110) mg/dL Calcium 11.4 H (8.4-10.2) mg/dL AST 71 H (17-59) U/L ALT 82 H (4-49) U/L Alkaline Phosphatase 155 H (38-126) U/L Total Protein 5.6 L (6.3-8.2) g/dL Albumin 2.7 L (3.5-5.0) g/dL Microbiology - Last 24 Hours (Table) 08/04/24 09:44 Blood Culture - Final Blood Assessment and Plan (1) Pneumonia Current Visit: Yes Status: Acute Code(s): J18.9 - PNEUMONIA, UNSPECIFIED ORGANISM SNOMED Code(s): 498679301 Plan: 1patient presented to hospital with weakness and fall in this patient did have some bibasilar infiltrate noticed to have a congested cough possible component of pneumonia not entirely excluded. 2patient did have some confusion with abnormality seen on the CT concerning for subdural hematoma neurology has been consulted and they are following the patient 3patient remains to be afebrile patient seem to be slightly more awake today he is covered with Rocephin for possible pneumonia monitor glucose closely Dictation was produced using [employer] dictation software. please excuse any grammatical, word or spelling errors. Time with Patient: Less than 30
--- NOTE | 2024-08-11 12:59 | P.PN ---
Subjective Progress Note Date: 08/11/24 Principal diagnosis: Reason for follow-up is pneumonia Patient is 83-year-old male with a past medical history significant for diabetes mellitus hypertension hyperlipidemia CVA TIA atrial fibrillation patient has been brought into the hospital after pending the patient did have a fall with weakness, patient did have some abnormality on the CT of the brain chest x-ray with right basilar infiltrate concerning for possible pneumonia. On today's evaluation that is 08/11/2024, Patient is afebrile this morning patient is more lethargic and not responding as reported by the nursing staff no vomiting or diarrhea has been reported patient did not provide any history. Patient white count is 12.7, creatinine is 0.99 Objective - Vital Signs Vital signs: Vital Signs Temp 98.3 F 08/11/24 11:20 Pulse 95 08/11/24 11:20 Resp 17 08/11/24 11:20 BP 139/68 08/11/24 11:20 Pulse Ox 94 L 08/11/24 11:20 FiO2 Intake & Output 08/10/24 08/11/24 08/11/24 18:59 06:59 18:59 Intake Total 140 180 Output Total 450 Balance 140 -450 180 Weight 82 kg 82.5 kg Intake: IV 20 Invasive Line 4 20 Oral 120 180 Output: Urine 450 Other: Voiding Method External Catheter External Catheter External Catheter # Voids 1 1 # Bowel Movements 1 1 - Exam GENERAL DESCRIPTION: An elderly male lying in bed in no distress RESPIRATORY SYSTEM: Unlabored breathing , decreased breath sounds at bases HEART: S1 S2 regular rate and rhythm , ABDOMEN: Soft , no tenderness EXTREMITIES: No edema feet - Labs CBC & Chem 7: 08/11/24 06:46 08/11/24 06:46 Labs: Abnormal Lab Results - Last 24 Hours (Table) 08/10/24 08/10/24 08/11/24 Range/Units 16:12 20:08 06:10 WBC (3.8-10.6) k/uL RBC (4.30-5.90) m/uL Hgb (13.0-17.5) gm/dL Hct (39.0-53.0) % RDW (11.5-15.5) % Neutrophils # (1.3-7.7) k/uL Lymphocytes # (1.0-4.8) k/uL PT (10.0-12.5) sec INR (<1.2) Sodium (137-145) mmol/L Potassium (3.5-5.1) mmol/L Chloride (98-107) mmol/L BUN (9-20) mg/dL Glucose (74-99) mg/dL POC Glucose (mg/dL) 245 H 184 H 155 H (70-110) mg/dL Calcium (8.4-10.2) mg/dL AST (17-59) U/L ALT (4-49) U/L Alkaline Phosphatase (38-126) U/L Total Protein (6.3-8.2) g/dL Albumin (3.5-5.0) g/dL 08/11/24 08/11/24 08/11/24 Range/Units 06:46 06:46 06:46 WBC 12.7 H (3.8-10.6) k/uL RBC 3.24 L (4.30-5.90) m/uL Hgb 9.1 L (13.0-17.5) gm/dL Hct 29.3 L (39.0-53.0) % RDW 15.9 H (11.5-15.5) % Neutrophils # 11.6 H (1.3-7.7) k/uL Lymphocytes # 0.5 L (1.0-4.8) k/uL PT 14.3 H (10.0-12.5) sec INR 1.4 H (<1.2) Sodium 150 H (137-145) mmol/L Potassium 3.4 L (3.5-5.1) mmol/L Chloride 118 H (98-107) mmol/L BUN 33 H (9-20) mg/dL Glucose 141 H (74-99) mg/dL POC Glucose (mg/dL) (70-110) mg/dL Calcium 11.6 H (8.4-10.2) mg/dL AST 146 H (17-59) U/L ALT 121 H (4-49) U/L Alkaline Phosphatase 164 H (38-126) U/L Total Protein 5.3 L (6.3-8.2) g/dL Albumin 2.5 L (3.5-5.0) g/dL 08/11/24 Range/Units 11:27 WBC (3.8-10.6) k/uL RBC (4.30-5.90) m/uL Hgb (13.0-17.5) gm/dL Hct (39.0-53.0) % RDW (11.5-15.5) % Neutrophils # (1.3-7.7) k/uL Lymphocytes # (1.0-4.8) k/uL PT (10.0-12.5) sec INR (<1.2) Sodium (137-145) mmol/L Potassium (3.5-5.1) mmol/L Chloride (98-107) mmol/L BUN (9-20) mg/dL Glucose (74-99) mg/dL POC Glucose (mg/dL) 150 H (70-110) mg/dL Calcium (8.4-10.2) mg/dL AST (17-59) U/L ALT (4-49) U/L Alkaline Phosphatase (38-126) U/L Total Protein (6.3-8.2) g/dL Albumin (3.5-5.0) g/dL Assessment and Plan (1) Pneumonia Current Visit: Yes Status: Acute Code(s): J18.9 - PNEUMONIA, UNSPECIFIED ORGANISM SNOMED Code(s): 571229562 Plan: 1patient presented to hospital with weakness and fall in this patient did have some bibasilar infiltrate noticed to have a congested cough possible component of pneumonia not entirely excluded. 2patient did have some confusion with abnormality seen on the CT concerning for subdural hygroma, with MRI suggestive of multiple ischemic infarct concerning for possible embolic phenomena and chronic hygroma with some midline shift keeping in mind the patient did have worsening of his mentation may benefit from repeat CT today showed no evidence of any worsening hematoma, neurology is on the case 3with worsening of his white count as well as respiratory status requiring more supplemental oxygen we will check a chest x-ray to make sure he is not develop ing aspiration pneumonia and switch antibiotic to Zosyn, overall prognosis remains to be guarded and may benefit from hospice oriented care Dictation was produced using [employer] software. please excuse any grammatical, word or spelling errors. Time with Patient: Less than 30
--- NOTE | 2024-08-11 13:17 | P.PN ---
Subjective Progress Note Date: 08/11/24 The patient again remained obtunded, difficult to arouse, with no Coherent speech. Family member was at the bedside. Objective - Vital Signs Vital signs: Vital Signs Temp 98.3 F 08/11/24 11:20 Pulse 95 08/11/24 11:20 Resp 17 08/11/24 11:20 BP 139/68 08/11/24 11:20 Pulse Ox 94 L 08/11/24 11:20 FiO2 Intake & Output 08/10/24 08/11/24 08/11/24 18:59 06:59 18:59 Intake Total 140 180 Output Total 450 Balance 140 -450 180 Weight 82 kg 82.5 kg Intake: IV 20 Invasive Line 4 20 Oral 120 180 Output: Urine 450 Other: Voiding Method External Catheter External Catheter External Catheter # Voids 1 1 # Bowel Movements 1 1 - Constitutional Constitutional Comment(s): Lethargic, obtunded, arousable but not appropriately responsive General appearance: Present: no acute distress - EENT Eyes: Present: EOMI ENT: Present: normal oropharynx - Respiratory Respiratory: bilateral: CTA - Cardiovascular Rhythm: regular Heart sounds: normal: S1, S2 - Gastrointestinal General gastrointestinal: Present: normal bowel sounds, soft - Integumentary Integumentary: Present: normal - Neurologic Neurologic Comment(s): Mental status as described above Neurologic: Present: CNII-XII intact - Musculoskeletal Musculoskeletal: Present: generalized weakness, strength equal bilaterally - Psychiatric Psychiatric Comment(s): Mental status as described above - Labs CBC & Chem 7: 08/11/24 06:46 08/11/24 06:46 Labs: Abnormal Lab Results - Last 24 Hours (Table) 08/10/24 08/10/24 08/11/24 Range/Units 16:12 20:08 06:10 WBC (3.8-10.6) k/uL RBC (4.30-5.90) m/uL Hgb (13.0-17.5) gm/dL Hct (39.0-53.0) % RDW (11.5-15.5) % Neutrophils # (1.3-7.7) k/uL Lymphocytes # (1.0-4.8) k/uL PT (10.0-12.5) sec INR (<1.2) Sodium (137-145) mmol/L Potassium (3.5-5.1) mmol/L Chloride (98-107) mmol/L BUN (9-20) mg/dL Glucose (74-99) mg/dL POC Glucose (mg/dL) 245 H 184 H 155 H (70-110) mg/dL Calcium (8.4-10.2) mg/dL AST (17-59) U/L ALT (4-49) U/L Alkaline Phosphatase (38-126) U/L Total Protein (6.3-8.2) g/dL Albumin (3.5-5.0) g/dL 08/11/24 08/11/24 08/11/24 Range/Units 06:46 06:46 06:46 WBC 12.7 H (3.8-10.6) k/uL RBC 3.24 L (4.30-5.90) m/uL Hgb 9.1 L (13.0-17.5) gm/dL Hct 29.3 L (39.0-53.0) % RDW 15.9 H (11.5-15.5) % Neutrophils # 11.6 H (1.3-7.7) k/uL Lymphocytes # 0.5 L (1.0-4.8) k/uL PT 14.3 H (10.0-12.5) sec INR 1.4 H (<1.2) Sodium 150 H (137-145) mmol/L Potassium 3.4 L (3.5-5.1) mmol/L Chloride 118 H (98-107) mmol/L BUN 33 H (9-20) mg/dL Glucose 141 H (74-99) mg/dL POC Glucose (mg/dL) (70-110) mg/dL Calcium 11.6 H (8.4-10.2) mg/dL AST 146 H (17-59) U/L ALT 121 H (4-49) U/L Alkaline Phosphatase 164 H (38-126) U/L Total Protein 5.3 L (6.3-8.2) g/dL Albumin 2.5 L (3.5-5.0) g/dL 08/11/24 Range/Units 11:27 WBC (3.8-10.6) k/uL RBC (4.30-5.90) m/uL Hgb (13.0-17.5) gm/dL Hct (39.0-53.0) % RDW (11.5-15.5) % Neutrophils # (1.3-7.7) k/uL Lymphocytes # (1.0-4.8) k/uL PT (10.0-12.5) sec INR (<1.2) Sodium (137-145) mmol/L Potassium (3.5-5.1) mmol/L Chloride (98-107) mmol/L BUN (9-20) mg/dL Glucose (74-99) mg/dL POC Glucose (mg/dL) 150 H (70-110) mg/dL Calcium (8.4-10.2) mg/dL AST (17-59) U/L ALT (4-49) U/L Alkaline Phosphatase (38-126) U/L Total Protein (6.3-8.2) g/dL Albumin (3.5-5.0) g/dL Assessment and Plan (1) Coagulopathy Narrative/Plan: Due to multiple factors, including transaminitis, decreased oral intake, and antiBiotic affect. The patient responded We will do IV vitamin K with INR normalizing at 1.4. - From our standpoint, the patient can be placed back on anticoagulation and/or antiplatelet therapy, as felt to be appropriate by the admitting service and Neurology. It is Expected that in his current situation, regulation of INR with resumption of warfarin at the low-dose is still likely to be problematic given his diminished oral intake and ongoing antibiotic therapy. Therefore a DOAC , specifically eliquis, ( since xarelto efficacy may be affected if not taken with food) would be a reasonable option if felt to be Required Current Visit: Yes Status: Acute Priority: High Code(s): D68.9 - COAGULATION DEFECT, UNSPECIFIED SNOMED Code(s): 42051324 Plan: Defer to the admitting service and other consultants for management of his multiple other medical issues
--- NOTE | 2024-08-11 13:40 | XR ---
EXAMINATION TYPE: XR chest 1V portable DATE OF EXAM: 08/11/2024 1:33 PM COMPARISON: Chest radiographs from 08/03/2024, CT chest 02/04/2024 TECHNIQUE: XR chest 1V portable Portable AP radiograph of the chest. CLINICAL INDICATION:Male, 83 years old with history of ?asp pneumonia; FINDINGS: Lungs/Pleura: Complete white out of the left lung. Left mid and lower lung patchy airspace opacities. Blunting of the right costophrenic angle. No pneumothorax. Pulmonary vascularity: Unremarkable. Heart/mediastinum: Cardiomediastinal silhouette is obscured due to overlying and adjacent opacities. Left atrial appendage clip. Atherosclerotic calcifications are seen in the aorta. Musculoskeletal: No acute osseous pathology. Midline sternotomy wires are noted and stable. IMPRESSION: Complete whiteout of the left lung with right mid and lower lung patchy airspace opacities. Mild righ t pleural effusion. Findings concerning for pneumonia. [facility], , 08/11/2024 1:38 PM
[2024-08-11] MEDS: PIPERACILLIN-TAZOBACTAM 3.375 GM in SODIUM CHLORIDE 0.9% 100 ML IVPB SCH (15:20)
[2024-08-11 16:39] LABS: Glucose,Whole Blood 141 mg/dL (70-110)
[2024-08-11] MEDS ORDERED: Potassium Replacement Protocol 1 EACH MISC MISCELLANE PRN (17:07)
[2024-08-11 20:04] LABS: Glucose,Whole Blood 112 mg/dL (70-110)
[2024-08-11] MEDS: METOPROLOL TARTRATE 5 MG/5 ML VIAL IVP SCH (20:14)
[2024-08-11] MEDS: ENOXAPARIN 80 MG/0.8 ML SYRINGE SQ SCH (20:14)
[2024-08-11] MEDS: hydrALAZINE HCL 20 MG/ML 1 ML VIAL IVP PRN (20:14)
[2024-08-12 03:41] VITALS: TEMP 97.8
[2024-08-12 04:56] LABS: ABG Base Excess -1.4 mmol/L; ABG HCO3 24 mmol/L (21-25); ABG Oxygen Saturation 90.1 % (94-97); ABG PCO2 44 mmHg (35-45); ABG PH 7.35 (7.35-7.45); ABG PO2 66 mmHg (83-108); ABG TCO2 26 mmol/L (19-24); Allen Test Performed? Yes
[2024-08-12 05:52] LABS: Glucose,Whole Blood 133 mg/dL (70-110)
--- NOTE | 2024-08-12 06:25 | P.CNPUL ---
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 Patient was admitted back on 08/03/2024, chiefly for frequent falls and worsening weakness. He was on Coum nadia outpatient. INR was supratherapeutic at 7.[address] showing chronic right subdural hematoma with mild mass effect upon the adjacent cortex measuring a maximal thickness of 1.5 cm. No definite acute hemorrhage. Remote ischemic changes involving the right cerebellum and left frontal lobe similar to prior MRI. Patient's coagulopathy was reversed. Follow-up brain MRI done on showing few scattered foci of acute/subacute ischemia involving the bilateral parietal lobes and right frontal lobe. Questionable embolic phenomenon. Redemonstration of chronic right subdural hygroma along with cerebral convexity resulting in 3 mm of leftward midline shift. Encephalomalacia involving the right cerebellum and left frontal lobe related to ischemia/surgical change. Additional remote small lacunar infarct involving the inferior left basal ganglia left. Patient's mentation has continued to worsen. Bilateral carotid Doppler showing no significant flow-limiting stenosis. EEG showing background slowing suggestive of moderate encephalopathy. Focal slowing of the left fronta l region suggestive of cerebral dysfunction. No epileptiform discharge or seizures. Patient was started on Keppra. CBC: WBC count 12.7, hemoglobin 9.1, hematocrit 29.3, platelets 255. Most recent coagulation profile showing a PT of 14.3 and INR of 1.4. CMP: Sodium 150, potassium 3.4, chloride 118, serum bicarb 24, BUN 33, creatinine 0.99, glucose 112. LFTs mildly elevated. Liver ultrasound unremarkable. Echocardiogram showing a moderate reduced left ventricular ejection fraction of 40 to 45%. Moderate pulmonary hypertension with RVSP 50 mmHg. Mild to moderate mitral undercut tricuspid regurgitation. There have been concerns for possible aspiration pneumonia. Patient has had increased oxygen demands. Chest x-ray showing complete doc out left lung with right mid and lower lung patchy airspace opacities. Small right pleural effusion possible. Patient is currently being evaluated on the cardiac stepdown unit. He is unresponsive even to painful stimuli. He has a weak cough. He is tachypneic, and on a 5 L nasal cannula. I did order an ABG, pO2 66, pCO2 of 44, pH of 7.35. He is a DO NOT RESUSCITATE/DO NOT INTUBATE. Review of Systems ROS unobtainable: due to mental status Past Medical History Past Medical History: Atrial Fibrillation, Cancer, CVA/TIA, Diabetes Mellitus, Deep Vein Thrombosis (DVT), GERD/Reflux, Hyperlipidemia, Hypertension, Pneumonia Additional Past Medical History / Comment(s): Atrial fibrillation, chronic, CVA/TIA with a previous thrombosis of the right vertebral artery, diabetes mellitus, hyperlipidemia, hypertension, severe aortic stenosis, COPD moderate to severe with an FEV1 of 51% of predicted, remote history of DVT (1998) on anti coagulants preoperatively, history 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 bladder cancer treatment completed 05/2024 History of Any Multi-Drug Resistant Organisms: None Reported Past Surgical History: Heart Catheterization Additional Past Surgical History / Comment(s): 1998 benign brain tumor removed. cardioversion Past Anesthesia/Blood Transfusion Reactions: No Reported Reaction Additional Past Anesthesia/Blood Transfusion Reaction / Comment(s): No hx blood transfusion Smoking Status: Former smoker - Past Family History Father Family Medical History: Myocardial Infarction (OK) Additional Family Medical History / Comment(s): Father of a OK at the age of 93yrs. Mother Family Medical History: Myocardial Infarction (OK) Additional Family Medical History / Comment(s): Mother of a OK at the age of 88yrs. Medications and Allergies Home Medications Medication Instructions Recorded Confirmed Type metFORMIN HCL [Glucophage] 500 mg PO BID 03/29/17 08/12/24 History Atorvastatin [Lipitor] 40 mg PO DAILY 05/17/17 08/12/24 History Warfarin [Coumadin] 5 mg PO DIRECTED 05/17/17 08/12/24 History Docusate [Colace] 100 mg PO DAILY 08/03/24 08/12/24 History Furosemide [Lasix] 20 mg PO DAILY 08/03/24 08/12/24 History Metoprolol Tartrate [Lopressor] 25 mg PO BID 08/03/24 08/12/24 History Multivit-Min/FA/Lycopen/Lutein 1 tab PO DAILY 08/03/24 08/12/24 History [Centrum Silver Tablet] lisinopriL [Zestril] 10 mg PO DAILY 08/03/24 08/12/24 History Allergies Allergy/AdvReac Type Severity Reaction Status Date / Time No Known Allergies Allergy Verified 08/12/24 15:08 Physical Exam Vitals: Vital Signs Temp Pulse Resp BP Pulse Ox 08/12/24 03:38 97.8 F 124 H 17 144/64 91 L 08/12/24 01:16 113 H 17 08/11/24 23:31 98.4 F 113 H 17 158/77 92 L 08/11/24 19:57 97.7 F 127 H 17 162/77 91 L 08/11/24 15:26 98.3 F 97 17 100/42 93 L 08/11/24 11:20 98.3 F 95 17 139/68 94 L 08/11/24 08:00 97.2 F L 100 17 150/70 93 L Intake and Output 08/11/24 08/11/24 08/12/24 14:59 22:59 06:59 Intake Total 0 Output Total 300 500 Balance -300 -500 Intake: Oral 0 Output: Urine 300 500 Other: Voiding Method External Catheter External Catheter External Catheter # Voids 1 # Bowel Movements 1 Weight 90.8 kg GENERAL EXAM: Comatose, 83-year-old male, not currently responsive to even painful stimuli. HEAD: Normocephalic and atraumatic EYES: Normal reaction of pupils, equal size, not preferential gaze, no nystagmus. Nonicteric sclera NOSE: Clear with pink turbinates. THROAT: No erythema or exudates. NECK: No masses, no JVD. CHEST: No chest wall deformity. LUNGS: Diminished left lung sounds. Rhonchorous. On 5 L/min nasal cannula. Tachypneic and diaphoretic CVS: S1 and S2 normal with no audible murmur, irregular rhythm. No extra heart sounds ABDOMEN: No hepatosplenomegaly, active bowel sounds, no guarding or rigidity. SPINE: No scoliosis or deformity SKIN: No rashes CENTRAL NERVOUS SYSTEM: Comatose, gag reflex intact, motor response to even painful stimuli, no posturing, neutral Babinski EXTREMITIES: There is no peripheral edema, clubbing, or cyanosis. Peripheral pulses are intact. Results - Laboratory Findings CBC and BMP: 08/12/24 05:57 08/12/24 05:57 ABG ABG pH 7.35 (7.35-7.45) 08/12/24 04:54 ABG pCO2 44 mmHg (35-45) 08/12/24 04:54 ABG pO2 66 mmHg (83-108) L 08/12/24 04:54 ABG O2 Saturation 90.1 % (94-97) L 08/12/24 04:54 PT/INR, D-dimer PT 14.3 sec (10.0-12.5) H 08/11/24 06:46 INR 1.4 (<1.2) H 08/11/24 06:46 Abnormal lab findings: Abnormal Labs 08/03/24 08/03/24 08/03/24 10:03 10:03 10:03 WBC 11.8 H RBC 3.46 L Hgb 10.2 L Hct 30.4 L MCHC RDW MPV Immature Gran # Neutrophils # 10.5 H Lymphocytes # 0.7 L Eosinophils # PT 69.9 H INR 7.1 H* APTT 52.8 H ABG pO2 ABG Total CO2 ABG O2 Saturation Hemoglobin Sodium 134 L Potassium 5.4 H Chloride Carbon Dioxide Anion Gap BUN 44 H BUN/Creatinine Ratio Glucose 134 H POC Glucose (mg/dL) Hemoglobin A1c Plasma Lactic Acid Efrem Calcium 10.5 H AST 158 H ALT 156 H Alkaline Phosphatase 168 H Total Protein Albumin 3.4 L Albumin/Globulin Ratio HDL Cholesterol Urine Protein Ur Leukocyte Esterase Urine WBC Urine Bacteria Hyaline Casts Urine Mucus 08/03/24 08/03/24 08/04/24 10:03 14:56 05:52 WBC RBC 3.18 L Hgb 9.0 L Hct 28.4 L MCHC RDW MPV Immature Gran # Neutrophils # 8.0 H Lymphocytes # 0.4 L Eosinophils # PT INR APTT ABG pO2 ABG Total CO2 ABG O2 Saturation Hemoglobin Sodium Potassium Chloride Carbon Dioxide Anion Gap BUN BUN/Creatinine Ratio Glucose POC Glucose (mg/dL) Hemoglobin A1c Plasma Lactic Acid Efrem 2.2 H* Calcium AST ALT Alkaline Phosphatase Total Protein Albumin Albumin/Globulin Ratio HDL Cholesterol Urine Protein Trace H Ur Leukocyte Esterase Trace H Urine WBC 6 H Urine Bacteria Rare H Hyaline Casts 6 H Urine Mucus Rare H 1208/04/24 08/04/24 05:52 08:09 08:14 WBC RBC 3.11 L Hgb 8.8 L Hct 27.7 L MCHC RDW MPV Immature Gran # Neutrophils # Lymphocytes # 0.5 L Eosinophils # PT 51.7 H INR 5.3 H* APTT ABG pO2 ABG Total CO2 ABG O2 Saturation Hemoglobin Sodium Potassium Chloride Carbon Dioxide Anion Gap BUN 30 H BUN/Creatinine Ratio Glucose 125 H POC Glucose (mg/dL) Hemoglobin A1c Plasma Lactic Acid Efrem Calcium AST ALT Alkaline Phosphatase Total Protein Albumin Albumin/Globulin Ratio HDL Cholesterol Urine Protein Ur Leukocyte Esterase Urine WBC Urine Bacteria Hyaline Casts Urine Mucus 08/04/24 08/04/24 08/05/24 08:14 12:45 06:21 WBC RBC Hgb Hct MCHC RDW MPV Immature Gran # Neutrophils # Lymphocytes # Eosinophils # PT INR APTT ABG pO2 ABG Total CO2 ABG O2 Saturation Hemoglobin Sodium Potassium Chloride Carbon Dioxide Anion Gap BUN 29 H BUN/Creatinine Ratio Glucose 119 H POC Glucose (mg/dL) 122 H Hemoglobin A1c 6.3 H Plasma Lactic Acid Efrem Calcium AST 84 H ALT 109 H Alkaline Phosphatase 148 H Total Protein 5.3 L Albumin 2.6 L Albumin/Globulin Ratio HDL Cholesterol Urine Protein Ur Leukocyte Esterase Urine WBC Urine Bacteria Hyaline Casts Urine Mucus 08/05/24 08/05/24 08/05/24 06:21 06:21 06:21 WBC RBC 3.03 L Hgb 8.4 L Hct 27.9 L MCHC 30.1 L RDW 15.0 H MPV 9.3 L Immature Gran # Neutrophils # 7.95 H Lymphocytes # 0.61 L Eosinophils # 0.02 L PT 45.5 H INR 4.46 H APTT ABG pO2 ABG Total CO2 ABG O2 Saturation Hemoglobin Sodium Potassium Chloride Carbon Dioxide 21.0 L Anion Gap 13.00 H BUN BUN/Creatinine Ratio 27.00 H Glucose POC Glucose (mg/dL) Hemoglobin A1c Plasma Lactic Acid Efrem Calcium AST 88 H ALT 97 H Alkaline Phosphatase 140 H Total Protein 5.3 L Albumin 2.8 L Albumin/Globulin Ratio 1.12 L HDL Cholesterol Urine Protein Ur Leukocyte Esterase Urine WBC Urine Bacteria Hyaline Casts Urine Mucus 08/05/24 08/05/24 08/06/24 09:57 16:43 03:09 WBC RBC 3.11 L Hgb 9.0 L Hct 27.2 L MCHC RDW MPV Immature Gran # Neutrophils # 9.1 H Lymphocytes # 0.6 L Eosinophils # PT 48.7 H INR 4.9 H APTT ABG pO2 ABG Total CO2 ABG O2 Saturation Hemoglobin Sodium Potassium Chloride Carbon Dioxide Anion Gap BUN BUN/Creatinine Ratio Glucose POC Glucose (mg/dL) 138 H Hemoglobin A1c Plasma Lactic Acid Efrem Calcium AST ALT Alkaline Phosphatase Total Protein Albumin Albumin/Globulin Ratio HDL Cholesterol Urine Protein Ur Leukocyte Esterase Urine WBC Urine Bacteria Hyaline Casts Urine Mucus 08/06/24 08/06/24 08/06/24 03:09 03:09 11:56 WBC RBC Hgb Hct MCHC RDW MPV Immature Gran # Neutrophils # Lymphocytes # Eosinophils # PT 63.8 H INR 6.4 H* APTT ABG pO2 ABG Total CO2 ABG O2 Saturation Hemoglobin Sodium Potassium Chloride 112 H Carbon Dioxide Anion Gap BUN 21 H BUN/Creatinine Ratio Glucose 112 H POC Glucose (mg/dL) 159 H Hemoglobin A1c Plasma Lactic Acid Efrem Calcium AST 97 H ALT 108 H Alkaline Phosphatase 160 H Total Protein 5.6 L Albumin 2.8 L Albumin/Globulin Ratio HDL Cholesterol Urine Protein Ur Leukocyte Esterase Urine WBC Urine Bacteria Hyaline Casts Urine Mucus 08/06/24 08/06/24 08/07/24 16:12 20:41 06:48 WBC RBC Hgb Hct MCHC RDW MPV Immature Gran # Neutrophils # Lymphocytes # Eosinophils # PT INR APTT ABG pO2 ABG Total CO2 ABG O2 Saturation Hemoglobin Sodium Potassium Chloride Carbon Dioxide Anion Gap BUN BUN/Creatinine Ratio Glucose POC Glucose (mg/dL) 132 H 166 H 125 H Hemoglobin A1c Plasma Lactic Acid Efrem Calcium AST ALT Alkaline Phosphatase Total Protein Albumin Albumin/Globulin Ratio HDL Cholesterol Urine Protein Ur Leukocyte Esterase Urine WBC Urine Bacteria Hyaline Casts Urine Mucus 08/07/24 08/07/24 08/07/24 08:26 08:26 08:26 WBC 10.7 H RBC 3.16 L Hgb 8.9 L Hct 28.2 L MCHC RDW MPV Immature Gran # Neutrophils # 9.7 H Lymphocytes # 0.5 L Eosinophils # PT INR APTT ABG pO2 ABG Total CO2 ABG O2 Saturation Hemoglobin Sodium Potassium Chloride 110 H Carbon Dioxide Anion Gap BUN 23 H BUN/Creatinine Ratio Glucose 121 H POC Glucose (mg/dL) Hemoglobin A1c Plasma Lactic Acid Efrem Calcium 10.6 H AST 68 H ALT 99 H Alkaline Phosphatase 166 H Total Protein 5.4 L Albumin 2.6 L Albumin/Globulin Ratio HDL Cholesterol 30.30 L Urine Protein Ur Leukocyte Esterase Urine WBC Urine Bacteria Hyaline Casts Urine Mucus 08/07/24 08/07/24 08/07/24 09:16 11:30 16:40 WBC RBC Hgb Hct MCHC RDW MPV Immature Gran # Neutrophils # Lymphocytes # Eosinophils # PT 61.6 H INR 6.30 A* APTT ABG pO2 ABG Total CO2 ABG O2 Saturation Hemoglobin Sodium Potassium Chloride Carbon Dioxide Anion Gap BUN BUN/Creatinine Ratio Glucose POC Glucose (mg/dL) 126 H 128 H Hemoglobin A1c Plasma Lactic Acid Efrem Calcium AST ALT Alkaline Phosphatase Total Protein Albumin Albumin/Globulin Ratio HDL Cholesterol Urine Protein Ur Leukocyte Esterase Urine WBC Urine Bacteria Hyaline Casts Urine Mucus 08/07/24 08/08/24 08/08/24 21:10 06:46 06:46 WBC 10.68 H RBC 3.06 L Hgb 8.4 L Hct 28.0 L MCHC 30.0 L RDW 15.2 H MPV Immature Gran # 0.09 H Neutrophils # 9.33 H Lymphocytes # 0.70 L Eosinophils # 0.01 L PT 73.3 H INR 7.46 A* APTT ABG pO2 ABG Total CO2 ABG O2 Saturation Hemoglobin Sodium Potassium Chloride Carbon Dioxide Anion Gap BUN BUN/Creatinine Ratio Glucose POC Glucose (mg/dL) 125 H Hemoglobin A1c Plasma Lactic Acid Efrem Calcium AST ALT Alkaline Phosphatase Total Protein Albumin Albumin/Globulin Ratio HDL Cholesterol Urine Protein Ur Leukocyte Esterase Urine WBC Urine Bacteria Hyaline Casts Urine Mucus 08/08/24 08/08/24 08/08/24 06:46 07:02 11:22 WBC RBC Hgb Hct MCHC RDW MPV Immature Gran # Neutrophils # Lymphocytes # Eosinophils # PT INR APTT ABG pO2 ABG Total CO2 ABG O2 Saturation Hemoglobin Sodium 146 H Potassium 3.4 L Chloride 111 H Carbon Dioxide 20.1 L Anion Gap 14.90 H BUN BUN/Creatinine Ratio 25.11 H Glucose 121 H POC Glucose (mg/dL) 126 H 140 H Hemoglobin A1c Plasma Lactic Acid Efrem Calcium AST 101 H ALT 104 H Alkaline Phosphatase 153 H Total Protein 5.4 L Albumin 2.8 L Albumin/Globulin Ratio 1.08 L HDL Cholesterol Urine Protein Ur Leukocyte Esterase Urine WBC Urine Bacteria Hyaline Casts Urine Mucus 08/08/24 08/08/24 08/09/24 16:38 20:43 06:41 WBC RBC Hgb Hct MCHC RDW MPV Immature Gran # Neutrophils # Lymphocytes # Eosinophils # PT 116.6 H INR >10.0 H* APTT ABG pO2 ABG Total CO2 ABG O2 Saturation Hemoglobin Sodium Potassium Chloride Carbon Dioxide Anion Gap BUN BUN/Creatinine Ratio Glucose POC Glucose (mg/dL) 134 H 133 H Hemoglobin A1c Plasma Lactic Acid Efrem Calcium AST ALT Alkaline Phosphatase Total Protein Albumin Albumin/Globulin Ratio HDL Cholesterol Urine Protein Ur Leukocyte Esterase Urine WBC Urine Bacteria Hyaline Casts Urine Mucus 08/09/24 08/09/24 08/09/24 06:41 06:41 11:27 WBC 11.4 H RBC 3.32 L Hgb 9.3 L Hct 29.9 L MCHC RDW 15.6 H MPV Immature Gran # Neutrophils # 10.2 H Lymphocytes # 0.5 L Eosinophils # PT INR APTT ABG pO2 ABG Total CO2 ABG O2 Saturation Hemoglobin Sodium 147 H Potassium 3.3 L Chloride 114 H Carbon Dioxide Anion Gap BUN 25 H BUN/Creatinine Ratio Glucose 126 H POC Glucose (mg/dL) 131 H Hemoglobin A1c Plasma Lactic Acid Efrem Calcium 10.9 H AST 71 H ALT 95 H Alkaline Phosphatase 164 H Total Protein 5.5 L Albumin 2.7 L Albumin/Globulin Ratio HDL Cholesterol Urine Protein Ur Leukocyte Esterase Urine WBC Urine Bacteria Hyaline Casts Urine Mucus 08/09/24 08/09/24 08/09/24 14:21 16:30 20:08 WBC RBC Hgb Hct MCHC RDW MPV Immature Gran # Neutrophils # Lymphocytes # Eosinophils # PT 98.4 H INR 9.8 H* APTT ABG pO2 ABG Total CO2 ABG O2 Saturation Hemoglobin Sodium Potassium Chloride Carbon Dioxide Anion Gap BUN BUN/Creatinine Ratio Glucose POC Glucose (mg/dL) 129 H 144 H Hemoglobin A1c Plasma Lactic Acid Efrem Calcium AST ALT Alkaline Phosphatase Total Protein Albumin Albumin/Globulin Ratio HDL Cholesterol Urine Protein Ur Leukocyte Esterase Urine WBC Urine Bacteria Hyaline Casts Urine Mucus 08/10/24 08/10/24 08/10/24 06:23 06:38 06:38 WBC 12.0 H RBC 3.45 L Hgb 9.6 L Hct 31.2 L MCHC 30.8 L RDW MPV Immature Gran # Neutrophils # 10.5 H Lymphocytes # 0.9 L Eosinophils # PT 17.1 H INR 1.7 H APTT ABG pO2 ABG Total CO2 ABG O2 Saturation Hemoglobin Sodium Potassium Chloride Carbon Dioxide Anion Gap BUN BUN/Creatinine Ratio Glucose POC Glucose (mg/dL) 128 H Hemoglobin A1c Plasma Lactic Acid Efrem Calcium AST ALT Alkaline Phosphatase Total Protein Albumin Albumin/Globulin Ratio HDL Cholesterol Urine Protein Ur Leukocyte Esterase Urine WBC Urine Bacteria Hyaline Casts Urine Mucus 08/10/24 08/10/24 08/10/24 06:38 11:26 16:12 WBC RBC Hgb Hct MCHC RDW MPV Immature Gran # Neutrophils # Lymphocytes # Eosinophils # PT INR APTT ABG pO2 ABG Total CO2 ABG O2 Saturation Hemoglobin Sodium 150 H Potassium Chloride 117 H Carbon Dioxide Anion Gap BUN 30 H BUN/Creatinine Ratio Glucose 121 H POC Glucose (mg/dL) 133 H 245 H Hemoglobin A1c Plasma Lactic Acid Efrem Calcium 11.4 H AST 71 H ALT 82 H Alkaline Phosphatase 155 H Total Protein 5.6 L Albumin 2.7 L Albumin/Globulin Ratio HDL Cholesterol Urine Protein Ur Leukocyte Esterase Urine WBC Urine Bacteria Hyaline Casts Urine Mucus 08/10/24 08/11/24 08/11/24 20:08 06:10 06:46 WBC RBC Hgb Hct MCHC RDW MPV Immature Gran # Neutrophils # Lymphocytes # Eosinophils # PT 14.3 H INR 1.4 H APTT ABG pO2 ABG Total CO2 ABG O2 Saturation Hemoglobin Sodium Potassium Chloride Carbon Dioxide Anion Gap BUN BUN/Creatinine Ratio Glucose POC Glucose (mg/dL) 184 H 155 H Hemoglobin A1c Plasma Lactic Acid Efrem Calcium AST ALT Alkaline Phosphatase Total Protein Albumin Albumin/Globulin Ratio HDL Cholesterol Urine Protein Ur Leukocyte Esterase Urine WBC Urine Bacteria Hyaline Casts Urine Mucus 08/11/24 08/11/24 08/11/24 06:46 06:46 11:27 WBC 12.7 H RBC 3.24 L Hgb 9.1 L Hct 29.3 L MCHC RDW 15.9 H MPV Immature Gran # Neutrophils # 11.6 H Lymphocytes # 0.5 L Eosinophils # PT INR APTT ABG pO2 ABG Total CO2 ABG O2 Saturation Hemoglobin Sodium 150 H Potassium 3.4 L Chloride 118 H Carbon Dioxide Anion Gap BUN 33 H BUN/Creatinine Ratio Glucose 141 H POC Glucose (mg/dL) 150 H Hemoglobin A1c Plasma Lactic Acid Efrem Calcium 11.6 H AST 146 H ALT 121 H Alkaline Phosphatase 164 H Total Protein 5.3 L Albumin 2.5 L Albumin/Globulin Ratio HDL Cholesterol Urine Protein Ur Leukocyte Esterase Urine WBC Urine Bacteria Hyaline Casts Urine Mucus 08/11/24 08/11/24 08/12/24 16:37 20:02 04:54 WBC RBC Hgb Hct MCHC RDW MPV Immature Gran # Neutrophils # Lymphocytes # Eosinophils # PT INR APTT ABG pO2 66 L ABG Total CO2 26 H ABG O2 Saturation 90.1 L Hemoglobin 8.9 L Sodium Potassium Chloride Carbon Dioxide Anion Gap BUN BUN/Creatinine Ratio Glucose POC Glucose (mg/dL) 141 H 112 H Hemoglobin A1c Plasma Lactic Acid Efrem Calcium AST ALT Alkaline Phosphatase Total Protein Albumin Albumin/Globulin Ratio HDL Cholesterol Urine Protein Ur Leukocyte Esterase Urine WBC Urine Bacteria Hyaline Casts Urine Mucus - Diagnostic Findings Chest x-ray: image reviewed Assessment and Plan Assessment: Acute hypoxemic respiratory failure, chest x-ray showing complete doc out left lung with right mid and lower lung patchy airspace opacities concerning for pneumonia. Small right pleural effusion possible. CVA, follow-up brain MRI and demonstrating few scattered foci of acute/subacute ischemia, involving the bilateral parietal lobes and right frontal lobe. Questional embolic phenomenon. Redemonstration of chronic right subdural hygroma along with cerebral convexity resulting in 3 mm of leftward midline shift. Encephalomalacia involving the right cerebellum and left frontal lobe related to ischemia/surgical change. Additional remote small lacunar infarct involving the inferior left basal ganglia left. Coagulopathy, with supratherapeutic INR on arrival, previously on Coumadin. Patient has been given IV vitamin K. Most recent INR down to 1.4. Transaminitis, liver ultrasound unremarkable for acute process Hyperchloremic, hypernatremia, sodium 150 millimoles per liter, on 0.45% saline infusing at 200 mL/h. 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 I am told that the family is considering hospice care. He is currently has a DO NOT RESUSCITATE/DO NOT INTUBATE Continue supplemental oxygen maintain oxygen saturation of 92% or greater, currently on 5 L/min nasal cannula. ABG showing pH of 7.35, P CO2 of 44, PaO2 of 66. Adjust FiO2 accordingly. May use noninvasive ventilation if necessary. Currently receiving IV Zosyn Maintain aspiration precautions Cut back IV fluids to 100 cc/h INR down to 1.4, and warfarin has been discontinued Was started on therapeutic Lovenox Workup so far including -Brain MRI done on 08/06 showing few scattered foci of acute/subacute ischemia involving the bilateral parietal lobes and right frontal lobe. Questionable embolic phenomenon. Redemonstration of chronic right subdural hygroma along with cerebral convexity resulting in 3 mm of leftward midline shift. Encephalomalacia involving the right cerebellum and left frontal lobe related to ischemia/surgical change. Additional remote small lacunar infarct involving the inferior left basal ganglia left. Patient was prophylactically placed on Keppra, no notable seizure activity. -Bilateral carotid artery Dopplers not showing significant flow-limiting stenosis or thrombus -Echocardiogram showing a moderate reduced left ventricular ejection fraction of 40 to 45%. Mild to moderate mitral and tricuspid regurgitation. Moderate pulmonary hypertension with RVSP 50 mmHg. -EEG showing background slowing suggestive of moderate encephalopathy. Focal slowing of the left frontal region suggestive of cerebral dysfunction. No epileptiform discharge or seizures. Patient was started on Keppra neurology. Overall prognosis appears poor considering his multiple debilitating comorbidities. Will continue to follow, additional recommendations to forthcoming I have personally seen and examined the patient, performed the documentation and the assessment and plan as written. Number of minutes spent on the visit:20 This is a joint evaluation is within normal limits practitioner. His evaluation 30 minutes. Agree on the above. The patient is being involved in hospice care per family wishes. Will continue the current care and hospice to follow. Time with Patient: Greater than 30
[2024-08-12 06:36] LABS: Basophils % (A) 0 %; Eosinophils % (A) 0 %; HCT 29.8 % (39.0-53.0); Hypochromasia Marked; Lymphocytes # (A) 0.6 k/uL (1.0-4.8); Lymphocytes % (A) 4 %; MCHC 30.4 g/dL (31.0-37.0); MCV 92.1 fL (80.0-100.0); Mean Platelet Volume 7.4; Monocytes # (A) 0.4 k/uL (0-1.0); Monocytes % (A) 3 %; Neutrophils # (A) 13.2 k/uL (1.3-7.7); Neutrophils % (A) 92 %; Platelet Count 229 k/uL (150-450); RBC 3.23 m/uL (4.30-5.90); RDW 15.8 % (11.5-15.5); WBC 14.3 k/uL (3.8-10.6)
[2024-08-12 07:00] LABS: ALT 78 U/L (4-49); AST 53 U/L (17-59); African American GFR (CKD) 81 (>60 ml/min/1.73 sqM); Albumin 2.4 g/dL (3.5-5.0); Alkaline Phosphatase 149 U/L (38-126); Anion Gap 5 mmol/L; Blood Urea Nitrogen 30 mg/dL (9-20); Calcium 11.5 mg/dL (8.4-10.2); Carbon Dioxide 23 mmol/L (22-30); Chloride 119 mmol/L (98-107); Glucose 121 mg/dL (74-99); Non-African American GFR(CKD) 70 (>60 ml/min/1.73 sqM); Potassium 3.6 mmol/L (3.5-5.1); Sodium 147 mmol/L (137-145); Total Bilirubin 0.8 mg/dL (0.2-1.3); Total Protein 5.2 g/dL (6.3-8.2)
[2024-08-12 07:12] LABS: INR 1.4 (<1.2); Prothrombin Time 14.8 sec (10.0-12.5)
[2024-08-12] MEDS ORDERED: RX INFO: IV CONTRAST WAS GIVEN 1 EACH MISC MISCELLANE PRN (08:03)
--- NOTE | 2024-08-12 10:01 | P.PN ---
Subjective Progress Note Date: 08/12/24 Beto David is an 83-year-old male patient who presented to the hospital with concerns of falls weakness and increased confusion. According to family member at bedside patient had 2 episodes of falls yesterday patient unable to recall event. Patient usually is independent ANO x 3 patient does have a history of atrial fibrillation maintained on Coumadin which has been on hold since last week due to elevated INR. Additional medical history includes CVA, diabetes mellitus, DVT, GERD, hyperlipidemia, hypertension and pneumonia. Chest x-ray completed showing improving basilar infiltrates greater on left improving pleural effusions head CT completed showing chronic right subdural hematoma with mild mass effect upon the adjacent cortex measuring a maximal thickness of 1.5 cm no definitive acute hemorrhage remote ischemic change involving the right cerebellum and left frontal lobe similar to prior MRI. Lab work revealing white blood cell 11.8, hemoglobin 10.2 INR significantly elevated at 7.1, sodium 134 potassium 5.4 bun 44, creatinine 1.1 lactic acid 2.2 and elevated liver enzymes AST 158, ALT 156 and alkaline phosphatase 168. At this time patient has been admitted cardiology, infectious disease and neurology services all consulted. At this time patient will be started back on IV antibiotics. Will order liver ultrasound. Repeat labs ordered On 08/04/2024 patient is alert but confused. Family at bedside. Patient has been transitioned oral home medication Cardizem DC'd per cardiology. Repeat labs pending. Patient denies chest pain or shortness of breath. Patient denies nausea vomiting or diarrhea. Patient denies any urinary burning frequency. Current vital signs temp 98.0, heart rate 99, respiratory rate 16, blood pressure 122/65 with a pulse ox of 99% on room air On 08/05/2024 patient remains confused sitter at bedside resting comfortably in bed. Patient was evaluated by neurology services EEG and MRI has been ordered. Patient remains on azithromycin and Rocephin infectious disease services following. Current vital signs temp 98.0, heart rate 80, respiratory rate 20, blood pressure 111/65 with a pulse ox of 97% on room air. Lab work currently pending On 08/06/2024 patient was seen and examined on the medical floor he is alert slightly confused in no apparent distress he is answering questions more appropriately today there is no fever or chills no headache or dizziness no chest pain no shortness of breath no cough no nausea or vomiting no abdominal pain no diarrhea and no urinary symptoms On 08/07/2024 patient remains confused. MRI was completing awaiting neurology input. Current vital signs temp 98.2, heart rate 105, respiratory rate 18, blood pressure 136/78 with a pulse ox of 93% on room air. Patient denies chest pain or shortness of breath. Patient denies nausea vomiting or diarrhea. Patient denies any urinary burning or frequency. On 08/08/2024 patient was seen and examined on the medical floor he is somnolent arousable slightly confused in no apparent distress, there is no fever or chills no headache or dizziness no chest pain no shortness of breath he has occasional cough no nausea or vomiting no abdominal pain no diarrhea no urinary symptoms. Medication and labs were reviewed. Continue with current management possible transfer to skilled nursing for rehab in the next 48 hours. On 08/09/2024 patient remains confused resting in bed. Patient denies chest pain or shortness of breath. Patient denies nausea vomiting or diarrhea. Patient denies any urinary burning or frequency patient remains on IV Rocephin and IV Keppra. Infectious disease, neurology services following. On 08/10/2024 patient was seen and examined on the medical floor he is somnolent responsive slightly confused in no apparent distress, he answers few questions and he returns to sleep, there is no fever or chills no headache or dizziness no chest pain no shortness of breath no cough no nausea or vomiting no abdominal pain no diarrhea and no urinary symptoms. INR today is down to 1.7, patient was started on Eliquis 2.5 mg twice daily per cardiology recommendation, sodium today is up to 150 patient has very low oral intake, IV fluids switched to 0.45 at 75 cc/h, patient encouraged to take more free water with his diet. on 08/11/2024 patient remains confused sleepy in bed. INR today 1.4. Patient remains on eliquis. Patient has been switched to half-normal saline for hypernatremia.current vital signs temp 97.2, heart rate 83, respiratory rate 18, pressure 132/72 with pulse ox 92% on 6 L On 08/12/2024 patient remains more lethargic today does not wake up follow any commands. Sodium has improved to 147 patient remains lethargic. Family requesting hospice at this time. Objective - Vital Signs Vital signs: Vital Signs Temp 97.8 F 08/12/24 03:38 Pulse 124 H 08/12/24 03:38 Resp 17 08/12/24 03:38 BP 144/64 08/12/24 03:38 Pulse Ox 91 L 08/12/24 03:38 FiO2 Intake & Output 08/11/24 08/12/24 08/12/24 18:59 06:59 18:59 Intake Total 0 Output Total 300 500 Balance -300 -500 Weight 90.8 kg Intake: Oral 0 Output: Urine 300 500 Other: Voiding Method External Catheter External Catheter # Voids 1 # Bowel Movements 1 - Exam Head normocephalic Neck supple Lungs clear to auscultation bilaterally no wheezing or crackles Heart regular rate and rhythm S1-S2, no rub or gallop Abdomen is soft nontender nondistended positive bowel sounds no hepatosplenomegaly Extremities no edema Neuro alert and orientated to 1. Intermittent confusion - Labs CBC & Chem 7: 08/12/24 05:57 08/12/24 05:57 Labs: Abnormal Lab Results - Last 24 Hours (Table) 08/11/24 08/11/24 08/11/24 Range/Units 11:27 16:37 20:02 WBC (3.8-10.6) k/uL RBC (4.30-5.90) m/uL Hgb (13.0-17.5) gm/dL Hct (39.0-53.0) % MCHC (31.0-37.0) g/dL RDW (11.5-15.5) % Neutrophils # (1.3-7.7) k/uL Lymphocytes # (1.0-4.8) k/uL PT (10.0-12.5) sec INR (<1.2) ABG pO2 (83-108) mmHg ABG Total CO2 (19-24) mmol/L ABG O2 Saturation (94-97) % Hemoglobin (13.0-17.5) gm/dL Sodium (137-145) mmol/L Chloride (98-107) mmol/L BUN (9-20) mg/dL Glucose (74-99) mg/dL POC Glucose (mg/dL) 150 H 141 H 112 H (70-110) mg/dL Calcium (8.4-10.2) mg/dL ALT (4-49) U/L Alkaline Phosphatase (38-126) U/L Total Protein (6.3-8.2) g/dL Albumin (3.5-5.0) g/dL 08/12/24 08/12/24 08/12/24 Range/Units 04:54 05:51 05:57 WBC (3.8-10.6) k/uL RBC (4.30-5.90) m/uL Hgb (13.0-17.5) gm/dL Hct (39.0-53.0) % MCHC (31.0-37.0) g/dL RDW (11.5-15.5) % Neutrophils # (1.3-7.7) k/uL Lymphocytes # (1.0-4.8) k/uL PT 14.8 H (10.0-12.5) sec INR 1.4 H (<1.2) ABG pO2 66 L (83-108) mmHg ABG Total CO2 26 H (19-24) mmol/L ABG O2 Saturation 90.1 L (94-97) % Hemoglobin 8.9 L (13.0-17.5) gm/dL Sodium (137-145) mmol/L Chloride (98-107) mmol/L BUN (9-20) mg/dL Glucose (74-99) mg/dL POC Glucose (mg/dL) 133 H (70-110) mg/dL Calcium (8.4-10.2) mg/dL ALT (4-49) U/L Alkaline Phosphatase (38-126) U/L Total Protein (6.3-8.2) g/dL Albumin (3.5-5.0) g/dL 08/12/24 08/12/24 Range/Units 05:57 05:57 WBC 14.3 H (3.8-10.6) k/uL RBC 3.23 L (4.30-5.90) m/uL Hgb 9.0 L (13.0-17.5) gm/dL Hct 29.8 L (39.0-53.0) % MCHC 30.4 L (31.0-37.0) g/dL RDW 15.8 H (11.5-15.5) % Neutrophils # 13.2 H (1.3-7.7) k/uL Lymphocytes # 0.6 L (1.0-4.8) k/uL PT (10.0-12.5) sec INR (<1.2) ABG pO2 (83-108) mmHg ABG Total CO2 (19-24) mmol/L ABG O2 Saturation (94-97) % Hemoglobin (13.0-17.5) gm/dL Sodium 147 H (137-145) mmol/L Chloride 119 H (98-107) mmol/L BUN 30 H (9-20) mg/dL Glucose 121 H (74-99) mg/dL POC Glucose (mg/dL) (70-110) mg/dL Calcium 11.5 H (8.4-10.2) mg/dL ALT 78 H (4-49) U/L Alkaline Phosphatase 149 H (38-126) U/L Total Protein 5.2 L (6.3-8.2) g/dL Albumin 2.4 L (3.5-5.0) g/dL Assessment and Plan Assessment: 1. Generalized weakness with falls 2. Intermittent confusion 3. Supratherapeutic INR 4. A-fib with RVR. Patient was started on Cardizem drip 5. Possible pneumonia 6. Abnormal head CT 7. History of systolic congestive heart failure 8. History of aortic valve replacement 9. History of diabetes mellitus type 2 sliding scale coverage added 10. History of CVA 11. History of chronic atrial fibrillation 12. History of COPD 13. History of hyperlipidemia 14. History of benign brain tumor resected in 1989 15. History of cardiomyopathy 16. History of bladder cancer 17. Elevated liver enzymes DVT prophylaxis eliquis. GI prophylaxis Protonix Neurology, cardiology and infectious disease services consulted
--- NOTE | 2024-08-12 10:14 | P.PN ---
Subjective Progress Note Date: 08/12/24 Principal diagnosis: Multifocal cerebral infarcts in setting of atrial fibrillation, severe pneumonia with decline in overall condition. Mr. David is an 83-year-old male with history of atrial fibrillation for which she was previously on Coumadin, history of stroke, brain tumor, cancer, diabetes, deep venous thrombosis, gastroesophageal reflux disease, hyperlipidemia, hypertension, pneumonia. Patient was admitted to [facility] on August 03 status post 2 falls. He apparently did not suffer any seizure or altered mental status at the time of the falls but when he was brought to the hospital he developed altered mental status. He was seen by neurology on August 04 and received an electroencephalogram which revealed focal slowing over the left frontal lobe with generalized slowing as well and he was placed on Keppra 5 mg every 12 hours. He was noted to be more awake on August 06 but had confusion on August 07 and August 09. Today on follow-up, the patient is arousable. He will focus on the examiner and will follow one-step commands. He has difficulty following more complex commands. He has severely garbled speech and is not able to be intelligible. His INR was elevated at 9.8 yesterday but has declined precipitously to 1.7 as of this morning. He is off of Coumadin and has been given vitamin K repletion. He is considered a good candidate for Eliquis to resume instead of Coumadin. He also underwent a carotid ultrasound on August 07 revealing less than 50% stenosis bilaterally. Echocardiogram revealed ejection fraction of 40 to 45%. When seen initially by myself on August 10, he was continued on Keppra for the consideration of possible seizures, and an MRI was to be considered if he stabilizes. Unfortunately since that time, he has made some decline with regards to his mental status and breathing situation. His chest x-ray continues to show opacification of the left lung, though he is white blood cell count is normal and he is afebrile. His INR did stabilize at 1.7 as of August 10. The family was spoken to by the medicine team yesterday and his power of business attorney is considering hospice placement at this time. On reevaluation August 12, the patient is minimally arousable to sternal rub. He will not verbalize or focus on the examiner, and will not follow commands. He does attempt to localize with his left hand to sternal rub, and will withdraw both left and right hands with minimal strength. He will withdraw his bilateral feet as well, but does not move to command. He has sonorous respirations. His granddaughter was in the room and I spoke with her about his condition. He is DO NOT RESUSCITATE, and though he may have a chance for some improvement if his pneumonia were treated, I believe it would likely require ICU admission with intubation. She was understanding of this and understands that her [id number] has chosen to consider hospice for the patient. Assessment: Mr. Luther is an 83-year-old male status post multifocal embolic cerebral infarcts. He has a history of atrial fibrillation and was previously anticoagulated with Coumadin. However his INR was significantly elevated though he does not appear to suffer intracerebral hemorrhages at this time. His INR precipitously declined to 1.7 as of this morning. Plan: 1. The patient is currently being assessed for hospice services as his respiratory status is declining and in the situation of his multifocal infarcts, it would be uncertain what his overall clinical status is should this be cor rected, which likely would require ICU admission and intubation. 2. Neurology will tentatively sign off this patient. Please reconsult if acute or concerning neurologic issues exist. Objective - Vital Signs Vital signs: Vital Signs Temp 97.8 F 08/12/24 03:38 Pulse 124 H 08/12/24 03:38 Resp 17 08/12/24 03:38 BP 144/64 08/12/24 03:38 Pulse Ox 91 L 08/12/24 03:38 FiO2 Intake & Output 08/11/24 08/12/24 08/12/24 18:59 06:59 18:59 Intake Total 0 Output Total 300 500 Balance -300 -500 Weight 90.8 kg Intake: Oral 0 Output: Urine 300 500 Other: Voiding Method External Catheter External Catheter # Voids 1 # Bowel Movements 1 - Labs CBC & Chem 7: 08/12/24 05:57 08/12/24 05:57 Labs: Abnormal Lab Results - Last 24 Hours (Table) 08/11/24 08/11/24 08/11/24 Range/Units 11:27 16:37 20:02 WBC (3.8-10.6) k/uL RBC (4.30-5.90) m/uL Hgb (13.0-17.5) gm/dL Hct (39.0-53.0) % MCHC (31.0-37.0) g/dL RDW (11.5-15.5) % Neutrophils # (1.3-7.7) k/uL Lymphocytes # (1.0-4.8) k/uL PT (10.0-12.5) sec INR (<1.2) ABG pO2 (83-108) mmHg ABG Total CO2 (19-24) mmol/L ABG O2 Saturation (94-97) % Hemoglobin (13.0-17.5) gm/dL Sodium (137-145) mmol/L Chloride (98-107) mmol/L BUN (9-20) mg/dL Glucose (74-99) mg/dL POC Glucose (mg/dL) 150 H 141 H 112 H (70-110) mg/dL Calcium (8.4-10.2) mg/dL ALT (4-49) U/L Alkaline Phosphatase (38-126) U/L Total Protein (6.3-8.2) g/dL Albumin (3.5-5.0) g/dL 08/12/24 08/12/24 08/12/24 Range/Units 04:54 05:51 05:57 WBC (3.8-10.6) k/uL RBC (4.30-5.90) m/uL Hgb (13.0-17.5) gm/dL Hct (39.0-53.0) % MCHC (31.0-37.0) g/dL RDW (11.5-15.5) % Neutrophils # (1.3-7.7) k/uL Lymphocytes # (1.0-4.8) k/uL PT 14.8 H (10.0-12.5) sec INR 1.4 H (<1.2) ABG pO2 66 L (83-108) mmHg ABG Total CO2 26 H (19-24) mmol/L ABG O2 Saturation 90.1 L (94-97) % Hemoglobin 8.9 L (13.0-17.5) gm/dL Sodium (137-145) mmol/L Chloride (98-107) mmol/L BUN (9-20) mg/dL Glucose (74-99) mg/dL POC Glucose (mg/dL) 133 H (70-110) mg/dL Calcium (8.4-10.2) mg/dL ALT (4-49) U/L Alkaline Phosphatase (38-126) U/L Total Protein (6.3-8.2) g/dL Albumin (3.5-5.0) g/dL 08/12/24 08/12/24 Range/Units 05:57 05:57 WBC 14.3 H (3.8-10.6) k/uL RBC 3.23 L (4.30-5.90) m/uL Hgb 9.0 L (13.0-17.5) gm/dL Hct 29.8 L (39.0-53.0) % MCHC 30.4 L (31.0-37.0) g/dL RDW 15.8 H (11.5-15.5) % Neutrophils # 13.2 H (1.3-7.7) k/uL Lymphocytes # 0.6 L (1.0-4.8) k/uL PT (10.0-12.5) sec INR (<1.2) ABG pO2 (83-108) mmHg ABG Total CO2 (19-24) mmol/L ABG O2 Saturation (94-97) % Hemoglobin (13.0-17.5) gm/dL Sodium 147 H (137-145) mmol/L Chloride 119 H (98-107) mmol/L BUN 30 H (9-20) mg/dL Glucose 121 H (74-99) mg/dL POC Glucose (mg/dL) (70-110) mg/dL Calcium 11.5 H (8.4-10.2) mg/dL ALT 78 H (4-49) U/L Alkaline Phosphatase 149 H (38-126) U/L Total Protein 5.2 L (6.3-8.2) g/dL Albumin 2.4 L (3.5-5.0) g/dL
[2024-08-12 11:14] VITALS: BP 133/90; PULSE 112; RESP 22
[2024-08-12 11:48] LABS: Glucose,Whole Blood 136 mg/dL (70-110)
--- NOTE | 2024-08-13 12:00 | P.PN ---
Subjective Progress Note Date: 08/12/24 Principal diagnosis: Reason for follow-up is pneumonia Patient is 83-year-old male with a past medical history significant for diabetes mellitus hypertension hyperlipidemia CVA TIA atrial fibrillation patient has been brought into the hospital after pending the patient did have a fall with weakness, patient did have some abnormality on the CT of the brain chest x-ray with right basilar infiltrate concerning for possible pneumonia. On today's evaluation that is 08/12/2024,the patient remains to be afebrile patient seem to be breathing comfortably is currently on 5 L nasal cannula oxygen patient is lethargic unable provide any history no vomiting diarrhea or any other changes reported. The patient white count is 14.3 creatinine 0.99 chest x-ray from yesterday did shows complete whiteout of the left lung with right middle and lower lung patchy opacities Objective - Vital Signs Vital signs: Vital Signs Temp 97.8 F 08/12/24 08:00 Pulse 112 H 08/12/24 08:00 Resp 22 08/12/24 08:00 BP 133/90 08/12/24 08:00 Pulse Ox 92 L 08/12/24 08:00 FiO2 Intake & Output 08/11/24 08/12/24 08/12/24 18:59 06:59 18:59 Intake Total 0 Output Total 300 500 400 Balance -300 -500 -400 Weight 90.8 kg Intake: Oral 0 Output: Urine 300 500 400 Other: Voiding Method External Catheter External Catheter External Catheter # Voids 1 # Bowel Movements 1 - Exam GENERAL DESCRIPTION: An elderly male lying in bed in no distress RESPIRATORY SYSTEM: Unlabored breathing , decreased breath sounds at bases HEART: S1 S2 regular rate and rhythm , ABDOMEN: Soft , no tenderness EXTREMITIES: No edema feet - Labs CBC & Chem 7: 08/12/24 05:57 08/12/24 05:57 Labs: Abnormal Lab Results - Last 24 Hours (Table) 08/11/24 08/11/24 08/12/24 Range/Units 16:37 20:02 04:54 WBC (3.8-10.6) k/uL RBC (4.30-5.90) m/uL Hgb (13.0-17.5) gm/dL Hct (39.0-53.0) % MCHC (31.0-37.0) g/dL RDW (11.5-15.5) % Neutrophils # (1.3-7.7) k/uL Lymphocytes # (1.0-4.8) k/uL PT (10.0-12.5) sec INR (<1.2) ABG pO2 66 L (83-108) mmHg ABG Total CO2 26 H (19-24) mmol/L ABG O2 Saturation 90.1 L (94-97) % Hemoglobin 8.9 L (13.0-17.5) gm/dL Sodium (137-145) mmol/L Chloride (98-107) mmol/L BUN (9-20) mg/dL Glucose (74-99) mg/dL POC Glucose (mg/dL) 141 H 112 H (70-110) mg/dL Calcium (8.4-10.2) mg/dL ALT (4-49) U/L Alkaline Phosphatase (38-126) U/L Total Protein (6.3-8.2) g/dL Albumin (3.5-5.0) g/dL 08/12/24 08/12/24 08/12/24 Range/Units 05:51 05:57 05:57 WBC 14.3 H (3.8-10.6) k/uL RBC 3.23 L (4.30-5.90) m/uL Hgb 9.0 L (13.0-17.5) gm/dL Hct 29.8 L (39.0-53.0) % MCHC 30.4 L (31.0-37.0) g/dL RDW 15.8 H (11.5-15.5) % Neutrophils # 13.2 H (1.3-7.7) k/uL Lymphocytes # 0.6 L (1.0-4.8) k/uL PT 14.8 H (10.0-12.5) sec INR 1.4 H (<1.2) ABG pO2 (83-108) mmHg ABG Total CO2 (19-24) mmol/L ABG O2 Saturation (94-97) % Hemoglobin (13.0-17.5) gm/dL Sodium (137-145) mmol/L Chloride (98-107) mmol/L BUN (9-20) mg/dL Glucose (74-99) mg/dL POC Glucose (mg/dL) 133 H (70-110) mg/dL Calcium (8.4-10.2) mg/dL ALT (4-49) U/L Alkaline Phosphatase (38-126) U/L Total Protein (6.3-8.2) g/dL Albumin (3.5-5.0) g/dL 08/12/24 08/12/24 Range/Units 05:57 11:45 WBC (3.8-10.6) k/uL RBC (4.30-5.90) m/uL Hgb (13.0-17.5) gm/dL Hct (39.0-53.0) % MCHC (31.0-37.0) g/dL RDW (11.5-15.5) % Neutrophils # (1.3-7.7) k/uL Lymphocytes # (1.0-4.8) k/uL PT (10.0-12.5) sec INR (<1.2) ABG pO2 (83-108) mmHg ABG Total CO2 (19-24) mmol/L ABG O2 Saturation (94-97) % Hemoglobin (13.0-17.5) gm/dL Sodium 147 H (137-145) mmol/L Chloride 119 H (98-107) mmol/L BUN 30 H (9-20) mg/dL Glucose 121 H (74-99) mg/dL POC Glucose (mg/dL) 136 H (70-110) mg/dL Calcium 11.5 H (8.4-10.2) mg/dL ALT 78 H (4-49) U/L Alkaline Phosphatase 149 H (38-126) U/L Total Protein 5.2 L (6.3-8.2) g/dL Albumin 2.4 L (3.5-5.0) g/dL Assessment and Plan (1) Pneumonia Status: Acute Code(s): J18.9 - PNEUMONIA, UNSPECIFIED ORGANISM SNOMED Code(s): 906988831 Plan: 1patient presented to hospital with weakness and fall in this patient did have some bibasilar infiltrate noticed to have a congested cough possible component of pneumonia not entirely excluded. 2patient did have some confusion with abnormality seen on the CT concerning for subdural hygroma, with MRI suggestive of multiple ischemic infarct concerning for possible embolic phenomena and chronic hygroma with some midline shift keeping in mind the patient did have worsening of his mentation may benefit from repeat CT today showed no evidence of any worsening hematoma, neurology is on the case 3patient did have respiratory status with a chest x-ray did shows complete whiteout of the left lung and opacity concerning for aspiration pneumonia pulmonary has been consulted antibiotic was switched to Zosyn prognosis remains to be guarded Dictation was produced using [employer] dictation software. please excuse any gramm atical, word or spelling errors. Time with Patient: Less than 30
--- NOTE | 2024-08-17 16:52 | CDI ---
Documentation Clarification Form Date: 08/17/2024 From: Liliana Vu Contact via Sazze Email: [email or web address] Admit Date: 08/03/2024 12:43:00 PM Patient Name: Kel David Visit Number: [id number] Discharge Date: 08/12/2024 12:54:00 PM ATTENTION: The Clinical Documentation Specialists (CDI) and [facility] Coding Staff appreciate your assistance in clarifying documentation. Please respond to the clarification below the line at the bottom and electronically sign. The CDI & [facility] Coding staff will review the response and follow-up if needed. Please note: Queries are made part of the Legal Health Record. If you have any questions, please contact the author of this message via ITS. Doctor/Provider: Taylor Nava The patient has pneumonia, metabolic encephalopathy and acute respiratory failure. Based on this information and the findings below, is there an additional diagnosis that is clinically appropriate for this patient? History/Risk Factors: 83yo w/ a h/o a-fib presented with falls, weakness, and confusion. Pt was admitted for CVA, pneumonia, metabolic encephalopathy and acute respiratory failure. Clinical Indicators: H&P noted a-fib w/ RVR, possible pneumonia, and intermittent confusion. ID consult noted congestive cough, pneumonia not entirely excluded. Pulm consult 07/13 noted concern for aspiration pneumonia, increased oxygen demands, diminished left lung sounds, rhonchorous, tachypneic and diaphoretic. Pt was comatose on 08/12 and transitioned to hospice care. WBC: 08/03 11.8, 08/04 8.6, 08/10 12.0 Lactic acid: 08/03 2.2 Blood cultures: No growth at 5 days Vitals signs: 08/03 @ 1149 110, 18, 123/63, 96% on RA 08/04 @ 0732 98.0, 99, 16, 122/65, 99% on RA 08/10 @ 2348 98.6, 116, 20, 154/76, 90 on 6L NC CXR 08/03: Improving bibasilar infiltrates greater on the left, improving pleural effusions CXR 08/11: Complete whiteout of the left lung with right mid and lower lung patchy airspace opacities. Mild right pleural effusion. Findings concerning with pneumonia. Treatment: Zithromax IV, Rocephin IV, Zosyn IV, IV fluid bolus, Cardizem gtt Is there an additional diagnosis that is clinically appropriate for this patient? [x ] Sepsis, present on admission [ ] Sepsis, developed during stay, not present on admission [ ] Severe Sepsis with organ failure [ ] No additional diagnosis/not clinically significant [ ] Other, please specify [ ] Unable to determine SIRS Criteria: 2 or more of the following may indicate SIRS Temperature < 96.8F (36C) or > 101.0F (38.3C) Heart Rate > 90 bpm Respiratory Rate > 20 breaths/min or PaCO2 < 32 mmHg White Blood Cell Count > 12,000 or < 4,000 cells/mm3 or > 10% bands (Template Last Reviewed: August 2022) MTDD
--- NOTE | 2024-08-18 09:18 | P.DS ---
Providers Date of admission: 08/03/24 12:43 Expected date of discharge: 08/12/24 Attending physician: Taylor Nava Consults: 08/03/24 15:59 Consult Physician Routine Consulting Provider: Eladio Isaac Consult Reason/Comments: afib rvr Do you want consulting provider notified?: Yes 08/04/24 08:08 Consult Physician Routine Consulting Provider: Blane Hernandez Consult Reason/Comments: confusion. abdnormal head CT Do you want consulting provider notified?: Yes 08/04/24 09:29 Consult Physician Routine Consulting Provider: Isabel Callahan Consult Reason/Comments: pneumonia Do you want consulting provider notified?: Yes 08/09/24 10:05 Consult Physician Routine Consulting Provider: Lv Celis Consult Reason/Comments: elevated INR Do you want consulting provider notified?: Yes 08/11/24 14:21 Consult Physician Routine Consulting Provider: Katerine Levine Consult Reason/Comments: worsening pna Do you want consulting provider notified?: Yes 08/11/24 17:09 Consult Physician Routine Consulting Provider: Mitchel Gallardo Consult Reason/Comments: pneumonia Do you want consulting provider notified?: Yes Primary care physician: Taylor Nava Hospital Course: discharge diagnosis 1. Generalized weakness with falls 2. Intermittent confusion 3. Supratherapeutic INR 4. A-fib with RVR. Patient was started on Cardizem drip 5. Possible pneumonia 6. Abnormal head CT 7. History of systolic congestive heart failure 8. History of aortic valve replacement 9. History of diabetes mellitus type 2 sliding scale coverage added 10. History of CVA 11. History of chronic atrial fibrillation 12. History of COPD 13. History of hyperlipidemia 14. History of benign brain tumor resected in 1989 15. History of cardiomyopathy 16. History of bladder cancer 17. Elevated liver enzymes Hospital course Beto David is an 83-year-old male patient who presented to the hospital with concerns of falls weakness and increased confusion. According to family member at bedside patient had 2 episodes of falls yesterday patient unable to recall event. Patient usually is independent ANO x 3 patient does have a history of atrial fibrillation maintained on Coumadin which has been on hold since last week due to elevated INR. Additional medical history includes CVA, diabetes mellitus, DVT, GERD, hyperlipidemia, hypertension and pneumonia. Chest x-ray completed showing improving basilar infiltrates greater on left improving pleural effusions head CT completed showing chronic right subdural hematoma with mild mass effect upon the adjacent cortex measuring a maximal thickness of 1.5 cm no definitive acute hemorrhage remote ischemic change involving the right cerebellum and left frontal lobe similar to prior MRI. Lab work revealing white blood cell 11.8, hemoglobin 10.2 INR significantly elevated at 7.1, sodium 134 potassium 5.4 bun 44, creatinine 1.1 lactic acid 2.2 and elevated liver enzymes AST 158, ALT 156 and alkaline phosphatase 168. At this time patient has been admitted cardiology, infectious disease and neurology services all consulted. At this time patient will be started back on IV antibiotics. Will order liver ultrasound. Repeat labs ordered On 08/04/2024 patient is alert but confused. Family at bedside. Patient has been transitioned oral home medication Cardizem DC'd per cardiology. Repeat labs pending. Patient denies chest pain or shortness of breath. Patient denies nausea vomiting or diarrhea. Patient denies any urinary burning frequency. Current vital signs temp 98.0, heart rate 99, respiratory rate 16, blood pressure 122/65 with a pulse ox of 99% on room air On 08/05/2024 patient remains confused sitter at bedside resting comfortably in bed. Patient was evaluated by neurology services EEG and MRI has been ordered. Patient remains on azithromycin and Rocephin infectious disease services following. Current vital signs temp 98.0, heart rate 80, respiratory rate 20, blood pressure 111/65 with a pulse ox of 97% on room air. Lab work currently pending On 08/06/2024 patient was seen and examined on the medical floor he is alert slightly confused in no apparent distress he is answering questions more appropriately today there is no fever or chills no headache or dizziness no chest pain no shortness of breath no cough no nausea or vomiting no abdominal pain no diarrhea and no urinary symptoms On 08/07/2024 patient remains confused. MRI was completing awaiting neurology input. Current vital signs temp 98.2, heart rate 105, respiratory rate 18, blood pressure 136/78 with a pulse ox of 93% on room air. Patient denies chest pain or shortness of breath. Patient denies nausea vomiting or diarrhea. Patient denies any urinary burning or frequency. On 08/08/2024 patient was seen and examined on the medical floor he is somnolent arousable slightly confused in no apparent distress, there is no fever or chills no headache or dizziness no chest pain no shortness of breath he has occasional cough no nausea or vomiting no abdominal pain no diarrhea no urinary symptoms. Medication and labs were reviewed. Continue with current management possible transfer to senior care for rehab in the next 48 hours. On 08/09/2024 patient remains confused resting in bed. Patient denies chest pain or shortness of breath. Patient denies nausea vomiting or diarrhea. Patient denies any urinary burning or frequency patient remains on IV Rocephin and IV Keppra. Infectious disease, neurology services following. On 08/10/2024 patient was seen and examined on the medical floor he is somnolent responsive slightly confused in no apparent distress, he answers few questions and he returns to sleep, there is no fever or chills no headache or dizziness no chest pain no shortness of breath no cough no nausea or vomiting no abdominal pain no diarrhea and no urinary symptoms. INR today is down to 1.7, patient was started on Eliquis 2.5 mg twice daily per cardiology recommendation, sodium today is up to 150 patient has very low oral intake, IV fluids switched to 0.45 at 75 cc/h, patient encouraged to take more free water with his diet. on 08/11/2024 patient remains confused sleepy in bed. INR today 1.4. Patient remains on eliquis. Patient has been switched to half-normal saline for hypernatremia.current vital signs temp 97.2, heart rate 83, respiratory rate 18, pressure 132/72 with pulse ox 92% on 6 L On 08/12/2024 patient remains more lethargic today does not wake up follow any commands. Sodium has improved to 147 patient remains lethargic. Family requesting hospice at this time. patient will be admitted to hospice care Plan - Discharge Summary Discharge Rx Participant: Yes New Discharge Prescriptions: No Action metFORMIN HCL [Glucophage] 500 mg PO BID Warfarin [Coumadin] 5 mg PO DIRECTED Atorvastatin [Lipitor] 40 mg PO DAILY lisinopriL [Zestril] 10 mg PO DAILY Docusate [Colace] 100 mg PO DAILY Metoprolol Tartrate [Lopressor] 25 mg PO BID Multivit-Min/FA/Lycopen/Lutein [Centrum Silver Tablet] 1 tab PO DAILY Furosemide [Lasix] 20 mg PO DAILY Discharge Medication List metFORMIN HCL [Glucophage] 500 mg PO BID 03/29/17 [History] Atorvastatin [Lipitor] 40 mg PO DAILY 05/17/17 [History] Warfarin [Coumadin] 5 mg PO DIRECTED 05/17/17 [History] Docusate [Colace] 100 mg PO DAILY 08/03/24 [History] Furosemide [Lasix] 20 mg PO DAILY 08/03/24 [History] Metoprolol Tartrate [Lopressor] 25 mg PO BID 08/03/24 [History] Multivit-Min/FA/Lycopen/Lutein [Centrum Silver Tablet] 1 tab PO DAILY 08/03/24 [History] lisinopriL [Zestril] 10 mg PO DAILY 08/03/24 [History] Follow up Appointment(s)/Referral(s): Joaquim Sewell MD [STAFF PHYSICIAN] - 2 Weeks Taylor Nava MD [Primary Care Provider] - 1-2 days Discharge Disposition: [facility] TO [facility]
== END 2024-08-12 12:54 | disposition hospice, inpatient (51) | DRG 871 ==
LOC: EC 09:13 → 4SSUR 12:43 → 3SCARD 19:41 → 4SSUR 08-04 14:51 → 1SOBS 08-04 17:40 → 3SCARD 08-04 18:19 → 4SSUR 08-04 20:57 → 1SOBS 08-05 07:39 → 4SSUR 08-06 15:34 → 3SCARD 08-07 22:14
PROVIDERS: ADMIT Internal Medicine; ATTEND Internal Medicine
PROC: 4A10X4Z Monitoring of Central Nervous Electrical Activity, External Approach (ICD-10-PCS; principal; 2024-08-04)
DX: A41.9 Sepsis, unspecified organism (principal); G93.41 Metabolic encephalopathy; J18.9 Pneumonia, unspecified organism; J96.01 Acute respiratory failure with hypoxia; I48.20 Chronic atrial fibrillation, unspecified; J44.0 Chronic obstructive pulmonary disease with (acute) lower respiratory infection; I50.22 Chronic systolic (congestive) heart failure; D68.9 Coagulation defect, unspecified; E87.0 Hyperosmolality and hypernatremia; G96.08 Other cranial cerebrospinal fluid leak; I42.8 Other cardiomyopathies; R62.7 Adult failure to thrive; Z79.01 Long term (current) use of anticoagulants; R79.1 Abnormal coagulation profile; I11.0 Hypertensive heart disease with heart failure; E78.5 Hyperlipidemia, unspecified; R74.8 Abnormal levels of other serum enzymes; Z85.51 Personal history of malignant neoplasm of bladder; E11.9 Type 2 diabetes mellitus without complications; R74.01 Elevation of levels of liver transaminase levels; E87.8 Other disorders of electrolyte and fluid balance, not elsewhere classified; G93.89 Other specified disorders of brain; I25.10 Atherosclerotic heart disease of native coronary artery without angina pectoris; Z66 Do not resuscitate; I27.20 Pulmonary hypertension, unspecified; R29.6 Repeated falls; Y92.009 Unspecified place in unspecified non-institutional (private) residence as the place of occurrence of the external cause; Z79.84 Long term (current) use of oral hypoglycemic drugs; Z79.899 Other long term (current) drug therapy; Z82.49 Family history of ischemic heart disease and other diseases of the circulatory system; Z86.011 Personal history of benign neoplasm of the brain; Z85.841 Personal history of malignant neoplasm of brain; I08.1 Rheumatic disorders of both mitral and tricuspid valves; W01.0XXA Fall on same level from slipping, tripping and stumbling without subsequent striking against object, initial encounter; Z86.718 Personal history of other venous thrombosis and embolism; D18.1 Lymphangioma, any site; K21.9 Gastro-esophageal reflux disease without esophagitis; Z86.73 Personal history of transient ischemic attack (TIA), and cerebral infarction without residual deficits; Z87.891 Personal history of nicotine dependence; Z95.1 Presence of aortocoronary bypass graft; Z95.3 Presence of xenogenic heart valve; Z87.01 Personal history of pneumonia (recurrent)
CPT/HCPCS: 36415; 36600; 70450; 70553; 71045; 71046; 76705; 80048; 80053; 80061; 81001; 82140; 82607; 82746; 82805; 83036; 83605; 83735; 84443; 85025; 85610; 85730; 87040; 87086; 93005; 93306; 93880; 94760; 95816; 96361; 96365; 96366; 96367; 96368; 96375; 96376; 99285

== ENCOUNTER 2024-08-12 11:11 | Inpatient (IN) | payer MEDICAID ==
[2024-08-12] MEDS ORDERED: MORPHINE SULFATE 2 MG/ML SYRINGE IV PRN (12:20)
[2024-08-12] MEDS ORDERED: LORazepam 2 MG/ML INJ IV PRN (12:20)
[2024-08-12] MEDS ORDERED: GLYCOPYRROLATE 0.2 MG/ML 2 ML VIAL IVP PRN (12:20)
[2024-08-12] MEDS ORDERED: ATROPINE OPHTH SOLN 1% 5ML BTL SUBLINGUAL PRN (12:20)
[2024-08-12] MEDS: MORPHINE SULFATE (100 MG/2 ML) 100 MG in SODIUM CHLORIDE 0.9% 100 ML IV SCH (14:16)
[2024-08-12] MEDS: SCOPOLAMINE 1 MG/72 HR PATCH TRANSDERM SCH (16:07)
[2024-08-12 16:15] VITALS: PULSE 60
[2024-08-12 19:35] VITALS: RESP 22
== END 2024-08-12 21:05 | disposition expired | DRG 951 ==
LOC: 3SCARD 12:56
PROVIDERS: ADMIT Internal Medicine; ATTEND Internal Medicine
DX: Z51.5 Encounter for palliative care (principal); J18.9 Pneumonia, unspecified organism; I50.22 Chronic systolic (congestive) heart failure; I48.20 Chronic atrial fibrillation, unspecified; J44.0 Chronic obstructive pulmonary disease with (acute) lower respiratory infection; I42.9 Cardiomyopathy, unspecified; R74.01 Elevation of levels of liver transaminase levels; R79.1 Abnormal coagulation profile; E11.9 Type 2 diabetes mellitus without complications; R53.1 Weakness; R29.6 Repeated falls; Z91.81 History of falling; K21.9 Gastro-esophageal reflux disease without esophagitis; Z95.2 Presence of prosthetic heart valve; Z79.01 Long term (current) use of anticoagulants; Z85.51 Personal history of malignant neoplasm of bladder